=== PATIENT | female | born 1985 | race Caucasian/White ===

== ENCOUNTER 2020-04-19 10:17 | Inpatient (IN) | payer BC ==
[~2020-04-19] VITALS: Ht 160 cm; Wt 78.0 kg
--- NOTE | ~2020-04-19 | [place] ---
[address] [address] [place] DATE OF OPERATION: 04/21/2020 SURGEON: Christine Marino DO PREOPERATIVE DIAGNOSES: 1. Term . 2. Breech presentation. 3. Fibroid uterus. POSTOPERATIVE DIAGNOSES: 1. Term . 2. Breech presentation. 3. Fibroid uterus-pedunculated. PROCEDURES PERFORMED: 1. Low vertical delivery. 2. Myomectomy. BAG CUTTER: Yahaira Uriostegui DO. ANESTHESIA: Spinal with TAP block following the procedure. COMPLICATIONS: None. ESTIMATED BLOOD LOSS: 700 mL. DRAINS: Black catheter. SPECIMENS: None. FINDINGS: Delivery of viable male in the carrie breech presentation with no nuchal cord. Thick meconium noted. weighed 10 pounds 0 ounces with Apgars of 8 and 9. Normal bilateral tubes and ovaries. The uterus has a large, irregular, pedunculated PATIENT NAME: RAYNA HENAO OPERATIVE REPORT DATE OF : 83 REPORT #: [id number] PHYSICIAN: CHRISTINE MARINO DO PCP: DANIEL LINDQUIST REPORT IS CONFIDENTIAL AND NOT TO BE RELEASED WITHOUT AUTHORIZATION [address] [address] [place] fibroid on the anterior surface on the right near the fundus. INDICATIONS: Ms. Henao is a pleasant 35-year-old white female, who presented to Labor and Delivery for scheduled primary delivery. was complicated by IVF , fibroid uterus, and persistent breech presentation. External cephalic version was offered, but was declined due to multiple concerns, including fibroids, IVF, history of hysteroscopic resection of intrauterine synechiae, and placental lakes on ultrasound. Risks, benefits, and alternatives were discussed in detail with the patient, including possible conversion from low-transverse to low midline or classical depending on fibroid location. The patient understands and wishes to proceed with the procedure. TECHNIQUE: The patient was taken to the operating room, where a time-out was performed to confirm correct patient and correct procedure. Spinal anesthetic was adequately established and the patient was prepped and draped in the supine position with a bump under the right hip. Black catheter was inserted. The patient was typed and screened prior to the procedure, tranexamic acid 1 g IV was given preoperatively as well as Ancef 2 g. Heparin was not indicated based on her preemie score. After confirming the Pfannenstiel skin incision was adequate, a surgical scalpel was used to perform a Pfannenstiel skin incision approximately 3 cm above the pubic symphysis. Incision was carried down to the fascia, where the fascia was nicked in the midline. Fascial incision was extended bilaterally with curved Grace scissors. The fascia was grasped with Blaze's, elevated, and the underlying rectus muscles were dissected off bluntly and sharply. The rectus muscles were then divided midline and the peritoneum was grasped with hemostats, elevated and incised. The peritoneal incision was extended cephalad caudad using sharp and blunt dissection. The uterus was palpated. A large mass was palpated in the low midline concerning for fibroid, which had been previously noted on ultrasound. The abdominal cavity was also palpated and a pedunculated fibroid was noted in the right fundal anterior portion of the uterus with a filmy omental adhesion. The remainder of the uterus was clear. We reviewed preoperative planning and concern for lower segment fibroid and decision was made to proceed with low vertical incision to avoid disruption of the lower segment fibroid. Low vertical incision was made using a surgical scalpel after an Ming self retractor was placed. Hysterotomy was extended bilaterally using blunt dissection and amnion was ruptured for thick meconium. The ileum was grasped, elevated, and the buttocks delivered with the assistance of fundal pressure. The was delivered up to the anterior axilla and the arm swept medially and easily delivered. The was rotated to 180 degrees and now anterior arm was swept medially and easily delivered. The was then rotated to the occiput anterior position. The head was gently flexed and delivered with the assistance of fundal pressure. The was vigorous and cried. No nuchal was identified. Cord was doubly clamped and cut and the handed to the waiting pediatric team for further PATIENT NAME: RAYNA HENAO OPERATIVE REPORT DATE OF : 83 REPORT #: [id number] PHYSICIAN: CHRISTINE MARINO DO PCP: DANIEL LINDQUIST REPORT IS CONFIDENTIAL AND NOT TO BE RELEASED WITHOUT AUTHORIZATION [facility] [address] [place], [place] [address] Draft care. Cord blood was obtained for routine analysis. The placenta was then delivered with gentle expression. The posterior lower portion of the placenta did not immediately release easily and this was carefully examined for accreta spectrum. The placenta was gently teased from the posterior wall of the uterus without difficulty with no indication of abnormal placentation, heavy bleeding, or other concerns. The placenta was delivered complete with a centrally inserted three-vessel cord. The uterine cavity was cleared of any remaining products of conception or clot and monitored for additional bleeding, of which none was noted. Hysterotomy was then repaired using 0 Monocryl in 2 layers with the 1st locked running stitch and the 2nd an imbricating stitch in the horizontal manner with good imbrication and hemostasis. A small amount of oozing was noted in the midline at the distal portion of the hysterotomy and this was made hemostatic with a shitdf-lh-plesf of 0 Monocryl. Normal tubes and ovaries identified and a very small less than 1 cm subserosal fibroid was noted in the left adnexal. Our attention was then turned to the pedunculated fibroid. Large complex appearing fibroid was noted arising from a small stalk on the anterior surface of the uterus near the right cornu. Good hemostasis was appreciated at this point of the procedure and a conversation was held with the patient and her regarding management of this fibroid. Given small stalk and potential for future complications and likely additional procedures, we have reviewed risks and benefits of myomectomy at this point versus future laparoscopic procedure. I recommended myomectomy at this time and the patient and understood and agreed. Curved Zeppelin clamps were placed across the stalk and the fibroid excised using Grace scissors. The base of the stalk was made hemostatic with suture ligation of 0 Monocryl. The area was oversewn with multiple layers of 0 Monocryl in a running nonlocked manner and then a second imbricating stitch of 0 Monocryl was applied. Small amount of oozing was noted and this was made hemostatic with a kwsdsa-mr-vqwxc of 0 Monocryl. The pelvis was irrigated and again found to be hemostatic. Tisseel was applied to the low vertical incision as well as to the site of the myomectomy and excellent hemostasis was again noted. The Ming self retractor was removed and the uterus replaced. ACell sheet was applied to the hysterotomy site and the peritoneum was reapproximated using 2-0 Vicryl in a running nonlocked manner. Rectus was examined and made hemostatic with judicious use of Bovie electrocautery. The rectus was then reapproximated in three simple interrupted sutures of 0 Vicryl. ACell powder was applied to the rectus sheath. The fascia was then reapproximated using 0 Vicryl in a running nonlocked manner. Subcu was reapproximated using 3-0 Vicryl in a running nonlocked manner after ensuring excellent hemostasis of the subcuticular space. The skin was then reapproximated using 2-0 Quill suture and a running subcuticular stitch with excellent cosmesis and hemostasis. Steri-Strips were then applied and Cordran tape was applied. The uterus could aid for scant amount of blood and the patient was taken to the PACU in good and stable condition. Sponge, needle, and instrument count was correct x2 at the end of procedure. Dr. Uriostegui was present and participated in all portions of the procedure. Of note, a TAP PATIENT NAME: RAYNA HENAO OPERATIVE REPORT DATE OF : 83 REPORT #: [id number] PHYSICIAN: CHRISTINE MARINO DO PCP: DANIEL LINDQUIST REPORT IS CONFIDENTIAL AND NOT TO BE RELEASED WITHOUT AUTHORIZATION [address] [address] [place] block was then performed by Anesthesia following the completion of our case. Christine Marino DO JDW/MODL /[id number] Copies: ~ PATIENT NAME: RAYNA HENAO OPERATIVE REPORT DATE OF : 83 REPORT #: [id number] PHYSICIAN: CHRISTINE MARINO DO PCP: DANIEL LINDQUIST REPORT IS CONFIDENTIAL AND NOT TO BE RELEASED WITHOUT AUTHORIZATION
--- OUTSIDE RECORDS SUMMARY | ~2020-04-19 | XMS | Encounter Summary ---
Demographics + + + | Address | [address] | | | [place] [address] | + + + | Home Phone | | + + + | Preferred Language | Unknown | + + + | Marital Status | | + + + | Uatsdin Affiliation | CHR | + + + | Race | White | + + + | Ethnic Group | Not or | + + + Author + + + | Author | [facility] | + + + | Organization | [facility] | + + + | Address | Unknown | + + + | Phone | Unavailable | + + + Support + + +---------+ + | Name | Relationship | Address | Phone | + + +---------+ + | Nathaniel Henao | ECON | Unknown | | + + +---------+ + Care Team Providers + +------+ + | Care Director Home Name | Role | Phone | + +------+ + | Kennedi Selby | PCP | | + +------+ + Encounter Details +--------+ + + + + | Date | Type | Department | Care Team | Description | +--------+ + + + + | 06/28/ | Documentati | [place] | Yuli Murdock MD | | | 2019 | on | Fertility | [address] | | | | | Consultants at [facility] | [address] [place], | | | | | [address] | [place] [address] | | | | | [facility] | [phone] | | | | | and [address], | | | | | | | | | | | | [place], [place] | | | | | | [address] | | | | | | [phone] | | | +--------+ + + + + Social History + +-------+ +--------+------+ | Tobacco Use | Types | Packs/Day | Years | Date | | | | | Used | | + +-------+ +--------+------+ | Never Smoker | | | | | + +-------+ +--------+------+ + +---+---+---+ | Smokeless Tobacco: | | | | | Never Used | | | | + +---+---+---+ + + +---------+ + | Alcohol Use | Drinks/Week | oz/Week | Comments | + + +---------+ + | Yes | 1 Glasses of wine | 1.0 | | + + +---------+ + + + + | Sex Assigned at | Date Recorded | | | | + + + | Not on file | | + + + documented as of this encounter Miscellaneous Notes Telephone Encounter - Joaquín Randhawa - 06/30/2019 8:07 AM PSTInventory Update: Embryos #2 @ D5 Embryos #3, #4, #5, and #6 @ D6 From 10/2018 cycle All embryos are PGT, individually frozen and graded. GLOBAL DMSO VIT elephone Encounter - Sylvie Murdock MD - 06/28/2019 9:34 AM PSTFormatting of this note might be different from the gayle hess FINAL as of 07/30/19 Name: Pushpa Henao Patients Ph#: [phone] (home) Cycle Type: FET (thawed non-donor, transcervical) GC: No Protocol: <14d OCPs, proceed to estradiol patch protocol May need additional days of estradiol & reschedule FET given thinner endometrium last cycle & uterine scar IM prog in ethyl oleate Valium 10mg 1 hour before transfer Baby aspirin 81mg starting now Vit E 600mg daily, stop when starting IM prog Dexamethasone 0.5 mg once dailystarting after IM prog start until time of BETA#2 (decreas e risk of 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 No # of embryos to transfer: 1 # of days on progesterone prior to transfer: 6 Patient approval needed to additional thaw? Yes Patient comfortable with discarding embryos? No Assisted Hatching? No LMP: No LMP recorded. OCP Start:06/25/19 Last dose OCP:07/06/19 Lupron start:NA US & E2:NA Estrace/EV Start:07/09/19 Endometrial thickness:07/27/19, repeat on 07/30. Progesterone start:07/31/19 ET Date: Cryopreserved Embryo Report: (indicate number if embryos/vial) # as of #remaining after this ET Pronuclear Day 2 Day 3 Blastocyst Inventory Update: Embryos #2 @ D5 Embryos #3, #4, #5, and #6 @ D6 From 10/2018 cycle All embryos are PGT, individually frozen and graded. GLOBAL DMSO VIT Embryo transfer date: documented in this encou nter Plan of Treatment Not on filedocumented as of this encounter Visit Diagnoses Not on filedocumented in this encounter"
--- OUTSIDE RECORDS SUMMARY | ~2020-04-19 | XMS | Encounter Summary ---
Demographics + + + | Address | [address] | | | [place] [address] | + + + | Home Phone | | + + + | Preferred Language | Unknown | + + + | Marital Status | | + + + | Confucianism Affiliation | CHR | + + + | Race | White | + + + | Ethnic Group | Not or | + + + Author + + + | Author | [facility] | + + + | Organization | [facility] | + + + | Address | Unknown | + + + | Phone | Unavailable | + + + Support + + +---------+ + | Name | Relationship | Address | Phone | + + +---------+ + | Nathaniel Henao | ECON | Unknown | | + + +---------+ + Care Team Providers + +------+ + | Care Property Caretaker Name | Role | Phone | + +------+ + | Kennedi Selby | PCP | | + +------+ + Reason for Visit + + + | Reason | Comments | + + + | Egg Retrieval | | + + + Other (Routine) + +--------+ + + + + | Status | Reason | Specialty | Diagnoses / | Referred By | Referred To | | | | | Procedures | Contact | Contact | + +--------+ + + + + | Authorized | | Reproductive | | [facility] | | | | Endocrinology | | Epic Dept | [facility] | | | | /Infertility | | | [address] | | | | | | [address] | | | | | | | for Health | | | | | | | and Healing, | | | | | | | [address], | | | | | | | 10th Floor | | | | | | | [place], [place] | | | | | | | [address] | | | | | | | Phone: | | | | | | | [phone] | | | | | | | Fax: | | | | | | | [phone] | + +--------+ + + + + Encounter Details +--------+ + + + + | Date | Type | Department | Care Team | Description | +--------+ + + + + | 10/28/ | Procedure | [place] | Yuli Murdock MD | Egg Retrieval | | 2019 | | Fertility | [address] | | | | | Consultants at [facility] | [address] [place], | | | | | [address] | [place] [address] | | | | | [facility] | [phone] | | | | | and Healing, | | | | | | | Tamara Brown MD [address] | | | | | Floor [facility] [place] | [address] | | | | | [address] | [address] [place], [place] | | | | | [phone] | [address] | | | | | | [phone] | | | | | | | | +--------+ + + + + Social History + +-------+ +--------+------+ | Tobacco Use | Types | Packs/Day | Years | Date | | | | | Used | | + +-------+ +--------+------+ | Never Assessed | | | | | + +-------+ +--------+------+ + + + | Sex Assigned at | Date Recorded | | | | + + + | Not on file | | + + + documented as of this encounter Last Filed Vital Signs + + + + + | Vital Sign | Reading | Time Taken | Comments | + + + + + | Blood Pressure | 117/68 | 10/28/2018 11:23 AM | | | | | PDT | | + + + + + | Pulse | 55 | 10/28/2018 11:23 AM | | | | | PDT | | + + + + + | Temperature | 36.7 C (98.1 F) | 10/28/2018 11:23 AM | | | | | PDT | | + + + + + | Respiratory Rate | - | - | | + + + + + | Oxygen Saturation | 99% | 10/28/2018 11:23 AM | | | | | PDT | | + + + + + | Inhaled Oxygen | - | - | | | Concentration | | | | + + + + + | Weight | 63.4 kg (139 lb 12.8 | 10/28/2018 11:23 AM | | | | oz) | PDT | | + + + + + | Height | 160 cm (5' 3") | 10/28/2018 11:23 AM | | | | | PDT | | + + + + + | Body Mass Index | 24.76 | 10/28/2018 11:23 AM | | | | | PDT | | + + + + + documented in this encounter Progress Notes Yuli Murdock MD - 10/28/2018 11:30 AM PDTFormatting of this note might be different from th e original. Pre-Operative History and Physical Pre-sedation Evaluation History: Are you having breathing problems today? Are you having chest pain or discomfort today? Have you had a prior history of difficult intubation or ventilation? Do you have noisy breathing (stridor)? no Do you snore? no Do you have documented sleep apnea? no Previous sedation/anesthesia experience and NPO status documented on nursing note, which I have reviewed. No past medical history on file. No Known Allergies Current Medication List Name Sig ACETAMINOPHEN 300 MG-CODEINE 30 MG TABLET Take 1 tablet by mouth every six hours as needed. CHORIONIC GONADOTROPIN, HUMAN 10,000 UNIT INTRAMUSCULAR SOLUTION Mix powder (10,000 units) with 1 mL diluent for intramuscular injection at time directed. DESOGESTREL 0.15 MG-ETHINYL ESTRADIOL 0.03 MG TABLET Take 1 tablet by mouth once daily. Stephen l on menses day one. Take active only pills. DOXYCYCLINE HYCLATE 100 MG TABLET Take 1 tablet by mouth every twelve hours. (Pharmacist to substitute salt form as needed) FOLLITROPIN JOE 300 UNIT/0.5 ML SUBCUTANEOUS PEN INJECTOR Inject 150 Units under the skin (SUBC) once daily. In the evenings when instructed. FOLLITROPIN JOE 900 UNIT/1.5 ML SUBCUTANEOUS PEN INJECTOR Inject 150 units under the skin (SUBC) once daily in the evenings when instructed GANIRELIX 250 MCG/0.5 ML SUBCUTANEOUS SYRINGE Inject one syringe (0.5 mL) under the skin ( SUBC) once daily. Administer when instructed. MENOTROPINS 75 UNIT SUBCUTANEOUS SOLUTION Inject 2 vials under the skin (SUBC) once daily i n the morning as instructed by your protocol. NEEDLE (DISP) 25 GAUGE X 1 1/2" Use to inject Novarel/Pregnyl. NEEDLE (DISP) 27 GAUGE X 1/2" Use to inject Menopur. SHARPS CONTAINER 1 PINT Use as directed. SYRINGE (DISPOSABLE) 3 ML Use as directed with Menopur. SYRINGE WITH NEEDLE 3 ML 25 X 1 1/2" Use as directed with Pregnyl. Patient Active Problem List Diagnosis IVF Screening Checklist Physical Examination: Bilaterally enlarged ovarian consistent with ovarian stimulation Body mass index is 24.76 kg/m. Airway Examination normal airway Assessment: I have reviewed Ms. Henao's history and and conducted the physical examination as documente d above. This patient is appropriate for moderate sedation for egg retrieval. Ms. Henao has provided written consent for sedation with this procedure. ASA Status: 1. Plan: Proceed with moderate sedation Surgical Plan egg retrieval PARQ Reviewed, consent on chart. EGG RETRIEVAL Needle Used: Double Length of Procedure: 25 min Number of Oocytes: 13 Pain Experienced (1-10): 1 Antibiotics Given: Yes Approach: transvaginal ultrasound EBL: 1ml Complications: None Bilateral iliacs intact after procedure: Yes Free Fluid Amount: None Patient identity was confirmed. Risks of procedure were explained to patient. Consent forme d was signed. Patient was placed in the modified dorsal lithotomy position. A team pause benji casper performed. Using ultrasound guidance the ovary was visualized the needle was inserted into the ovary aspiration of fluid and eggs were completed. Instruments were then removed, and p atient remained resting on table for 30 minutes; No vaginal bleeding was noted. Patient tole rated procedure well, no complications. Routine post procedure instructions given. Pt identified with date of , full name and type of procedure. Team pause with physicia n, embryologist, anesthesiologist and C.M.A. Egg Retrieval was performed on patient without complications. Written Post-retrieval instructions were discussed and given to the patient. Escorted via wheelchair to car. Patient was discharged alert and ambulatory. [facility]. Patient was discharged at 12:34pm. documented in this encoun ter Plan of Treatment Not on filedocumented as of this encounter Procedures + +--------+ + + + | Procedure Name | Priori | Date/Time | Associated Diagnosis | Comments | | | ty | | | | + +--------+ + + + | MA FOLLICLE | Routin | 11/15/2018 | Encounter for | | | PUNC,RETRIEVAL OF | e | 2:10 PM | assisted | | | OOCYTE | | PDT | reproductive | | | | | | fertility procedure | | | | | | cycle | | + +--------+ + + + | UFC RETRIEVAL | Routin | 10/28/2018 | Encounter for | Results for this | | | e | 8:58 AM | assisted | procedure are in the | | | | PDT | reproductive | results section. | | | | | fertility procedure | | | | | | cycle | | + +--------+ + + + | ANESTHESIA/SEDATION | | 10/28/2018 | | Results for this | | | | 12:00 AM | | procedure are in the | | | | PDT | | results section. | + +--------+ + + + | ANESTHESIA/SEDATION | | 10/28/2018 | | Results for this | | | | 12:00 AM | | procedure are in the | | | | PDT | | results section. | + +--------+ + + + documented in this encounter Results UFC RETRIEVAL (10/28/2018 8:58 AM PDT) + + | Specimen | + + | | + + + + + | Narrative | Performed At | + + + | Refer to the encounter notes for imaging results. | [facility] | | | RADIOLOGY | + + + + +---------+ + + | Performing | Address | City/State/Zipcode | Phone Number | | Organization | | | | + +---------+ + + | [facility] | | | | + +---------+ + + ANESTHESIA/SEDATION (10/28/2018 12:00 AM PDT) + + + | Narrative | Performed At | + + + | | | + + + ANESTHESIA/SEDATION (10/28/2018 12:00 AM PDT) + + + | Narrative | Performed At | + + + | | | + + + documented in this encounter Visit Diagnoses + + | Diagnosis | + + | Encounter for assisted reproductive fertility procedure cycle - Primary | + + documented in this encounter
--- OUTSIDE RECORDS SUMMARY | ~2020-04-19 | XMS | Encounter Summary ---
Demographics + + + | Address | [address] | | | [place] [address] | + + + | Home Phone | | + + + | Preferred Language | Unknown | + + + | Marital Status | | + + + | Tenriism Affiliation | CHR | + + + | Race | White | + + + | Ethnic Group | Not or | + + + Author + + + | Author | [facility] | + + + | Organization | [facility] | + + + | Address | Unknown | + + + | Phone | Unavailable | + + + Support + + +---------+ + | Name | Relationship | Address | Phone | + + +---------+ + | Nathaniel Henao | ECON | Unknown | | + + +---------+ + Care Team Providers + +------+ + | Care Market Manager Name | Role | Phone | + +------+ + | Parth Selbya CHIO | PCP | | + +------+ + Reason for Visit + +--------+ + | Reason | Onset | Comments | | | Date | | + +--------+ + | Surgery Concerns | 11/24/ | | | | 2019 | | + +--------+ + Encounter Details +--------+ + + + + | Date | Type | Department | Care Team | Description | +--------+ + + + + | 11/24/ | Telephone | [place] | Yuli Murdock MD | Surgery Concerns | | 2019 | | Fertility | [address] | | | | | Consultants at [facility] | [address] [place], | | | | | [address] | [place] [address] | | | | | [facility] | [phone] | | | | | and Healing, | | | | | | Building | | | | | | Floor [place], [place] | | | | | | [address] | | | | | | [phone] | | | +--------+ + + + [...] this encounter Miscellaneous Notes Telephone Encounter - Seth Peck RN - 11/24/2018 5:02 PM PDTReviewed with , kristie brito received. Pt informed via mychart. elephone Encounter - Seth Peck RN - 11/24/2018 1:08 PM PDTHysteroscopy jason nned for this here at [facility]. Pt relayed symptoms starting yesterday, after intercour se with partner. Slight vaginal itchiness and irritation. No discharge noted. No new lubrica tion products used. Pt has not has this before and is wondering if she needs to do anything prior to the upcoming procedure. Reviewed with pt increasing probiotic intake for now. Route d to MD for further advisement. elephone Encounter - Nicole Olivas - 11/24/2018 12:28 PM PDT Pt has some concerns and isn't sure she should go through procedure w/ Dr. Murdock. Pt believes she may need to be seen by her PCP before her procedure. And isn't sure if the procedure sayra uld be performed by her PCP Pt available all day today Home Phone Work Phone documented in this enco unter Plan of Treatment Not on filedocumented as of this encounter Visit Diagnoses Not on filedocumented in this encounter"
--- OUTSIDE RECORDS SUMMARY | ~2020-04-19 | XMS | Encounter Summary ---
Demographics + + + | Address | [address] | | | [place] [address] | + + + | Home Phone | | + + + | Preferred Language | Unknown | + + + | Marital Status | | + + + | Jehovah'S Witness Affiliation | CHR | + + + | Race | White | + + + | Ethnic Group | Not or | + + + Author + + + | Author | [facility] | + + + | Organization | [facility] | + + + | Address | Unknown | + + + | Phone | Unavailable | + + + Support + + +---------+ + | Name | Relationship | Address | Phone | + + +---------+ + | Nathaniel Henao | ECON | Unknown | | + + +---------+ + Care Team Providers + +------+ + | Care Day Care Provider Name | Role | Phone | + +------+ + | Kennedi Selby | PCP | | + +------+ + Reason for Visit + + + | Reason | Comments | + + + | Ultrasound | | + + + Other (Routine) [...] | | | | | | | [facility] [place] | | | | | | | [address] | | | | | | | Phone: | | | | | | | [phone] | | | | | | | Fax: | | | | | | | [phone] | + +--------+ + + + + Encounter Details +--------+ + + + + | Date | Type | Department | Care Team | Description | +--------+ + + + + | 01/15/ | Procedure | [facility] | Maura Portillo MD | Ultrasound | | 2019 | | Fertility | [address] | | | | | Consultants at [facility] | [place], [place] | | | | | [address] | [address] | | | | | [facility] | [phone] | | | | | and Healing, | | | | | | [address], [address]th | | | | | | Floor [place], [place] | | | | | | [address] | | | | | | [phone] | | | +--------+ + + + [...] + + documented as of this encounter Progress Notes Dalia Newby MA - 01/15/2019 10:00 AM PDTFormatting of this note might be different f rom the original. ENDOCRINE MANAGEMENT PROGRESS NOTE 01/15/2019 Day of stimulation: ARC, ENDO check. US/P4. FET Estrace only. d5/6. snow[place]/dg Comments: Indication: endo check for future FET Approach: transvaginal Systems checklist: negative for uterine polyps, myomas, fluid in cavity, ovarian mass and f luid in cul-de-sac. Estradiol level: Lab Results Component Value Date ESTRADIOL 2,385 10/26/2018 Progesterone level: Lab Results Component Value Date PROG <1 01/15/2019 FOLLICLE EXAMINATION / ENDOMETRIAL THICKNESS Endometrial thickness: 7.5, 7.7, 7.4, 8.1 Grade: III LARGEST FOLLICLES (Measured in Millimeters) RIGHT OVARY VOLUME: LEFT OVARY VOLUME: 1 mean 1 mean 2 mean 2 mean 3 mean 3 mean 4 mean 4 mean 5 mean 5 mean 6 mean 6 mean 7 mean 7 mean 8 mean 8 mean 9 mean 9 mean 10 mean 10 mean Additional Follicles: Additional Follicles: Total Follicles: Total Follicles: Interpretation: Lining borderline thickness. Trilaminar pattern. Sl irreg s/p recent H/S. Ovaries supp bilat. Plan: probably add a few days of vag E 2mg once daily and push out FET a few days. Pt is w orking , Wed, Thurs of following week and is driving from [employer]. I personally performed all components of this scan, Maura Portillo MD. documented in this encou nter Plan of Treatment Not on filedocumented as of this encounter Procedures + +--------+ + + + | Procedure Name | Priori | Date/Time | Associated Diagnosis | Comments | | | ty | | | | + +--------+ + + + | [facility] PELVIS | Routin | 01/15/2019 | Encounter for | Results for this | | ULTRASOUND | e | 7:27 AM | assisted | procedure are in the | | | | PDT | reproductive | results section. | | | | | fertility procedure | | | | | | cycle | | + +--------+ + + + documented in this encounter Results [facility] PELVIS ULTRASOUND (01/15/2019 7:27 AM PDT) + + | Specimen | [...] | | | + +---------+ + + documented in this encounter Visit Diagnoses + + | Diagnosis | + + | Encounter for assisted reproductive fertility procedure cycle - Primary | + + | Female infertility Female infertility of unspecified origin | + + documented in this encounter"
--- OUTSIDE RECORDS SUMMARY | ~2020-04-19 | XMS | Encounter Summary ---
Demographics + + + | Address | [address] | | | [place] [address] | + + + | Home Phone | | + + + | Preferred Language | Unknown | + + + | Marital Status | | + + + | Baptism Affiliation | CHR | + + + | Race | White | + + + | Ethnic Group | Not or | + + + Author + + + | Author | [facility] | + + + | Organization | [facility] | + + + | Address | Unknown | + + + | Phone | Unavailable | + + + Support + + +---------+ + | Name | Relationship | Address | Phone | + + +---------+ + | Nathaniel Henao | ECON | Unknown | | + + +---------+ + Care Team Providers + +------+ + | Care Pouncing Lathe Operator Name | Role | Phone | + +------+ + | Kennedi Selby | PCP | | + +------+ + Reason for Visit Other (Routine) + +--------+ + + + + | Status | Reason | Specialty | Diagnoses / | Referred By | Referred To | | | | | Procedures | Contact | Contact | + +--------+ + + + + | Authorized | | Reproductive | | [facility] | [facility] | | | | Endocrinology | | Epic Dept | [facility] | | | | /Infertility | | | [address] | | | | | | | e [place] | | | | | | | for Health | | | | | | | and Healing, | | | | | | | [address], | | | | | | | 10th Floor | | | | | | | [place], [place] | | | | | | | [address] | | | | | | | Phone: | | | | | | | [phone] | | | | | | | Fax: | | | | | | | [phone] | + +--------+ + + + + Encounter Details +--------+ + + + + | Date | Type | Department | Care Team | Description | +--------+ + + + + | 03/02/ | Telephone-S | [place] | [facility] | | | 2019 | cheduled | Fertility | [address] | | | | | Consultants at [facility] | [place] [address] | | | | | [address] | | | | | | [facility] | | | | | | and Healing, | | | | | | Building | | | | | | [place], [place] | | | | | | [address] | | | | | | [phone] | | | +--------+ + + + [...] + + documented as of this encounter Plan of Treatment Not on filedocumented as of this encounter Procedures + +--------+ + + + | Procedure Name | Priori | Date/Time | Associated Diagnosis | Comments | | | ty | | | | + +--------+ + + + | OUTSIDE LAB - | | 03/02/2019 | | Results for this | | PATHOLOGY | | 12:00 AM | | procedure are in the | | | | PDT | | results section. | + +--------+ + + + documented in this encounter Results OUTSIDE LAB - PATHOLOGY (03/02/2019 12:00 AM PDT) + + + | Narrative | Performed At | + + + | | | + + + documented in this encounter Visit Diagnoses Not on filedocumented in this encounter"
--- OUTSIDE RECORDS SUMMARY | ~2020-04-19 | XMS | Encounter Summary ---
Demographics + + + | Address | [address] | | | [place] [address] | + + + | Home Phone | | + + + | Preferred Language | Unknown | + + + | Marital Status | | + + + | Yazidi Affiliation | CHR | + + + | Race | White | + + + | Ethnic Group | Not or | + + + Author + + + | Organization | Unknown | + + + | Address | Unknown | + + + | Phone | Unavailable | + + + Support + + +---------+ + | Name | Relationship | Address | Phone | + + +---------+ + | Nathaniel Henao | GE[place] | Unknown | | + + +---------+ + Care Team Providers + +------+ + | Care Curriculum Development Specialist Name | Role | Phone | + +------+ + | Kennedi Selby | PCP | | + +------+ + Encounter Details +--------+--------+ + + + | Date | Type | Department | Care Team | Description | +--------+--------+ + + + | 02/04/ | Travel | | | | | 2019 | | | | | +--------+--------+ + + + Social History + +-------+ [...]
--- OUTSIDE RECORDS SUMMARY | ~2020-04-19 | XMS | Encounter Summary ---
Demographics + + + | Address | [address] | | | [place] [address] | + + + | Home Phone | | + + + | Preferred Language | Unknown | + + + | Marital Status | | + + + | Catholic Affiliation | CHR | + + + | Race | White | + + + | Ethnic Group | Not or | + + + Author + + + | Author | [facility] | + + + | Organization | [facility] | + + + | Address | Unknown | + + + | Phone | Unavailable | + + + Support + + +---------+ + | Name | Relationship | Address | Phone | + + +---------+ + | Nathaniel Henao | ECON | Unknown | | + + +---------+ + Care Team Providers + +------+ + | Care Conveyor Attendant Name | Role | Phone | + +------+ + | Kennedi Selby | PCP | | + +------+ + Reason for Visit + +--------+ + | Reason | Onset | Comments | | | Date | | + +--------+ + | Lab findings, | 09/12/ | | | teaching, guidance, | 2018 | | | and counseling | | | + +--------+ + Encounter Details +--------+ + + + + | Date | Type | Department | Care Team | Description | +--------+ + + + + | 09/12/ | Telephone | [facility] | Yuli Murdock MD | Lab findings, | | 2019 | | Fertility | [id number] | teaching, guidance, | | | | [facility] | Barbara Mohr Emerado, | and counseling | | | | [address] | [place] [address] | | | | | [facility] | [phone] | | | | | and Healing, | | | | | | Building | | | | | | [place], [place] | | | | | | [address] | | | | | | [phone] | | | +--------+ + + + [...] this encounter Miscellaneous Notes Telephone Encounter - Anny Ying RN - 09/12/2018 10:24 AM PSTPt advised as below. Provid ed my chart activation as well. Will send information to her once activated. elephone Encounter - Yuli Murdock MD - 09/12/2018 8:39 AM PSTPlease call her w/ abn results - evidence of elevated thyroid antibod ies, indicating that she also will soon develop Hashimotos hypothyroidism like her sister an d father. Her TSH is still in the normal range right now, but will be vulnerable and less ab le to adequately support the energy and metabolic needs of her AND an embryo during pregnanc y so we recommend starting a low-dose thyroid supplement before an embryo transfer to help s upport the thyroid. Egg marker AMH level is showing a moderate decrease in egg quantity, it 's at the 38% ile compared to other age-related women. This is consistent with some shorter menstrual cycles she described, as well as being influenced negatively by an autoimmune diso rder (of the thyroid gland). Vit D is slightly lower, recommend Vit D3 4000 IU/day in additi on to PNV. Recommend the following list of additional supplements: For female partner: (in addition to a multivitamin for women with folic acid or prenatals ) DHEA 25mg twice a day CoQ10 200mg 3 times/day (Ubiquinol) - [employer] and [employer] may be more reli able brands Vit C 500mg daily [place]-3/Fish oil 500-1000mg daily - [employer] and [employer] Vit. E 200mg daily L-arginine 1-2 g daily For male partner: (in addition to a multivitamin for men) CoQ 10 200mg twice a day Vit C 500-1000mg daily [place] 3 (fish oil) 500-1000mg daily Folic acid 400 mcg and zinc 15-30 mg (both are often in multivitamins) Overall, we recommend a healthy diet with organic fruits (berries), less red meat and no tr ans fats (fried foods, doughnuts/pastries), more olive oil, avocado, fish, a handful of mixe d nuts each day, and avoiding foods cooked at very high heat with blackened/charred grill ma rks. The Environmental Working Group https://www.ewg.org/ A phenomenal resource for additional information on various toxic chemicals that may affect , male and female fertility, with important consumer information that can empower all of us to "live healthier lives in a healthier environment." A recently published study in [employer] [facility] (2018), a journal of the [place] [employer]i m[employer], found a signifcant association between consuming ngzd-lsgusgmul-gparjhq konrad ds and fertility problems among participants in the [facility] EARTH study. Women wh o reported eating >2 servings per day of produce with higher pesticide residues were 26% les s likely to have a successful than participants who ate fewer servings of these fo ods. Prior studies of male participants have also found similar concerns about the consumpti on of high pesticide-laden produce and adverse effects on male reproductive health. We recommend that you purchase ORGANIC produce for the items listed on the "Dirty Dozen Lis t:" Strawberries Spinach Nectarines Apples Peaches Pears Cherries Grapes Celery Tomatoes Sweet [place] Peppers Potatoes The "Clean 15 List" are produce that are LESS likely to be contaminated by pesticides, so o k to purchase non-organic if you wish: Avocado Sweet [place] Pineapples Cabbage Onions Frozen Sweet Peas Papayas Asparagus Mangos Eggplant Honeydew Kiwi Cantaloupe Cauliflower Broccoli Please also be informed about known endocrine disrupters (chemicals harmful to the reproduc tive system in both men and women) that may be in consumer products that we use on a daily b asis. https://www.ewg.org/research/wseib-fbysf-qahf-endocrine-disruptors#.Yv9zla-FcuV The following is a short list: - phthalates (cosmetics, lotions, soaps/shampoos) - parabens (cosmetics, lotions, soaps/shampoos) - Triphenyl phosphate (nail rwandan) - BPA (plastics, receipts, lining of canned goods) - Perfluorinated chemicals/PFOA (non-stick pots/pans, stain-resistant coatings on carpet & upholstery) documented in this encoun ter Plan of Treatment Not on filedocumented as of this encounter Visit Diagnoses Not on filedocumented in this encounter
--- OUTSIDE RECORDS SUMMARY | ~2020-04-19 | XMS | Encounter Summary ---
Demographics + + + | Address | [address] | | | [place] [address] | + + + | Home Phone | | + + + | Preferred Language | Unknown | + + + | Marital Status | | + + + | Church Affiliation | CH[employer] | + + + | Race | White | + + + | Ethnic Group | Not or | + + + Author + + + | Author | [facility] | + + + | Organization | [facility] | + + + | Address | Unknown | + + + | Phone | Unavailable | + + + Support + + +---------+ + | Name | Relationship | Address | Phone | + + +---------+ + | Nathaniel Henao | ECON | Unknown | | + + +---------+ + Care Team Providers + +------+ + | Care Toe Closing Machine Tender Name | Role | Phone | + +------+ + | Bal Kennedi CHIO | PCP | | + +------+ + Reason for Visit AUTH/CERT +--------+--------+ + + + + | Status | Reason | Specialty | Diagnoses / | Referred By | Referred To | | | | | Procedures | Contact | Contact | +--------+--------+ + + + + | | | | | | | +--------+--------+ + + + + Encounter Details +--------+ + + + + | Date | Type | Department | Care Team | Description | +--------+ + + + + | 11/27/ | Hospital | [facility] | Yuli Bettencourt MD | | | 2019 | Encounter | [address] | [address] | | | | | [address] Mailcode: [facility] | Barbara Mohr [place], | | | | | [facility] | [place] [address] | | | | | [facility], | [phone] | | | | | [place] [address] | | | | | | [place], [place] | | | | | | [address] | | | | | | [phone] | | | +--------+ + + + [...] + + + | Blood Pressure | 113/96 | 11/27/2018 11:30 AM | | | | | PDT | | + + + + + | Pulse | 52 | 11/27/2018 11:30 AM | | | | | PDT | | + + + + + | Temperature | 36.7 C (98.1 F) | 11/27/2018 10:27 AM | | | | | PDT | | + + + + + | Respiratory Rate | 16 | 11/27/2018 11:30 AM | | | | | PDT | | + + + + + | Oxygen Saturation | 100% | 11/27/2018 11:30 AM | | | | | PDT | | + + + + + | Inhaled Oxygen | - | - | | | Concentration | | | | + + + + + | Weight | 62.6 kg (138 lb) | 11/27/2018 7:05 AM | | | | | PDT | | + + + + + | Height | 160 cm (5' 3") | 11/27/2018 7:05 AM | | | | | PDT | | + + + + + | Body Mass Index | 24.45 | 11/27/2018 7:05 AM | | | | | PDT | | + + + + + documented in this encounter Discharge Instructions Discharge Instr - Day Procedure Instructions Kavitha Larose MD - 11/26/2018 11:19 PM PD TRecovering after Hysteroscopy Hysteroscopy is a procedure that is performed with a small camera that is inserted into the cervix from the vagina to look at the endometrium (the lining of the uterus). This is often done to remove endometrial polyps or fibroids to help decrease abnormal vaginal bleeding. We have provided you with this set of discharge instructions that addresses some of the mos t common concerns after your surgery. What to expect After the surgery, most women have some cramping, vaginal discharge, and nausea. You may maradiaga ve a pinkish vaginal discharge for two to three days afterward. It should not be heavy bleed ing (soaking a pad every hour for 2 hours) Pain Ibuprofen is often the only pain medication that one needs after this type of surgery. We r ecommend taking 600 mg of ibuprofen every 6 hours you are awake the first day of surgery and then every 6 hours as needed in the following days. When you can go back to work Most women can go back to work or school the following day. Activity You may not drive until you finish all narcotic medicine. No intercourse and nothing in the vagina for 2 weeks You may resume all other usual activities You may climb stairs and exercise as tolerated You may shower daily, avoid tub baths for the first 2 weeks. When to Call your doctor 1. Worsening pain or pain that is not relieved by medications. 2. Constipation that persists beyond 3 days after surgery 3. Any heavy bleeding (heavier than a period) 4. Temperature above 100.4 F 5. Any foul smelling discharge How to contact your provider If you have any concerns at home, we can be reached at during clinic hours. If you need immediate attention please tell the phone staff that the matter is urgent. The re is an communications operator staff member in the evenings and nights as well. Please reserve urgent mat ters only for evening and night calls. Please call the [facility] gasoline power shovel operator at [phone] nigh and weekends and ask for the Gynecology resident communications operator. Follow Up Dr. Bettencourt will call you with the pathology results from today's procedure. It normally takes 3 -5 business days to get the results. It is reasonable to expect a call the week following yo ur procedure. documented in this encounter Medications at Time of Discharge + + + +---------+ + + | Medication | Sig | Dispensed | Refills | Start | End Date | | | | | | Date | | + + + +---------+ + + | | Take 1 tablet by | 10 | 0 | 10/27/19 | | | acetaminophen-codein | mouth every six | tablet | | 19 | | | e 300-30 mg oral | hours as needed. | | | | | | tablet | | | | | | + + + +---------+ + + | ascorbic acid | Take 100 mg by mouth | | 0 | | | | (vitamin C) 100 mg | once daily. | | | | | | oral tablet | | | | | | + + + +---------+ + + | cholecalciferol | Vitamin D3 | | 0 | | | | (Vitamin D3) | | | | | | | (VITAMIN D3) 1,000 | | | | | | | unit oral capsule | | | | | | + + + +---------+ + + | omega | Take 1,000 mg by | | 0 | | | | 5-cxs-dmv-fish oil | mouth once daily. | | | | | | (FISH OIL) | | | | | | | 100-160-1,000 mg | | | | | | | oral capsule | | | | | | + + + +---------+ + + | | | | 0 | | | | 166-FZFQ-WZFQR | | | | | | | AC-DHA ORAL | | | | | | + + + +---------+ + + | rizatriptan 10 mg | Take 10 mg by mouth | | 0 | | | | oral tablet | as needed for | | | | | | | migraine. | | | | | + + + +---------+ + + documented as of this encounter H&P Notes Kavitha Larose MD - 11/27/2018 8:37 AM PDTI have examined the patient and reviewed the History and Physical and have confirmed that it is accurate and current. Kavitha Larose MD u, Yuli Elliott MD - 0 10/28/2018 11:30 AM PDT Pre-Operative History and Physical Pre-sedation Evaluation History: [...] modified dorsal lithotomy position. A team pause wa s performed. Using ultrasound guidance the ovary was [...] was discharged alert and ambulatory. Released to [facility] with no problems. Patient was discharged at 12:34pm. documented in this encoun ter Procedure Notes Yuli Bettencourt MD - 11/27/2018 8:40 AM PDTAssociated Order(s): ENDOMETRIAL BIOPSY; HYSTEROSC OPYProcedure(s): HYSTEROSCOPIC POLYPECTOMY OF UTERUSPre-Procedure Diagnose(s): Endometrial p olyp; Dysmenorrhea; Menorrhagia with regular cyclePost-Procedure Diagnose(s): Endometrial po lyp; Dysmenorrhea; Menorrhagia with regular cycleOPERATIVE REPORT- HYSTEROSCOPY Procedure Date: 11/27/18 Attending Physician: Yuli Bettencourt MD Assistants: Kavitha Larose MD, PGY 1 Prior to the beginning of the procedure the team paused to verify the patient's identity, a s well as the procedure to be performed and the correct side/site. All equipment required w as ready and available. Patient received pre-op antibiotics: 2g Ancef. SCDs were confirmed o n and functioning. Preoperative Diagnosis: endometrial polyps, dysmenorrhea Postoperative Diagnosis: endometrial polyps, dysmenorrhea Procedure Performed: 1. Hysteroscopy, endometrial polypectomy Findings: Exam Under Anesthesia: 6cm uterus, mobile, anteverted. Hysteroscopy Findings: 1. Uterine cavity with diffusely polypoid endometrium. 2. Bilateral ostia appeared normal. 4. Normal uterine cavity and endocervix at the end of the procedure. Anesthesia: MAC Estimated Blood Loss: minimal Urine Output: minimal Fluids: 500 ml NS Hysteroscopic fluid defecit: 305 ml LR Specimens: endometrial polyps Drains: Black in place during procedure, removed in OR Complications: None Disposition: Stable to PACU Indications: 33 y.o. G0 with menorrhagia and endometrial polyps noted on SIS presenting for hysteroscopy and polypectomy. Procedure: The patient was taken to the operating room where she was placed in dorsal supine position and MAC was induced without difficulty. She was then placed in dorsal lithotomy with Alfonzo s tirrups in a neurologically safe position. She was prepped and draped in the normal sterile fashion. A single sided speculum was placed in the vagina and a single toothed tenaculum was placed on the anterior lip of the cervix. 10 cc's of 0.25%Bupivacaine were injected for a para-cerv ical block. The cervix was dilated to 17 yemeni using Morgan dilators. A 6.25 mm 0 degree My osure hysteroscope was then placed inside the uterus under direct visualization. LR was used as the distending medium and the above findings were noted. The myosure Lite device was jason christian into the hysteroscope and the endometrial polyps were resected without difficulty. Sampl es of endometrium were taken from anterior and posterior uterine tao. The hysteroscope wa s removed from the uterus. Tissue was sent to pathology. The tenaculum was removed, and bilateral tenaculum sites were evaluated with good hemostasi s. The speculum was then removed. Anesthesia was reversed, and the patient was taken to the PACU in stable condition. Sponge, lap and needle counts were correct x 2. Yuli Bettencourt MD, primary surgeon, was scrubbed and present for the entire procedure. Kavitha Larose MD PGY-1 Obstetrics and Gynecology I was present for and operated as the primary surgeon throughout this procedure. I edited t he above operative note for clarity. I agree that the documentation above is accurate. ELICEO BETTENCOURT MD documented in this encoun ter Plan of Treatment + +---------+--------+ + + | Name | Type | Priori | Associated Diagnoses | Order Schedule | | | | ty | | | + +---------+--------+ + + | INTRAPROCEDURE | Imaging | Routin | | One Time for 1 | | IMAGING | | e | | Occurrences starting | | | | | | 11/27/2018 until | | | | | | 11/27/2018, 1 | | | | | | completed | + +---------+--------+ + + documented as of this encounter Procedures + +--------+ + + + | Procedure Name | Priori | Date/Time | Associated Diagnosis | Comments | | | ty | | | | + +--------+ + + + | SURGICAL PATHOLOGY | Routin | 11/27/2018 | | Results for this | | | e | 9:13 AM | | procedure are in the | | | | PDT | | results section. | + +--------+ + + + | HYSTEROSCOPY WITH | Electi | 11/27/2018 | N84.0 Polyp of | | | D&C WITH/WITHOUT | ve | 8:49 AM | corpus uteri and | | | POLYP REMOVAL | Surgic | PDT | N94.6 Dysmenorrhea, | | | | al | | unspecified | | + +--------+ + + + | ENDOMETRIAL BIOPSY | Routin | 11/27/2018 | | Results for this | | | e | 8:40 AM | | procedure are in the | | | | PDT | | results section. | + +--------+ + + + | HYSTEROSCOPY | Routin | 11/27/2018 | | Results for this | | | e | 8:40 AM | | procedure are in the | | | | PDT | | results section. | + +--------+ + + + | INTRAPROCEDURE | Routin | 11/27/2018 | | Results for this | | IMAGING | e | 7:10 AM | | procedure are in the | | | | PDT | | results section. | + +--------+ + + + | HCG URINE, POC | Routin | 11/27/2018 | | Results for this | | | e | 6:49 AM | | procedure are in the | | | | PDT | | results section. | + +--------+ + + + documented in this encounter Results SURGICAL PATHOLOGY (11/27/2018 9:13 AM PDT) + + + + + + | Component | Value | Ref Range | Performed | Pathologist | | | | | At | Signature | + + + + + + | Clinical | Polypoid endometrium, | | [facility] | | | History | please evaluate for | | DEPARTMENT | | | | plasma cells | | OF | | | | | | PATHOLOGY | | + + + + + + | Final | A. Endometrium, | | [facility] | Electronically | | Pathologic | polypectomy: Benign | | DEPARTMENT | signed by | | Diagnosis | endometrial polyp, see | | OF | Claire Bell, | | | comment Fragments of | | PATHOLOGY | on 12/02/2018 | | | benign smooth muscle | | | at 3:08 PM | | | Negative for | | | | | | hyperplasia, atypia, and | | | | | | malignancyComment: | | | | | | Immunohistochemistry | | | | | | performed on block A1 | | | | | | for CD138 highlights | | | | | | scattered plasma cells. | | | | | | Plasma cells may be | | | | | | seen in association with | | | | | | endometrial polyps. | | | | | | Clinical correlation is | | | | | | recommended.Case seen | | | | | | by:Satnam Mathews, Pathology | | | | | | Student Travis Mckinney | | | | | | MD Arabella - | | | | | | PathologistPathology, | | | | | | [facility] | | | | | | University electronic | | | | | | signature indicates that | | | | | | I have personally | | | | | | reviewed all diagnostic | | | | | | slides, the gross and/or | | | | | | microscopic portion of | | | | | | this report and | | | | | | formulated the final | | | | | | diagnosis. | | | | + + + + + + | Gross | Received is one specimen | | [facility] | | | Description | fresh in a container | | DEPARTMENT | | | | labeled with the | | OF | | | | patient's name (initials | | PATHOLOGY | | | | SMB) and medical record | | | | | | number [id number]. | | | | | | Uterus, polypoid | | | | | | endometrium, please | | | | | | evaluate for plasma | | | | | | cells : Received labeled | | | | | | " polypoid endometrium, | | | | | | please evaluate plasma | | | | | | cells-1" in a mesh bag | | | | | | are multiple bear-red | | | | | | fragments of soft tissue | | | | | | measuring 2.5 x 1.8 x | | | | | | 0.3 cm in aggregate. | | | | | | The specimen is filtered | | | | | | and entirely | | | | | | submitted.A1, | | | | | | filtered(AMJ) | | | | + + + + + + | Ancillary | Analyte specific | | [facility] | | | Information | reagents are used in | | DEPARTMENT | | | | many laboratory tests | | OF | | | | necessary for standard | | PATHOLOGY | | | | medical care. This test | | | | | | was developed and its | | | | | | performance | | | | | | characteristics | | | | | | determined by [facility] | | | | | | laboratories. It has | | | | | | not been cleared or | | | | | | approved by the US Food | | | | | | and Drug Administration | | | | | | (FDA). FDA does not | | | | | | require this test to go | | | | | | through premarket FDA | | | | | | review. This test is | | | | | | used for clinical | | | | | | purposes. It should not | | | | | | be regarded as | | | | | | investigational or for | | | | | | research. This | | | | | | laboratory is certified | | | | | | under the Clinical | | | | | | Laboratory Improvement | | | | | | Amendments (CLIA) as | | | | | | qualified to perform | | | | | | high complexity clinical | | | | | | laboratory testing. | | | | + + + + + + + + | Specimen | + + | Tissue - Uterine | | structure (body | | structure) | + + + + + + + | Performing | Address | City/State/Zipcode | Phone Number | | Organization | | | | + + + + + | [facility] | [address] | [place] [address] | | | PATHOLOGY | [address] | | | + + + + + HYSTEROSCOPY (11/27/2018 8:40 AM PDT) + + + | Narrative | Performed At | + + + | Yuli Bettencourt MD 12/10/2018 11:20 AM OPERATIVE REPORT- | | | HYSTEROSCOPY Procedure Date: 11/27/18 Attending Physician: | | | Yuli Bettencourt MD Assistants: Kavitha Larose MD, PGY 1 Prior to | | | the beginning of the procedure the team paused to verify the | | | patient's identity, as well as the procedure to be performed and the | | | correct side/site. All equipment required was ready and | | | available. Patient received pre-op antibiotics: 2g Ancef. SCDs were | | | confirmed on and functioning. Preoperative Diagnosis: endometrial | | | polyps, dysmenorrhea Postoperative Diagnosis: endometrial | | | polyps, dysmenorrhea Procedure Performed: 1. Hysteroscopy, | | | endometrial polypectomy Findings: Exam Under Anesthesia: 6cm | | | uterus, mobile, anteverted. Hysteroscopy Findings: 1. Uterine | | | cavity with diffusely polypoid endometrium. 2. Bilateral ostia | | | appeared normal. 4. Normal uterine cavity and endocervix at the | | | end of the procedure. Anesthesia: MAC Estimated Blood | | | Loss: minimal Urine Output: minimal Fluids: 500 ml NS Hysteroscopic | | | fluid defecit: 305 ml LR Specimens: endometrial polyps | | | Drains: Black in place during procedure, removed in OR | | | Complications: None Disposition: Stable to PACU Indications: 33 | | | y.o. G0 with menorrhagia and endometrial polyps noted on SIS | | | presenting for hysteroscopy and polypectomy. Procedure: The | | | patient was taken to the operating room where she was placed in | | | dorsal supine position and MAC was induced without difficulty. She | | | was then placed in dorsal lithotomy with Alfonzo stirrups in a | | | neurologically safe position. She was prepped and draped in the | | | normal sterile fashion. A single sided speculum was placed in the | | | vagina and a single toothed tenaculum was placed on the anterior | | | lip of the cervix. 10 cc's of 0.25%Bupivacaine were injected for a | | | para-cervical block. The cervix was dilated to 17 yemeni using Morgan | | | dilators. A 6.25 mm 0 degree Myosure hysteroscope was then placed | | | inside the uterus under direct visualization. LR was used as the | | | distending medium and the above findings were noted. The myosure | | | Lite device was placed into the hysteroscope and the endometrial | | | polyps were resected without difficulty. Samples of endometrium were | | | taken from anterior and posterior uterine tao. The hysteroscope | | | was removed from the uterus. Tissue was sent to pathology. | | | The tenaculum was removed, and bilateral tenaculum sites were | | | evaluated with good hemostasis. The speculum was then removed. | | | Anesthesia was reversed, and the patient was taken to the PACU in | | | stable condition. Sponge, lap and needle counts were correct x 2. | | | Yuli Bettencourt MD, primary surgeon, was scrubbed and present for the | | | entire procedure. Kavitha Larose MD PGY-1 Obstetrics and | | | Gynecology I was present for and operated as the primary surgeon | | | throughout this procedure. I edited the above operative note for | | | clarity. I agree that the documentation above is accurate. YULI | | | RUT CANTRELL | | + + + ENDOMETRIAL BIOPSY (11/27/2018 8:40 AM PDT) + + + | Narrative | Performed At | + + + | Yuli Bettencourt MD 12/10/2018 11:20 AM OPERATIVE REPORT- | | | HYSTEROSCOPY Procedure Date: 11/27/18 Attending Physician: | | | Yuli Bettencourt MD Assistants: Kavitha Larose MD, PGY 1 Prior to | | | the beginning of the procedure the team paused to verify the | | | patient's identity, as well as the procedure to be performed and the | | | correct side/site. All equipment required was ready and | | | available. Patient received pre-op antibiotics: 2g Ancef. SCDs were | | | confirmed on and functioning. Preoperative Diagnosis: endometrial | | | polyps, dysmenorrhea Postoperative Diagnosis: endometrial | | | polyps, dysmenorrhea Procedure Performed: 1. Hysteroscopy, | | | endometrial polypectomy Findings: Exam Under Anesthesia: 6cm | | | uterus, mobile, anteverted. Hysteroscopy Findings: 1. Uterine | | | cavity with diffusely polypoid endometrium. 2. Bilateral ostia | | | appeared normal. 4. Normal uterine cavity and endocervix at the | | | end of the procedure. Anesthesia: MAC Estimated Blood | | | Loss: minimal Urine Output: minimal Fluids: 500 ml NS Hysteroscopic | | | fluid defecit: 305 ml LR Specimens: endometrial polyps | | | Drains: Black in place during procedure, removed in OR | | | Complications: None Disposition: Stable to PACU Indications: 33 | | | y.o. G0 with menorrhagia and endometrial polyps noted on SIS | | | presenting for hysteroscopy and polypectomy. Procedure: The | | | patient was taken to the operating room where she was placed in | | | dorsal supine position and MAC was induced without difficulty. She | | | was then placed in dorsal lithotomy with Alfonzo stirrups in a | | | neurologically safe position. She was prepped and draped in the | | | normal sterile fashion. A single sided speculum was placed in the | | | vagina and a single toothed tenaculum was placed on the anterior | | | lip of the cervix. 10 cc's of 0.25%Bupivacaine were injected for a | | | para-cervical block. The cervix was dilated to 17 yemeni using Morgan | | | dilators. A 6.25 mm 0 degree Myosure hysteroscope was then placed | | | inside the uterus under direct visualization. LR was used as the | | | distending medium and the above findings were noted. The myosure | | | Lite device was placed into the hysteroscope and the endometrial | | | polyps were resected without difficulty. Samples of endometrium were | | | taken from anterior and posterior uterine tao. The hysteroscope | | | was removed from the uterus. Tissue was sent to pathology. | | | The tenaculum was removed, and bilateral tenaculum sites were | | | evaluated with good hemostasis. The speculum was then removed. | | | Anesthesia was reversed, and the patient was taken to the PACU in | | | stable condition. Sponge, lap and needle counts were correct x 2. | | | Yuli Bettencourt MD, primary surgeon, was scrubbed and present for the | | | entire procedure. Kavitha Larose MD PGY-1 Obstetrics and | | | Gynecology I was present for and operated as the primary surgeon | | | throughout this procedure. I edited the above operative note for | | | clarity. I agree that the documentation above is accurate. YULI | | | RUT CANTRELL | | + + + INTRAPROCEDURE IMAGING (11/27/2018 7:10 AM PDT) + + | Specimen | + + | | + + + + + | Narrative | Performed At | + + + | See admission or procedure notes for details of any intraprocedure | [facility] | | images obtained. | RADIOLOGY | + + + + +---------+ + + | Performing | Address | City/State/Zipcode | Phone Number | | Organization | | | | + +---------+ + + | [facility] | | | | + +---------+ + + HCG URINE, POC (11/27/2018 6:49 AM PDT) + + + + + + | Component | Value | Ref Range | Performed | Pathologist | | | | | At | Signature | + + + + + + | HCG URINE, | Negative | Negative | [facility], | | | POC | | | POINT OF | | | | | | CARE TESTS | | + + + + + + + + | Specimen | + + | Urine - Urine | | (substance) | + + + + + + + | Performing | Address | City/State/Zipcode | Phone Number | | Organization | | | | + + + + + | [facility] | [address] | [place] [address] | | | OF CARE TESTS | | | | + + + + + documented in this encounter Visit Diagnoses Not on filedocumented in this encounter Administered Medications + +--------+ + +------+------+ | Medication Order | MAR | Action | Dose | Rate | Site | | | Action | Date | | | | + +--------+ + +------+------+ | acetaminophen (TYLENOL) tablet | Given | 11/28/19 | 1,000 mg | | | | 1,000 mg 1,000 mg, oral, ONCE, 1 | | 19 7:45 | | | | | dose, Aline 11/27/18 at 0800 | | AM PDT | | | | + +--------+ + +------+------+ + +---+ | | | + +---+ | fentaNYL (SUBLIMAZE) injection | | | 25-50 mcg 25-50 mcg, | | | intravenous, POSTPROCEDURE PRN, 8 | | | doses, Starting Aline 11/27/18 at | | | 0904, Until Aline 11/27/18 at 1736, | | | severe pain while in Phase I | | | Recovery | | + +---+ | | | + +---+ + + + +---+---+---+ | lactated ringers IV 75 mL/hr, | given by | 11/28/19 | | | | | intravenous, CONTINUOUS, Starting | | 19 9:34 | | | | | Aline 11/27/18 at 0715, Until Aline | anesthes | AM PDT | | | | | 11/27/18 at 1736 | iology | | | | | + + + +---+---+---+ +---------+ +---+---+---+ | New Bag | 11/28/19 | | | | | | 19 8:46 | | | | | | AM PDT | | | | +---------+ +---+---+---+ + +---+ | | | + +---+ | lactated ringers IV 500 mL, | | | intravenous, POSTPROCEDURE PRN, 1 | | | dose, Starting Aline 11/27/18 at | | | 0904, Until Aline 11/27/18 at 1736, | | | nausea/vomiting due to | | | dehydration | | + +---+ | | | + +---+ | naloxone (NARCAN) injection | | | intravenous, POSTPROCEDURE PRN, | | | Starting Aline 11/27/18 at 0904, | | | Until Aline 11/27/18 at 1736, | | | hypopnea | | + +---+ | | | + +---+ | promethazine (PHENERGAN) | | | injection 6.25-12.5 mg 6.25-12.5 | | | mg, intravenous, POSTPROCEDURE | | | PRN, 1 dose, Starting Aline 11/27/18 | | | at 0904, Until Aline 11/27/18 at | | | 1736, nausea/vomiting, 1st line | | + +---+ | | | + +---+ + + + +---------+---+ + | scopolamine (TRANSDERM-SCOP) 1 | Applied | 11/28/19 | 1 patch | | Left | | mg over 3 days 1 patch 1 patch, | Patch | 19 7:45 | | | Post | | transdermal, ONCE, 1 dose, Aline | | AM PDT | | | Auricula | | 11/27/18 at 0800 | | | | | r | + + + +---------+---+ + +---+---+ | | | +---+---+ documented in this encounter
--- OUTSIDE RECORDS SUMMARY | ~2020-04-19 | XMS | Encounter Summary ---
Demographics + + + | Address | [address] | | | [place] [address] | + + + | Home Phone | | + + + | Preferred Language | Unknown | + + + | Marital Status | | + + + | Evangelical Affiliation | CHR | + + + | Race | White | + + + | Ethnic Group | Not or | + + + Author + + + | Author | [facility] | + + + | Organization | [facility] | + + + | Address | Unknown | + + + | Phone | Unavailable | + + + Support + + +---------+ + | Name | Relationship | Address | Phone | + + +---------+ + | Nathaniel Henao | ECON | Unknown | | + + +---------+ + Care Team Providers + +------+ + | Care Mica Miner Name | Role | Phone | + +------+ + | Kennedi Selby | PCP | | + +------+ + Encounter Details +--------+ + + + + | Date | Type | Department | Care Team | Description | +--------+ + + + + | 10/20/ | Pharmacy | [facility] | | | | 2019 | Visit | & [facility] | | | | | | [address] | | | | | | Mailcode: [place] | | | | | | [facility] and | | | | | | Healing, [address] | | | | | | [place], [place] | | | | | | [address] | | | | | | [phone] | | | +--------+ + + + [...]
--- OUTSIDE RECORDS SUMMARY | ~2020-04-19 | XMS | Encounter Summary ---
Demographics + + + | Address | [address] | | | [place] [address] | + + + | Home Phone | | + + + | Preferred Language | Unknown | + + + | Marital Status | | + + + | Caodaism Affiliation | CHR | + + + | Race | White | + + + | Ethnic Group | Not or | + + + Author + + + | Author | [facility] | + + + | Organization | [facility] | + + + | Address | Unknown | + + + | Phone | Unavailable | + + + Support + + +---------+ + | Name | Relationship | Address | Phone | + + +---------+ + | Nathaniel Henao | ECON | Unknown | | + + +---------+ + Care Team Providers + +------+ + | Care Driver/Merchandiser Name | Role | Phone | + +------+ + | Kennedi Selby | PCP | | + +------+ + Encounter Details +--------+ + + + + | Date | Type | Department | Care Team | Description | +--------+ + + + + | 10/13/ | Documentati | [place] | Yuli Murdock MD | | | 2019 | on | Fertility | [address] | | | | | Consultants at [facility] | Barbara Mohr [place], | | | | | [address] | [place] [address] | | | | | [facility] | [phone] | | | | | and [address], | | | | | | | | | | | | [place], [place] | | | | | | [address] | | | | | | [phone] | | | +--------+ + + + [...] this encounter Miscellaneous Notes Telephone Encounter - Huyen Mejía - 10/13/2018 1:25 PM PDTDocumentation encounter for sca nning IVF consent documented in this encounter Plan of Treatment Not on filedocumented as of this encounter Visit Diagnoses Not on filedocumented in this encounter"
--- OUTSIDE RECORDS SUMMARY | ~2020-04-19 | XMS | Encounter Summary ---
Demographics + + + | Address | [address] | | | [place] [address] | + + + | Home Phone | | + + + | Preferred Language | Unknown | + + + | Marital Status | | + + + | Spiritism Affiliation | CHR | + + + | Race | White | + + + | Ethnic Group | Not or | + + + Author + + + | Author | [facility] | + + + | Organization | [facility] | + + + | Address | Unknown | + + + | Phone | Unavailable | + + + Support + + +---------+ + | Name | Relationship | Address | Phone | + + +---------+ + | Nathaniel Henao | ECON | Unknown | | + + +---------+ + Care Team Providers + +------+ + | Care Chief Radiation Therapist Name | Role | Phone | + +------+ + | Kennedi Selby | PCP | | + +------+ + Encounter Details +--------+ + + + + | Date | Type | Department | Care Team | Description | +--------+ + + + + | 02/16/ | Telephone | [place] | Yuli Murdock MD | | | 2019 | | Fertility | [address] | | | | | Consultants at [facility] | Barbara Mohr [place], | | | | | [address] | [place] [address] | | | | | [facility] | [phone] | | | | | and [address], | | | | | | | | | | | | [place], [place] | | | | | | [address] | | | | | | [phone] | | | +--------+ + + + [...] Telephone Encounter - Seth Peck RN - 02/16/2019 2:39 PM PDTLab review with : GIANNI 3.21 Bhcg 2490 P4 55.5 Drawn on 02/14/19 Orders to repeat bhcg in 2 weeks. Called patient and reviewed. Lab ordered and faxed to [facility]. Mock apt made. Electronica llanny signed by Seth Peck RN at 02/16/2019 3:12 PM PDTdocumented in this encounter Plan of Treatment + +------+--------+ + + | Name | Type | Priori | Associated Diagnoses | Order Schedule | | | | ty | | | + +------+--------+ + + | HCG BETA QUANT, | Lab | Urgent | Missed | Ordered: 02/16/2019 | | PLASMA | | | | | + +------+--------+ + + documented as of this encounter Visit Diagnoses + + | Diagnosis | + + | Missed - Primary | + + documented in this encounter"
--- OUTSIDE RECORDS SUMMARY | ~2020-04-19 | XMS | Encounter Summary ---
Demographics + + + | Address | [address] | | | [place] [address] | + + + | Home Phone | | + + + | Preferred Language | Unknown | + + + | Marital Status | | + + + | Confucianist Affiliation | CHR | + + + | Race | White | + + + | Ethnic Group | Not or | + + + Author + + + | Author | [facility] | + + + | Organization | [facility] | + + + | Address | Unknown | + + + | Phone | Unavailable | + + + Support + + +---------+ + | Name | Relationship | Address | Phone | + + +---------+ + | Nathaniel Henao | ECON | Unknown | | + + +---------+ + Care Team Providers + +------+ + | Care Machine Stuffer Automatic Name | Role | Phone | + +------+ + | Kennedi Selby | PCP | | + +------+ + Encounter Details +--------+ + + + + | Date | Type | Department | Care Team | Description | +--------+ + + + + | 11/10/ | MyChart | Fertility at [facility] | Shira Drew, | RE:PGT-A (PGS) | | 2019 | Encounter | [address] | MS,CGC [address] | results | | | | [facility] | [facility] | | | | | and Healing, | [place], [place] | | | | | [facility] | [address] | | | | | [place], [place] | | | | | | [address] | | | | | | [phone] | | | +--------+ + + + [...]
--- OUTSIDE RECORDS SUMMARY | ~2020-04-19 | XMS | Encounter Summary ---
Demographics + + + | Address | [address] | | | [place] [address] | + + + | Home Phone | | + + + | Preferred Language | Unknown | + + + | Marital Status | | + + + | Anabaptist Affiliation | CHR | + + + | Race | White | + + + | Ethnic Group | Not or | + + + Author + + + | Author | [facility] | + + + | Organization | [facility] | + + + | Address | Unknown | + + + | Phone | Unavailable | + + + Support + + +---------+ + | Name | Relationship | Address | Phone | + + +---------+ + | Nathaniel Henao | ECON | Unknown | | + + +---------+ + Care Team Providers + +------+ + | Care Artist Agent Name | Role | Phone | + +------+ + | Parth Selbya CHIO | PCP | | + +------+ + Reason for Visit + +--------+ + | Reason | Onset | Comments | | | Date | | + +--------+ + | Financial Review | 09/29/ | | | | 2019 | | + +--------+ + Encounter Details +--------+ + + + + | Date | Type | Department | Care Team | Description | +--------+ + + + + | 09/29/ | Telephone | [place] | Yuli Murdock MD | Financial Review | | 2019 | | Fertility | [address] | | | | | Consultants at [facility] | [address] [place], | | | | | [address] | [place] [address] | | | | | [facility] | [phone] | | | | | and Healing, | | | | | | Building | | | | | | [place], [place] | | | | | | [address] | | | | | | [phone] | | | +--------+ + + + [...] this encounter Miscellaneous Notes Telephone Encounter - Reji Anne - 09/29/2018 4:42 PM PDT Today I met with pt and partner to discuss IVF/ICSI/+/- PGS x1- maybe 2 . I was able to pro vide them with cost estimates for Embryo Freeze All, Embryo thaw/. We discussed that medicat ion is not included in these cost estimations and typically ranges between $3,500-$6,000 per cycle and can go higher than that. I also reminded them effective November 22, 2016 [facility] will no longer be accepting ahn or check payments in clinic. Please come prepared to pay with c redit or debit card. If you are making a large payment, you may need to notify your bank of the large transaction. I was also able to provide them with information and cost estimates for ARC packages/financ ing. Let them know that these packages do not cover medication. I ve encouraged them to co ntact me if there are any additional questions later on. Embryo Freeze All Cycle Clinical fees Endocrine Management $950.00 Venipuncture - Blood Draw ($26 each x 6) $156.00 Follicular Scan ($325 each x 6) $1,950.00 Oocyte (Egg) Retrieval $700.00 Operative Medications $262.00 SART Recording Fee $50.00 Anesthesia $565.00 Clinical fees per IVF cycle Estimated Total $4,633.00 Andrology/Embryology Laboratory Fees per IVF cycle Embryo Culture Egg Recovery $850.00 Sperm Prep $180.00 Embryo Culture & Fertilization $1,100.00 Extended Culture $400.00 Embryo Cryopreservation $1500.00 Hormone Assays Estradiol ($80 each x 6) $480.00 Progesterone ($85 each x 2) ICSI $170.00 $1,600.00 Andrology/Embryology Laboratory Fees per IVF cycle Estimated Total $6,280.00 ESTIMATED TOTAL AMOUNT $10,913.00 Separate services and fees in addition to the standard cycle fees are the following: ? If donor sperm is used for the cycle, a consultation with a licensed Fertility [facility] Provider is required. ? If purchasing sperm from an outside facility, fees may vary ? Medication cost per cycle are estimated to be the following o between $3,500-$6,000 for the Directed Egg Donor o between $250-$450 for the Gestation Carrier. ? Any outside testing or procedures needed for patient and partner are separate and will be billed to the patient directly. ? Assisted hatching, if needed is $400. ? If more than 15 eggs are frozen, the cryopreservation fee is $1,500 DISCLOSURE: The actual fees and services outlined in the Financial Conditions are subject t o change at any time and are only an estimation of a standard cycle as each cycle is unique. If medically necessary procedures and/or complications develop as a result of the cycle, t he patient will be responsible for full customary hospital, pharmaceutical and physician fee s. FET (interview) Embryo Thaw and Transfer Estrace or Estrace/Lupron Endocrine Management $354.00 Follicular Scan ($325.00 x 2) $650.00 Venipuncture ($26.00 x 2) $52.00 Embryo Transfer $600.00 SART Recording Fee $50.00 Clinical fees per IVF cycle Estimated Total $1,706.00 Andrology/Embryology Laboratory Fees per IVF cycle Embryo Thaw $250.00 Embryo Transfer $400.00 Hormone Assay Estradiol $80.00 Progesterone $85.00 HCG $60.00 Andrology/Embryology Laboratory Fees per IVF cycle Estimated Total $875.00 ESTIMATED TOTAL AMOUNT $2,581.00 Separate services and fees in addition to the standard cycle fees are the following: ? If donor sperm is used for the cycle, a consultation with a licensed Fertility [facility] Provider is required. ? If purchasing sperm from an outside facility, fees may vary ? Medication cost per cycle are estimated to be the following o between $3,500-$6,000 for the Directed Egg Donor o between $250-$450 for the Gestation Carrier. ? Any outside testing or procedures needed for patient and partner are separate and will be billed to the patient directly. ? Assisted hatching, if needed is $400. DISCLOSURE: The actual fees and services outlined in the Financial Conditions are subject t o change at any time and are only an estimation of a standard cycle as each cycle is unique. If medically necessary procedures and/or complications develop as a result of the cycle, t he patient will be responsible for full customary hospital, pharmaceutical and physician fee s. documented in this encounte r Plan of Treatment Not on filedocumented as of this encounter Visit Diagnoses Not on filedocumented in this encounter"
--- OUTSIDE RECORDS SUMMARY | ~2020-04-19 | XMS | Encounter Summary ---
Demographics + + + | Address | [address] | | | [place] [address] | + + + | Home Phone | | + + + | Preferred Language | Unknown | + + + | Marital Status | | + + + | Lutheran Affiliation | CHR | + + + | Race | White | + + + | Ethnic Group | Not or | + + + Author + + + | Author | [facility] | + + + | Organization | [facility] | + + + | Address | Unknown | + + + | Phone | Unavailable | + + + Support + + +---------+ + | Name | Relationship | Address | Phone | + + +---------+ + | Nathaniel Henao | ECON | Unknown | | + + +---------+ + Care Team Providers + +------+ + | Care Welder First Class Name | Role | Phone | + [...] | | Reproductive | | Non-[facility] | [facility] | | | | Endocrinology | | Epic Dept | Faculty [facility] | | | | /Infertility | | | [address] | | | | | | | e [place] | | | | | | | for Health | | | | | | | and Healing, | | | | | | | [address], | | | | | | | 10th Floor | | | | | | | [place], [place] | | | | | | | [address] | | | | | | | Phone: | | | | | | | [phone] | | | | | | | Fax: | | | | | | | [phone] | + +--------+ + + + + Encounter Details +--------+ + + + + | Date | Type | Department | Care Team | Description | +--------+ + + + + | 11/02/ | Telephone-S | [place] | Benitez Barcenas MD | No Show | | 2019 | cheduled | Fertility | [address] | | | | | Consultants at [facility] | [facility] [place] | | | | | [address] | [address] | | | | | [facility] | [phone] | | | | | and Healing, | | | | | | | | | | | | [place], [place] | | | | | | [address] | | | | | | [phone] | | | +--------+ + + + [...] + | OUTSIDE LAB - | | 11/02/2018 | | | | GENETICS | | 12:00 AM | | | | | | PDT | | | + +--------+ + + + documented in this encounter Results OUTSIDE LAB - GENETICS (11/02/2018 12:00 AM PDT) + + + | Narrative | Performed At | + + + | | | + + + documented in this encounter Visit Diagnoses Not on filedocumented in this encounter"
--- OUTSIDE RECORDS SUMMARY | ~2020-04-19 | XMS | Encounter Summary ---
Demographics + + + | Address | [address] | | | [place] [address] | + + + | Home Phone | | + + + | Preferred Language | Unknown | + + + | Marital Status | | + + + | Jainism Affiliation | CHR | + + + | Race | White | + + + | Ethnic Group | Not or | + + + Author + + + | Author | [facility] | + + + | Organization | [facility] | + + + | Address | Unknown | + + + | Phone | Unavailable | + + + Support + + +---------+ + | Name | Relationship | Address | Phone | + + +---------+ + | Nathaniel Henao | ECON | Unknown | | + + +---------+ + Care Team Providers + +------+ + | Care Chemical Cell Changer Name | Role | Phone | + [...] | | Reproductive | | Non-[facility] | [facility] | | | | Endocrinology | | Epic Dept | Faculty [facility] | | | | /Infertility | | | [address] | | | | | | | e [place] | | | | | | | for Health | | | | | | | and Healing, | | | | | | | [address], | | | | | | | 10th Floor | | | | | | | [place], [place] | | | | | | | [address] | | | | | | | Phone: | | | | | | | [phone] | | | | | | | Fax: | | | | | | | [phone] | + +--------+ + + + + Encounter Details +--------+ + + + + | Date | Type | Department | Care Team | Description | +--------+ + + + + | 10/22/ | Procedure | [facility] | | | | 2019 | | Fertility | | | | | | Consultants at [facility] | | | | | | [address] | | | | | | [place] for [facility] | | | | | | and Healing, | | | | | | [facility] | | | | | | Floor [place], [place] | | | | | | [address] | | | | | | [phone] | | | +--------+ + + + [...] documented as of this encounter Progress Notes Caitlin [place], RDMS - 10/22/2018 10:00 AM PDTFormatting of this note might be different fr om the original. ENDOCRINE MANAGEMENT PROGRESS NOTE 10/22/2018 Day of stimulation: ARC,Cycle Day#6, US/E2 (cycle day #[address] Murdock). HMG2/LEQ504/ antag/Novarel/Freeze/TESE(with back up fresh TESE and Donor sperm). PGS? Mathieu/Prince. NOTE: Embryo logy, please discuss with Dr. Murdock and patient prior to proceeding with PGS, please see specif ic notes in updated protocol. Thank you. UPDATE DR. ALVAREZ as approp. Comments: CD 6 Indication: IVF Approach: transvaginal Systems checklist: negative for uterine polyps, myomas, fluid in cavity, ovarian mass and f luid in cul-de-sac. Estradiol level: Lab Results Component Value Date ESTRADIOL 657 10/22/2018 Progesterone level: No results found for: PROG FOLLICLE EXAMINATION / ENDOMETRIAL THICKNESS Endometrial thickness: 7.2mm pedunculated fibroid 38f10fl Grade: I LARGEST FOLLICLES (Measured in Millimeters) RIGHT OVARY VOLUME: 95n17rh LEFT OVARY VOLUME: 94m58no 1 11 mean 1 10 mean 2 10 mean 2 7 mean 3 9 mean 3 9 mean 4 8 mean 4 13.5 mean 5 8 mean 5 mean 6 9 mean 6 mean 7 7 mean 7 mean 8 10 mean 8 mean 9 mean 9 mean 10 mean 10 mean Additional Follicles: Additional Follicles: Total Follicles: Total Follicles: Interpretation: early in stim Plan: begin antag this am Otherwise cont same RT 2d I, Grady Antonio MD, performed all aspects of this ultrasound. documented in this encou nter Plan of Treatment Not on filedocumented as of this encounter Procedures + +--------+ + + + | Procedure Name | Priori | Date/Time | Associated Diagnosis | Comments | | | ty | | | | + +--------+ + + + | [facility] | Routin | 10/22/2018 | In vitro | Results for this | | ULTRASOUND | e | 7:44 AM | fertilization | procedure are in the | | | | PDT | | results section. | + +--------+ + + + documented in this encounter Results [facility] PELVIS ULTRASOUND (10/22/2018 7:44 AM PDT) + + | Specimen | + + | | + + + + + | Narrative | Performed At | + + + | Refer to the encounter notes for imaging results. | | + + + documented in this encounter Visit Diagnoses + + | Diagnosis | + + | In vitro fertilization - Primary Encounter for assisted reproductive fertility | | procedure cycle | + + | Encounter for assisted reproductive fertility procedure cycle | + + documented in this encounter"
--- OUTSIDE RECORDS SUMMARY | ~2020-04-19 | XMS | Encounter Summary ---
Demographics + + + | Address | [address] | | | [place] [address] | + + + | Home Phone | | + + + | Preferred Language | Unknown | + + + | Marital Status | | + + + | Orthodoxy Affiliation | CHR | + + + | Race | White | + + + | Ethnic Group | Not or | + + + Author + + + | Author | [facility] | + + + | Organization | [facility] | + + + | Address | Unknown | + + + | Phone | Unavailable | + + + Support + + +---------+ + | Name | Relationship | Address | Phone | + + +---------+ + | Nathaniel Henao | ECON | Unknown | | + + +---------+ + Care Team Providers + +------+ + | Care Clinical Informatics Specialist Name | Role | Phone | [...] | | Reproductive | | Non[facility] | [facility] | | | | Endocrinology | | Epic Dept | Faculty [facility] | | | | /Infertility | | | [address] | | | | | | | e [place] | | | | | | | for Health | | | | | | | and Healing, | | | | | | | [address], | | | | | | | 10th Floor | | | | | | | [place], [place] | | | | | | | [address] | | | | | | | Phone: | | | | | | | [phone] | | | | | | | Fax: | | | | | | | [phone] | + +--------+ + + + + Encounter Details +--------+ + + + + | Date | Type | Department | Care Team | Description | +--------+ + + + + | 03/16/ | Telephone-S | [place] | [facility] | | | 2019 | cheduled | Fertility | [address] | | | | | Consultants at [facility] | [place] [address] | | | | | [address] | | | | | | [facility] | | | | | | and Healing, | | | | | | Building | | | | | | [place], [place] | | | | | | [address] | | | | | | [phone] | | | +--------+ + + + [...] | + +--------+ + + + | LAB REPORTS | | 03/16/2019 | | Results for this | | | | 12:00 AM | | procedure are in the | | | | PDT | | results section. | + +--------+ + + + documented in this encounter Results LAB REPORTS (03/16/2019 12:00 AM PDT) + + + | Narrative | Performed At | + + + | | | + + + documented in this encounter Visit Diagnoses Not on filedocumented in this encounter"
--- OUTSIDE RECORDS SUMMARY | ~2020-04-19 | XMS | Encounter Summary ---
Demographics + + + | Address | [address] | | | [place] [address] | + + + | Home Phone | | + + + | Preferred Language | Unknown | + + + | Marital Status | | + + + | Mu-Ism Affiliation | CHR | + + + | Race | White | + + + | Ethnic Group | Not or | + + + Author + + + | Author | [facility] | + + + | Organization | [facility] | + + + | Address | Unknown | + + + | Phone | Unavailable | + + + Support + + +---------+ + | Name | Relationship | Address | Phone | + + +---------+ + | Nathaniel Henao | ECON | Unknown | | + + +---------+ + Care Team Providers + +------+ + | Care Sealer Dry Cell Name | Role | Phone | + +------+ + | Kennedi Selby | PCP | | + +------+ + Encounter Details +--------+ + + + + | Date | Type | Department | Care Team | Description | +--------+ + + + + | 10/19/ | Hospital | Diagnostic Imaging | Grady Antonio MD | | | 2019 | Encounter | Services [address] | | | | | [address] | [place], [place] | | | | | [place], [place] | [address] | | | | | [address] | [phone] | | | | | | | [...] + + documented as of this encounter Medications at Time of Discharge + + + +---------+ + + | Medication | Sig | Dispensed | Refills | Start | End Date | | | | | | Date | | + + + +---------+ + + | Alcohol Swabs | Use to cleanse skin | 100 | | 10/01/19 | | | topical pads, | and vials. | each | | 19 | 9 | | medicatedIndications | | | | | | | : Encounter for | | | | | | | assisted | | | | | | | reproductive | | | | | | | fertility procedure | | | | | | | cycle | | | | | | + [...] + | [facility] PELVIS | Routin | 10/19/2018 | Encounter for | Results for this | | ULTRASOUND | e | 6:21 AM | assisted | procedure are in the | | | | PDT | reproductive | results section. | | | | | fertility procedure | | | | | | cycle | | + +--------+ + + + documented in this encounter Results [facility] PELVIS ULTRASOUND (10/19/2018 6:21 AM PDT) + + | Specimen | + + | | + + + + + | Narrative | Performed At | + + + | Refer to the encounter notes for imaging results. | | + + + documented in this encounter Visit Diagnoses Not on filedocumented in this encounter"
--- OUTSIDE RECORDS SUMMARY | ~2020-04-19 | XMS | Encounter Summary ---
Demographics + + + | Address | [address] | | | [place] [address] | + + + | Home Phone | | + + + | Preferred Language | Unknown | + + + | Marital Status | | + + + | Restorationist Affiliation | CHR | + + + | Race | White | + + + | Ethnic Group | Not or | + + + Author + + + | Author | [facility] | + + + | Organization | [facility] | + + + | Address | Unknown | + + + | Phone | Unavailable | + + + Support + + +---------+ + | Name | Relationship | Address | Phone | + + +---------+ + | Nathaniel Henao | ECON | Unknown | | + + +---------+ + Care Team Providers + +------+ + | Care Manager Net Name | Role | Phone | + +------+ + | Kennedi Selby | PCP | | + +------+ + Encounter Details +--------+ + + + + | Date | Type | Department | Care Team | Description | +--------+ + + + + | 09/09/ | Telephone | [place] | Yuli Murdock MD | | | 2020 | | Fertility | [address] | | | | | Consultants at [facility] | [address] [place], | | | | | [address] | [place] [address] | | | | | [facility] | [phone] | | | | | and [address], | | | | | | | | | | | | Floor [place], [place] | | | | | | [address] | | | | | | [phone] | | | +--------+ + + + [...]
--- OUTSIDE RECORDS SUMMARY | ~2020-04-19 | XMS | Encounter Summary ---
Demographics + + + | Address | [address] | | | [place] [address] | + + + | Home Phone | | + + + | Preferred Language | Unknown | + + + | Marital Status | | + + + | Religion Affiliation | CHR | + + + | Race | White | + + + | Ethnic Group | Not or | + + + Author + + + | Author | [facility] | + + + | Organization | [facility] | + + + | Address | Unknown | + + + | Phone | Unavailable | + + + Support + + +---------+ + | Name | Relationship | Address | Phone | + + +---------+ + | Nathaniel Henao | ECON | Unknown | | + + +---------+ + Care Team Providers + +------+ + | Care Carpenter Helper Hardwood Flooring Name | Role | Phone | + +------+ + | Kennedi Selby | PCP | | + +------+ + Reason for Visit + + + | Reason | Comments | + + + | Obstetric US Scan | | + + + Other (Routine) [...] | | | | | | | [place], [place] | | | | | | | [address] | | | | | | | Phone: | | | | | | | [phone] | | | | | | | Fax: | | | | | | | [phone] | + +--------+ + + + + Encounter Details +--------+ + + + + | Date | Type | Department | Care Team | Description | +--------+ + + + + | 09/17/ | Procedure | University | Yuli Murdock MD | Obstetric US Scan | | 2019 | | Fertility | [address] | | | | | Consultants at [facility] | [address] [address] [place], | | | | | [address] | [place] [address] | | | | | [facility] | [phone] | | | | | and Healing, | | | | | | Building , | | | | | | Floor [place], [place] | | | | | | [address] | | | | | | [phone] | | | +--------+ + + + [...] on file | | + + + + + + + | COVID-19 Exposure | Response | Date Recorded | + + + + | In the last month, have you been in contact | No / Unsure | 09/18/2019 11:35 AM | | with someone who was confirmed or | | PDT | | suspected to have Coronavirus / COVID-19? | | | + + + + documented as of this encounter Progress Notes Yuli Murdock MD - 09/18/2019 12:00 PM PDTFormatting of this note might be different from vivi robert original. Obstetrical Ultrasound 09/18/2019 Indication: IVF ET date: 08/06/2019 LMP: No LMP recorded. Gestational Age: 8w5d EDC: 04/23/2020 VB has resolved after last week. +nausea, no emesis. 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 Will change to vaginal progesterone; continue estra ce until end of 12 weeks. Transition to OB Care. IYuli MD, personally performed all components of this procedure. documented in this encoun ter Plan of Treatment Not on filedocumented as of this encounter Procedures + +--------+ + + + | Procedure Name | Priori | Date/Time | Associated Diagnosis | Comments | | | ty | | | | + +--------+ + + + | [facility] OB ULTRASOUND | Routin | 09/18/2019 | | Results for this | | | e | 7:46 AM | examination or test, | procedure are in the | | | | PDT | | results section. | | | | | unconfirmed | | + +--------+ + + + documented in this encounter Results TSH (09/18/2019 1:32 PM PDT) + +-------+ + + + | Component | Value | Ref Range | Performed | Pathologist | | | | | At | Signature | + +-------+ + + + | TSH | 1.07 | 0.39 - 4.17 | [facility] | | | | | mIU/L | LABORATORY | | | | | | SERVICES, | | | | | | CORE | | + +-------+ + + + + + | Specimen | + + | Blood - Blood | | (substance) | + + + + + | Narrative | Performed At | + + + | TSH reference ranges are influenced by a variety of environmental | [facility] | | influences, age, gender and ethnicity. The supplied reference limits | LABORATORY | | are based on published values utilizing a similar TSH assay, and | SERVICES, CORE | | should be interpreted with caution. | | + + + + + + + + | Performing | Address | City/State/Zipcode | Phone Number | | Organization | | | | + + + + + | [facility] | [address] | [place] [address] | | | SERVICES, CORE | [address] | | | + + + + + [facility] OB ULTRASOUND (09/18/2019 7:46 AM PDT) + + | Specimen | + + | | + + + + + | Narrative | Performed At | + + + | Refer to the encounter notes for imaging results. | [facility] | | | RADIOLOGY | + + + + +---------+ + + | Performing | Address | City/State/Zipcode | Phone Number | | Organization | | | | + +---------+ + + | [facility] | | | | + +---------+ + + documented in this encounter Visit Diagnoses + + | Diagnosis | + + | resulting from assisted reproductive technology in first trimester - Primary | + + | examination or test, unconfirmed | + + | Hypothyroidism, unspecified type | + + | Threatened Threatened , unspecified as to episode of care | + + documented in this encounter"
--- OUTSIDE RECORDS SUMMARY | ~2020-04-19 | XMS | Encounter Summary ---
Demographics + + + | Address | [address] | | | [place] [address] | + + + | Home Phone | | + + + | Preferred Language | Unknown | + + + | Marital Status | | + + + | Zoroastrian Affiliation | CHR | + + + | Race | White | + + + | Ethnic Group | Not or | + + + Author + + + | Author | [facility] | + + + | Organization | [facility] | + + + | Address | Unknown | + + + | Phone | Unavailable | + + + Support + + +---------+ + | Name | Relationship | Address | Phone | + + +---------+ + | Nathaniel Henao | ECON | Unknown | | + + +---------+ + Care Team Providers + +------+ + | Care Digital Cartographer Name | Role | Phone | + [...] | | Reproductive | | [facility] | [facility] | | | | Endocrinology | | Epic Dept | Faculty [facility] | | | | /Infertility | | | [address] | | | | | | | e [place] | | | | | | | for Health | | | | | | | and Healing, | | | | | | | [address], | | | | | | | 10th Floor | | | | | | | [place], [place] | | | | | | | [address] | | | | | | | Phone: | | | | | | | [phone] | | | | | | | Fax: | | | | | | | [phone] | + +--------+ + + + + Encounter Details +--------+ + + + + | Date | Type | Department | Care Team | Description | +--------+ + + + + | 08/17/ | Telephone-S | [place] | [facility] | | | 2020 | cheduled | Fertility | [address] | | | | | Consultants at [facility] | [place] [address] | | | | | [address] | | | | | | [facility] | | | | | | and Healing, | | | | | | Building | | | | | | [place], [place] | | | | | | [address] | | | | | | [phone] | | | +--------+ + + + [...] + + | LAB REPORTS | | 08/17/2019 | | Results for this | | | | 12:00 AM | | procedure are in the | | | | PST | | results section. | + +--------+ + + + documented in this encounter Results LAB REPORTS (08/17/2019 12:00 AM PST) + + + | Narrative | Performed At | + + + | | | + + + documented in this encounter Visit Diagnoses Not on filedocumented in this encounter"
--- OUTSIDE RECORDS SUMMARY | ~2020-04-19 | XMS | Encounter Summary ---
Demographics + + + | Address | [address] | | | [place] [address] | + + + | Home Phone | | + + + | Preferred Language | Unknown | + + + | Marital Status | | + + + | Quaker Affiliation | CHR | + + + | Race | White | + + + | Ethnic Group | Not or | + + + Author + + + | Author | [facility] | + + + | Organization | [facility] | + + + | Address | Unknown | + + + | Phone | Unavailable | + + + Support + + +---------+ + | Name | Relationship | Address | Phone | + + +---------+ + | Nathaniel Henao | ECON | Unknown | | + + +---------+ + Care Team Providers + +------+ + | Care Director Of Diagnostic Imaging Name | Role | Phone | + +------+ + | Kennedi Selby | PCP | | + +------+ + Encounter Details +--------+ + + + + | Date | Type | Department | Care Team | Description | +--------+ + + + + | 09/17/ | Hospital | Diagnostic Imaging | Yuli Murdock MD | | | 2020 | Encounter | [address] | [address] | | | | | [address] | [address] [place], | | | | | [place], [place] | [place] [address] | | | | | [address] | [phone] | | | | | | | [...] | | Take 1 tablet by | 1 | 1 | 06/16/20 | | | desogestrel-ethinyl | mouth once daily. | Package | | 19 | | | estradiol 0.15-0.03 | Call on day | | | | | | mg oral tablet | one. Take active | | | | | | | only pills. | | | | | + + + +---------+ + + | dexAMETHasone 0.5 | Take 1 tablet by | 30 | 0 | 08/25/19 | | | mg oral | mouth once daily. | tablet | | 20 | | | tabletIndications: | Start just after | | | | | | Encounter for | Progesterone start, | | | | | | assisted | discontinue at time | | | | | | reproductive | of second [facility] | | | | | | fertility procedure | level, according to | | | | | | cycle | protocol | | | | | | | instructions. | | | | | + + + +---------+ + + | doxycycline | Take 1 tablet by | 14 | 0 | 12/04/19 | | | hyclate 100 mg oral | mouth every twelve | tablet | | 19 | | | tabletIndications: | hours. (Pharmacist | | | | | | Encounter for | to substitute salt | | | | | | assisted | form as needed). | | | | | | reproductive | Start when directed. | | | | | | fertility procedure | Take for 7 days | | | | | | cycle | with probiotic. | | | | | + + + +---------+ + + | empty container | Use as directed. | 1 each | | 12/04/19 | | | (SHARPS CONTAINER) | | | | 19 | | | miscIndications: | | | | | | | Encounter for | | | | | | | assisted | | | | | | | reproductive | | | | | | | fertility procedure | | | | | | | cycle | | | | | | + + + +---------+ + + | estradiol | Apply 1-4 patches to | 40 | | 06/29/ | | | (VIVELLE-DOT) 0.1 | skin every other | patch | | 19 | | | mg/24 hr transdermal | day. This is a | | | | | | patch | fertility patient on | | | | | | semiweeklyIndication | special dosing. | | | | | | s: Encounter for | | | | | | | assisted | | | | | | | reproductive | | | | | | | fertility procedure | | | | | | | cycle | | | | | | + + + +---------+ + + | estradioL 2 mg | Take 3 times daily | 90 | 10 | 09/04/19 | | | oral tablet | by mouth. | tablet | | 20 | | + + + +---------+ + + | estradioL 2 mg | Take 1 tablet by | 90 | 10 | 09/04/19 | | | oral tablet | mouth three times | tablet | | 20 | | | | daily. | | | | | + + + +---------+ + + | levothyroxine 25 | Take 2 tablets by | 60 | 5 | 08/19/19 | | | mcg oral tablet | mouth before | tablet | | 20 | | | | breakfast. Take away | | | | | | | from other food and | | | | | | | medications. | | | | | + + + +---------+ + + | levothyroxine 25 | Take 1 tablet by | 30 | 5 | 07/22/19 | | | mcg oral tablet | mouth before | tablet | | 20 | | | | breakfast. Start | | | | | | | with treatment cycle | | | | | | | start, (day one of | | | | | | | Estrace). | | | | | + + + +---------+ + + | Needle (Disp) 22 G | Use to inject | 30 each | | 06/29/20 | | | 22 gauge x 1 1/2" | progesterone in oil. | | | 19 | | | miscellaneous (misc) | | | | | | | needleIndications: | | | | | | | Encounter for | | | | | | | assisted | | | | | | | reproductive | | | | | | | fertility procedure | | | | | | | cycle | | | | | | + + + +---------+ + + | Needle (Disp) 22 G | Use to inject | 30 each | | 12/04/19 | | | 22 gauge x 1 1/2" | progesterone in oil. | | | 19 | | | needleIndications: | | | | | | | Encounter for | | | | | | | assisted | | | | | | | reproductive | | | | | | | fertility procedure | | | | | | | cycle | | | | | | + + + +---------+ + + | | Take 1 tablet by | 1 | 2 | 03/16/20 | | | norethindrone-ethiny | mouth once daily. | Package | | 19 | | | l estradiol 1.5-30 | Take active pills | | | | | | mg-mcg oral tablet | only, ongoing. | | | | | + + + +---------+ + + | omega | Take 1,000 mg by | | 0 | | | | 8-jry-kdc-fish oil | mouth once daily. | | | | | | (FISH OIL) | | | | | | | 100-160-1,000 mg | | | | | | | oral capsule | | | | | | + + + +---------+ + + | | | | 0 | | | | [id number] | | | | | | | AC-DHA ORAL | | | | | | + + + +---------+ + + | progesterone 50 | Inject 2 mL into the | 40 mL | | 12/04/19 | | | mg/mL intramuscular | muscle (IM) once | | | 19 | | | oilIndications: | daily. Administer in | | | | | | Encounter for | the evenings as | | | | | | assisted | instructed by your | | | | | | reproductive | written MD protocol. | | | | | | fertility procedure | | | | | | | cycle | | | | | | + + + +---------+ + + | progesterone in | Inject 2 mL into the | 40 mL | 3 | 06/29/20 | | | ethyl oleate 50 | muscle (IM) once | | | 19 | | | mg/mL intramuscular | daily. Administer in | | | | | | oilIndications: | the evening as | | | | | | Encounter for | directed by your MD | | | | | | assisted | protocol. | | | | | | reproductive | | | | | | | fertility procedure | | | | | | | cycle | | | | | | + + + +---------+ + + | progesterone | Place 1 suppository | 90 each | 3 | 09/07/19 | | | micronized 100 mg | into the vagina | | | 20 | | | vaginal insert | three times daily. | | | | | + + + +---------+ + + | Progesterone | Place 1.125 g into | 60 | 3 | 09/07/19 | | | Micronized 8 % | the vagina two times | applicato | | 20 | | | vaginal gel | daily. Use in the | r | | | | | | morning and evening | | | | | | | when directed by | | | | | | | your MD protocol. | | | | | + + + +---------+ + + | rizatriptan 10 mg | Take 10 mg by mouth | | 0 | | | | oral tablet | as needed for | | | | | | | migraine. | | | | | + + + +---------+ + + | Syringe with | Use to draw up | 30 | | 06/29/ | | | Needle (Disp) 3 mL | progesterone in oil. | Syringe | | 19 | | | 18 x 1 1/2" | | | | | | | miscellaneous (misc) | | | | | | | syringeIndications: | | | | | | | Encounter for | | | | | | | assisted | | | | | | | reproductive | | | | | | | fertility procedure | | | | | | | cycle | | | | | | + + + +---------+ + + | Syringe with | Use to draw up | 30 | | 12/04/19 | | | Needle (Disp) 3 mL | progesterone in oil. | Syringe | | 19 | | | 18 x 1 /2" | | | | | | | syringeIndications: | | | | | | | Encounter for | | | | | [...] + + documented in this encounter Results [facility] OB ULTRASOUND (09/18/2019 7:46 AM PDT) + [...] | | + +---------+ + + | [facility] | | | | + +---------+ + + documented in this encounter Visit Diagnoses Not on filedocumented in this encounter
--- OUTSIDE RECORDS SUMMARY | ~2020-04-19 | XMS | Encounter Summary ---
Demographics + + + | Address | [address] | | | [place] [address] | + + + | Home Phone | | + + + | Preferred Language | Unknown | + + + | Marital Status | | + + + | Latter Day Affiliation | CHR | + + + | Race | White | + + + | Ethnic Group | Not or | + + + Author + + + | Author | [facility] | + + + | Organization | [facility] | + + + | Address | Unknown | + + + | Phone | Unavailable | + + + Support + + +---------+ + | Name | Relationship | Address | Phone | + + +---------+ + | Nathaniel Henao | ECON | Unknown | | + + +---------+ + Care Team Providers + +------+ + | Care Service Support Representative Name | Role | Phone | + +------+ + | Parth Selbya CHIO | PCP | | + +------+ + Encounter Details +--------+ + + + + | Date | Type | Department | Care Team | Description | +--------+ + + + + | 11/08/ | Outside | UNKNOWN DEPARTMENT | Other, Faculty | | | 2017 | Records | [address] | [phone] | | | | | [address] | | | | | | [place], [place] | | | | | | [address] | | | +--------+ + + + [...] + | OUTSIDE LAB - | | 11/08/2016 | | Results for this | | PATHOLOGY | | 12:00 AM | | procedure are in the | | | | PDT | | results section. | + +--------+ + + + documented in this encounter Results OUTSIDE LAB - PATHOLOGY (11/08/2016 12:00 AM PDT) + + + | Narrative | Performed At | + + + | | | + + + documented in this encounter Visit Diagnoses Not on filedocumented in this encounter"
--- OUTSIDE RECORDS SUMMARY | ~2020-04-19 | XMS | Encounter Summary ---
Demographics + + + | Address | [address] | | | [place] [address] | + + + | Home Phone | | + + + | Preferred Language | Unknown | + + + | Marital Status | | + + + | Voodoo Affiliation | CHR | + + + | Race | White | + + + | Ethnic Group | Not or | + + + Author + + + | Author | [facility] | + + + | Organization | [facility] | + + + | Address | Unknown | + + + | Phone | Unavailable | + + + Support + + +---------+ + | Name | Relationship | Address | Phone | + + +---------+ + | Nathaniel Henao | ECON | Unknown | | + + +---------+ + Care Team Providers + +------+ + | Care Office Systems Technology Instructor Name | Role | Phone | + +------+ + | Kennedi Selby | PCP | | + +------+ + Encounter Details +--------+ + + + + | Date | Type | Department | Care Team | Description | +--------+ + + + + | 08/06/ | Hospital | Diagnostic Imaging | Yuli Murdock MD | | | 2020 | Encounter | Services [address] | [address] | | | | | [address] | [address] [place], | | | | | [place], [place] | [place] [address] | | | | | [address] | [phone] | | | | | | | [...] | | 0 | | | | 9-wfl-ksw-fish oil | mouth once daily. | | | | | | (FISH OIL) | | | | | | | 100-160-1,000 mg | | | | | | | oral capsule | | | | | | + + + +---------+ + + | | | | 0 | | | | [id number] | | | | | | | [...] to draw up | 30 | | 06/29/20 | | | Needle (Disp) 3 mL [...] + +--------+ + + + | [facility] EM[facility] TRANSFER | Routin | 08/06/2019 | Encounter for | Results for this | | | e | 7:25 AM | assisted | procedure are in the | | | | PST | reproductive | results section. | | | | | fertility procedure | | | | | | cycle | | + +--------+ + + + documented in this encounter Results [facility] EMBRYO TRANSFER (08/06/2019 7:25 AM PST) + + | Specimen | + + [...]
--- OUTSIDE RECORDS SUMMARY | ~2020-04-19 | XMS | Encounter Summary ---
Demographics + + + | Address | [address] | | | [place] [address] | + + + | Home Phone | | + + + | Preferred Language | Unknown | + + + | Marital Status | | + + + | Adventist Affiliation | CHR | + + + [...] Team Providers + +------+ + | Care Farm Instructor Name | Role | Phone | + +------+ + | Kennedi Selby | PCP | | + +------+ + Encounter Details +--------+ + + + + | Date | Type | Department | Care Team | Description | +--------+ + + + + | 09/29/ | Documentati | [place] | Yuli Bettencourt MD | | | 2019 | on | Fertility | [address] | | | | | Consultants at [facility] | [address] [place], | | | | | [address] | [place] [address] | | | | | [facility] | [phone] | | | | | and [address], | | | | | | | | | | | | [place], [place] | | | | | | [address] | | | | | | [phone] | | | +--------+ + + + [...] this encounter Miscellaneous Notes Telephone Encounter - Yuli Bettencourt MD - 09/29/2018 2:45 AM PDTFormatting of this note migh t be different from the original. IVF PHYSICIAN CHECKLIST Patient Name: Pushpa Henao Date of : 1985 Cycle Type: IVF (fresh non-donor, transcervical) Reason for ART: Male infertility: Abnormal sperm parameters: Azoospermia, non-obstructive and Freeze-all (for fertility preservation or not) Third Democrat: No Sperm Source: Partner TESE; donor sperm b/u ICSI Yes TESE THAW ALL MICRO-TESE 24 hours before; PLAN FRESH TESE; DONOR SPERM BACK UP Assisted Hatching D5 AH for PGT-A on donor-sperm inseminated embryos PGS: No PGD: No Transfer/Freeze: Freeze all (polyp) without PGT-A for sperm inseminated embryos if any; PGT-A & freeze all of the donor-sperm inseminated embryos INDUCTION PROTOCOL: PRESUPPRESSION GANIRELIX DAYS Luteal estrace priming No Mild stim No LUPRON No MD LUPRON No GANIRELIX Yes GROWTH HORMONE No HCG trigger Novarel/Pregnyl 10,000 IU Progesterone no RECIPIENT PROTOCOL (if applicable): GC: No AM DOSE PM DOSE FSH IU FSH IU 150 HMG 2 HMG Previous IVF: Outcomes/Notes for future IVF: Comments: AMH 1.3 BAF IVF COORDINATOR CHECKLIST Satellite: Suppression: 10/13/18 Cycle: Managing physician: YULI BETTENCOURT MD /Partner's Name & MRN: Tom Henao [id number] Date: TESE, see protocol instructions SPA Date: Count: Score: Motility: SCSA Date: Morphol: %DFI %HDS Sperm Collection: Donor Sperm: STD Labs Female:WNL STD Labs Male:WNL Other Test: Acupuncture: : G0 BAF Score: Right ovary: , BAF count: 11 Left ovary: , BAF count: 9 Rh Status: A pos/neg Lab Results Component Value Date FSH 7 09/05/2018 Lab Results Component Value Date ESTRADIOL 57 09/05/2018 Lab Results Component Value Date AMH 1.32 09/05/2018 Last Ht/Wt: Ht Readings from Last 1 Encounters: 09/05/18 1.6 m (5' 3") Wt Readings from Last 1 Encounters: 09/05/18 64.9 kg (143 lb) Last 1 Encounter BMI Readings: Date BMI 09/05/2018 25.33 kg/m2 Team Reviewed: 09/29/18 No changes to protocol. Present were Dr. Barcenas and Lizette with embryo logy. documented in this encoun ter Plan of Treatment Not on filedocumented as of this encounter Visit Diagnoses + + | Diagnosis | + + | IVF Screening Checklist Encounter for assisted reproductive fertility procedure cycle | + + documented in this encounter
--- OUTSIDE RECORDS SUMMARY | ~2020-04-19 | XMS | Encounter Summary ---
Demographics + + + | Address | [address] | | | [place] [address] | + + + | Home Phone | | + + + | Preferred Language | Unknown | + + + | Marital Status | | + + + | Mu-Ism Affiliation | CHR | + + + | Race | White | + + + | Ethnic Group | Not or | + + + Author + + + | Author | [facility] | + + + | Organization | [facility] | + + + | Address | Unknown | + + + | Phone | Unavailable | + + + Support + + +---------+ + | Name | Relationship | Address | Phone | + + +---------+ + | Nathaniel Henao | ECON | Unknown | | + + +---------+ + Care Team Providers + +------+ + | Care Senior Government Program Analyst Name | Role | Phone | + +------+ + | Kennedi Selby | PCP | | + +------+ + Encounter Details +--------+------+ + + + | Date | Type | Department | Care Team | Description | +--------+------+ + + + | 02/14/ | Lab | Laboratory at [facility] | | Supervision of | | 2019 | | [address] | | with | | | | [facility] | | history of | | | | and Healing, | | infertility; | | | | [address] | | Miscarriage | | | | [place], [place] | | | | | | [address] | | | | | | [phone] | | | +--------+------+ + + + Social History + +-------+ [...] | + +--------+ + + + | PROGESTERONE, SERUM | Urgent | 02/14/2019 | Supervision of | Results for this | | | | 10:04 AM | with | procedure are in the | | | | PDT | history of | results section. | | | | | infertility | | + +--------+ + + + | TSH | Routin | 02/14/2019 | Miscarriage | Results for this | | | e | 10:04 AM | | procedure are in the | | | | PDT | | results section. | + +--------+ + + + | HCG BETA QUANT, | Urgent | 02/14/2019 | Supervision of | Results for this | | PLASMA | | 10:04 AM | with | procedure are in the | | | | PDT | history of | results section. | | | | | infertility | | + +--------+ + + + documented in this encounter Results TSH (02/14/2019 10:04 AM PDT) + +-------+ + + + | Component | Value | Ref Range | Performed | Pathologist | | | | | At | Signature | + +-------+ + + + | TSH | 3.21 | 0.39 - 4.17 | [facility] | [...] Performed At | + + + | Please run quantitative BHCG STAT, okay to run on serum. Fax urgent | [facility] | | results back to us at [phone]. ATTN: [facility] Nurses. Thank you. | LABORATORY | | TSH reference ranges are influenced by a variety of environmental | SERVICES, CORE | | influences, age, gender and ethnicity. The supplied reference limits | | | are based on published values utilizing a similar TSH assay, and | | | should be interpreted with caution. | | + + + + + + + + | Performing | Address | City/State/Zipcode | Phone Number | | Organization | | | | + + + + + | [facility] | [address] | [place] [address] | | | SERVICES, CORE | [address] | | | + + + + + PROGESTERONE, SERUM (02/14/2019 10:04 AM PDT) + + + + + + | Component | Value | Ref Range | Performed | Pathologist | | | | | At | Signature | + + + + + + | PROGESTERON | 55.5Comment: | ng/mL | [facility] | | | E (LAB) | PROGESTERONE FEMALE | | [facility] | | | | REFERENCE RANGES | | [place] | | | | Follicular: Less than | | | | | | 1.6 ng/mL Luteal: 5.2 - | | | | | | 18.6 ng/mL 1st | | | | | | Trimester: 4.7 - 50.7 | | | | | | ng/mL 2nd Trimester: | | | | | | 19.4 - 45.3 ng/mL | | | | | | Post-Menopausal: Less | | | | | | than 1.0 ng/mL | | | | + + + + + + + + | Specimen | + + | Blood - Blood | | (substance) | + + + + + | Narrative | Performed At | + + + | High doses of biotin (>5 mg/day) can interfere with this | [facility] | | laboratory test. Falsely elevated or decreased lab values may be seen. | [facility] | | Patients should abstain from high dose biotin for 48 hours before | [place] | | having lab tests drawn. | | + + + + + + + + | Performing | Address | City/State/Zipcode | Phone Number | | Organization | | | | + + + + + | [facility] | [address] | [place] [address] | | | [place] | | | | + + + + + HCG BETA QUANT, PLASMA (02/14/2019 10:04 AM PDT) + + + + + + | Component | Value | Ref Range | Performed | Pathologist | | | | | At | Signature | + + + + + + | HCG BETA, | 2,490 (H) | No reference | [facility] | | | PLASMA | | ranges have | LABORATORY | | | | | been | SERVICES, | | | | | established | CORE | | | | | mIU/mL | | | + + + + + + + + | Specimen | + + | Blood - Blood | | (substance) | + + + + + | Narrative | Performed At | + + + | HCG Reference ranges Males: <2 | [facility] | | mIU/mL Non- Females: <3 mIU/mL | LABORATORY | | Females: >5 mIU/mL HCG Ranges During Normal : | SERVICES, CORE | | Weeks Post Last Menstrual Period: Approximate hCG Range, mIU/mL | | | 3-4 weeks 9 - 130 | | | 4-5 weeks 75 - | | | 2600 5-6 weeks | | | 850 - 16005 6-7 weeks | | | 4000 - 063731 7-12 weeks | | | 00052 - 850169 12-16 weeks | | | 04103 - 472192 16-29 weeks | | | 1400 - 32855 29-41 weeks | | | 940 - 02311 Please run quantitative | | | [facility] STAT, okay to run on serum. Fax urgent results back to us at | | | [phone]. ATTN: [facility] Nurses. Thank you. This test has not been | | | approved for use as a tumor marker in males or females. | | + + + + + + + + | Performing | Address | City/State/[facility] | Phone Number | | Organization | | | | + + + + + | [facility] | [address] | [place] [address] | | | SERVICES, CORE | [address] | | | + + + + + documented in this encounter Visit Diagnoses + + | Diagnosis | + + | Supervision of with history of infertility with history of | | infertility | + + | Miscarriage Unspecified spontaneous without mention of complication | + + documented in this encounter"
--- OUTSIDE RECORDS SUMMARY | ~2020-04-19 | XMS | Encounter Summary ---
Demographics + + + | Address | [address] | | | [place] [address] | + + + | Home Phone | | + + + | Preferred Language | Unknown | + + + | Marital Status | | + + + | Sikhism Affiliation | CHR | + + + | Race | White | + + + | Ethnic Group | Not or | + + + Author + + + | Author | [facility] | + + + | Organization | [facility] | + + + | Address | Unknown | + + + | Phone | Unavailable | + + + Support + + +---------+ + | Name | Relationship | Address | Phone | + + +---------+ + | Nathaniel Henao | ECON | Unknown | | + + +---------+ + Care Team Providers + +------+ + | Care Barrel Ribs Solderer Name | Role | Phone | + [...] | | Reproductive | | Non-[facility] | [facility] | | | | Endocrinology | | Epic Dept | Faculty [facility] | | | | /Infertility | | | [address] | | | | | | | e [place] | | | | | | | for Health | | | | | | | and Healing, | | | | | | | [address], | | | | | | | 10th Floor | | | | | | | [place], [place] | | | | | | | [address] | | | | | | | Phone: | | | | | | | [phone] | | | | | | | Fax: | | | | | | | [phone] | + +--------+ + + + + Encounter Details +--------+ + + + + | Date | Type | Department | Care Team | Description | +--------+ + + + + | 11/17/ | Telephone-S | [place] | Yuli Murdock MD | | | 2019 | connie | Fertility | [address] | | | | | Consultants at [facility] | [facility]r [place], | | | | | [address] | [place] [address] | | | | | [facility] | [phone] | | | | | and Healing, | | | | | | [facility] | | | | | | [place], [place] | | | | | | [address] | | | | | | [phone] | | | +--------+ + + + [...] encounter Progress Notes Yuli Murdock MD - 12/07/2018 8:41 AM PDTCalled to f/u after IVF cycle + PGT-A. Unable to f ind viable sperm from both frozen TESE & fresh TESE samples from and used donor sper m for insemination of all eggs. Couple is happy w/ 12/11 euploid blastocysts available for tra nsfer. Will proceed w/ hysteroscopy polypectomy first, then FET of single euploid blastocyst . No preference for sex of embryo. 8: 43 AM PDTdocumented in this encounter Plan of Treatment Not on filedocumented as of this encounter Visit Diagnoses Not on filedocumented in this encounter"
--- OUTSIDE RECORDS SUMMARY | ~2020-04-19 | XMS | Encounter Summary ---
Demographics + + + | Address | [address] | | | [place] [address] | + + + | Home Phone | | + + + | Preferred Language | Unknown | + + + | Marital Status | | + + + | Hoahaoism Affiliation | CHR | + + + [...] Team Providers + +------+ + | Care E Merchant Name | Role | Phone | + +------+ + | Kennedi Selby | PCP | | + +------+ + Encounter Details +--------+ + + + + | Date | Type | Department | Care Team | Description | +--------+ + + + + | 10/10/ | Pharmacy | [facility] | | | | 2019 | Visit | [facility] | | | | | | [address] | | | | | | Mailcode: [place] | | | | | | [facility] and | | | | | | Healing, [address] | | | | | | [place], [place] | | | | | | [address] | | | | | | [phone] | | | +--------+ + + + [...]
--- OUTSIDE RECORDS SUMMARY | ~2020-04-19 | XMS | Encounter Summary ---
Demographics + + + | Address | [address] | | | [place] [address] | + + + | Home Phone | | + + + | Preferred Language | Unknown | + + + | Marital Status | | + + + | Zoroastrian Affiliation | CHR | + + + | Race | White | + + + | Ethnic Group | Not or | + + + Author + + + | Author | [facility] | + + + | Organization | [facility] | + + + | Address | Unknown | + + + | Phone | Unavailable | + + + Support + + +---------+ + | Name | Relationship | Address | Phone | + + +---------+ + | Nathaniel Henao | ECON | Unknown | | + + +---------+ + Care Team Providers + +------+ + | Care Telecommunications Analyst Name | Role | Phone | + +------+ + | Parth Selbya CHIO | PCP | | + +------+ + Reason for Visit + +--------+ + | Reason | Onset | Comments | | | Date | | + +--------+ + | Follow-up Plan | 12/03/ | | | | 2019 | | + +--------+ + Encounter Details +--------+ + + + + | Date | Type | Department | Care Team | Description | +--------+ + + + + | 12/03/ | Telephone | [place] | Yuli Murdock MD | Follow-up Plan | | 2019 | | Fertility | [address] | | | | | Consultants at [facility] | [address] [facility] [place], | | | | | [address] | [place] [address] | | | | | [facility] | [phone] | | | | | and Healing, | | | | | | [address], | | | | | | Floor [place], [place] | | | | | | [address] | | | | | | [phone] | | | +--------+ + + + [...] encounter Miscellaneous Notes Telephone Encounter - Yuli Murdock MD - 12/03/2018 10:21 AM PDTCall patient to review benig n endometrial polyps on surgical pathology. Evidence of plasma cells, likely related to the polypoid endometrium. Given the extensive nature of the polyps, and resection over every q uadrant of the uterus, we discussed delaying the embryo transfer until January. I do have a eaton spicion that Pushpa may have some mild endometriosis, given dysmenorrhea, menorrhagia, diff use polypoid endometrium. Pros and cons of long Lupron FET versus Estrace only FET reviewed . Given multiple euploid embryos available, will proceed with just OCP/Estrace protocol. W e will continue active OCPs for suppression for now, then transition to Estrace, aim for FET the week of January 19. Thaw and transfer best euploid embryo. documented in this encounter Plan of Treatment Not on filedocumented as of this encounter Visit Diagnoses Not on filedocumented in this encounter"
--- OUTSIDE RECORDS SUMMARY | ~2020-04-19 | XMS | Encounter Summary ---
Demographics + + + | Address | [address] | | | [place] [address] | + + + | Home Phone | | + + + | Preferred Language | Unknown | + + + | Marital Status | | + + + | Taoist Affiliation | CHR | + + + | Race | White | + + + | Ethnic Group | Not or | + + + Author + + + | Author | [facility] | + + + | Organization | [facility] | + + + | Address | Unknown | + + + | Phone | Unavailable | + + + Support + + +---------+ + | Name | Relationship | Address | Phone | + + +---------+ + | Nathaniel Henao | ECON | Unknown | | + + +---------+ + Care Team Providers + +------+ + | Care Roofing Plant Supervisor Name | Role | Phone | + [...] | +--------+ + + + + | 05/27/ | Anesthesia | [facility] | Shakir Tan MD | | | 2019 | Event | [facility] | [address] | | | | | and Healing Surgery | [address] [place], | | | | | [place] [facility] | [place] [address] | | | | | Desk Located on the | [phone] | | | | | 4th floor [address] | | | | | | [address] [place], | Yamilka Cruz | | | | | [place] [address] | M, POWER TRANSFORMER REPAIR SUPERVISOR [address] | | | | | | [address] | | | | | | [place], [place] | | | | | | [address] | | | | | | [phone] | | | | | | | | +--------+ + + + + Anesthesia Record + + + + + | Procedure Name | Responsible | Anesthesia Start | Anesthesia Stop Time | | | Anesthesiologist | Time | | + + + + + | HYSTEROSCOPY WITH | Shakir MD Britney | 05/27/19 1248 | 05/27/19 1340 | | ENDOMETRIAL BIOPSY | | | | | (N/A ) | | | | + + + + + +----+---+ + + | Da | T | Event | Comment | | te | i | | | | | m | | | | | e | | | +----+---+ + + | 11 | 1 | | | | /2 | 2 | | | | 0/ | 3 | | | | 20 | 2 | | | | 19 | | | | +----+---+ + + | | 1 | Pt. Check | Prior to anesthesia start, pt. Identified, examined, chart | | | 2 | | reviewed, PARQ held, anesthetic plan made or approved by | | | 3 | | attending anesthesiologist. NPO status confirmed as appropriate | | | 2 | | for procedure Preoperative evaluation: unchanged | +----+---+ + + | | 1 | Eq Check | Anesthesia machine checked Equipment verified | | | 2 | | | | | 4 | | | | | 8 | | | +----+---+ + + | | 1 | An Start | | | | 2 | | | | | 4 | | | | | 8 | | | +----+---+ + + | | 1 | An Start | | | | 2 | Data | | | | 4 | | | | | 8 | | | +----+---+ + + | | 1 | Vitals | Monitors applied Vital signs checked Patient ready for anesthesia | | | 2 | Checked | | | | 5 | | | | | 2 | | | +----+---+ + + | | 1 | O2 by FM | | | | 2 | | | | | 5 | | | | | 2 | | | +----+---+ + + | | 1 | Ready | | | | 2 | | | | | 5 | | | | | 3 | | | +----+---+ + + | | 1 | Abx | | | | 2 | Administere | | | | 5 | d | | | | 8 | | | +----+---+ + + | | 1 | Incision | | | | 3 | | | | | 0 | | | | | 5 | | | +----+---+ + + | | 1 | Quick Note | Rash noted prior to toradol. | | | 3 | | | | | 2 | | | | | 5 | | | +----+---+ + + | | 1 | Surgery end | | | | 3 | | | | | 2 | | | | | 9 | | | +----+---+ + + | | 1 | an stop | | | | 3 | data | | | | 2 | | | | | 9 | | | +----+---+ + + | | 1 | PACU Rpt | | | | 3 | Given | | | | 4 | | | | | 0 | | | +----+---+ + + | | 1 | Anesthesia | | | | 3 | End | | | | 4 | | | | | 0 | | | +----+---+ + + +------+ | Meds | +------+ + + + | Name | Total | + + + | midazolam | 2 mg | + + + | lidocaine 2% | 40 mg | + + + | propofol (DIPRIVAN) 200 mg | 60 mg | + + + | propofol INF | 438,150 mcg | + + + | dexamethasone | 4 mg | + + + | ondansetron | 4 mg | + + + | ceFAZolin (ANCEF) injection 2 g | 2 g | + + + | ketorolac | 30 mg | + + + | lactated ringers IV | 700 mL | + + + + + | Name | + + | Insp Sevo | + + | Et Sevo | + + | O2 Flow Rate (Total Liters) | + + + + | No blood administrations on file. | + + +--------+ + + + | Type | Details | Placement | Removal | +--------+ + + + | Urethr | 05/27/19; (not urethral, | 05/27/19 0000 by | | | al | catheter in vagina); Sofia; 8 Fr. | Verona Claudio RN | | | Carmella | | | | | er | | | | +--------+ + + + | Periph | 05/27/19; 1216; SinN; | 05/27/19 1216 by | 05/27/19 1521 by | | shail | Right; Hand; 22 g; None; | Neha Melo, | Elvi Oliveira RN | | IV | Positive; 05/27/19; 1521 | RN | | +--------+ + + + documented in this encounter Social History + +-------+ +--------+------+ | Tobacco [...] + + documented as of this encounter [place] Notes Anesthesia Postprocedure Evaluation - Yamilka Cruz CRNA - 05/27/2019 1:42 PM PSTF ormatting of this note might be different from the original. Pushpa Bibianajakob Henao [id number] Vitals Value Taken Time BP 121/56 05/27/2019 1:40 PM Temp 36.6 C (97.9 F) 05/27/2019 1:40 PM Pulse 59 05/27/2019 1:40 PM Resp 14 05/27/2019 1:40 PM SpO2 98 % 05/27/2019 1:40 PM EVALUATION VS (BP, HR, RR, SpO2, and Temp) and hydration status are stable ROS including Cards, Resp, Neuro, and GI without evidence of adverse effects No PONV Pain controlled No altered mental status COMPLICATIONS No adverse events nesthesia Pre procedure Evaluation - Yamilka Cruz CRNA - 05/27/2019 11:56 AM PSTFormatting of thi s note might be different from the original. Pushpa Henao [id number] No Known Allergies NPO: 05/26/191999 Last Vitals Temp: 36.8 C (98.2 F) Heart Rate: 64 Resp: 16 BP: 108/63 SpO2: 100 % O2 Delivery Device: None (room air) Preg Status/LMP Patient Active Problem List Diagnosis IVF Screening Checklist Blood type A+ Past Surgical History Procedure Laterality Date Lipoma excision 2010 on back. Keloid formation [place] teeth extraction Colonoscopy Current Medication List Name Sig Last Dose ACETAMINOPHEN 300 MG-CODEINE 30 MG TABLET Take 1 tablet by mouth every six hours as needed. Not Taking ASCORBIC ACID (VITAMIN C) 100 MG TABLET Take 100 mg by mouth once daily. Not Taking CHOLECALCIFEROL (VITAMIN D3) 1,000 UNIT CAPSULE Vitamin D3 05/26/2019 DESOGESTREL 0.15 MG-ETHINYL ESTRADIOL 0.03 MG TABLET Take 1 tablet by mouth once daily. Stephen l on menses day one. Take active only pills. Not Taking DOXYCYCLINE HYCLATE 100 MG TABLET Take 1 tablet by mouth every twelve hours. (Pharmacist to substitute salt form as needed) Start two days prior to procedure. Take for a total of 5 da ys. Not Taking DOXYCYCLINE HYCLATE 100 MG TABLET Take 1 tablet by mouth every twelve hours. (Pharmacist to substitute salt form as needed). Start when directed. Take for 7 days with probiotic. Not T aking EMPTY CONTAINER Use as directed. Not Taking ESTRADIOL 2 MG TABLET Take 1-3 tablets daily as instructed by your written MD protocol. Not Taking LEVOTHYROXINE 25 MCG TABLET Take 1 tablet by mouth before breakfast. Start with treatment c ycle start, (day one of Estrace). 05/26/2019 NEEDLE (DISP) 22 G 22 GAUGE X 1 1/2" Use to inject progesterone in oil. Not Taking NORETHINDRONE ACETATE-ETHINYL ESTRADIOL 1.5 MG-30 MCG TABLET Take 1 tablet by mouth once da lauren. Take active pills only, ongoing. 05/26/2019 OMEGA 4-NUW-HGL-FISH OIL 100 MG-160 MG-1,000 MG CAPSULE Take 1,000 mg by mouth once daily. Not Taking 478-HPSY-[id number] AC-DHA ORAL 05/26/2019 PROGESTERONE 50 MG/ML INTRAMUSCULAR OIL Inject 2 mL into the muscle (IM) once daily. Admini ster in the evenings as instructed by your written MD protocol. Not Taking RIZATRIPTAN 10 MG TABLET Take 10 mg by mouth as needed for migraine. Within last 30 days SYRINGE WITH NEEDLE 3 ML 18 X 1 1/2" Use to draw up progesterone in oil. Not Taking No results found for: RATE, ATRIALRATE, OR, QRS, QT, QTC, PAXIS, RAXIS, TAXIS, EKGDX ANESTHESIA PLAN ASA 1 NPO Status: NPO by protocol ANESTHETIC TECHNIQUE Technique Used: Monitored Anesthesia Care MONITORS/LINES TO BE USED Standard POSTOP PAIN IV analgesics BLOOD PRODUCTS None INFORMED CONSENT PARQ and risks/benefits of anesthetic plan discussed with Patient Additional Consent Issues: Procedures, Alternatives, Risks, and Questions discussed Dental Risk discussed with patient PATIENT'S CODE STATUS IN OR FULL - full code COMMENTS PARQ MAC possible GA. Risks discussed N/V, oversedation, drug reaction, cardiorespiratory, . Questions elicited and answered. documented in this encou nter Miscellaneous Notes PMC/ANE PreOp Note - Yamilka Cruz CRNA - 05/27/2019 11:55 AM PSTROS: HPI: Prior Anesthetic Problems: No Pulmonary: Within Defined Limits except as noted below no cough no wheezing no rhinorrhea no Rece nt Respiratory Infection Pt. 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: Within Defined Limits except as noted below no Urologic Conditions CONTENT EDITOR conditions: inferti lity, fibroids and Other: endometrial polyp Endo: Within Defined Limits except as noted below no Diabetes: Endocrine Other (elevated thyroid antibodies with family hx of Hashimotos) no Hx Corticosteroid Use Neuro/Psych: Within Defined limits except as noted below Head Conditions: other headaches/migraines No Neurologic Development conditions No Spine Conditions No Neuromuscular Conditions no Psych Disorder no pain Current pain score: 0 Musculoskeletal: Within Defined Limits except as noted below no arthritis No Muscular Disorders Heme/Onc: Within Defined Limits except as noted below Pt. has: no active bleeding no bleeding disord er Infectious Disease: Within Defined Limits except as noted below no MRSA no VRE Skin: Integumentary system within defined limits no open wounds No active skin infections Physical Exam General: Appearance: Healthy, Age appropriate and No distress Arousability: Arouses to verbal stimuli HEENT: Normocephalic/Atraumatic Airway: Dentition: dentition is normal Date of last Dental Exam: 07/2018 Mallampati: 1 Mouth Opening : > 3 cm TM Distance:> 6 cm Existing Airway: tracheostomy Arriaga: No C-Spine ROM: Normal Neck Anatomy: Normal Jaw Protrusion: Normal (lower incisors go above upper incisors) Pulmonary: Respiratory: pulmonary exam normal Breath Sounds: breath sounds normal Cardiovascular: Rhythm: Regular Rate: Normal Abdomen: General: Normal Body Habitus: normal Musculoskeletal: Range of Motion: Normal range of motion Neuro/Psych: Affect: Normal Strength: Normal Skin: Color: skin color normal Other Implanted Devices: Implanted devices: None documented in this encounter Plan of Treatment Not on filedocumented as of this encounter Visit Diagnoses Not on filedocumented in this encounter Administered Medications + +--------+ +------+------+------+ | Medication Order | MAR | Action | Dose | Rate | Site | | | Action | Date | | | | + +--------+ +------+------+------+ | ceFAZolin (ANCEF) injection 2 g | Given | 05/27/20 | 2 g | | | | 2 g, intravenous, PREPROCEDURE | | 19 12:58 | | | | | ONCE, 1 dose, Starting Wed | | PM PST | | | | | 05/27/19 at 1133, Until Wed | | | | | | | 05/27/19 at 1258 | | | | | | + +--------+ +------+------+------+ +---+---+ | | | +---+---+ + +-------+ +------+---+---+ | dexamethasone (DECADRON) | Given | 05/27/20 | 4 mg | | | | injection INTRAPROCEDURE PRN, | | 19 12:53 | | | | | Starting 05/27/19 at 1253, | | PM PST | | | | | Until Sat05/27/19 at 1329 | | | | | | + +-------+ +------+---+---+ +---+---+ | | | +---+---+ + +-------+ +-------+---+---+ | ketorolac (TORADOL) injection | Given | 05/27/20 | 30 mg | | | | INTRAPROCEDURE PRN, Starting Wed | | 19 1:24 | | | | | 05/27/19 at 1324, Until Wed | | PM PST | | | | | 05/27/19 at 1329 | | | | | | + +-------+ +-------+---+---+ +---+---+ | | | +---+---+ + + + +---+---+---+ | lactated ringers IV 10 mL/hr, | given by | 05/27/20 | | | | | intravenous, PROCEDURE | | 19 1:37 | | | | | CONTINUOUS, Starting 05/27/19 | anesthes | PM PST | | | | | at 1145, Until Sat05/27/19 at | iology | | | | | | 2138 | | | | | | + + + +---+---+---+ +---------+ +---+---+---+ | New Bag | 05/27/20 | | | | | | 19 12:48 | | | | | | PM PST | | | | +---------+ +---+---+---+ +---+---+ | | | +---+---+ + +-------+ +-------+---+---+ | lidocaine PF (XYLOCAINE MPF) 20 | Given | 05/27/20 | 40 mg | | | | mg/mL (2 %) injection | | 19 12:53 | | | | | INTRAPROCEDURE PRN, Starting Wed | | PM PST | | | | | 05/27/19 at 1253, Until Wed | | | | | | | 05/27/19 at 1329 | | | | | | + +-------+ +-------+---+---+ +---+---+ | | | +---+---+ + +-------+ +------+---+---+ | midazolam (PF) (VERSED) | Given | 05/27/20 | 2 mg | | | | injection INTRAPROCEDURE PRN, | | 19 12:51 | | | | | Starting 05/27/19 at 1251, | | PM PST | | | | | Until 05/27/19 at 1329 | | | | | | + +-------+ +------+---+---+ +---+---+ | | | +---+---+ + +-------+ +------+---+---+ | ondansetron (ZOFRAN) injection | Given | 05/27/20 | 4 mg | | | | INTRAPROCEDURE PRN, Starting Wed | | 19 12:53 | | | | | 05/27/19 at 1253, Until Wed | | PM PST | | | | | 05/27/19 at 1329 | | | | | | + +-------+ +------+---+---+ +---+---+ | | | +---+---+ + +---------+ +-------+---+---+ | propofol (DIPRIVAN) 200 mg | New Bag | 05/27/20 | 60 mg | | | | INTRAPROCEDURE CONTINUOUS PRN, | | 19 12:53 | | | | | Starting 05/27/19 at 1253, | | PM PST | | | | | Until 05/27/19 at 1329 | | | | | | + +---------+ +-------+---+---+ +---+---+ | | | +---+---+ + + + + +-------+---+ | propofol (DIPRIVAN) injection | Rate/Dos | 05/27/20 | 200 | 76.2 | | | INTRAPROCEDURE CONTINUOUS PRN, | e Change | 19 12:59 | mcg/kg/m | mL/hr | | | Starting Sat05/27/19 at 1253, | | PM PST | in | | | | Until Sat05/27/19 at 1329 | | | | | | + + + + +-------+---+ +---------+ + +--------+---+ | New Bag | 05/27/20 | 150 | 57.15 | | | | 19 12:53 | mcg/kg/m | mL/hr | | | | PM PST | in | | | +---------+ + +--------+---+ +---+---+ | | | +---+---+ documented in this encounter
--- OUTSIDE RECORDS SUMMARY | ~2020-04-19 | XMS | Encounter Summary ---
Demographics + + + | Address | [address] | | | [place] [address] | + + + | Home Phone | | + + + | Preferred Language | Unknown | + + + | Marital Status | | + + + | Jew Affiliation | CHR | + + + [...] Team Providers + +------+ + | Care Blending Machine Operator Name | Role | Phone | + +------+ + | Kennedi Selby | PCP | | + +------+ + Encounter Details +--------+--------+ + + + | Date | Type | Department | Care Team | Description | +--------+--------+ + + + | 06/12/ | Travel | | | | | [...]
--- OUTSIDE RECORDS SUMMARY | ~2020-04-19 | XMS | Encounter Summary ---
Demographics + + + | Address | [address] | | | [place] [address] | + + + | Home Phone | | + + + | Preferred Language | Unknown | + + + | Marital Status | | + + + | Shinto Affiliation | CHR | + + + | Race | White | + + + | Ethnic Group | Not or | + + + Author + + + | Author | [facility] | + + + | Organization | [facility] | + + + | Address | Unknown | + + + | Phone | Unavailable | + + + Support + + +---------+ + | Name | Relationship | Address | Phone | + + +---------+ + | Nathaniel Henao | ECON | Unknown | | + + +---------+ + Care Team Providers + +------+ + | Care Wallcovering Texturer Name | Role | Phone | + +------+ + | Parth Selbya CHIO | PCP | | + +------+ + Reason for Visit + +--------+ + | Reason | Onset | Comments | | | Date | | + +--------+ + | Financial Review | 09/16/ | | | | 2020 | | + +--------+ + Encounter Details +--------+ + + + + | Date | Type | Department | Care Team | Description | +--------+ + + + + | 09/16/ | [facility] [place] | Yuli Murdock MD | Financial Review | | 2020 | Encounter | Fertility | [address] | | | | | Consultants at [facility] | [address] [place], | | | | | [address] | [place] [address] | | | | | [facility] | [phone] | | | | | and Healing, | | | | | | Building | | | | | | Floor [place], [place] | | | | | | [address] | | | | | | [phone] | | | +--------+ + + + [...]
--- OUTSIDE RECORDS SUMMARY | ~2020-04-19 | XMS | Encounter Summary ---
Demographics + + + | Address | [address] | | | [place] [address] | + + + | Home Phone | | + + + | Preferred Language | Unknown | + + + | Marital Status | | + + + | Baptist Affiliation | CHR | + + + | Race | White | + + + | Ethnic Group | Not or | + + + Author + + + | Author | [facility] | + + + | Organization | [facility] | + + + | Address | Unknown | + + + | Phone | Unavailable | + + + Support + + +---------+ + | Name | Relationship | Address | Phone | + + +---------+ + | Nathaniel Henao | ECON | Unknown | | + + +---------+ + Care Team Providers + +------+ + | Care Service Crew Leader Name | Role | Phone | + +------+ + | Kennedi Selby | PCP | | + +------+ + Encounter Details +--------+ + + + + | Date | Type | Department | Care Team | Description | +--------+ + + + + | 06/26/ | Hospital | Diagnostic Imaging | Yuli Murdock MD | | | 2019 | Encounter | [address] | [address] | | | | | [address] | [address] [place], | | | | | [place], [place] | [place] [address] | | | | | [address] | [phone] | | | | | | | [...] | | 0 | | | | 2-nxv-eev-fish oil | mouth once daily. | | | | | | (FISH OIL) | | | | | | | 100-160-1,000 mg | | | | | | | oral capsule | | | | | | + + + +---------+ + + | | | | 0 | | | | [id number] | | | | | | | [...] + +--------+ + + + | [facility] SALINE INFUSION | Routin | 06/26/2019 | Anju's | Results for this | | SONOGRAM | e | 7:15 AM | syndrome | procedure are in the | | | | PST | | results section. | + +--------+ + + + documented in this encounter Results [facility] SALINE INFUSION SONOGRAM (06/26/2019 7:15 AM PST) + + | Specimen | [...]
--- OUTSIDE RECORDS SUMMARY | ~2020-04-19 | XMS | Encounter Summary ---
Demographics + + + | Address | [address] | | | [place] [address] | + + + | Home Phone | | + + + | Preferred Language | Unknown | + + + | Marital Status | | + + + | Gnosticism Affiliation | CHR | + + + | Race | White | + + + | Ethnic Group | Not or | + + + Author + + + | Author | [facility] | + + + | Organization | [facility] | + + + | Address | Unknown | + + + | Phone | Unavailable | + + + Support + + +---------+ + | Name | Relationship | Address | Phone | + + +---------+ + | Nathaniel Henao | ECON | Unknown | | + + +---------+ + Care Team Providers + +------+ + | Care Public Address Announcer Name | Role | Phone | + +------+ + | Kennedi Selby | PCP | | + +------+ + Encounter Details +--------+ + + + + | Date | Type | Department | Care Team | Description | +--------+ + + + + | 10/13/ | Hospital | Diagnostic Imaging | Yuli Murdock MD | | | 2019 | Encounter | [address] | [address] | | | | | [address] | [address], | | | | | [place], [place] | [place] [address] | | | | | [address] | [phone] | | | | | | | [...] + | [facility]ELVIS | Routin | 10/13/2018 | In vitro | Results for this | | ULTRASOUND | e | 8:17 AM | fertilization | procedure are in the | | | | PDT | | results section. | + +--------+ + + + documented in this encounter Results [facility] PELVIS ULTRASOUND (10/13/2018 8:17 AM PDT) + + | Specimen | + + | | + + + + + | Narrative | Performed At | + + + | Refer to the encounter notes for imaging results. | | + + + documented in this encounter Visit Diagnoses Not on filedocumented in this encounter"
--- OUTSIDE RECORDS SUMMARY | ~2020-04-19 | XMS | Encounter Summary ---
Demographics + + + | Address | [address] | | | [place] [address] | + + + | Home Phone [...] | Author | [facility] | + + + | Organization | [facility] | + + + | Address | Unknown | + + + | Phone | Unavailable | + + + Support + + +---------+ + | Name | Relationship | Address | Phone | + + +---------+ + | Nathaniel Henao | ECON | Unknown | | + + +---------+ + Care Team Providers + +------+ + | Care Parts Department Supervisor Name | Role | Phone | [...] | Reproductive | | Non[facility] | [facility] | | | | Endocrinology | | Epic Dept | [facility] | | | | /Infertility | | | [address] | | | | | | | e [place] | | | | | | | for Health | | | | | | | and Healing, | | | | | | | [address], | | | | | | | 10th Floor | | | | | | | [place], [place] | | | | | | | [address] | | | | | | | Phone: | | | | | | | [phone] | | | | | | | Fax: | | | | | | | [phone] | + +--------+ + + + + Encounter Details +--------+ + + + + | Date | Type | Department | Care Team | Description | +--------+ + + + + | 02/16/ | Telephone-S | [place] [facility] | | | 2019 | cheduled | Fertility | [address] | | | | | Consultants at [facility] | [place] [address] | | | | | [address] | | | | | | [facility] | | | | | | and Healing, | | | | | | Building | | | | | | [place], [place] | | | | | | [address] | | | | | | [phone] | | | +--------+ + + + [...] + documented as of this encounter Progress Elliott Jeter - 02/16/2019 3:00 PM PDTEncounter closed at the request of Doreen Chavez.E lectronically signed by Elliott Treadwell at 12/03/2019 12:05 PM PDTdocumented in this encounter Plan of Treatment Not on filedocumented as of this encounter Visit Diagnoses Not on filedocumented in this encounter"
--- OUTSIDE RECORDS SUMMARY | ~2020-04-19 | XMS | Encounter Summary ---
Demographics + + + | Address | [address] | | | [place] [address] | + + + | Home Phone | | + + + | Preferred Language | Unknown | + + + | Marital Status | | + + + | Oriental Orthodox Affiliation | CHR | + + + | Race | White | + + + | Ethnic Group | Not or | + + + Author + + + | Author | [facility] | + + + | Organization | [facility] | + + + | Address | Unknown | + + + | Phone | Unavailable | + + + Support + + +---------+ + | Name | Relationship | Address | Phone | + + +---------+ + | Nathaniel Henao | ECON | Unknown | | + + +---------+ + Care Team Providers + +------+ + | Care Warehouse Hand Name | Role | Phone | + [...] | | Reproductive | | [facility] | | | Endocrinology | | Epic Dept | [facility] | | | | /Infertility | | | [address] | | | | | | | e [place] | | | | | | | [facility] | | | | | | | and Healing, | | | | | | | [address], | | | | | | | [address] Floor | | | | | | | [place], [place] | | | | | | | [address] | | | | | | | Phone: | | | | | | | [phone] | | | | | | | Fax: | | | | | | | [phone] | + +--------+ + + + + Encounter Details +--------+ + + + + | Date | Type | Department | Care Team | Description | +--------+ + + + + | 10/13/ | Procedure | University | | | | 2019 | | Fertility | | | | | | [facility] | | | | | | [address] | | | | | | [place] for [facility] | | | | | | and Healing, | | | | | | [facility] | | | | | | Floor [place], [place] | | | | | | [address] | | | | | | [phone] | | | +--------+ + + + [...] + + + | Blood Pressure | 106/62 | 10/13/2018 11:26 AM | | | | | PDT | | + + + + + | Pulse | 73 | 10/13/2018 11:26 AM | | | | | PDT | | + + + + + | Temperature | 36.8 C (98.2 F) | 10/13/2018 11:26 AM | | | | | PDT | | + + + + + | Respiratory Rate | - | - | | + + + + + | Oxygen Saturation | - | - | | + + + + + | Inhaled Oxygen | - | - | | | Concentration | | | | + + + + + | Weight | 63.9 kg (140 lb 14.4 | 10/13/2018 11:26 AM | | | | oz) | PDT | | + + + + + | Height | 160 cm (5' 3") | 10/13/2018 11:26 AM | | | | | PDT | | + + + + + | Body Mass Index | 24.96 | 10/13/2018 11:26 AM | | | | | PDT | | + + + + + documented in this encounter Progress Notes Caitlin Cleveland RDMS - 10/13/2018 9:40 AM PDTFormatting of this note might be different fr om the original. ENDOCRINE MANAGEMENT PROGRESS NOTE 10/13/2018 Day of stimulation: ARC, Suppression check, US/E2 NOTE: Last OCP is today. Stim start is no w 10/[address] BETTENCOURT. HMG2/OCO386/antag/Novarel/Freeze/TESE(with back up fresh TESE and Donor s perm). Consent signing after. Mathieu/Prince Comments: Suppression check Indication: IVF Approach: transvaginal Systems checklist: negative for uterine polyps, myomas, fluid in cavity, ovarian mass and f luid in cul-de-sac. Estradiol level: Lab Results Component Value Date ESTRADIOL 25.2 10/13/2018 Progesterone level: No results found for: PROG FOLLICLE EXAMINATION / ENDOMETRIAL THICKNESS Endometrial thickness: 3.6mm pedunculated fibroid Grade: I LARGEST FOLLICLES (Measured in Millimeters) RIGHT OVARY VOLUME: [id number] LEFT OVARY VOLUME: 81p45or 1 6 mean 1 mean 2 mean 2 mean 3 mean 3 mean 4 mean 4 mean 5 mean 5 mean 6 mean 6 mean 7 mean 7 mean 8 mean 8 mean 9 mean 9 mean 10 mean 10 mean Additional Follicles: Additional Follicles: Total Follicles: 10 Total Follicles: 8 Interpretation: suppressed by US Plan: proceed as planned I, Grady Antonio, personally reviewed all images and plan. [facility] Not on filedocumented as [...] + documented in this encounter Results [facility] [place]EL[place]TRASOUND (10/13/2018 8:17 AM PDT) + [...]
--- OUTSIDE RECORDS SUMMARY | ~2020-04-19 | XMS | Encounter Summary ---
Demographics + + + | Address | [address] | | | [place] [address] | + + + | Home Phone | | + + + | Preferred Language | Unknown | + + + | Marital Status | | + + + | Congregation Affiliation | CHR | + + + | Race | White | + + + | Ethnic Group | Not or | + + + Author + + + | Author | [facility] | + + + | Organization | [facility] | + + + | Address | Unknown | + + + | Phone | Unavailable | + + + Support + + +---------+ + | Name | Relationship | Address | Phone | + + +---------+ + | Nathaniel Henao | ECON | Unknown | | + + +---------+ + Care Team Providers + +------+ + | Care Car Stower Name | Role | Phone | + [...] + + + + | 05/27/ | Hospital | [facility] | Yuli Bettencourt MD | | | 2019 | Encounter | [address] | [address] | | | | | Ave Mailcode: [facility] | Doni Mohr [place], | | | | | [facility] | [place] [address] | | | | | [facility], | [phone] | | | | | [facility] [address] | | | | | | [place], [place] | | | | | | [address] | | | | | | [phone] | | | +--------+ + + + [...] + + + | Blood Pressure | 121/68 | 05/27/2019 2:10 PM | | | | | PST | | + + + + + | Pulse | 56 | 05/27/2019 2:10 PM | | | | | PST | | + + + + + | Temperature | 37.1 C (98.8 F) | 05/27/2019 3:02 PM | | | | | PST | | + + + + + | Respiratory Rate | 15 | 05/27/2019 3:02 PM | | | | | PST | | + + + + + | Oxygen Saturation | 98% | 05/27/2019 2:10 PM | | | | | PST | | + + + + + | Inhaled Oxygen | - | - | | | Concentration | | | | + + + + + | Weight | 63.5 kg (140 lb) | 05/27/2019 11:37 AM | | | | | PST | | + + + + + | Height | 160 cm (5' 3") | 05/27/2019 11:37 AM | | | | | PST | | + + + + + | Body Mass Index | 24.8 | 05/27/2019 11:37 AM | | | | | PST | | + + + + + documented in this encounter Discharge Instructions Discharge Instr - Day Procedure Instructions Elliott Shi MD - 05/27/2019 7:57 AM PSTPAT IENT INFORMATION Hysteroscopy Hysteroscopy is a procedure that is [...] common concerns after your surgery. What to expect: After the surgery, most women have some cramping, vaginal discharge, and nausea. You may maradiaga ve a pinkish vaginal discharge for two to three days afterward. It should not be heavy bleed ing (soaking a pad every hour for 2 hours) Pain You may take ibuprofen and/or acetaminophen. These medications are often the only pain medi cations that one needs after surgery, but if you have significant pain that is not relieved by ibuprofen or acetaminophen please contact the office at . During nights or weekends, please call [phone] and ask to page the industrial relations officer fertility doctor. When you can go back to work: Most women can go back to work or school the following day. Activity: No intercourse and nothing in the vagina for 2 weeks. You may resume all other usual activities You may climb stairs and exercise as tolerated You may shower daily, avoid tub baths for the first 2 weeks. When to Call your doctor: 1. Worsening pain or pain that is not relieved by medications. 2. Constipation that persists beyond 3 days after surgery 3. Any heavy bleeding (heavier than a period) 4. Temperature above 100.4 F 5. Any foul smelling discharge How to contact your provider: If you have any concerns at home, we can be reached at during clinic hours. If you need immediate attention please tell the phone staff that the matter is urgent. The re is an industrial relations officer staff member in the evenings and nights as well. Please reserve urgent mat ters only for evening and night calls. Follow Up We will plan to see you in the clinic within 2-3 weeks of your surgery to discuss the patho logy results from your surgery. If you do not have an appointment set up at the time of discharge from the hospital- please call the clinic at when you get home. Additional Instructions Jess Moser RN - 05/27/2019PATIENT INFORMATION Hysteroscopy Hysteroscopy is a procedure that is [...] mos t common concerns after your surgery. POSTOP INSTRUCTIONS: -You have a uterine stent/balloon in place. This should be removed on 06/02/19. It may fall out on its own before this date, and you do not need to worry if this happens. -The end of the balloon catheter is tucked into the vagina. If this part comes out you may gently place it back in the vagina (sometimes if the end of the catheter is out of the vagin a it may cause discomfort or rub on something and cause the whole balloon to fall out). -To remove the balloon, simply cut across the catheter above the knot. This should cause th e balloon inside to deflate, and you may notice some water come out. After this, you can gen tly tug on the catheter until it is out. -While the balloon is in place, please take the doxycycline antibiotic twice daily. -You will also need to take estrogen tablets twice daily for 3 weeks. At the end of the thr ee weeks, you will start taking provera once daily for 1 week. What to expect: After the surgery, most women have some cramping, vaginal discharge, and nausea. You may maradiaga ve a pinkish vaginal discharge for two to three days afterward. It should not be heavy bleed ing (soaking a pad every hour for 2 hours) Pain You may take ibuprofen and/or acetaminophen. These medications are often the only pain medi cations that one needs after surgery, but if you have significant pain that is not relieved by ibuprofen or acetaminophen please contact the office at . During nights or weekends, please call [phone] and ask to page the industrial relations officer fertility doctor. When you can go back to work: Most women can go back to work or school the following day. Activity: No intercourse and nothing in the vagina for 2 weeks. You may resume all other usual activities You may climb stairs and exercise as tolerated You may shower daily, avoid tub baths for the first 2 weeks. When to Call your doctor: 1. Worsening pain or pain that is not relieved by medications. 2. Constipation that persists beyond 3 days after surgery 3. Any heavy bleeding (heavier than a period) 4. Temperature above 100.4 F 5. Any foul smelling discharge How to contact your provider: If you have any concerns at home, we can be reached at during clinic hours. If you need immediate attention please tell the phone staff that the matter is urgent. The re is an industrial relations officer staff member in the evenings and nights as well. Please reserve urgent mat ters only for evening and night calls. Follow Up Dr. Bettencourt will plan to call you with a follow up telephone visit to discuss pathology results. General Discharge Instructions for Same-Day Procedure Patients: ? Remember that you are under the influence of medications. Do not stay alone. A responsible person should be with you. Do not drive, drink alcohol or make important personal or business decisions for 24 hour s. ? Resume normal activity and return to work when advised by your Doctor. Pain Management: Your last oral pain medication was given at: __toradol(which is an NSAID) at 1:24 pm----yo u may have another ibuprofen or other NSAID in 6 hours ? Please follow your Doctor s instructions on the medication bottle. ? Do not take pain medication on an empty stomach, as this may cause nausea and vomiting. ? Do not drive or drink alcohol while on narcotic pain medication. ? If pain is not relieved or increases despite following these instructions, please call yo ur Doctor. Diet and Medications You may return to your normal diet and take your normal medications unless otherwise instru cted by your physician. ? If you do not experience nausea or vomiting resume your regular diet. Eat lightly and av oid large, high fat or highly spiced meals for 24-48 hours. ? Constipation can be a side effect of narcotic pain medication. Take stool softeners, inc rease dietary fiber and drink plenty of water to prevent this. IV Site Care Instructions: ? Monitor IV site for pain, redness, swelling and/or drainage. If present, call your Docto r immediately. ? Minor redness and/or tenderness may be treated with warm, moist compresses for 24-48 hour s. If the area is still red and/or tender after this, notify your Doctor. Call your Doctor if you experience: ? Persistent nausea or vomiting. ? Fever ?101F or chills. ? Increased or uncontrolled pain despite taking pain medications. Call 911 if you experience difficulty breathing, unusual shortness of breath or chest pain. How to Reach Your Doctor After hours, weekends and holidays, call the Hospital Primary Grade Teacher at [phone] and asked to have the doctor who is oncall for your doctor to be paged to your phone number. [facility] for SCOPOLAMINE PATCH Follow the guidelines below. Call your doctor if you notice any unusual symptoms. Remembe r: You are under the influence of medications. Do not drive, drink alcoholic beverages, si gn legal documents or make major decisions during the next 24 hours. The scopolamine patch is used to prevent nausea and vomiting caused by motion sickness or f rom anesthesia. The patch can be worn for 24-72 hours after surgery, depending on how you feel. After cierra ving the patch, fold it closed with the sticky side in and throw it away in a place where pe ts and children cannot reach it. Always wash your hands with soap and water after handling the patch and do not touch your e yes. Less serious side effects may include: ? Drowsiness ? Dizziness ? Dry mouth ? Dry eyes ? Feeling restless ? Memory problems IF YOU SEE ANY OF THE SERIOUS SIDE EFFECTS LISTED BELOW, CALL YOU DOCTOR AND REMOVE THE PATCH: ? Eye pain ? Seeing halos around lights ? Blurred vision ? Confusion ? Agitation ? Hallucinations ? Unusual thoughts or behaviors ? Urination less than usual or not at all documented in this encounter Medications at Time [...] | | 0 | | | | 3-myc-fzm-fish oil | mouth once daily. | | | | | | (FISH OIL) | | | | | | | 100-160-1,000 mg | | | | | | | oral capsule | | | | | | + + + +---------+ + + | | | | 0 | | | | [id number]-[id number] | | | | | | | [...] 19 | | | 18 x 1 /" | | | | | | | [...] tablet by | 14 | 0 | 05/27/20 | | | hyclate 100 mg oral | mouth every twelve | tablet | | 19 | 9 | | tablet | hours for 7 days. | | | | | | | Take twice daily | | | | | | | while uterine | | | | | | | balloon is in place. | | | | | + + + +---------+ + + | estradiol | Take 1 tablet by | 42 | 0 | 05/27/20 | | | (ESTRACE) 2 mg oral | mouth two times | tablet | | 19 | 9 | | tablet | daily for 21 days. | | | | | + + + +---------+ + + | | Take 1 tablet by | 7 | 0 | 05/27/20 | | | medroxyPROGESTERone | mouth once daily for | tablet | | 19 | 9 | | 10 mg oral tablet | 7 days. Take daily | | | | | | | for 7 days after | | | | | | | completing 3 weeks | | | | | | | of estrogen. | | | | | + + + +---------+ + + documented as of this encounter H&P Notes Brit Epperson MD - 05/27/2019 7:34 AM PST History and Physical HPI: Pushpa Henao is a 34 y.o. G0 with uterine polyps on recent SIS. Complaints toda y: none. 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 Patient takes Ibuprofen, an d uses heat pads for dysmenorrhea. Past Medical History: Menstrual Migraines -notes migraines have become less common in the last few years IBS- avoids dairy Past Surgical History: Past Surgical History Procedure Laterality Date Lipoma excision 2010 on back. Keloid formation [place] teeth extraction Colonoscopy Home Medications: I have obtained and documented the prior to admission medication list and it is accurate. Current Facility-Administered Medications: ceFAZolin (ANCEF) injection 2 g, 2 g, intravenou s, PREPROCEDURE ONCE, Brit Epperson MD lactated ringers IV, 10 mL/hr, intravenous, PROCEDURE CONTINUOUS, Brit Epperson MD lidocaine (XYLOCAINE) 10 mg/mL (1 %) injection, , subcutaneous, PREPROCEDURE PRN, Brit strickland MD Allergies I have reviewed and updated the allergy list. Allergies No Known Allergies Social History I have updated the Social Hx as appropriate. Social History Tobacco Use Smoking status: Never Smoker Smokeless tobacco: Never Used Substance Use Topics Alcohol use: Yes Alcohol/week: 1.0 standard drinks Types: 1 Glasses of wine per week Social History Patient does not qualify to have social determinant information on file (likely too young ). Social History Narrative Not on file PSHx: 1990 tooth removal 2004 Cyst removed on chest 2007 [place] teeth extraction 2010 Lypoma removal Fam/SocHx: Thyroid Disorder - yes - Father with hypothyroidism and Sister with Hashimotos Blood clotting - no Anemia - no HTN: - yes- Mother Diabetes - no Congenital defects - no Mental retardation - no Early onset menopause - no Irregular menses - no Hormone Related Cancers Breast - yes - Great Aunt Uterine - no Cervical - no Ovarian - no Other Cancer - yes - Paternal grandfather with lung cancer Review of Systems: Review of Systems Constitutional: Negative for chills and fever. HENT: Negative. Respiratory: Negative for cough, shortness of breath and wheezing. Cardiovascular: Negative for chest pain and palpitations. Gastrointestinal: Negative for abdominal pain, diarrhea, heartburn, nausea and vomiting. Genitourinary: Negative for dysuria, frequency and urgency. Musculoskeletal: Negative. Skin: Negative. Neurological: Negative. Psychiatric/Behavioral: Negative. Exam Physical Exam: BP 108/63 (BP Location: Right upper arm, Patient Position: Lying on back) | Pulse 64 | Te mp 36.8 C (98.2 F) (Oral) | Resp 16 | Ht 1.6 m (5' 3") | Wt 63.5 kg (140 lb) | SpO2 100% | BMI 24.80 kg/m | BSA 1.68 m Physical Exam Constitutional: Appearance: She is well-developed. HENT: Head: Normocephalic and atraumatic. Eyes: Conjunctiva/sclera: Conjunctivae normal. Pupils: Pupils are equal, round, and reactive to light. Neck: Musculoskeletal: Normal range of motion. Cardiovascular: Rate and Rhythm: Normal rate. Pulmonary: Effort: Pulmonary effort is normal. Musculoskeletal: Normal range of motion. Skin: General: Skin is warm and dry. Neurological: Mental Status: She is alert and oriented to person, place, and time. Psychiatric: Behavior: Behavior normal. Assessment and Plan: Full PARQ held. NPO since midnight. Consents signed/reviewed. Plan to proceed to OR for planned hysteroscopic polypectomy. All questions answered. D/w Dr. Mathieu Epperson MD,MPH PGY5 Fellow, Reproductive Endocrinology and Infertility Dept QA TEST ANALYST Pager [phone] documented in this enc ounter Miscellaneous Notes Op Note - Yuli Bettencourt MD - 05/27/2019 3:38 PM PSTFormatting of this note might be differe nt from the original. Patient: Pushpa Henao : 1985 Date of procedure: 05/27/2019 Times Event Time In Procedure Start SatMay 27, 2019 1309 Procedure Stop SatMay 27, 2019 1337 Location: [facility] SURGERY Surgeon(s) and Role: * Yuli Bettencourt MD - Primary Staff: Analytics Lead: Verona Claudio RN Scrub: ; [facility] Analytics Lead Relief: Katherine Paniagua RN Pre Op Dx N84.0 Polyp of corpus uteri, ICD-10-CM N94.6 Dysmenorrhea, unspecified, ICD-10-CM N80.9 End ometriosis, unspecified and miscarriage Patient: Pushpa Henao : 1985 Date of procedure: 05/27/2019 Location: [facility] SUR[facility]ERY Surgeon(s) and Role: * Yuli Bettencourt MD - Primary Staff: Analytics Lead: Verona Claudio RN Scrub: ; [facility] Analytics Lead Relief: Katherine Paniagua RN Pre Op Dx N84.0 Polyp of corpus uteri, ICD-10-CM N94.6 Dysmenorrhea, unspecified, ICD-10-CM N80.9 End ometriosis, unspecified and miscarriage Post Op Dx: Asherman syndrome, intrauterine synechiae Endometrial polyps Procedure: Hysteroscopy resection of intrauterine synechiae, hysteroscopic polypectomy, placement of a n intrauterine oleary catheter Anesthesia: MAC Complications: None Findings: 1. Single, prominent band of intrauterine synechiae adhesing the anterior and posterior [place] rine tao in the mid- to lower uterine cavity, approximately 5-7mm in thickness, wider at t he base anteriorly. This was entirely lysed at the base anterior using hysteroscopic cold sc issors and the fibrous tissue resected & smoothed with the Mysosure REACH device. 2. Small endometrial polyps over anterior uterine wall near fundus and 1-2 small sessile po lyps over left lateral wall. These were resected. 3. Normal tubal ostia bilaterally. Normal appearing uterine cavity at the end of the case. Estimated Blood Loss: < 30ml Drains: Oleary catheter in bladder, removed at the end of the case. Another oleary catheter w as placed in the uterine cavity, used as a uterine stent to prevent recurrence of synechiae Specimens ID Type Source Tests Collected by Time Destination 1 : endometrial sampling; history of miscarriage and intrauterine synechiae, evaluate for p lasma cells with CD138 stain Tissue Uterus SURGICAL PATHOLOGY Yuli Bettencourt MD 05/27/2019 133 1 Implants/Grafts None Procedure Description: Drains: Oleary in place during procedure, removed in OR Disposition:Stable to PACU Indications:33 yo with oligo-amenorrhea from PCOS, with evidence of thickened endometrium and suspected endometrial polyps after a provera-induced withdraw bleed, presents for surgi molly management, particularly to rule out endometrial hyperplasia given multiple risk factors . Prior to the beginning of the procedure the team paused to verify the patient's identity, a s well as the procedure to be performed and the correct side/site. All equipment required was ready and available. Patient received pre-op antibiotics: 2g Ancef. SCDs were confirmed on and functioning. Procedure: The patient was taken to the operating room where she was placed in dorsal supine position and MAC was induced without difficulty. She was then placed in dorsal lithotomy with Alfonzo s tirrups in a neurologically safe position. She was prepped and draped in the normal sterile fashion. A oleary was placed to drain the bladder.A single sided speculum was placed and a single t oothed tenaculum was placed on the anterior lip of the cervix. A total of 10 mL of 0.25% Bup ivicaine was injected into the cervico-vaginal junction at 4 and 8 o'clock. The cervix was s equentially dilated using Morgan dilators to 17F, and the Myosure Omni hysteroscope was then advanced into the uterine cavity under direct visualization. LR was used as the distending m edium and the above findings were noted.The CANNON hysteroscopic cold scissors were initiall y advanced into the uterine cavity to cut the band of adhesion at its base anteriorly. The s trip of adhesion tissue that is still attached to the posterior wall is then resected to its posterior base using the myosureREACH device. Additionally, the small polyps and some simone ypoid endometrium were also resected withoutdifficulty. Samples of endometrium were sent t o pathology. The hysteroscope was removed from the uterus. Because the band of synechiae w as located in the mid- to lower uterine cavity, and not near the fundus, and because the cer vix was only dilated to 17F, a decision was made to use a oleary balloon to stent the uterine cavity rather than the Cook Uterine Stent, which would have required further dilation to 23 F. The Oleary was first tested and the tip trimmed, then passed into the uterine cavity and d istended with saline to 3ml. The catheter was in place securely, and the end was then tied, cut, and tucked into the vagina. The tenaculum was removed, and bilateral tenaculum sites were evaluated with good hemostasi s. The speculum was then removed. Anesthesia was reversed, and the patient was taken to the PACU in stable condition. Sponge, lap and needle counts were correct x 2. The patient was advised to remove the Oleary in 5-6 days. She will also take 3 weeks of estr adiol to help proliferate endometrium over the cut surfaces of the adhesion band, followed b y provera to induce withdraw bleed. We will also help her schedule a follow up uterine cavit y assessment with saline infusion sonogram after the withdraw bleed to recheck for repeat ad hesion formation. Patient did report that she tends to form keloids with any incisions or c uts. YULI BETTENCOURT MD p Note - Brit Epperson MD - 05/27/2019 1:50 PM PST Patient: Pushpa Henao : 1985 Date of procedure: 05/27/2019 Times Event Time In Procedure Start SatMay 27, 2019 1309 Procedure Stop SatMay 27, 2019 1337 Location: [facility] SUR[facility]ERY Surgeon(s) and Role: * Yuli Bettencourt MD - Primary Staff: Analytics Lead: Verona Claudio RN Scrub: [facility]; [facility] Analytics Lead Relief: Katherine Paniagua RN Pre Op Dx N84.0 Polyp of corpus uteri, ICD-10-CM N94.6 Dysmenorrhea, unspecified, ICD-10-CM N80.9 End ometriosis, unspecified and miscarriage Post Op Dx: Uterine adhesions/asherman syndrome Uterine polyps Procedure: HYSTEROSCOPY, ENDOMETRIAL BIOPSY/POLYPECTOMY, RESECTION ASHERMAN'S Findings: Hysteroscopy Findings: 1. Uterine cavity with small appearing polypoid tissue throughout as well as a longitudinal band of adhesion formation from the anterior to posterior wall of fundus centrally. 2. Bilateral ostia visualized 3. Normal uterine cavity and endocervix at the end of the procedure. Anesthesia: MAC Urine Output: 50 mL, clear yellow Fluids: 700 mL crystalloid Hysteroscopic fluid defecit: 355 mL LR Complications: None Estimated Blood Loss: < 30ml Specimens ID Type Source Tests Collected by Time Destination 1 : endometrial sampling; history of miscarriage and intrauterine synechiae, evaluate for p lasma cells with CD138 stain Tissue Uterus SURGICAL PATHOLOGY Yuli Bettencourt MD 05/27/2019 133 1 Drains: Oleary in place during procedure, removed in OR Implants/Grafts None Disposition: Stable to PACU Indications: Pushpa Henao is a 34 y.o. y.o. who presents with concern for en dometrial polyps on SIS. Prior to the beginning of the procedure the team paused to verify the patient's identity, a s well as the procedure to be performed and the correct side/site. All equipment required w as ready and available. Patient received pre-op antibiotics: 2g Ancef. SCDs were confirmed o n and functioning. Procedure: The patient was taken to the operating room where she was placed in dorsal supine position and MAC was induced without difficulty. She was then placed in dorsal lithotomy with Alfonzo s tirrups in a neurologically safe position. She was prepped and draped in the normal sterile fashion. A oleary was placed to drain the bladder. A single sided speculum was placed in the vagina a nd a single toothed tenaculum was placed on the anterior lip of the cervix. A total of 10 mL of 0.25% Bupivicaine was injected into the cervico-vaginal junction at 4 and 8 o'clock. The cervix was then dilated to 19 vietnamese using Morgan dilators. A 5.5 mm 0 degree Omni hysteros cope was then placed inside the uterus under direct visualization. LR was used as the disten ding medium and the above findings were noted. We were able to discuss the intraoperative fi ndings with Pushpa's via telephone at this point in order to obtain his consent to resect the scar tissue and place a uterine stent/balloon. The Cannon hysteroscopic scissors we re placed into the Omni scope and were used to resect the band of adhesive scar tissue seen. Following this, the myosure REACH device was placed into the hysteroscope and the remaining scar tissue along with polypoid tissue were resected without difficulty. Samples of endomet rium were taken from uterine tao. The hysteroscope was removed from the uterus. Tissue was sent to pathology. An 8 vietnamese oleary catheter was placed into the uterus and inflated with 3 mL of saline. The tenaculum was removed, and bilateral tenaculum sites were evaluated with good hemostasis. T he speculum was then removed. The tail of the catheter was tucked into the vagina. Anesthesia was reversed, and the patient was taken to the PACU in stable condition. Sponge, lap and needle counts were correct x 2. Yuli Bettencourt MD, primary surgeon, was scrubbed and present for the entire procedure. Brit Epperson MD PGY5 Fellow, [facility] Dept QA TEST ANALYST Pager [phone] signed by Brit Epperson MD at 05/27/2019 1:56 PM PSTdocumented in this encounter Plan of Treatment + +---------+--------+ + + | Name | Type | Priori | Associated Diagnoses | Order Schedule | | | | ty | | | + +---------+--------+ + + | INTRAPROCEDURE | Imaging | Routin | | One Time for 1 | | IMAGING | | e | | Occurrences starting | | | | | | 05/27/2019 until | | | | | | 05/27/2019, 1 | | | | | | completed | + +---------+--------+ + + documented as of this encounter Procedures + +--------+ + + + | Procedure Name | Priori | Date/Time | Associated Diagnosis | Comments | | | ty | | | | + +--------+ + + + | SURGICAL PATHOLOGY | Routin | 05/27/2019 | | Results for this | | | e | 1:31 PM | | procedure are in the | | | | PST | | results section. | + +--------+ + + + | HYSTEROSCOPY WITH | Electi | 05/27/2019 | N84.0 Polyp of | | | D&C WITH/WITHOUT | ve | 12:48 PM | corpus uteri, | | | POLYP REMOVAL | Surgic | PST | ICD-10-CM N94.6 | | | | al | | Dysmenorrhea, | | | | | | unspecified, | | | | | | ICD-10-CM N80.9 | | | | | | Endometriosis, | | | | | | unspecified and | | | | | | miscarriage | | + +--------+ + + + | HCG URINE, POC | Routin | 05/27/2019 | Uterine polyp | Results for this | | | e | 11:50 AM | | procedure are in the | | | | PST | | results section. | + +--------+ + + + | INTRAPROCEDURE | Routin | 05/27/2019 | | Results for this | | IMAGING | e | 11:33 AM | | procedure are in the | | | | PST | | results section. 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 Endometrium, biopsy: | | [facility] | Electronically | | Pathologic | Fragments of benign | | DEPARTMENT | signed by | | Diagnosis | endometrial polyp(s), | | OF | Claire Bell, | | | see comment Background | | PATHOLOGY | MD on | | | inactive endometrium | | | 05/30/2019 at | | | with pseudo-decidualized | | | 4:15 PM | | | stroma consistent with | | | | | | progestin effect | | | | | | Negative for | | | | | | hyperplasia, atypia, and | | | | | | malignancyComment: | | | | | | Immunohistochemistry for | | | | | | CD138 performed on | | | | | | block A1 shows scattered | | | | | | plasma cells. Plasma | | | | | | cells may be seen in | | | | | | association with | | | | | | endometrial polyps. | | | | | | Clinical correlation is | | | | | | recommended.Case seen | | | | | | by:Yaharia Murrell, DO | | | | | | | | | | | | Pathology | | | | | | Joselin Bell, | | | | | | MD - | | | | | | PathologistPathology, | | | | | | [facility] | | | | | | University [...] | [facility] | | | Description | in a fresh container | | LABORATORY | | | | labeled with the | | SERVICES, | | | | patient's name (initials | | [facility] | | | | B) and medical record | | HEALTH + | | | | number [id number]. | | HEALING | | | | Uterus, endometrial | | | | | | sampling; history of | | | | | | miscarriage and | | | | | | intrauterine synechiae, | | | | | | evaluate for plasma | | | | | | cells with CD138 stain : | | | | | | Received labeled | | | | | | "uterus endometrial | | | | | | samplings: History of | | | | | | mis and intrauterine | | | | | | synechiae, e*-1" is a | | | | | | cloth bag containing | | | | | | multiple pink-bear, | | | | | | regular soft tissue | | | | | | fragments that aggregate | | | | | | to 1.8 x 1.0 x 0.2 cm. | | | | | | Specimen is entirely | | | | | | submitted to a biopsy | | | | | | bag in cassette A1.(MED) | | | | | | [facility] | | | | + + + + + + | Ancillary | Analyte specific | | [facility] | | | Information | reagents are used in | | LABORATORY | | | | many laboratory tests | | SERVICES, | | | | necessary for standard | | [facility] | | | | medical care. This test | | HEALTH + | | | | was developed and its | | HEALING | | | | performance | | | | | | characteristics | | | | | | determined by [facility] | | | | | | laboratories. It has not | | | | | | been cleared or | | | | [...] | | | | | laboratory testing. If | | | | | | immunohistochemical | | | | | | analysis (IHC) was | | | | | | performed concurrently | | | | | | with flow cytometry, the | | | | | | IHC was done to allow | | | | | | assessment of | | | | | | immunoarchitecture, | | | | | | which is not supplied by | | | | | | flow cytometry. Flow | | | | | | cytometry enables better | | | | | | assessment of clonality | | | | | | and antigen aberrancy | | | | | | than IHC. Appropriate | | | | | | positive controls and/or | | | | | | negative controls were | | | | | | used for all stains, | | | | | | including | | | | | | immunohistochemical | | | | | | stains, special stains, | | | | | | and in situ | | | | | | hybridization, and these | | | | | | reacted appropriately. | | | | + + + + + + + + | Specimen | + + | Tissue - Uterine | | structure (body | | structure) | + + + + + + + | Performing | Address | City/State/Zipcode | Phone Number | | Organization | | | | + + + + + | [facility] | [address] | [place] [address] | | | PATHOLOGY | [address] | | | + + + + + | [facility] | [address] | [place] [address] | | | [facility] | | | | | HEALTH + HEALING | | | | + + + + + HCG URINE, POC (05/27/2019 11:50 AM PST) + + + + + + | [...] | Specimen | + + | Urine | + + + + + + + | Performing | Address | City/State/Zipcode | Phone Number | | Organization | | | | + + + + + | [facility] | [address] | [place] [address] | | | OF CARE TESTS | | | | + + + + + INTRAPROCEDURE IMAGING (05/27/2019 11:33 AM PST) + + | Specimen | [...] + | Diagnosis | + + | Uterine polyp - Primary Polyp of corpus uteri | + + documented in this encounter Administered Medications + +--------+---------+------+------+------+ | Medication Order | MAR | Action | Dose | Rate | Site | | | Action | Date | | | | + +--------+---------+------+------+------+ + +---+ | acetaminophen (TYLENOL) tablet | | | 650 mg 650 mg, oral, | | | POSTPROCEDURE PRN, 1 dose, | | | Starting Sat05/27/19 at 1330, | | | Until Sat05/27/19 at 2138, mild | | | or greater pain while in Phase 1 | | + +---+ | | | + +---+ | fentaNYL (SUBLIMAZE) injection | | | 25-50 mcg 25-50 mcg, | | | intravenous, POSTPROCEDURE PRN, 8 | | | doses, Starting Sat05/27/19 at | | | 1330, Until Sat05/27/19 at 2137, | | | severe pain while in Phase I | | | Recovery | | + +---+ | | | + +---+ | labetalol (TRANDATE) IV | | | injection 5 mg 5 mg, | | | intravenous, POSTPROCEDURE PRN, 5 | | | doses, Starting Sat05/27/19 at | | | 1330, Until Sat05/27/19 at 2137, | | | hypertension | | + +---+ | | | + +---+ + + + +---+---+---+ | lactated ringers IV 10 mL/hr, | given by | 05/27/20 | | | | | intravenous, PROCEDURE | | 19 1:37 | | | | | CONTINUOUS, Starting Sat05/27/19 | anesthes | PM PST | | | | | at 1145, Until Sat05/27/19 at | iology | | | | | | 8 | | | | | | + + + +---+---+---+ +---------+ +---+---+---+ | New Bag | 05/27/20 | | | | | | 19 12:48 | | | | | | PM PST | | | | +---------+ +---+---+---+ + +---+ | | | + +---+ | lactated ringers IV 500 mL, | | | intravenous, POSTPROCEDURE PRN, 1 | | | dose, Starting 05/27/19 at | | | 1330, Until Sat05/27/19 at 2138, | | | nausea/vomiting due to | | | dehydration | | + +---+ | | | + +---+ | lactated ringers IV 500 mL, | | | intravenous, POSTPROCEDURE PRN, 1 | | | dose, Starting 05/27/19 at | | | 1330, Until Sat05/27/19 at 2138, | | | systolic blood pressure less | | | than 90 mmHg. 1st line | | + +---+ | | | + +---+ | lidocaine (XYLOCAINE) 10 mg/mL | | | (1 %) injection subcutaneous, | | | PREPROCEDURE PRN, Starting Wed | | | 05/27/19 at 1133, Until Wed | | | 05/27/19 at 2138, IV start | | + +---+ | | | + +---+ + +-------+ +-------+---+---+ | lidocaine PF (XYLOCAINE MPF) 10 | Given | 05/27/20 | 20 mg | | | | mg/mL (1 %) injection 1 dose, | | 19 11:55 | | | | | Starting 05/27/19 at 1145, | | AM PST | | | | | Until 05/27/19 at 1155 | | | | | | + +-------+ +-------+---+---+ + +---+ | | | + +---+ | meperidine (DEMEROL) injection | | | 12.5 mg 12.5 mg, intravenous, | | | POSTPROCEDURE PRN, 2 doses, | | | Starting 11/20/19 at 1330, | | | Until Sat05/27/19 at 2138, | | | shivering | | + +---+ | | | + +---+ | naloxone (NARCAN) injection | | | intravenous, POSTPROCEDURE PRN, | | | Starting Sat05/27/19 at 1330, | | | Until Sat05/27/19 at 2138, | | | hypopnea | | + +---+ | | | + +---+ + +-------+ +------+---+---+ | ondansetron (ZOFRAN) injection | Given | 05/27/20 | 4 mg | | | | 4 mg 4 mg, intravenous, | | 19 1:49 | | | | | POSTPROCEDURE PRN, 1 dose, | | PM PST | | | | | Starting Sat05/27/19 at 1330, | | | | | | | Until Sat05/27/19 at 1349, | | | | | | | nausea/vomiting (greater than 6 | | | | | | | hours post-operatively) | | | | | | + +-------+ +------+---+---+ + +---+ | | | + +---+ | ondansetron (ZOFRAN) injection | | | 4 mg 4 mg, intravenous, EVERY 12 | | | HOURS NEEDED, 2 doses, | | | Starting Sat05/27/19 at 1345, | | | Until Sat05/27/19 at 2138, | | | nausea/vomiting, first line | | + +---+ | | | + +---+ | oxyCODONE (immediate release) | | | (ROXICODONE) tablet 5-10 mg 5-10 | | | mg, oral, POSTPROCEDURE PRN, 1 | | | dose, Starting 05/27/19 at | | | 1330, Until Sat05/27/19 at 2138, | | | moderate pain while in Phase 1 | | | recovery | | + +---+ | | | + +---+ | promethazine (PHENERGAN) | | | injection 6.25-12.5 mg 6.25-12.5 | | | mg, intravenous, POSTPROCEDURE | | | PRN, 1 dose, Starting Wed | | | 05/27/19 at 1330, Until Wed | | | 05/27/19 at 2138, | | | nausea/vomiting, 1st line | | + +---+ | | | + +---+ + + + +---------+---+ + | scopolamine (TRANSDERM-SCOP) 1 | Applied | 05/27/20 | 1 patch | | Left | | mg over 3 days 1 patch 1 patch, | Patch | 19 2:16 | | | Post | | transdermal, ONCE, 1 dose, Wed | | PM PST | | | Auricula | | 05/27/19 at 1445 | | | | | r | + + + +---------+---+ + +---+---+ | | | +---+---+ documented in this encounter
--- OUTSIDE RECORDS SUMMARY | ~2020-04-19 | XMS | Encounter Summary ---
Demographics + + + | Address | [address] | | | [place] [address] | + + + | Home Phone | | + + + | Preferred Language | Unknown | + + + | Marital Status | | + + + | Druze Affiliation | CHR | + + + [...] Team Providers + +------+ + | Care Gun Sealing Machine Operator Name | Role | Phone | + +------+ + | Kennedi Selby | PCP | | + +------+ + Encounter Details +--------+ + + + + | Date | Type | Department | Care Team | Description | +--------+ + + + + | 11/04/ | [facility]Chart [facility] | [facility] Information | | [facility] | Encounter | [facility] | | | | | | [place] [address] | | | | | | [address] | | | | | | [place], [address] [place] [address] | | | | | | [place], [place] | | | | | | [address] | | | | | | [phone] | | | +--------+ + + + [...]
--- OUTSIDE RECORDS SUMMARY | ~2020-04-19 | XMS | Encounter Summary ---
Demographics + + + | Address | [address] | | | [place] [address] | + + + | Home Phone | | + + + | Preferred Language | Unknown | + + + | Marital Status | | + + + | Worship Affiliation | CHR | + + + | Race | White | + + + | Ethnic Group | Not or | + + + Author + + + | Author | [facility] | + + + | Organization | [facility] | + + + | Address | Unknown | + + + | Phone | Unavailable | + + + Support + + +---------+ + | Name | Relationship | Address | Phone | + + +---------+ + | Nathaniel Henao | ECON | Unknown | | + + +---------+ + Care Team Providers + +------+ + | Care Postal Support Employee Name | Role | Phone | + +------+ + | Kennedi Selby | PCP | | + +------+ + Reason for Referral Consult to [place] (Urgent) +--------+--------+ + + + + | Status | Reason | Specialty | Diagnoses / | Referred By | Referred To | | | | | Procedures | Contact | Contact | +--------+--------+ + + + + | Closed | | Reproductive | Diagnoses | Yuli Murdock | [facility] | | | | Endocrinology | Endometrial | [address] | [address] | | | | /Infertility | polyp | [address] | [address] | | | | | Dysmenorrhea | [facility] | [facility] | | | | | | Rd | for Health | | | | | Endometriosi | [place], [place] | and Healing, | | | | | s | [address] | [address], | | | | | Miscarriage | Phone: | 10th Floor | | | | | Procedures | [phone] | [place], [place] | | | | | REQUEST TO | Fax: | [address] | | | | | SURGERY | [phone] | Phone: | | | | | STUDIO COUCH FRAME BUILDER | | [phone] | | | | | [place] | | Fax: | | | | | HYSTEROSCOPY | | [phone] | | | | | ,W/ENDO BX | | | +--------+--------+ + + + + Encounter Details +--------+ + + + + | Date | Type | Department | Care Team | Description | +--------+ + + + + | 05/12/ | Typesetter Perforator Operator | [place] | Yuli Murdock MD | Endometrial polyp | | 2019 | | Fertility | [address] | (Primary Dx); | | | | [facility]ants at [facility] | [address] [place], | Dysmenorrhea; | | | | [address] | [place] [address] | Endometriosis; | | | | [place] [facility] | [phone] | Miscarriage | | | | and Healing, | | | | | | | | | | | | Floor [place], [place] | | | | | | [address] | | | | | | [phone] | | | +--------+ + + + [...] + | Diagnosis | + + | Endometrial polyp - Primary Polyp of corpus uteri | + + | Dysmenorrhea | + + | Endometriosis Endometriosis, site unspecified | + + | Miscarriage Unspecified spontaneous without mention of complication | + + documented in this encounter"
--- OUTSIDE RECORDS SUMMARY | ~2020-04-19 | XMS | Encounter Summary ---
Demographics + + + | Address | [address] | | | [place] [address] | + + + | Home Phone [...] Team Providers + +------+ + | Care Thermospray Operator Name | Role | Phone | + +------+ + | Kennedi Selby | PCP | | + +------+ + Encounter Details +--------+ + + + + | Date | Type | Department | Care Team | Description | +--------+ + + + + | 10/26/ | [facility] | [place] | Maura Portillo MD | Egg Retreival | | 2019 | Encounter | Fertility | [address] | Instruction! | | | | [facility]ants at [facility] | [place], [place] | | | | | [address] | [address] | | | | | [facility] | [phone] | | | | | and Healing, | | | | | | | | | | | | Floor [place], [place] | | | | | | [address] | | | | | | [phone] | | | +--------+ + + + [...]
--- OUTSIDE RECORDS SUMMARY | ~2020-04-19 | XMS | Encounter Summary ---
Demographics + + + | Address | [address] | | | [place] [address] | + + + | Home Phone | | + + + | Preferred Language | Unknown | + + + | Marital Status | | + + + | Mormon Affiliation | CHR | + + + | Race | White | + + + | Ethnic Group | Not or | + + + Author + + + | Author | [facility] | + + + | Organization | [facility] | + + + | Address | Unknown | + + + | Phone | Unavailable | + + + Support + + +---------+ + | Name | Relationship | Address | Phone | + + +---------+ + | Nathaniel Henao | ECON | Unknown | | + + +---------+ + Care Team Providers + +------+ + | Care Inpatient Coder Name | Role | Phone | + +------+ + | Kennedi Selby | PCP | | + +------+ + Encounter Details +--------+ + + + + | Date | Type | Department | Care Team | Description | +--------+ + + + + | 10/02/ | Telephone | [place] | Yuli Murdock MD | | | 2019 | | Fertility | [address] | | | | | Consultants at [facility] | [address] [place], | | | | | [address] | [place] [address] | | | | | [facility] | [phone] | | | | | and [address], | | | | | | | | | | | | [place], [place] | | | | | | [address] | | | | | | [phone] | | | +--------+ + + + [...] this encounter Miscellaneous Notes Telephone Encounter - Hali Grace RN - 10/03/2018 10:57 AM PDT Aj Bush MD,PhD Yuli Murdock MD; Shira Drew MS,[facility]; P [facility] Murdock Pool Cc: P [facility] Embryology Pool That week is fine- I leave town November 06 elephone Encounter - Anny Ying RN - 10/02/2018 11:40 AM PDTFormatting of this note might be different from t he original. MD Shira Monet, ,[facility]; P [facility] Cc: Aj Bush MD,PhD; [facility] Since the fresh TESE is definitely recommended by embryology, please confirm that starting stim 10/16 with retrieval week around 10/27-10/[address] Bush. If not, edilson l need to adjust starting stim date. I think pushing the stim date back by one day to starti ng 10/17 is advisable if they are doing PGT. I agree w/ doing PGT on the donor sperm cohort of embryos. Previous Messages Shira Drew MS,[facility] Yuli Murdock MD; P [facility] Couple met with Kay on Saturday (I was out sick)- They are reportedly interested in PGT-A if they have enough donor embryos; however are likely not interested in pursuing PGT-A on an y embryos created using Nathaniel's sperm (if any). Please tentatively add to PGS calendar: Justa Henao reports a LMP of 09/28/18 with cycles q 25-26 days. I plan to follow-up with the couple next week to finalize the plan. Yuli, do you have any thoughts and/or recommendations for this couple? Thanks! Shira Routed message high priority to Dr. Bush, awaiting response. documented in this encounter Plan of Treatment Not on filedocumented as of this encounter Visit Diagnoses Not on filedocumented in this encounter"
--- OUTSIDE RECORDS SUMMARY | ~2020-04-19 | XMS | Encounter Summary ---
Demographics + + + | Address | [address] | | | [place] [address] | + + + | Home Phone | | + + + | Preferred Language | Unknown | + + + | Marital Status | | + + + | Hinduism Affiliation | CHR | + + + | Race | White | + + + | Ethnic Group | Not or | + + + Author + + + | Author | [facility] | + + + | Organization | [facility] | + + + | Address | Unknown | + + + | Phone | Unavailable | + + + Support + + +---------+ + | Name | Relationship | Address | Phone | + + +---------+ + | Nathaniel Henao | ECON | Unknown | | + + +---------+ + Care Team Providers + +------+ + | Care Digital Director Name | Role | Phone | + +------+ + | Kennedi Selby | PCP | | + +------+ + Encounter Details +--------+ + + + + | Date | Type | Department | Care Team | Description | +--------+ + + + + | 10/24/ | Hospital | Diagnostic Imaging | Maura Portillo MD | | | 2019 | Encounter | Services [address] | [address] | | | | | [address] | [place], [place] | | | | | [place], [place] | [address] | | | | | [address] | [phone] | | | | | | | [...] + | [facility] | Routin | 10/24/2018 | Female infertility | Results for this | | ULTRASOUND | e | 7:26 AM | | procedure are in the | | | | PDT | | results section. | + +--------+ + + + documented in this encounter Results [facility] ULTRASOUND (10/24/2018 7:26 AM PDT) + + | Specimen | [...]
--- OUTSIDE RECORDS SUMMARY | ~2020-04-19 | XMS | Encounter Summary ---
Demographics + + + | Address | [address] | | | [place] [address] | + + + | Home Phone [...] Team Providers + +------+ + | Care Dehydrogenation Operator Name | Role | Phone | [...] +--------+--------+ + + + + Encounter Details +--------+---------+ + + + | Date | Type | Department | Care Team | Description | +--------+---------+ + + + | 05/27/ | Surgery | [facility] | Yuli Bettencourt MD | HYSTEROSCOPY WITH | | 2018 | | [facility] | [address] | ENDOMETRIAL BIOPSY | | | | and Healing Surgery | [address] [place], | | | | | Center Admitting | [place] [address] | | | | | Desk Located on the | [phone] | | | | | 4th floor [address] | | | | | | [address] [place], | | | | | | [place] [address] | | | +--------+---------+ + + + Social History + +-------+ [...] + + + | Blood Pressure | 108/63 | 05/27/2019 11:37 AM | | | | | PST | | + + + + + | Pulse | 64 | 05/27/2019 11:37 AM | | | | | PST | | + + + + + | Temperature | 36.8 C (98.2 F) | 05/27/2019 11:37 AM | | | | | PST | | + + + + + | Respiratory Rate | 16 | 05/27/2019 11:37 AM | | | | | PST | | + + + + + | Oxygen Saturation | 100% | 05/27/2019 11:37 AM | | | [...] documented in this encounter Discharge Instructions Discharge - Day Procedure Instructions Elliott Shi MD [...] . During nights or weekends, please call [phone] and ask to page the employee relations director fertility doctor. When you can go back [...] matter is urgent. The re is an employee relations director staff member in the evenings and nights [...] . During nights or weekends, please call [phone] and ask to page the employee relations director fertility doctor. When you can go back [...] matter is urgent. The re is an employee relations director staff member in the evenings and nights [...] hours, weekends and holidays, call the Hospital Toll Operator at [phone] and asked to have the doctor who is oncall for your doctor to be paged to your phone number. [facility] for SCOPOLAMINE PATCH Follow the [...] | | 0 | | | | 3-xgl-txr-fish oil | mouth once daily. 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 Keloid formation Weinert teeth extraction Colonoscopy Home Medications: I have obtained and documented the prior to admission medication list and it is accurate. Current Facility-Administered Medications: ceFAZolin (ANCEF) injection 2 g, 2 g, intravenou s, PREPROCEDURE ONCE, Brit Epeprson MD lactated ringers IV, 10 mL/hr, intravenous, [...] removal 2004 Cyst removed on chest 2007 Weinert teeth extraction 2010 Lypoma removal Fam/SocHx: Thyroid [...] PGY5 Fellow, Reproductive Endocrinology and Infertility Dept PARADI OPERATOR Pager [phone] documented in this enc ounter Miscellaneous Notes Op Note - Yuli Bettencourt MD - 05/27/2019 3:38 PM PSTFormatting of this note might be differe nt from the original. 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, unspecified and miscarriage Patient: Pushpa Henao : 1985 Date of procedure: 05/27/2019 Location: [facility] Surgeon(s) and Role: * Yuli Bettencourt MD - Primary Staff: Ug Designer: Verona Claudio RN Scrub: Taylor Sims ; Huyen Maher Ug Designer Relief: Katherine Paniagua RN Pre Op Dx [...] 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 A 5.5 mm 0 [...] Tissue was sent to pathology. An 8 occitan oleary catheter was placed into the uterus [...] Brit Epperson MD PGY5 Fellow, [facility] Dept PARADI OPERATOR Pager [phone] signed by Brit Epperson MD at 05/27/2019 [...] seen | | | | | | by:Yahaira Murrell, DO | | | | | | | | | | | | Pathology | | | | | | Joselin Bell, | | | | | | MD - | | | | | | PathologistPathology, | | | | | | [facility] | | | | | | University [...] HEALTH + | | | | number [id number]. | | HEALING | | | | [...] | + + + + + | [facility] DEPART[facility] OF | [address] | [place] [address] | | | PATHOLOGY | [address] | | | + + + + + | [facility] | [address] | [place] [address] | | | [facility] | | | | | HEALTH + [...] + + | [facility] | [address] | [place] [address] | | | OF CARE TESTS | [...] filedocumented in this encounter Administered Medications + +--------+---------+------+------+------+ | Medication Order | MAR | Action | Dose | Rate | Site | | | Action | Date | | | | + +--------+---------+------+------+------+ + +---+ | acetaminophen (TYLENOL) tablet | | | 650 mg 650 mg, oral, | | | POSTPROCEDURE PRN, 1 dose, | | | Starting 05/27/19 at 1330, | | | Until Sat05/27/19 at 2138, mild | | | or greater pain while in Phase 1 | | + +---+ | | | + +---+ + +-------+ +-------+---+---+ | bupivacaine | Given | 05/27/20 | 10 mL | | | | (MARCAINE,SENSORCAINE) 0.25 % | | 19 1:27 | | | | | (2.5 mg/mL) injection | | PM PST | | | | | INTRAPROCEDURE PRN, Starting Wed | | | | | | | 05/27/19 at 1327, Until Wed | | | | | | | 05/27/19 at 1346 | | | | | | + [...] | | | 1330, Until Sat05/27/19 at 8, | | | hypertension | | + [...] PRN, 1 | | | dose, Starting Sat05/27/19 at | | | 1330, Until Sat05/27/19 at 2138, | | | nausea/vomiting due to | | | dehydration | | + +---+ | | | + +---+ | lactated ringers IV 500 mL, | | | intravenous, POSTPROCEDURE PRN, 1 | | | dose, Starting Sat05/27/19 at | | | 1330, [...] 11:55 | | | | | Starting Sat05/27/19 at 1145, | | AM PST | | | | | Until Sat05/27/19 at 1155 | | | | | | + +-------+ +-------+---+---+ + +---+ | | | + +---+ | meperidine (DEMEROL) injection | | | 12.5 mg 12.5 mg, intravenous, | | | POSTPROCEDURE PRN, 2 doses, | | | Starting Sat05/27/19 at 1330, [...] PRN, 1 | | | dose, Starting Sat05/27/19 at | | | 1330, Until 05/27/19 at 2138, | | | moderate pain [...]
--- OUTSIDE RECORDS SUMMARY | ~2020-04-19 | XMS | Encounter Summary ---
Demographics + + + | Address | [address] | | | [place] [address] | + + + | Home Phone | | + + + | Preferred Language | Unknown | + + + | Marital Status | | + + + | Moravian Affiliation | CHR | + + + | Race | White | + + + | Ethnic Group | Not or | + + + Author + + + | Author | [facility] | + + + | Organization | [facility] | + + + | Address | Unknown | + + + | Phone | Unavailable | + + + Support + + +---------+ + | Name | Relationship | Address | Phone | + + +---------+ + | Nathaniel Henao | ECON | Unknown | | + + +---------+ + Care Team Providers + +------+ + | Care Scrap Yard Worker Name | Role | Phone | + +------+ + | Kennedi Selby | PCP | | + +------+ + Encounter Details +--------+ + + + + | Date | Type | Department | Care Team | Description | +--------+ + + + + | 02/04/ | Telephone | [place] | Yuli Murdock MD | | | 2019 | | Fertility | [address] | | | | | Consultants at [facility] | [address] [place], | | | | | [address] | [place] [address] | | | | | [facility] | [phone] | | | | | and [address], | | | | | | | | | | | | [place], [place] | | | | | | [address] | | | | | | [phone] | | | +--------+ + + + [...] encounter Miscellaneous Notes Telephone Encounter - Seth Pekc RN - 02/04/2019 4:20 PM PDTPhone call to patient re: alisha brito's results. Bhcg#1 on 02/02/19 was 199.7 Bhcg#2 on 02/04/19 was 622.1 TSH was 1.89 P4 not resulted. Lab contacted and processing now. Today pt is 4w3d. Per team review, bhcg levels with appropriate rise. She is to repeat the bhcg and a p4 on . Questions answered. Mock Appt scheduled. Will follow up at that time. documented in this encounter Plan of Treatment Not on filedocumented as of this encounter Visit Diagnoses Not on filedocumented in this encounter"
--- OUTSIDE RECORDS SUMMARY | ~2020-04-19 | XMS | Encounter Summary ---
Demographics + + + | Address | [address] | | | [place] [address] | + + + | Home Phone | | + + + | Preferred Language | Unknown | + + + | Marital Status | | + + + | Advent Affiliation | CHR | + + + [...] Providers + +------+ + | Care Chief Of Pediatric Urology Name | Role | Phone | + +------+ + | Kennedi Selby | PCP | | + +------+ + Reason for Visit +--------+--------+ + | Reason | Onset | Comments | | | Date | | +--------+--------+ + | Other | 12/03/ | | | | 2019 | | +--------+--------+ + Encounter Details +--------+ + + + + | Date | Type | Department | Care Team | Description | +--------+ + + + + | 12/03/ | Telephone | [place] | Yuli Murdock MD | Other | | 2019 | | Fertility | [address] | | | | | Consultants at [facility] | [address] [place], | | | | | [address] | [place] [address] | | | | | [facility] | [phone] | | | | | and Healing, | | | | | | Building | | | | | | [place], [place] | | | | | | [address] | | | | | | [phone] | | | +--------+ + + + [...] documented as of this encounter Miscellaneous Notes Addendum Note - Seth Rocha RN - 12/08/2018 12:32 PM PDT Addended by: SETH ROCHA RN on: 12/08/2018 12:32 PM Modules accepted: Orders ddendum Note - Seth Rocha RN - 12/03/2018 4:38 PM PDT Addended by: SETH ROCHA RN on: 12/03/2018 04:38 PM Modules accepted: Orders, SmartSet elephone Encounter - Seth Rocha RN - 12/03/2018 4:10 PM PDTPt returned call and mapout completed. Instruction s reviewed in detail. Apts made, lab ordered, and medications ordered. Mychart letter sent t o patient and consent was mailed to patients home in resource packet per pt request. Electro nically signed by Seth Rocha RN at 12/03/2018 4:11 PM PDTTelephone Encounter - Jovanny Rocha RN - 12/03/2018 1:31 PM PDTCall to patient to review mapout instructions. No answer. Judie yañez with request for return call. documented in this encounter Plan of Treatment Not on filedocumented as of this encounter Procedures + +--------+ + + + | Procedure Name | Priori | Date/Time | Associated Diagnosis | Comments | | | ty | | | | + +--------+ + + + | PROGESTERONE, SERUM | Routin | 01/15/2019 | Encounter for | Results for this | | - ANDROLOGY LAB | e | | assisted | procedure are in the | | | | | reproductive | results section. | | | | | fertility procedure | | | | | | cycle | | + +--------+ + + + documented in this encounter Results PROGESTERONE, SERUM - ANDROLOGY LAB (01/15/2019) + +-------+ + + + | Component | Value | Ref Range | Performed | Pathologist | | | | | At | Signature | + +-------+ + + + | PROGESTERON | <1 | ng/ml | [facility] | | | E, SERUM | | | OGY LAB | | | (UFC) | | | | | + +-------+ + + + + + | Specimen | + + | Blood | + + + + + | Narrative | Performed At | + + + | Progesterone (ng/ml) Ovulatory Cycles Follicular Phase: | | | ND-1.13 Midfollicular Phase: ND-0.98 Midcycle: 0.48-1.72 Luteal | [facility] | | Phase: 0.95-21 | LAB | + + + + + + + + | Performing | Address | City/State/Zipcode | Phone Number | | Organization | | | | + + + + + | [facility] | [address], | [place] [address] | | | | Tenth Floor | | | + + + + + documented in this encounter Visit Diagnoses + + | Diagnosis | + + | Encounter for assisted reproductive fertility procedure cycle - Primary | + + documented in this encounter"
--- OUTSIDE RECORDS SUMMARY | ~2020-04-19 | XMS | Encounter Summary ---
Demographics + + + | Address | [address] | | | [place] [address] | + + + | Home Phone | | + + + | Preferred Language | Unknown | + + + | Marital Status | | + + + | Rastafarian Affiliation | CHR | + + + | Race | White | + + + | Ethnic Group | Not or | + + + Author + + + | Author | [facility] | + + + | Organization | [facility] | + + + | Address | Unknown | + + + | Phone | Unavailable | + + + Support + + +---------+ + | Name | Relationship | Address | Phone | + + +---------+ + | Nathaniel Henao | ECON | Unknown | | + + +---------+ + Care Team Providers + +------+ + | Care Labourers Name | Role | Phone | + +------+ + | Kennedi Selby | PCP | | + +------+ + Reason for Visit +--------+--------+ + | Reason | Onset | Comments | | | Date | | +--------+--------+ + | Menses | 11/10/ | | | | 2019 | | +--------+--------+ + Encounter Details +--------+ + + + + | Date | Type | Department | Care Team | Description | +--------+ + + + + | 11/10/ | Telephone | [place] | Yuli Murdock MD | Menses | | 2018 | | Fertility | [address] | | | | | Consultants at [facility] | [address] [place], | | | | | [address] | [place] [address] | | | | | [facility] | [phone] | | | | | and [address], | | | | | | Building | | | | | | Floor [place], [place] | | | | | | [address] | | | | | | [phone] | | | +--------+ + + + [...] Telephone Encounter - Seth Peck RN - 11/10/2018 9:42 AM PDTCall to patient. Reviewed t o continue OCP's for upcoming polypectomy. Updated apt notes for MD. elephone Encounter - Nicole Colon - 2018 9:25 AM PDT Pt calling to report onset of menses Saturday, . Pt started BC that same day Please call to discuss next steps. Pt available all day. Home Phone Work Phone Caller states it is OK to leave confidential messages on voice messaging system. Current Pharmacy: [id number] - [place], [place] - [address] [phone] [place] [address] [facility] Pharmacy at [facility] Building [address] [place] [address] Alternate Pharmacy Verified: No documented in this enco unter Plan of Treatment Not on filedocumented as of this encounter Procedures + +--------+ + + + | Procedure Name | Priori | Date/Time | Associated Diagnosis | Comments | | | ty | | | | + +--------+ + + + | ORDERS OTHER | | 11/10/2018 | | Results for this | | | | 1:44 PM | | procedure are in the | | | | PDT | | results section. | + +--------+ + + + documented in this encounter Results ORDERS OTHER (11/10/2018 1:44 PM PDT) + + + | Narrative | Performed At | + + + | | | + + + documented in this encounter Visit Diagnoses Not on filedocumented in this encounter"
--- OUTSIDE RECORDS SUMMARY | ~2020-04-19 | XMS | Encounter Summary ---
Demographics + + + | Address | [address] | | | [place] [address] | + + + | Home Phone | | + + + | Preferred Language | Unknown | + + + | Marital Status | | + + + | Moravian Affiliation | CHR | + + + | Race | White | + + + | Ethnic Group | Not or | + + + Author + + + | Author | [facility] | + + + | Organization | [facility] | + + + | Address | Unknown | + + + | Phone | Unavailable | + + + Support + + +---------+ + | Name | Relationship | Address | Phone | + + +---------+ + | Nathaniel Henao | ECON | Unknown | | + + +---------+ + Care Team Providers + +------+ + | Care Emergency Room Physician Assistant Name | Role | Phone | + +------+ + | Kennedi Selby | PCP | | + +------+ + Encounter Details +--------+ + + + + | Date | Type | Department | Care Team | Description | +--------+ + + + + | 09/06/ | Telephone | [place] | Yuli Murdock MD | | | 2020 | | Fertility | [address] | | | | | Consultants at [facility] | [address] [place], | | | | | [address] | [place] [address] | | | | | [facility] | [phone] | | | | | and [address], | | | | | | | | | | | | Floor [place], [place] | | | | | | [address] | | | | | | [phone] | | | +--------+ + + + [...] encounter Miscellaneous Notes Telephone Encounter - Seth Rocha RN - 09/07/2019 1:05 PM PSTCall to patient. Reviewed w [facility] patient plan to move transition to suppositories out one day due to pharmacy needing to replete supply. elephone Encounter - Reji Carvalho - 09/07/2019 12:06 PM PSTFormatting of this note might be differe nt from the original. Pt returning call to Seth RN, pt says she spoke to her pharmacy and she will not be able to get medications by tomorrow. Please call pt back to advise. Home Phone Work Phone ddendum Note - Gordon Rocha i, RN - 09/07/2019 11:30 AM PST Addended by: SETH ROCHA RN on: 09/07/2019 11:30 AM Modules accepted: Orders, SmartSet elephone Encounter - Seth Rocha RN - 09/07/2019 10:59 AM PSTFormatting of this note might be different from th e original. MD Seth Monet RN Caller: Unspecified (Today, 9:52 AM) Let's change to vaginal progesterone - BID Crinone or TID endometrin, still do q3 day IM pr og for 1 week (2 doses) for a bridge given the vaginal bleeding, and then can stop IM. Call to patient and review in detail her next steps. Per MD, pt will take IM tonight and to garcia night and on the then dc. Pt burroughs tart the supp tomorrow am. Ordered to [facility]. ele phone Encounter - Seth Rocha RN - 09/07/2019 9:52 AM PSTPt called in to report update in symptoms. Pt states 48 hours after stopping the DEXA she has developed welts on her hips from the eth yl oleate injections. She continues to use the hydrocortisone cream and is cleansing her ski n as instructed. She has also noted an increase in spotting that is now red rather than brown. She notes it each time she urinates and during the BM she had earlier she noted some drops in the toilet. It does not appear to be saturating a liner inbetween bathroom trips, but patient will call if this occurs. She denies cramping. She relays the other change that was made recently was patch estrogen to oral. She has not missed a dose. Routed high priority to MD for advisement. Electronically signed by Seth Rocha RN at 08/2019 10:08 AM PSTdocumented in this encounter Plan of Treatment Not on filedocumented as of this encounter Visit Diagnoses Not on filedocumented in this encounter"
--- OUTSIDE RECORDS SUMMARY | ~2020-04-19 | XMS | Encounter Summary ---
Demographics + + + | Address | [address] | | | [place] [address] | + + + | Home Phone | | + + + | Preferred Language | Unknown | + + + | Marital Status | | + + + | Congregational Affiliation | CHR | + + + [...] Team Providers + +------+ + | Care Forepart Laster Name | Role | Phone | + +------+ + | Parth Selbya CHIO | PCP | | + +------+ + Encounter Details +--------+ + + + + | Date | Type | Department | Care Team | Description | +--------+ + + + + | 09/12/ | Outside | UNKNOWN DEPARTMENT | Other, Faculty | | | 2009 | Records | [address] | [phone] | | | | | [address] | | | | | | [place], [place] | | | | | | [address] | | | +--------+ + + + [...] + +--------+ + + + | OUTSIDE RADIOLOGY - | | 09/12/2009 | | Results for this | | ULTRASOUND | | 12:00 AM | | procedure are in the | | | | PST | | results section. | + +--------+ + + + documented in this encounter Results OUTSIDE RADIOLOGY - ULTRASOUND (09/12/2009 12:00 AM PST) + + + | Narrative | Performed At | + + + | | | + + + documented in this encounter Visit Diagnoses Not on filedocumented in this encounter"
--- OUTSIDE RECORDS SUMMARY | ~2020-04-19 | XMS | Clinical Summary ---
Demographics + + + | Address | [address] | | | [place] [address] | + + + | Home Phone | | + + + | Preferred Language | Unknown | + + + | Marital Status | | + + + | Samaritan Affiliation | CHR | + + + | Race | White | + + + | Ethnic Group | Not or | + + + Author + + + | Author | NON REVENUE LOCATIONS | + + + | Organization | NON REVENUE LOCATIONS | + + + | Address | Unknown | + + + | Phone | Unavailable | + + + Support + + +---------+ + | Name | Relationship | Address | Phone | + + +---------+ + | Nathaniel Henao | ECON | Unknown | | + + +---------+ + Care Team Providers + +------+ + | Care Strike Plate Attacher Name | Role | Phone | + +------+ + | Kennedi Selby | PCP | | + +------+ + Source Comments XIN is fully live on both [facility] Ambulatory and [facility] InPatient.[facility] Allergies No Known Allergies Medications + + + +---------+------+------+-------+ | Medication | Sig | Dispensed | Refills | Star | End | Statu | | | | | | t | Date | s | | | | | | Date | | | + + + +---------+------+------+-------+ | | Take 1 tablet by | 10 | 0 | 04/2 | | Activ | | acetaminophen-codein | mouth every six | tablet | | 1/20 | | e | | e 300-30 mg oral | hours as needed. | | | 19 | | | | tablet | | | | | | | + + + +---------+------+------+-------+ | omega | Take 1,000 mg by | | 0 | | | Activ | | 4-wkd-ovn-fish oil | mouth once daily. | | | | | e | | (FISH OIL) | | | | | | | | 100-160-1,000 mg | | | | | | | | oral capsule | | | | | | | + + + +---------+------+------+-------+ | rizatriptan 10 mg | Take 10 mg by mouth | | 0 | | | Activ | | oral tablet | as needed for | | | | | e | | | migraine. | | | | | | + + + +---------+------+------+-------+ | | | | 0 | | | Activ | | [id number] | | | | | | e | | AC-DHA ORAL | | | | | | | + + + +---------+------+------+-------+ | cholecalciferol | Vitamin D3 | | 0 | | | Activ | | (Vitamin D3) | | | | | | e | | (VITAMIN D3) 1,000 | | | | | | | | unit oral capsule | | | | | | | + + + +---------+------+------+-------+ | ascorbic acid | Take 100 mg by mouth | | 0 | | | Activ | | (vitamin C) 100 mg | once daily. | | | | | e | | oral tablet | | | | | | | + + + +---------+------+------+-------+ | doxycycline | Take 1 tablet by | 14 | 0 | 05/2 | | Activ | | hyclate 100 mg oral | mouth every twelve | tablet | | /20 | | e | | tabletIndications: | hours. (Pharmacist | | | 19 | | | | Encounter for | to substitute salt | | | | | | | assisted | form as needed). | | | | | | | reproductive | Start when directed. | | | | | | | fertility procedure | Take for 7 days | | | | | | | cycle | with probiotic. | | | | | | + + + +---------+------+------+-------+ | empty container | Use as directed. | 1 each | | 05/2 | | Activ | | (SHARPS CONTAINER) | | | | 9/20 | | e | | miscIndications: | | | | 19 | | | | Encounter for | | | | | | | | assisted | | | | | | | | reproductive | | | | | | | | fertility procedure | | | | | | | | cycle | | | | | | | + + + +---------+------+------+-------+ | Needle (Disp) 22 G | Use to inject | 30 each | | 05/2 | | Activ | | 22 gauge x 1 1/2" | progesterone in oil. | | | 03/27 | | e | | needleIndications: | | | | 19 | | | | Encounter for | | | | | | | | assisted | | | | | | | | reproductive | | | | | | | | fertility procedure | | | | | | | | cycle | | | | | | | + + + +---------+------+------+-------+ | progesterone 50 | Inject 2 mL into the | 40 mL | | 05/2 | | Activ | | mg/mL intramuscular | muscle (IM) once | | | 20 | | e | | oilIndications: | daily. Administer in | | | 19 | | | | Encounter for | the evenings as | | | | | | | assisted | instructed by your | | | | | | | reproductive | written MD protocol. | | | | | | | fertility procedure | | | | | | | | cycle | | | | | | | + + + +---------+------+------+-------+ | Syringe with | Use to draw up | 30 | | 05/2 | | Activ | | Needle (Disp) 3 mL | progesterone in oil. | Syringe | | 03/27 | | e | | 18 x 1 2" | | | | 19 | | | | syringeIndications: | | | | | | | | Encounter for | | | | | | | | assisted | | | | | | | | reproductive | | | | | | | | fertility procedure | | | | | | | | cycle | | | | | | | + + + +---------+------+------+-------+ | | Take 1 tablet by | 1 | 2 | | | Activ | | norethindrone-ethiny | mouth once daily. | Package | | 03/27 | | e | | l estradiol 1.5-30 | Take active pills | | | 19 | | | | mg-mcg oral tablet | only, ongoing. | | | | | | + + + +---------+------+------+-------+ | | Take 1 tablet by | 1 | 1 | / | | Activ | | desogestrel-ethinyl | mouth once daily. | Package | | 0 | | e | | estradiol 0.15-0.03 | Call on menses day | | | 19 | | | | mg oral tablet | one. Take active | | | | | | | | only pills. | | | | | | + + + +---------+------+------+-------+ | progesterone in | Inject 2 mL into the | 40 mL | 3 | 12/2 | | Activ | | ethyl oleate 50 | muscle (IM) once | | | 3/20 | | e | | mg/mL intramuscular | daily. Administer in | | | 19 | | | | oilIndications: | the evening as | | | | | | | Encounter for | directed by your MD | | | | | | | assisted | protocol. | | | | | | | reproductive | | | | | | | | fertility procedure | | | | | | | | cycle | | | | | | | + + + +---------+------+------+-------+ | Syringe with | Use to draw up | 30 | | 12/2 | | Activ | | Needle (Disp) 3 mL | progesterone in oil. | Syringe | | 3/20 | | e | | 18 x 1 1/2" | | | | 19 | | | | miscellaneous (misc) | [...] | | | | | | | + + + +---------+------+------+-------+ | Needle (Disp) 22 G | Use to inject | 30 each | | 12/2 | | Activ | | 22 gauge x 1 1/2" | progesterone in oil. | | | 3/20 | | e | | miscellaneous (misc) | | | | 19 | | | | needleIndications: | | | | | | | | Encounter for | | | | | | | | assisted | | | | | | | | reproductive | | | | | | | | fertility procedure | | | | | | | | cycle | | | | | | | + + + +---------+------+------+-------+ | estradiol | Apply 1-4 patches to | 40 | | 12/2 | | Activ | | (VIVELLE-DOT) 0.1 | skin every other | patch | | 3/20 | | e | | mg/24 hr transdermal | day. This is a | | | 19 | | | | patch | fertility patient on | | | | | | | semiweeklyIndication | special dosing. | | | | | | | s: Encounter for | | | | | | | | assisted | | | | | | | | reproductive | | | | | | | | fertility procedure | | | | | | | | cycle | | | | | | | + + + +---------+------+------+-------+ | levothyroxine 25 | Take 1 tablet by | 30 | 5 | 07/08 | | Activ | | mcg oral tablet | mouth before | tablet | | 11/24 | | e | | | breakfast. Start | | | 20 | | | | | with treatment cycle | | | | | | | | start, (day one of | | | | | | | | Estrace). | | | | | | + + + +---------+------+------+-------+ | levothyroxine 25 | Take 2 tablets by | 60 | 5 | 08/08 | | Activ | | mcg oral tablet | mouth before | tablet | | 08/27 | | e | | | breakfast. Take away | | | 20 | | | | | from other food and | | | | | | | | medications. | | | | | | + + + +---------+------+------+-------+ | dexAMETHasone 0.5 | Take 1 tablet by | 30 | 0 | 08/08 | | Activ | | mg oral | mouth once daily. | tablet | | 02/24 | | e | | tabletIndications: | Start just after | | | 20 | | | | Encounter for | Progesterone start, | | | | | | | assisted | discontinue at time | | | | | | | reproductive | of second [facility] | | | | | | | fertility procedure | level, according to | | | | | | | cycle | protocol | | | | | | | | instructions. | | | | | | + + + +---------+------+------+-------+ | estradioL 2 mg | Take 3 times daily | 90 | 10 | 02/2 | | Activ | | oral tablet | by mouth. | tablet | | 8/20 | | e | | | | | | 20 | | | + + + +---------+------+------+-------+ | estradioL 2 mg | Take 1 tablet by | 90 | 10 | 02/2 | | Activ | | oral tablet | mouth three times | tablet | | 8/20 | | e | | | daily. | | | 20 | | | + + + +---------+------+------+-------+ | Progesterone | Place 1.125 g into | 60 | 3 | 03/0 | | Activ | | Micronized 8 % | the vagina two times | applicato | | 2/20 | | e | | vaginal gel | daily. Use in the | r | | 20 | | | | | morning and evening | | | | | | | | when directed by | | | | | | | | your MD protocol. | | | | | | + + + +---------+------+------+-------+ | progesterone | Place 1 suppository | 90 each | 3 | 03/0 | | Activ | | micronized 100 mg | into the vagina | | | 08/27 | | e | | vaginal insert | three times daily. | | | 20 | | | + + + +---------+------+------+-------+ Active Problems + + + | Problem | Noted Date | + + + | Blood type A+ | 02/02/2019 | + + + | IVF Screening Checklist | 09/24/2018 | + + + + + | Overview: Formatting of this note might be different from the | | original.Pre - IVF Screening ChecklistName: Pushpa Henao | | [facility] INITIAL CONSULT DATE COMMENT/RESULT IVF | | Consult 09/05/18 Completed Financial Counselor Completed FEMALE: | | DATE COMMENTS/RESULT Day 3 FSH 09/05/2018 7 E2 09/05/2018 57 AMH | | 09/05/2018 1.32 ABO/Rh Antibody Screen 09/05/2018 A positive/ | | negative HIV Ab Screen 09/05/2018 negative Hep B Surface Antigen | | 09/05/2018 negative Hep C Surface Antibody 09/05/2018 negative RPR | | 09/05/18 non reactive Rubella IgG (or date immunized) 09/05/2018 | | immune Varicella 09/05/2018 positive Vitamin D 09/05/2018 20.5 TSH | | 09/05/2018 2.0 Pap smear 11/08/2016 NIL/negative SIS/TT/BAF 09/15/2018 | | Interpretation: Small endometrial polyp Good AFC 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 Fresh and frozen inadequate for ICSI. Other | | Andrology:Back-up FreezeTESE GENETICS: DATE COMMENTS/RESULT | | Consult Rescheduled with Kay Grace [facility] Genetics Counsyl | | Screen Chromosome testing ADDITIONAL SCREENING: DATE | | COMMENTS/RESULT Clearance Letter from Specialist 09/29/18 | | Completed Medical Release for Infectious Disease Other Misc | | Notes: -PMC consult needed if BMI >35, and this consult needs to | | be within 30 days of procedure.-MFM consult needed if patient | | needs medical clearance for , anticipating high-risk | | .-Mental Health consult needed if donor sperm/ 3rd | | democrat, | | | | Reproductive Psychologist | | visit.-Mammogram for advance maternal age > 50 (controversial, | | offer between ages 40-50, [id number]). | |Hep B Surface Antigen 09/05/2018 Not detectd | |Hep C Surface Antibody 09/05/2018 Not detected | |RPR 09/05/2018 Not detected | |Semen Analysis 09/23/2018 Note | | | |09/23/18 TESE test thaw results: | | | |0 hrs: 7/100 sperm observed, 0 motility. | |24 hrs: 0 sperm observed | |48 hrs: 1 sperm (pinhead) observed, 0 motility. | | | |Fresh and frozen inadequate for ICSI. | | | | | | | |Other Andrology: | |Back-up Freeze | |TESE | |GENETICS: DATE COMMENTS/RESULT | |Consult Rescheduled with Kay Grace | |PGS Genetics | |Counsyl Screen | |Chromosome testing | |ADDITIONAL SCREENING: DATE COMMENTS/RESULT | |Clearance Letter from Specialist 09/29/18 Completed | |Medical Release for Infectious Disease | |Other | |Misc Notes: | |-PMC consult needed if BMI >35, and this consult needs to be within 30 days of procedure. | |-MFM consult needed if patient needs medical clearance for , anticipating high-ris k . | |-Mental Health consult needed if donor sperm/ 3rd democrat, Reproductive Psychologist vi sit. | |-Mammogram for advance maternal age > 50 (controversial, offer between ages 40-50, case-by- case). | + + Social History + +-------+ +--------+------+ [...] on file | | + + + Last Filed Vital Signs + + + + + | Vital Sign | Reading | Time Taken | Comments | + + + + + | Blood Pressure | 113/42 | 08/06/2019 11:30 AM | | | | | PST | | + + + + + | Pulse | 73 | 08/06/2019 11:30 AM | | | | | PST | | + + + + + | Temperature | 36.8 C (98.2 F) | 06/26/2019 2:11 PM | | | | | PST | | + + + + + | Respiratory Rate | 15 | 05/27/2019 3:02 PM | | | | | PST | | + + + + + | Oxygen Saturation | 100% | 06/26/2019 2:11 PM | | | | | PST | | + + + + + | Inhaled Oxygen | - | - | | | Concentration | | | | + + + + + | Weight | 66 kg (145 lb 9.6 | 08/06/2019 11:30 AM | | | | oz) | PST | | + + + + + | Height | 160 cm (5' 3") | 08/06/2019 11:30 AM | | | | | PST | | + + + + + | Body Mass Index | 25.79 | 08/06/2019 11:30 AM | | | | | PST | | + + + + + Plan of Treatment + + +-------+ + | Health Maintenance | Due Date | Last | Comments | | | | Done | | + + +-------+ + | Influenza (Flu) | | | | | vaccination (#1) | 0 | | | + + +-------+ + | Pneumococcal | Aged Out | | No longer eligible based on patient's age | | vaccination | | | to complete this topic | + + +-------+ + Results Not on filefrom Last 3 Months Insurance + +--------+ +--------+ + +--------+ | Payer | Benefi | Subscriber | Effect | Phone | Address | Type | | | t Plan | ID | alma | | | | | | / | | Dates | | | | | | Group | | | | | | + +--------+ +--------+ + +--------+ | ARC | ARC | [id number] | 10/07/19 | | C/O | Indemn | | | | | 19-Pre | | Jess | ity | | | | | sent | | [place], | | | | | | | | [place] [address] | | + +--------+ +--------+ + +--------+ | [place] | BCBS | [id number] | Effect | [phone] | [address] | PPO | | | [place] | 8 | alma | [address] | [address] | | | | IS | | for | | [place], [place] | | | | | | all | | [address] | | | | | | dates | | | | + +--------+ +--------+ + +--------+ + +--------+ +--------+ + + | Guarantor Name | Accoun | Relation to | Date | Phone | Billing Address | | | t Type | Patient | of | | | | | | | | | | + +--------+ +--------+ + + | Pushpa Henao | Person | Self [birth year] | [address] | | | al/Fam | | 1985 | [phone] | [place] [address] | | | lauren | | | 2 (Home) | | + +--------+ +--------+ + + | Pushpa Henao | UFC | Self | [birth year] | [address] | | | Billin | | 1985 | [phone] | [place] [address] | | | g Use | | | 2 (Home) | | | | Only | | | | | + +--------+ +--------+ + + Advance Directives + + + + + | Code Status | Date | Date | Comments | | | Activated | Inactivated | | + + + + + | Full Code | 05/27/2019 | 05/27/2019 | | | | 11:33 AM | 9:43 PM | | + + + + + + + + +---+ | | | | | + + + +---+ | Full Code | 11/27/2018 | 11/27/2018 | | | | 7:10 AM | 5:41 PM | | + + + +---+
--- OUTSIDE RECORDS SUMMARY | ~2020-04-19 | XMS | Encounter Summary ---
Demographics + + + | Address | [address] | | | [place] [address] | + + + | Home Phone | | + + + | Preferred Language | Unknown | + + + | Marital Status | | + + + | Pentecostal Affiliation | CHR | + + + | Race | White | + + + | Ethnic Group | Not or | + + + Author + + + | Author | [facility] | + + + | Organization | [facility] | + + + | Address | Unknown | + + + | Phone | Unavailable | + + + Support + + +---------+ + | Name | Relationship | Address | Phone | + + +---------+ + | Nathaniel Henao | ECON | Unknown | | + + +---------+ + Care Team Providers + +------+ + | Care Spacecraft Systems Engineer Name | Role | Phone | + +------+ + | Kennedi Selby | PCP | | + +------+ + Encounter Details +--------+ + + + + | Date | Type | Department | Care Team | Description | +--------+ + + + + | 07/28/ | Telephone | [place] | Yuli Murdock MD | | | 2019 | | Fertility | [address] | | | | | Consultants at [facility] | [address] [place], | | | | | [address] | [place] [address] | | | | | [facility] | [phone] | | | | | and [address], | | | | | | | | | | | | [place], [place] | | | | | | [address] | | | | | | [phone] | | | +--------+ + + + [...] Telephone Encounter - Seth Peck RN - 07/28/2019 8:14 AM PSTFormatting of this note demarcus ht be different from the original. MD Berta Monet [facility] Mathieu Urban Agree with adding vaginal estrace. Repeat USN on or Saturday, reschedule FET for t h or . Called patient and reviewed the above. Scheduled pt for USN on 07/30 with transfer scheduled for 08/06. Checklist updated. Pt advised if lining adequate will start POI on 07/31. documented in this encou nter Plan of Treatment Not on filedocumented as of this encounter Visit Diagnoses Not on filedocumented in this encounter"
--- OUTSIDE RECORDS SUMMARY | ~2020-04-19 | XMS | Encounter Summary ---
Demographics + + + | Address | [address] | | | [place] [address] | + + + | Home Phone | | + + + | Preferred Language | Unknown | + + + | Marital Status | | + + + | Judaism Affiliation | CHR | + + + | Race | White | + + + | Ethnic Group | Not or | + + + Author + + + | Author | [facility] | + + + | Organization | [facility] | + + + | Address | Unknown | + + + | Phone | Unavailable | + + + Support + + +---------+ + | Name | Relationship | Address | Phone | + + +---------+ + | Nathaniel Henao | ECON | Unknown | | + + +---------+ + Care Team Providers + +------+ + | Care Cloth Measurer Name | Role | Phone | + +------+ + | Kennedi Selby | PCP | | + +------+ + Reason for Visit +--------+ + | Reason | Comments | +--------+ + | FMLA | | +--------+ + Encounter Details +--------+ + + + + | Date | Type | Department | Care Team | Description | +--------+ + + + + | 09/24/ | Documentati | [place] | Yuli Murdock MD | FMLA | | 2019 | on | Fertility | [address] | | | | | Consultants at [facility] | [address] [place], | | | | | [address] | [place] [address] | | | | | [place] [facility] | [phone] | | | | | and Healing, | | | | | | [facility] | | | | | | Floor [place], [place] | | | | | | [address] | | | | | | [phone] | | | +--------+ + + + [...] this encounter Miscellaneous Notes Telephone Encounter - Alfonzo Huyen - 09/24/2018 2:34 PM PDTCompleted and Faxed FMLA to [employer]. FREDDIE on file. docu mented in this encounter Plan of Treatment Not on filedocumented as of this encounter Visit Diagnoses Not on filedocumented in this encounter"
--- OUTSIDE RECORDS SUMMARY | ~2020-04-19 | XMS | Encounter Summary ---
Demographics + + + | Address | [address] | | | [place] [address] | + + + | Home Phone | | + + + | Preferred Language | Unknown | + + + | Marital Status | | + + + | Taoism Affiliation | CHR | + + + [...] Team Providers + +------+ + | Care Garnett Room Worker Name | Role | Phone | + +------+ + | Kennedi Selby | PCP | | + +------+ + Encounter Details +--------+ + + + + | Date | Type | Department | Care Team | Description | +--------+ + + + + | 05/12/ | Telephone | [place] | Yuli Murdock MD | | | 2019 | | Fertility | [address] | | | | | Consultants at [facility] | [address] [place], | | | | | [address] | [place] [address] | | | | | [facility] | [phone] | | | | | and [address], | | | | | | | | | | | | [place], [place] | | | | | | [address] | | | | | | [phone] | | | +--------+ + + + [...]
--- OUTSIDE RECORDS SUMMARY | ~2020-04-19 | XMS | Encounter Summary ---
Demographics + + + | Address | [address] | | | [place] [address] | + + + | Home Phone [...] + + + | Author | [facility] | + + + | Organization | [facility] | + + + | Address | Unknown | + + + | Phone | Unavailable | + + + Support + + +---------+ + | Name | Relationship | Address | Phone | + + +---------+ + | Nathaniel Henao | ECON | Unknown | | + + +---------+ + Care Team Providers + +------+ + | Care Hotel Concierge Name | Role | Phone | + [...] | | Reproductive | | Non-[facility] | [facility] | | | | Endocrinology | | Epic Dept | Faculty [facility] | | | | /Infertility | | | [address] | | | | | | | [facility] | | | | | | | for [facility] | | | | | | | and Healing, | | | | | | | [address], | | | | | | | 10th Floor | | | | | | | [place], [place] | | | | | | | [address] | | | | | | | Phone: | | | | | | | [phone] | | | | | | | Fax: | | | | | | | [phone] | + +--------+ + + + + Encounter Details +--------+ + + + + | Date | Type | Department | Care Team | Description | +--------+ + + + + | 09/09/ | Telephone-S | [place] | [facility] | | | 2020 | cheduled | Fertility | [address] | | | | | Consultants at [facility] | [place] [address] | | | | | [address] | | | | | | [facility] | | | | | | and Healing, | | | | | | Building | | | | | | [place], [place] | | | | | | [address] | | | | | | [phone] | | | +--------+ + + + [...] + | OUTSIDE RADIOLOGY - | | 09/10/2019 | | Results for this | | ULTRASOUND | | 12:00 AM | | procedure are in the | | | | PST | | results section. | + +--------+ + + + documented in this encounter Results OUTSIDE RADIOLOGY - ULTRASOUND (09/10/2019 12:00 AM PST) + + + | Narrative | Performed At | + + + | | | + + + documented in this encounter Visit Diagnoses Not on filedocumented in this encounter"
--- OUTSIDE RECORDS SUMMARY | ~2020-04-19 | XMS | Encounter Summary ---
Demographics + + + | Address | [address] | | | [place] [address] | + + + | Home Phone | | + + + | Preferred Language | Unknown | + + + | Marital Status | | + + + | Episcopal Affiliation | CHR | + + + [...] Providers + +------+ + | Care Senior Process Control Tech Name | Role | Phone | + +------+ + | Kennedi Selby | PCP | | + +------+ + Encounter Details +--------+ + + + + | Date | Type | Department | Care Team | Description | +--------+ + + + + | 01/15/ | Pharmacy | [facility] | | | | 2019 | Visit | [facility] | | | | | | [address] | | | | | | Mailcode: [place] | | | | | | [facility] and | | | | | | Healing, [address] | | | | | | [place], [place] | | | | | | [address] | | | | | | [phone] | | | +--------+ + + + [...]
--- OUTSIDE RECORDS SUMMARY | ~2020-04-19 | XMS | Encounter Summary ---
Demographics + + + | Address | [address] | | | [place] [address] | + + + | Home Phone | | + + + | Preferred Language | Unknown | + + + | Marital Status | | + + + | Muslim Affiliation | CHR | + + + [...] Team Providers + +------+ + | Care Supervisor Dry Cleaning Name | Role | Phone | + +------+ + | Kennedi Selby | PCP | | + +------+ + Encounter Details +--------+--------+ + + + | Date | Type | Department | Care Team | Description | +--------+--------+ + + + | 02/16/ | Travel | | | | | [...]
--- OUTSIDE RECORDS SUMMARY | ~2020-04-19 | XMS | Encounter Summary ---
Demographics + + + | Address | [address] | | | [place] [address] | + + + | Home Phone | | + + + | Preferred Language | Unknown | + + + | Marital Status | | + + + | Sabianist Affiliation | CHR | + + + [...] Team Providers + +------+ + | Care Equipment Records Supervisor Name | Role | Phone | + +------+ + | Parth Selbya CHIO | PCP | | + +------+ + Reason for Visit + +--------+ + | Reason | Onset | Comments | | | Date | | + +--------+ + | Treatment Planning | 01/16/ | | | | 2019 | | + +--------+ + Encounter Details +--------+ + + + + | Date | Type | Department | Care Team | Description | +--------+ + + + + | 01/16/ | Telephone | [facility] | Yuli Murdock MD | Treatment Planning | | 2019 | | Fertility | [address] | | | | | Consultants at [facility] | [address] [place], | | | | | [address] | [place] [address] | | | | | [facility] | [phone] | | | | | and Healing, | | | | | | Building | | | | | | Floor [place], [place] | | | | | | [address] | | | | | | [phone] | | | +--------+ + + + [...] this encounter Miscellaneous Notes Telephone Encounter - Simin Beauchamp RN - 01/16/2019 7:50 AM PDT----- Message from Yuli Murdock MD sent at 01/16/2019 7:35 AM PDT ----- Add one vaginal estrace to the TID estrace Saturday, Saturday, and then still start IM KAYCEE on Saturday as scheduled for FET on 01/23, reduce to TID estrace as maintenance. ----- Message ----- From: Seth Peck RN Sent: 01/15/2019 10:15 AM To: Yuli Murdock MD Can you review ENDO check USN and advise per Dr. Portillo's request? Thank you! Remember I am out on fridays, can you respond to RUT jordan instead of me directly? Thank you! documented in this encou nter Plan of Treatment Not on filedocumented as of this encounter Visit Diagnoses Not on filedocumented in this encounter"
--- OUTSIDE RECORDS SUMMARY | ~2020-04-19 | XMS | Encounter Summary ---
Demographics + + + | Address | [address] | | | [place] [address] | + + + | Home Phone [...] Team Providers + +------+ + | Care Truck Driver Flatbed Name | Role | Phone | + +------+ + | Kennedi Selby | PCP | | + +------+ + Encounter Details +--------+--------+ + + + | Date | Type | Department | Care Team | Description | +--------+--------+ + + + | 06/26/ | Travel | | | | | [...]
--- OUTSIDE RECORDS SUMMARY | ~2020-04-19 | XMS | Encounter Summary ---
Demographics + + + | Address | [address] | | | [place] [address] | + + + | Home Phone | | + + + | Preferred Language | Unknown | + + + | Marital Status | | + + + | Faith Affiliation | CHR | + + + [...] Team Providers + +------+ + | Care Residential Carpenter Name | Role | Phone | + +------+ + | Kennedi Selby | PCP | | + +------+ + Encounter Details +--------+ + + + + | Date | Type | Department | Care Team | Description | +--------+ + + + + | 05/27/ | Procedure | [facility] | | | | 2019 | Pass | [place] [facility] | | | | | | and Healing Surgery | | | | | | Center Admitting | | | | | | Desk Located on the | | | | | | 4th floor [address] | | | | | | [address] [place], | | | | | | [place] [address] | | | +--------+ + + + [...]
--- OUTSIDE RECORDS SUMMARY | ~2020-04-19 | XMS | Encounter Summary ---
Demographics + + + | Address | [address] | | | [place] [address] | + + + | Home Phone | | + + + | Preferred Language | Unknown | + + + | Marital Status | | + + + | Catholic Affiliation | CHR | + + + | Race | White | + + + | Ethnic Group | Not or | + + + Author + + + | Author | [facility] | + + + | Organization | [facility] | + + + | Address | Unknown | + + + | Phone | Unavailable | + + + Support + + +---------+ + | Name | Relationship | Address | Phone | + + +---------+ + | Nathaniel Henao | ECON | Unknown | | + + +---------+ + Care Team Providers + +------+ + | Care Estate Planning Paralegal Name | Role | Phone | + +------+ + | Kennedi Selby | PCP | | + +------+ + Encounter Details +--------+ + + + + | Date | Type | Department | Care Team | Description | +--------+ + + + + | 10/03/ | Pharmacy | [facility] | | | | 2019 | Visit | & Healing Pharmacy | | | | | | [address] | | | | | | Mailcode: [place] | | | | | | [facility] and | | | | | | Healing, [address] | | | | | | [place], [place] | | | | | | [address] | | | | | | [phone] | | | +--------+ + + + [...]
--- OUTSIDE RECORDS SUMMARY | ~2020-04-19 | XMS | Encounter Summary ---
Demographics + + + | Address | [address] | | | [place] [address] | + + + | Home Phone [...] Team Providers + +------+ + | Care Loss Prevention Lead Name | Role | Phone | + +------+ + | Kennedi Selby | PCP | | + +------+ + Reason for Visit + +--------+ + | Reason | Onset | Comments | | | Date | | + +--------+ + | Bleeding | 02/12/ | | | | 2019 | | + +--------+ + Encounter Details +--------+ + + + + | Date | Type | Department | Care Team | Description | +--------+ + + + + | 02/12/ | Telephone | [place] | Yuli Murdock MD | Bleeding | | 2019 | | Fertility | [address] | | | | | Consultants at [facility] | [address] [place], | | | | | [address] | [place] [address] | | | | | [facility] | [phone] | | | | | and [address], | | | | | | Building | | | | | | Floor [place], [place] | | | | | | [address] | | | | | | [phone] | | | +--------+ + + + [...] Telephone Encounter - Seth Peck RN - 02/12/2019 5:02 PM PDTPt called back reporting th at she is having more bleeding and increased cramping and passing clots. [facility] resulted and reviewed with MD, level is 9920. MD would like pt to have OB scan tomorrow. Pt advised. Pt is attempting to get it scheduled locally. Pt was unable to get scheduled locally and per MD was scheduled for Saturday at [address] Murdock. Pt is agreeable to plan. Reviewed with pt what to do should she experience e xcessive bleeding, kyleigh CANTRELL number provided as well. elephone Encounter - Seth Peck RN - 02/12/2019 2:19 PM PD TCall to patient, reviewed symptoms. Pt reports some mild uterine cramping with "period bloo d" that saturated the white cotton lining of her underwear. She reports no other symptoms. S he is at work currently, unable to go home but is able to rest. Pt encouraged to rest, hydra te, and nothing in the vagina. Order received for [facility], faxed to [facility]. Pt getting drawn now and hoping for it to be resulted today. Mock apt made for tomorrow in case results are not available today. did not want to change scan schedule at this point, currently scheduled for 02/19. Pt is 5w4d today. eleph one Encounter - Reji Carvalho - 02/12/2019 12:06 PM PDTFormatting of this note might be diff erent from the original. Pt calling stating she is at work right now, pt says she felt a gush of blood come out, pt says when she wiped she saw 1 clot on the tissue. Pt is wearing a pad now. Please call pt back. Home Phone Work Phone documented in this encounte r Plan of Treatment + +------+--------+ + + | Name | Type | Priori | Associated Diagnoses | Order Schedule | | | | ty | | | + +------+--------+ + + | HCG BETA QUANT, | Lab | Urgent | High-risk | Ordered: 02/12/2019 | | PLASMA | | | in first | | | | | | trimester | | + +------+--------+ + + documented as of this encounter Procedures + +--------+ + + + | Procedure Name | Priori | Date/Time | Associated Diagnosis | Comments | | | ty | | | | + +--------+ + + + | LAB REPORTS | | 02/12/2019 | | Results for this | | | | 12:00 AM | | procedure are in the | | | | PDT | | results section. | + +--------+ + + + documented in this encounter Results LAB REPORTS (02/12/2019 12:00 AM PDT) + + + | Narrative | Performed At | + + + | | | + + + documented in this encounter Visit Diagnoses + + | Diagnosis | + + | High-risk in first trimester - Primary | + + documented in this encounter
--- OUTSIDE RECORDS SUMMARY | ~2020-04-19 | XMS | Encounter Summary ---
Demographics + + + | Address | [address] | | | [place] [address] | + + + | Home Phone | | + + + | Preferred Language | Unknown | + + + | Marital Status | | + + + | Nondenominational Affiliation | CHR | + + + [...] Team Providers + +------+ + | Care Volunteer Services Assistant Name | Role | Phone | + +------+ + | Kennedi Selby | PCP | | + +------+ + Reason for Visit +--------+--------+ + | Reason | Onset | Comments | | | Date | | +--------+--------+ + | Other | 02/09/ | | | | 2019 | | +--------+--------+ + Encounter Details +--------+ + + + + | Date | Type | Department | Care Team | Description | +--------+ + + + + | 02/09/ | Telephone | [place] | Yuli Murdock MD | Other | | 2019 | | Fertility | [address] | | | | | Consultants at [facility] | [address] [place], | | | | | [address] | [place] [address] | | | | | [facility] | [phone] | | | | | and Healing, | | | | | | Building | | | | | | [place], [place] | | | | | | [address] | | | | | | [phone] | | | +--------+ + + + [...] Telephone Encounter - Seth Peck RN - 02/09/2019 10:43 AM PDTCall to patient. Reviewed s potting. Pt reports small amount brown spotting only. No other symptoms. Only change in acti vity was that patient "power walked" one mile yesterday. Advised pt to do the following: Lig hter activity, increased rest, increased hydration, pelvic rest, and call with any change in symptoms. Pt agreeable to plan. Pt states she had one day of irration from the POI, but it has improved. Pt reminded to papi anse skin thoroughly after shot to make sure no POI is sitting on skin causing the irritatio n. Pt instructed she could apply topical benadryl or topical Hydrocortisone to affected area . Asked pt to keep us updated on any changes. Electronically signed by Seth Peck RN at 10:50 AM PDTTelephone Encounter - Reji Carvalho - 02/09/2019 8:49 AM PDT Pt calling complaining of red spots and swelling at injection site that started on Saturday . Pt also complains of brown discharge as well that started on Saturday. Please call pt back to advise. Home Phone Work Phone documented in this encounte r Plan of Treatment Not on filedocumented as of this encounter Visit Diagnoses Not on filedocumented in this encounter
--- OUTSIDE RECORDS SUMMARY | ~2020-04-19 | XMS | Encounter Summary ---
Demographics + + + | Address | [address] | | | [place] [address] | + + + | Home Phone | | + + + | Preferred Language | Unknown | + + + | Marital Status | | + + + | Alevism Affiliation | CHR | + + + [...] Team Providers + +------+ + | Care Columnist Name | Role | Phone | + +------+ + | Kennedi Selby | PCP | | + +------+ + Encounter Details +--------+ + + + + | Date | Type | Department | Care Team | Description | +--------+ + + + + | 12/03/ | Pharmacy | [facility] | | | | 2019 | Visit | & Healing Pharmacy | | | | | | [address] | | | | | | Mailcode: [place] | | | | | | [facility] and | | | | | | Healing, [address] | | | | | | [place], [place] | | | | | | [address] | | | | | | [phone] | | | +--------+ + + + [...]
--- OUTSIDE RECORDS SUMMARY | ~2020-04-19 | XMS | Encounter Summary ---
Demographics + + + | Address | [address] | | | [place] [address] | + + + | Home Phone [...] Team Providers + +------+ + | Care Energy Sales Broker Name | Role | Phone | + +------+ + | Kennedi Selby | PCP | | + +------+ + Encounter Details +--------+ + + + + | Date | Type | Department | Care Team | Description | +--------+ + + + + | 05/01/ | MyCtarit | [place] | Yuli Murdock MD | RE:Update | | 2019 | Encounter | Fertility | [address] | | | | | Consultants at [facility] | [address] [place], | | | | | [address] | [place] [address] | | | | | [facility] | [phone] | | | | | and [address], | | | | | | | | | | | | [place], [place] | | | | | | [address] | | | | | | [phone] | | | +--------+ + + + [...] Addendum Note - Seth Rocha RN - 05/04/2019 10:28 AM PDT Addended by: SETH ROCHA RN on: 05/04/2019 10:28 AM Modules accepted: Orders elephone Encounter - Seth Rocha RN - 05/04/2019 10:24 AM PDTSIS scheduled per MD order. TSH and vit D ordered to [facility] for upcoming FET cycle. documented in this encounter Plan of Treatment Not on filedocumented as of this encounter Results VITAMIN D, 25-HYDROXY, SERUM (05/08/2019 4:42 PM PDT) + +-------+ + + + | Component | Value | Ref Range | Performed | Pathologist | | | | | At | Signature | + +-------+ + + + | VITAMIN D | 31.1 | 30 - 80 ng/mL | [facility] | | | 25 HYDROXY | | | LABORATORY | | | | | | SERVICES, | | | | | | CORE | | + +-------+ + + + + + | Specimen | + + | Blood - Blood | | (substance) | + + + + + | Narrative | Performed At | + + + | Reference Interval: 0-18years: Deficiency: <20 ng/mL | [facility] | | Optimum level: >or=20 ng/mL | LABORATORY | | >18years: Deficiency: <20 | SERVICES, CORE | | ng/mL Insufficiency: 20-29 ng/mL | | | Optimum Level: 30-80 ng/mL High: | | | 81-150 ng/ml Toxic: >150 ng/mL | | + + + + + + + + | Performing | Address | City/State/Zipcode | Phone Number | | Organization | | | | + + + + + | [facility] | [address] | [place] [address] | | | SERVICES, CORE | [address] | | | + + + + + TSH (05/08/2019 4:42 PM PDT) + +-------+ + + + | Component | Value | Ref Range | Performed | Pathologist | | | | | At | Signature | + +-------+ + + + | TSH | 2.15 | 0.39 - 4.17 | [facility] | [...] | + + + + + | [facility] | [address] | [place] [address] | | | SERVICES, CORE | [address] | | | + + + + + documented in this encounter Visit Diagnoses + + | Diagnosis | + + | Screening for thyroid disorder - Primary | + + | Encounter for vitamin deficiency screening Screening for other and unspecified | | endocrine, nutritional, metabolic, and immunity disorders | + + documented in this encounter"
--- OUTSIDE RECORDS SUMMARY | ~2020-04-19 | XMS | Encounter Summary ---
Demographics + + + | Address | [address] | | | [place] [address] | + + + | Home Phone | | + + + | Preferred Language | Unknown | + + + | Marital Status | | + + + | Pentecostalism Affiliation | CHR | + + + [...] Team Providers + +------+ + | Care Sugar Drier Name | Role | Phone | + +------+ + | Kennedi Selby | PCP | | + +------+ + Encounter Details +--------+ + + + + | Date | Type | Department | Care Team | Description | +--------+ + + + + | 07/30/ | Telephone | [place] | Yuli Murdock MD | | | 2019 | | Fertility | [address] | | | | | Consultants at [facility] | [address] [place], | | | | | [address] | [place] [address] | | | | | [facility] | [phone] | | | | | and [address], | | | | | | | | | | | | Floor [place], [place] | | | | | | [address] | | | | | | [phone] | | | +--------+ + + + [...] Telephone Encounter - Seth Peck RN - 07/30/2019 3:17 PM PSTPt returned call. Reviewed next steps for transfer in detail. Questions answered. documented in this encounter Plan of Treatment Not on filedocumented as of this encounter Visit Diagnoses Not on filedocumented in this encounter"
--- OUTSIDE RECORDS SUMMARY | ~2020-04-19 | XMS | Encounter Summary ---
Demographics + + + | Address | [address] | | | [place] [address] | + + + | Home Phone [...] + + + | Author | [facility] | + + + | Organization | [facility] | + + + | Address | Unknown | + + + | Phone | Unavailable | + + + Support + + +---------+ + | Name | Relationship | Address | Phone | + + +---------+ + | Nathaniel Henao | ECON | Unknown | | + + +---------+ + Care Team Providers + +------+ + | Care Irrigation District Manager Name | Role | Phone | + +------+ + | Bal Kennedi CHIO | PCP | | + +------+ + Reason for Visit + +--------+ + | Reason | Onset | Comments | | | Date | | + +--------+ + | Refill Encounters | 06/25/ | | | | 2019 | | + +--------+ + Encounter Details +--------+--------+ + + + | Date | Type | Department | Care Team | Description | +--------+--------+ + + + | 06/25/ | Refill | [place] | Yuli Murdock MD | Refill Encounters | | 2019 | | Fertility | [address] | | | | | Consultants at [facility] | [address] [place], | | | | | [address] | [place] [address] | | | | | [facility] | [phone] | | | | | and Healing, | | | | | | Building | | | | | | [place], [place] | | | | | | [address] | | | | | | [phone] | | | +--------+--------+ + + + [...] this encounter Miscellaneous Notes Telephone Encounter - Radha Marquis MA - 06/26/2019 2:48 PM PSTFormatting of this note mi ght be different from the original. Requested Prescriptions Pending Prescriptions Disp Refills levothyroxine 25 mcg oral tablet 30 tablet 5 Sig: Take 1 tablet by mouth before breakfast. Start with treatment cycle start, (day one of Estrace). elephone Encounter - Reji Mai - 06/25/2019 2:51 PM PSTSara from [facility] calling requesting refil l for levothyroxine for pt. Pharmacy # [phone] signed by Reji Carvalho at 06/25/2019 2:53 PM PSTdocu mented in this encounter Plan of Treatment Not on filedocumented as of this encounter Visit Diagnoses Not on filedocumented in this encounter"
--- OUTSIDE RECORDS SUMMARY | ~2020-04-19 | XMS | Encounter Summary ---
Demographics + + + | Address | [address] | | | [place] [address] | + + + | Home Phone | | + + + | Preferred Language | Unknown | + + + | Marital Status | | + + + | Presybeterian Affiliation | CHR | + + + [...] Team Providers + +------+ + | Care Component Engineer Name | Role | Phone | + +------+ + | Kennedi Selby | PCP | | + +------+ + Encounter Details +--------+--------+ + + + | Date | Type | Department | Care Team | Description | +--------+--------+ + + + | 05/27/ | Travel | | | | | [...]
--- OUTSIDE RECORDS SUMMARY | ~2020-04-19 | XMS | Encounter Summary ---
Demographics + + + | Address | [address] | | | [place] [address] | + + + | Home Phone [...] Team Providers + +------+ + | Care Valve Liner Rubber Name | Role | Phone | + [...] | | Reproductive | | Non-[facility] | [facility] | | | | Endocrinology | | Epic Dept | Faculty [facility] | | | | /Infertility | | | [address] | | | | | | | e [place] | | | | | | | for Health | | | | | | | and Healing, | | | | | | | [address], | | | | | | | 10th Floor | | | | | | | [place], [place] | | | | | | | [address] | | | | | | | Phone: | | | | | | | [phone] | | | | | | | Fax: | | | | | | | [phone] | + +--------+ + + + + Encounter Details +--------+ + + + + | Date | Type | Department | Care Team | Description | +--------+ + + + + | 06/12/ | Telephone-S | [place] | Yuli Murdock MD | | | 2019 | connie | Fertility | [address] | | | | | Consultants at [facility] | [address] [place], | | | | | [address] | [place] [address] | | | | | [facility] | [phone] | | | | | and Healing, | | | | | | [facility] | | | | | | [place], [place] | | | | | | [address] | | | | | | [phone] | | | +--------+ + + + [...] documented as of this encounter Progress Notes Leonila Buchanan - 06/12/2019 7:39 AM PSTTelephone Call 06/12/2019 Subjective: Pushpa is a 34 year old G 0 woman called for a follow-up to discuss her recent hysteroscopy and next steps. The hysteroscopy showed one thick band of in trauterine adhesion which was resected along with an endometrial biopsy. A intrauterine fole y catheter was placed after surgery to stent uterine cavity. Pushpa was given a 2 week cour se of estrace followed by 1 week of progesterone to induce menses. She removed the oleary 1 w stillaguamish after surgery without complications. Pushpa notes all her past surgical incisions have keloids, so she was not surprised there was scar tissue seen during hysteroscopy after her S AB. 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 Primary infertility x 2+ years 2. 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 Strong family history of Jennifer's 4. Menorrhagia and Dysmenorrhea 5. Asherman's syndrome s/p HSC resection PLAN: 1. Discussed the recent hysteroscopy with endometrial biopsy. Pt to start 1 week of Provera to induce menses after finishing 2 weeks of estrace pills. 2. Repeat SIS on 06/29 to evaluate uterine cavity post hysteroscopy. 3. Discussed medicated vs natural cycle. 4. Discussed risks associated with transferring 2 vs 1 embryo(s). Will decide on number to transfer depending on quality of embryos. 5. Plan to move forward with a transfer depending on SIS results. I am Leonila Buchanan functioning as a scribe for Yuli Murdock MD at 8:17 AM on 06/12/2019 I have reviewed and verified the above scribed note of this patient's visit and made edits as appropriate. YULI MURDOCK MD documented in this encoun ter Plan of Treatment Not on filedocumented as of this encounter Visit Diagnoses Not on filedocumented in this encounter"
--- OUTSIDE RECORDS SUMMARY | ~2020-04-19 | XMS | Encounter Summary ---
Demographics + + + | Address | [address] | | | [place] [address] | + + + | Home Phone [...] Team Providers + +------+ + | Care Chef Under Name | Role | Phone | + +------+ + | Parth Selbya CHIO | PCP | | + +------+ + Reason for Visit + + + | Reason | Comments | + + + | Prior Authorization | Menopur & Ganirelix | | Request - Medication | | + + + Encounter Details +--------+ + + + + | Date | Type | Department | Care Team | Description | +--------+ + + + + | 10/01/ | Documentati | [facility] | Huyen Acuna | Prior Authorization | | 2019 | on | [address] | [address] | Request - Medication | | | | Place [address] | [place] [facility], | (Menopur & | | | | [place] [address] | [place] [address] | Ganirelix) | | | | [phone] | | | +--------+ + + + [...] this encounter Miscellaneous Notes Telephone Encounter - Leonila Michelle CPhT - 10/23/2018 7:45 AM PDTReceived PA appro noe for Ganirelix from [facility] via fax Approval dates: to 10/23/19 Notified [facility] retail pharmacy Scanned approval into BOX elephone Enco Sangeeta Lilly CPhT - 10/22/2018 8:08 AM PDTGanirelix Update Received an additional questionnaire from [facility]. Completed and faxed back. Will follow up with insurance in 5 business days if they have not contacted us with a deter mination by then. elephone Encounter - Wil Abreu - 10/10/2018 2:09 PM PDTGanirelix update Call [facility] at [phone], per Rep there are additional information require to com plete the PA. Completed the required information and faxed to . Will follow up with insurance in 5 business days if they have not contacted us with a deter mination by then. elephone Enco Leonila Jenkins CPhT - 10/03/2018 12:58 PM PDTReceived PA approval for Menopur from [facility] via fax Approval dates: 10/03/18 to 10/04/19 Scanned approval into BOX Ganirelix update Received notification that extra documentation was not received in time. Called [facility] kei to question their timeline, documentation was fax the same day they requested the informat ion. Could not get solar manufacturer's representative to accept information by the phone and had to re-submit PA New [place]: [id number] Will follow up with insurance in 5 business days if they have not contacted us with a deter mination by then. elephone Reinaldo castillo - Wil Abreu - 10/02/2018 9:35 AM PDTPA submitted to [facility] for Ganirelix via [facility] [place]: [id number] Will follow up with insurance in 5 business days if they have not contacted us with a deter mination by then. Also received additional information request for Menopur and answered the questionnaire for Ganirelix as well, since its a universal Infertility form elephone Ale - Huyen Acuna - 10/01/2018 4:03 PM PDTPA submitted to [facility] for Menopur via [facility] [place]: [id number] Will follow up with insurance in 5 business days if they have not contacted us with a deter mination by then. documente d in this encounter Plan of Treatment Not on filedocumented as of this encounter Visit Diagnoses Not on filedocumented in this encounter"
--- OUTSIDE RECORDS SUMMARY | ~2020-04-19 | XMS | Encounter Summary ---
Demographics + + + | Address | [address] | | | [place] [address] | + + + | Home Phone [...] Team Providers + +------+ + | Care Mangle Roller Name | Role | Phone | + +------+ + | Kennedi Selby | PCP | | + +------+ + Encounter Details +--------+ + + + + | Date | Type | Department | Care Team | Description | +--------+ + + + + | 04/22/ | Telephone | [place] | Yuli Bettencourt MD | | | 2019 | | Fertility | [address] | | | | | Consultants at [facility] | [address] [place], | | | | | [address] | [place] [address] | | | | | [facility] | [phone] | | | | | and [address], | | | | | | | | | | | | [place], [place] | | | | | | [address] | | | | | | [phone] | | | +--------+ + + + [...] Addendum Note - Seth Rocha RN - 04/23/2019 8:19 AM PDT Addended by: SETH ROCHA RN on: 04/23/2019 08:19 AM Modules accepted: Orders elephone Encounter - Seth Rocha RN - 04/23/2019 8:17 AM PDTPer , shannon for patient to switch back to the desog estrel from the norethindrone. Desogen reordered. Pt informed via 800APP. Electronically si gned by Seth Rocha RN at 04/23/2019 8:17 AM PDTTelephone Encounter - Seth Rocha RN - 1 1:44 PM PDTUSN reviewed my MD. Per Dr. BETTENCOURT, no retrained POC's. Call to patient and reviewed the above. Pt to keep us posted on the spotting. documented in this encou nter Plan of Treatment Not on filedocumented as of this encounter Visit Diagnoses Not on filedocumented in this encounter"
--- OUTSIDE RECORDS SUMMARY | ~2020-04-19 | XMS | Encounter Summary ---
Demographics + + + | Address | [address] | | | [place] [address] | + + + | Home Phone | | + + + | Preferred Language | Unknown | + + + | Marital Status | | + + + | Buddhist Affiliation | CHR | + + + [...] Team Providers + +------+ + | Care Qa Developer Name | Role | Phone | + +------+ + | Kennedi Selby | PCP | | + +------+ + Encounter Details +--------+--------+ + + + | Date | Type | Department | Care Team | Description | +--------+--------+ + + + | 08/10/ | Travel | | | | | [...]
--- OUTSIDE RECORDS SUMMARY | ~2020-04-19 | XMS | Encounter Summary ---
Demographics + + + | Address | [address] | | | [place] [address] | + + + | Home Phone [...] Author + + + | Author | [facility] | + + + | Organization | [facility] | + + + | Address | Unknown | + + + | Phone | Unavailable | + + + Support + + +---------+ + | Name | Relationship | Address | Phone | + + +---------+ + | Nathaniel Henao | ECON | Unknown | | + + +---------+ + Care Team Providers + +------+ + | Care Electromechanical Assembly Technician Name | Role | Phone | + [...] | | Reproductive | | Non-[facility] | [facility] | | | | Endocrinology | | Epic Dept | Faculty [facility] | | | | /Infertility | | | [address] | | | | | | | [address] [place] | | | | | | | for Health | | | | | | | and Healing, | | | | | | | [address], | | | | | | | 10th Floor | | | | | | | [place], [place] | | | | | | | [address] | | | | | | | Phone: | | | | | | | [phone] | | | | | | | Fax: | | | | | | | [phone] | + +--------+ + + + + Encounter Details +--------+ + + + + | Date | Type | Department | Care Team | Description | +--------+ + + + + | 10/29/ | Telephone-S | [place] | [facility] | | | 2019 | cheduled | Fertility | [address] | | | | | Consultants at [facility] | [place] [address] | | | | | [address] | | | | | | [facility] | | | | | | and Healing, | | | | | | Building | | | | | | [place], [place] | | | | | | [address] | | | | | | [phone] | | | +--------+ + + + [...]
--- OUTSIDE RECORDS SUMMARY | ~2020-04-19 | XMS | Encounter Summary ---
Demographics + + + | Address | [address] | | | [place] [address] | + + + | Home Phone | | + + + | Preferred Language | Unknown | + + + | Marital Status | | + + + | Jainism Affiliation | CHR | + + + | Race | White | + + + | Ethnic Group | Not or | + + + Author + + + | Author | [facility] | + + + | Organization | [facility] | + + + | Address | Unknown | + + + | Phone | Unavailable | + + + Support + + +---------+ + | Name | Relationship | Address | Phone | + + +---------+ + | Nathaniel Henao | ECON | Unknown | | + + +---------+ + Care Team Providers + +------+ + | Care Laborer Chemical Processing Name | Role | Phone | + +------+ + | Kennedi Selby | PCP | | + +------+ + Encounter Details +--------+ + + + + | Date | Type | Department | Care Team | Description | +--------+ + + + + | 10/28/ | Hospital | Diagnostic Imaging | Yuli Murdock MD | | | 2019 | Encounter | [address] | [address] | | | | | [address] | [address] [place], | | | | | [place], [place] | [place] [address] | | | | | [address] | [phone] | | | | | | | [...]
--- OUTSIDE RECORDS SUMMARY | ~2020-04-19 | XMS | Encounter Summary ---
Demographics + + + | Address | [address] | | | [place] [address] | + + + | Home Phone [...] Team Providers + +------+ + | Care Child Support Specialist Name | Role | Phone | + +------+ + | Kennedi Selby | PCP | | + +------+ + Reason for Visit + + + | Reason | Comments | + + + | Prior Authorization | Progesterone | | Request - Medication | | + + + Encounter Details +--------+ + + + + | Date | Type | Department | Care Team | Description | +--------+ + + + + | 12/04/ | Documentati | [facility] | Earnestine Samaniego | Prior Authorization | | 2019 | on | [address] | [address] | Request - Medication | | | | Place [address] | [place] [facility], | [facility]) | | | | [place] [address] | [place] [address] | | | | | [phone] | | | +--------+ + + + [...] this encounter Miscellaneous Notes Telephone Encounter - Earnestine Samaniego - 12/04/2018 2:20 PM PDTPA submitted to [employer] f or Progesterone via [facility] [place]: [id number] Received PA denial letter shortly after via fax. Scanned denial to Box.Electronically viet d by Earnestine Samaniego at 12/04/2018 2:24 PM PDTdocumented in this encounter Plan of Treatment Not on filedocumented as of this encounter Visit Diagnoses Not on filedocumented in this encounter"
--- OUTSIDE RECORDS SUMMARY | ~2020-04-19 | XMS | Encounter Summary ---
Demographics + + + | Address | [address] | | | [place] [address] | + + + | Home Phone | | + + + | Preferred Language | Unknown | + + + | Marital Status | | + + + | Restorationism Affiliation | CHR | + + + | Race | White | + + + | Ethnic Group | Not or | + + + Author + + + | Author | [facility] | + + + | Organization | [facility] | + + + | Address | Unknown | + + + | Phone | Unavailable | + + + Support + + +---------+ + | Name | Relationship | Address | Phone | + + +---------+ + | Nathaniel Henao | ECON | Unknown | | + + +---------+ + Care Team Providers + +------+ + | Care Fact Checker Name | Role | Phone | + +------+ + | Kennedi Selby | PCP | | + +------+ + Reason for Visit +--------+--------+ + | Reason | Onset | Comments | | | Date | | +--------+--------+ + | Other | 09/22/ | | | | 2019 | | +--------+--------+ + Encounter Details +--------+ + + + + | Date | Type | Department | Care Team | Description | +--------+ + + + + | 09/22/ | Telephone | [place] | Yuli Murdock MD | Other | | 2019 | | Fertility | [address] | | | | | Consultants at [facility] | [address] [place], | | | | | [address] | [place] [address] | | | | | [facility] | [phone] | | | | | and [address], | | | | | | Building | | | | | | [place], [place] | | | | | | [address] | | | | | | [phone] | | | +--------+ + + + [...] Telephone Encounter - Seth Rocha RN - 09/24/2018 5:14 PM PDTCall to patient to discuss plan and next steps. Reviewed all remaining screening tasks. Pt advised that the thawed vial of TESE sperm is not adequate for ICSI, per Dr. Rodney. We reviewed the timeline and plan f or thawing the remaining vials the day prior to retrieval and to plan for fresh TESE on retr ieval day. Donor sperm will be in place as a back up plan. -Vit D level was 20.5, pt is taking, as instructed, vitamins and VIt D 4000 daily. -Pt will be here Saturday for a genetics consult and apt with Teni. -Pt instructed to plan on starting active only OCP's with menses day one and to call on men ses day one. Pt understands that she will need to have financial and donor sperm in place by suppression check apt, approx two weeks after menses start. OCP's ordered to preferred phar krystal. -All questions answered. -Routed msg to Dr. Bush to review availability for probable fresh TESE. Wr for response. -Routed Hasmukh in andrology to follow up with pt regarding assisting pt with the donor sperm process which is needed as back up. -Routed to Dr. Murdock, pt's request for advisement on how many cycles she most likely will need and also if some outside monitoring is possible. ddendum Note - Seth Rocha RN - 09/24/2018 4:53 PM PDT Addended by: SETH ROCHA RN on: 09/24/2018 04:53 PM Modules accepted: Orders documented in this enc ounter Plan of Treatment Not on filedocumented as of this encounter Visit Diagnoses Not on filedocumented in this encounter"
--- OUTSIDE RECORDS SUMMARY | ~2020-04-19 | XMS | Encounter Summary ---
Demographics + + + | Address | [address] | | | [place] [address] | + + + | Home Phone | | + + + | Preferred Language | Unknown | + + + | Marital Status | | + + + | Jewish Affiliation | CHR | + + + [...] Providers + +------+ + | Care Supervisor Felling Bucking Name | Role | Phone | + +------+ + | Kennedi Selby | PCP | | + +------+ + Encounter Details +--------+ + + + + | Date | Type | Department | Care Team | Description | +--------+ + + + + | 01/09/ | Pharmacy | [facility] | | | | 2019 | Visit | [facility] | | | | | | [address] | | | | | | Mailcode: [place] | | | | | | [facility] and | | | | | | Healing, [address] | | | | | | [place], [place] | | | | | | [address] | | | | | | [phone] | | | +--------+ + + + [...]
--- OUTSIDE RECORDS SUMMARY | ~2020-04-19 | XMS | Encounter Summary ---
Demographics + + + | Address | [address] | | | [place] [address] | + + + | Home Phone [...] Team Providers + +------+ + | Care Piling Cutter Name | Role | Phone | + +------+ + | Kennedi Selby | PCP | | + +------+ + Encounter Details +--------+ + + + + | Date | Type | Department | Care Team | Description | +--------+ + + + + | 07/13/ | Document-Sc | UNKNOWN DEPARTMENT | Other, Faculty | | | 2020 | anned | [address] | [phone] | | | | | [address] | | | | | | [place], [place] | | | | | | [address] | | | +--------+ + + + [...]
--- OUTSIDE RECORDS SUMMARY | ~2020-04-19 | XMS | Encounter Summary ---
Demographics + + + | Address | [address] | | | [place] [address] | + + + | Home Phone | | + + + | Preferred Language | Unknown | + + + | Marital Status | | + + + | Christianity Affiliation | CHR | + + + [...] Team Providers + +------+ + | Care Die Try Out Worker Name | Role | Phone | + +------+ + | Kennedi Selby | PCP | | + +------+ + Reason for Visit + + + | Reason | Comments | + + + | FET (Frozen embryo | | | transfer) | | + + + Other (Routine) [...] | | | | | | [place], [place] | | | | | | | [address] | | | | | | | Phone: | | | | | | | [phone] | | | | | | | Fax: | | | | | | | [phone] | + +--------+ + + + + Encounter Details +--------+ + + + + | Date | Type | Department | Care Team | Description | +--------+ + + + + | 01/23/ | Procedure | [facility] | Yuli Murdock MD | FET (Frozen embryo | | 2019 | | Fertility | [address] | transfer) | | | | Consultants at [facility] | Barbara Taylor, | | | | | [address] | [place] [address] | | | | | [place] [facility] | [phone] | | | | | and Healing, | | | | | | [facility] | | | | | | Floor [place], [place] | | | | | | [address] | | | | | | [phone] | | | +--------+ + + + [...] + + + | Blood Pressure | 113/75 | 01/23/2019 10:42 AM | | | | | PDT | | + + + + + | Pulse | 88 | 01/23/2019 10:42 AM | | | | | PDT | | + + + + + | Temperature | - | - | | + [...] | 63.9 kg (140 lb 14.4 | 01/23/2019 10:42 AM | | | | oz) | PDT | | + + + + + | Height | 160 cm (5' 3") | 01/23/2019 10:42 AM | | | | | PDT | | + + + + + | Body Mass Index | 24.96 | 01/23/2019 10:42 AM | | | | | PDT | | + + + + + documented in this encounter Progress Notes Yuli Murdock MD - 01/23/2019 11:00 AM PDTEMBRYO TRANSFER TRANSFER #: 1 Type: Frozen Catheter: SoftPass Echo Depth: 6 Patient and embryos identified by clinic and lab staff. No additional risk Mock embryo transfer done. In easily. Comment: Catheter: afterloaded Clear view by ultrasound. Flash seen: yes Catheter checked by embryologist; retained embryo: no. Cigarette Book Maker: GOMEZ Patient identity was confirmed. Pushpa Henao agrees to transfer 1 day 5 embryo(s) fo r fertility treatment. Pushpa understands that there is a risk of multiple after any embryo transfer. In addition, she acknowledges that this risk increases with an increas ing number of embryos that are transferred. Risks and complications associated with multiple were discussed with Pushpa, including twins, triplets or greater. Risk of multip le gestation discussed including labor, delivery of compromised infants, nee d for bed rest, increased risk for diabetes, hypertension, bleeding, c section, a nd gravid hysterectomy, etc. She understands and accepts these risk for this embryo transfer . Patient was placed in the modified dorsal lithotomy position. Cervix was visualized, a Soft Pass Echo catheter was passed through the cervical os and into the uterus. Using ultrasound guidance the transfer of 1 embryos were placed into the uterus. Catheter was then removed. Patient remained resting on table for 20 minutes. Patient tolerated procedure well, no compl ications. Patient was educated to keep taking PNV, avoid NSAIDs in next 2 weeks, and refrain from drinking alcohol and smoking. Patient was instructed to do test in 14 days i f no period and call back. Rubina James MA - 0 01/23/2019 11:00 AM PDTPatient would like to have BHCG and P4 blood draw on 02/02/19 at [facility] in [place]. This has been scheduled, with the lab name placed in the notes section, along with the damon sfer date and lab contact info. Patient is okay with detailed voicemail and placed in notes. Blood draw order was faxed to their preferred lab at and the original given to patient to jorge goodwin with them to the lab, with physician signature stamp. documented in this encounter Plan of Treatment + +------+--------+ + + | Name | Type | Priori | Associated Diagnoses | Order Schedule | | | | ty | | | + +------+--------+ + + | HCG BETA QUANT, | Lab | Urgent | | Ordered: 01/23/2019 | | PLASMA | | | examination or test, | | | | | | | | | | | | unconfirmed | | + +------+--------+ + + | PROGESTERONE, SERUM | Lab | Urgent | | Ordered: 01/23/2019 | | | | | examination or test, | | | | | | | | | | | | unconfirmed | | + +------+--------+ + + documented as of this encounter Procedures + +--------+ + + + | Procedure Name | Priori | Date/Time | Associated Diagnosis | Comments | | | ty | | | | + +--------+ + + + | [place] TRANSFER OF | Routin | 02/08/2019 | Encounter for | | | EMBRYO,INTRAUTERINE | e | 11:25 AM | assisted | | | | | PDT | reproductive | | | | | | fertility procedure | | | | | | cycle | | + +--------+ + + + | [facility] EMBRYO TRANSFER | Routin | 01/23/2019 | Encounter for | Results for this | | | e | 7:43 AM | assisted | procedure are in the | | | | PDT | reproductive | results section. | | | | | fertility procedure | | | | | | cycle | | + +--------+ + + + documented in this encounter Results [facility] EMBRYO TRANSFER (01/23/2019 7:43 AM PDT) + + | Specimen | [...] cycle - Primary | + + | examination or test, unconfirmed | + + documented in this encounter
--- OUTSIDE RECORDS SUMMARY | ~2020-04-19 | XMS | Encounter Summary ---
Demographics + + + | Address | [address] | | | [place] [address] | + + + | Home Phone [...] + + + | Author | [facility] | + + + | Organization | [facility] | + + + | Address | Unknown | + + + | Phone | Unavailable | + + + Support + + +---------+ + | Name | Relationship | Address | Phone | + + +---------+ + | Nathaniel Henao | ECON | Unknown | | + + +---------+ + Care Team Providers + +------+ + | Care Associate Professor Physician Name | Role | Phone | + +------+ + | Kennedi Selby | PCP | | + +------+ + Encounter Details +--------+ + + + + | Date | Type | Department | Care Team | Description | +--------+ + + + + | 10/30/ | Documentati | [place] | Yuli Murdock MD | | | 2019 | on | Fertility | [address] | | | | | Consultants at [facility] | Barbara Mohr [place], | | | | | [address] | [place] [address] | | | | | [facility] | [phone] | | | | | and [address], | | | | | | | | | | | | [place], [place] | | | | | | [address] | | | | | | [phone] | | | +--------+ + + + [...]
--- OUTSIDE RECORDS SUMMARY | ~2020-04-19 | XMS | Encounter Summary ---
Demographics + + + | Address | [address] | | | [place] [address] | + + + | Home Phone | | + + + | Preferred Language | Unknown | + + + | Marital Status | | + + + | Druze Affiliation | CHR | + + + | Race | White | + + + | Ethnic Group | Not or | + + + Author + + + | Author | [facility] | + + + | Organization | [facility] | + + + | Address | Unknown | + + + | Phone | Unavailable | + + + Support + + +---------+ + | Name | Relationship | Address | Phone | + + +---------+ + | Nathaniel Henao | ECON | Unknown | | + + +---------+ + Care Team Providers + +------+ + | Care Track Liner Operator Name | Role | Phone | + +------+ + | Kennedi Selby | PCP | | + +------+ + Encounter Details +--------+ + + + + | Date | Type | Department | Care Team | Description | +--------+ + + + + | 10/06/ | Pharmacy | [facility] | | | | 2019 | Visit | [facility] | | | | | | [address] | | | | | | Mailcode: [place] | | | | | | [facility] and | | | | | | Healing, [address] | | | | | | [place], [place] | | | | | | [address] | | | | | | [phone] | | | +--------+ + + + [...]
--- OUTSIDE RECORDS SUMMARY | ~2020-04-19 | XMS | Encounter Summary ---
Demographics + + + | Address | [address] | | | [place] [address] | + + + | Home Phone [...] + + + | Author | [facility] | + + + | Organization | [facility] | + + + | Address | Unknown | + + + | Phone | Unavailable | + + + Support + + +---------+ + | Name | Relationship | Address | Phone | + + +---------+ + | Nathaniel Henao | ECON | Unknown | | + + +---------+ + Care Team Providers + +------+ + | Care Operations Welder Name | Role | Phone | + +------+ + | Kennedi Selby | PCP | | + +------+ + Reason for Visit + +--------+ + | Reason | Onset | Comments | | | Date | | + +--------+ + | Prior Authorization | 10/01/ | [facility]LL[facility]ROPIN [facility] | | Request - Medication | 2019 | | + +--------+ + Encounter Details +--------+ + + + + | Date | Type | Department | Care Team | Description | +--------+ + + + + | 10/01/ | Documentati | [facility] | Raffy Negron, | Prior Authorization | | 2019 | on | & [facility]aling Pharmacy | 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 MD Anny Monet RN Caller: Unspecified (Yesterday, 3:14 PM) Yes Confirmed with Dr. Murdock, ok to substitute Gonal-f Orders replaced. Pharmacy updated. Electron ically signed by Anny Ying RN at 10/02/2018 11:38 AM PDTTelephone Encounter - Shyann Ying i, RN - 10/01/2018 3:43 PM PDTPer pharmacy below, pt can get coverage for Gonal-f with PA, Follistim is not covered. Routing to provider to confirm. elephone Encounter - Raffy Negron - 10/01/2018 3:15 PM PDT Original prescribed FOLLITROPIN products were written for FOLLISTIM AQ cart. Patient insura nce excludes FOLLISTIM - They appear to prefer GONAL - We would like to request new orders s o we may have PAs processed for this. Patient wanted me to go over cost, availability and sp ecific pharmacy requirements per insurer, however I am advising her I need more clarificatio n before I am able to provide her with specific information regarding her STIM meds. Prior authorization is required for GONAL-F pen-injector. ACTION REQUIRED Clinical Staff FYI & F/U Radial Saw Operator Follow-up on status if no response from plan in 72 hours documented in this encount er Plan of Treatment Not on filedocumented as of this encounter Visit Diagnoses Not on filedocumented in this encounter"
--- OUTSIDE RECORDS SUMMARY | ~2020-04-19 | XMS | Encounter Summary ---
Demographics + + + | Address | [address] | | | [place] [address] | + + + | Home Phone [...] Team Providers + +------+ + | Care Rn Ostomy Name | Role | Phone | + +------+ + | Kennedi Selby | PCP | | + +------+ + Encounter Details +--------+ + + + + | Date | Type | Department | Care Team | Description | +--------+ + + + + | 10/28/ | Anesthesia | [place] | Adela Argueta CRNA | | | 2019 | Event | Fertility | [address] | | | | | Consultants at [facility] | Barbara Mohr [place], | | | | | [address] | [place] [address] | | | | | [facility] | [phone] | | | | | and [address], | | | | | | | | | | | | Floor [place], [place] | | | | | | [address] | | | | | | [phone] | | | +--------+ + + + + Anesthesia Record + + + + + | Procedure Name | Responsible | Anesthesia Start | Anesthesia Stop Time | | | Anesthesiologist | Time | | + + + + + | [facility] EGG RETRIEVAL | | | | + + + + + + + | No events on file. | + + +------+ | Meds | +------+ + + + No medications | on file. | + + + + + | No agents on file. | + + + + | No blood administrations on file. | + + + + | No LDAs on file. | + + documented in this encounter Social [...]
--- OUTSIDE RECORDS SUMMARY | ~2020-04-19 | XMS | Encounter Summary ---
Demographics + + + | Address | [address] | | | [place] [address] | + + + | Home Phone [...] Team Providers + +------+ + | Care Biblical Studies Professor Name | Role | Phone | + +------+ + | Kennedi Selby | PCP | | + +------+ + Encounter Details +--------+ + + + + | Date | Type | Department | Care Team | Description | +--------+ + + + + | 08/19/ | Telephone | [place] | Yuli Murdock MD | | | 2020 | | Fertility | [address] | | | | | Consultants at [facility] | Barbara Mohr [place], | | | | | [address] | [place] [address] | | | | | [facility] | [phone] | | | | | and [address], | | | | | | | | | | | | [place], [place] | | | | | | [address] | | | | | | [phone] | | | +--------+ + + + [...] Addendum Note - Seth Rocha RN - 08/25/2019 7:18 AM PST Addended by: SETH ROCHA RN on: 08/25/2019 07:18 AM Modules accepted: Orders ddendum Note - Seth Rocha RN - 08/19/2019 4:58 PM PST Addended by: SETH ROCHA RN on: 08/19/2019 04:58 PM Modules accepted: Orders elephone Encounter - Seth Rocha RN - 08/19/2019 4:57 PM PSTPt called. Reviewed instructions in detail. Schedu led OB scan and Levo ordered. Questions answered. Electronically signed by Seth Rocha RN a t 08/19/2019 4:58 PM PSTTelephone Encounter - Seth Rocha RN - 08/19/2019 4:11 PM PSTFor matting of this note might be different from the original. Phone call to patient re: today's results. No answer. Left detailed VM and sent detailed my chart msg. HCG BETA, PLASMA (mIU/mL) Date Value 08/19/2019 1,315 Per team review, bhcg levels with appropriate rise. She is to follow up for OB scan around 6 1/2 weeks. MD recommends 09/04 for OB scan. Wtg on patients response. Pt given supp stop da te and EDC. Pt advised to continue Dexa medication until OB scan per Dr. Murdock. Pt informed that her TSH was 4.8. She will need to increase her Levothyroxine to 50mcg kelly y and have a repeat in about one month. Electronically signed by Seth Rocha RN at 020 4:28 PM PSTdocumented in this encounter Plan of Treatment Not on filedocumented as of this encounter Procedures + +--------+ + + + | Procedure Name | Priori | Date/Time | Associated Diagnosis | Comments | | | ty | | | | + +--------+ + + + | HCG BETA QUANT, | Routin | 08/19/2019 | | Results for this | | PLASMA | e | | | procedure are in the | | | | | | results section. | + +--------+ + + + documented in this encounter Results HCG BETA QUANT, PLASMA (08/19/2019) + +-------+ + + + | Component | Value | Ref Range | Performed | Pathologist | | | | | At | Signature | + +-------+ + + + | HCG BETA, | 1,315 | mIU/mL | NON [facility] | | | PLASMA | | | LAB | | + +-------+ + + + + + | Specimen | + + | Blood - Blood | | (substance) | + + + +---------+ + + | Performing | Address | City/State/Zipcode | Phone Number | | Organization | | | | + +---------+ + + | NON [facility] | | | | + +---------+ + + documented in this encounter Visit Diagnoses + + | Diagnosis | + + | Encounter for assisted reproductive fertility procedure cycle | + + documented in this encounter"
--- OUTSIDE RECORDS SUMMARY | ~2020-04-19 | XMS | Encounter Summary ---
Demographics + + + | Address | [address] | | | [place] [address] | + + + | Home Phone [...] Team Providers + +------+ + | Care Sports Psychologist Name | Role | Phone | + [...] | Reproductive | | Non-[facility] | [facility] | | | | Endocrinology | | Epic Dept | Faculty [facility] | | | | /Infertility | | | [address] | | | | | | | e [place] | | | | | | | for Health | | | | | | | and Healing, | | | | | | | [address], | | | | | | | 10th Floor | | | | | | | [place], [place] | | | | | | | [address] | | | | | | | Phone: | | | | | | | [phone] | | | | | | | Fax: | | | | | | | [phone] | + +--------+ + + + + Encounter Details +--------+ + + + + | Date | Type | Department | Care Team | Description | +--------+ + + + + | 02/04/ | Telephone-S | [place] [facility] | | | 2019 | cheduled | Fertility | [address] | | | | | Consultants at [facility] | [place] [address] | | | | | [address] | | | | | | [facility] | | | | | | and Healing, | | | | | | Building | | | | | | [place], [place] | | | | | | [address] | | | | | | [phone] | | | +--------+ + + + [...] documented as of this encounter Progress Notes Seth Peck RN - 02/04/2019 4:39 PM PDTMD approved order to be placed for the OB scan ex ternally with pt's preferred provider locally to be done on 02/19/19 or thereafter. Pt to let us know what date it has been scheduled for and we can make a mock apt. Electronically sign ed by Seth Peck RN at 02/04/2019 4:54 PM PDTdocumented in this encounter Plan of Treatment + +------+--------+ + + | Name | Type | Priori | Associated Diagnoses | Order Schedule | | | | ty | | | + +------+--------+ + + | HCG BETA QUANT, | Lab | Urgent | | Ordered: 02/04/2019 | | PLASMA | | | examination or test, | | | | | | | | | | | | unconfirmed | | + +------+--------+ + + | PROGESTERONE, SERUM | Lab | Routin | | Ordered: 02/04/2019 | | | | e | examination or test, | | | [...] + + | LAB REPORTS | | 02/04/2019 | | Results for this | | | | 12:00 AM | | procedure are in the | | | | PDT | | results section. | + +--------+ + + + documented in this encounter Results LAB REPORTS (02/04/2019 12:00 AM PDT) + + + | Narrative | Performed At | + + + | | | + + + documented in this encounter Visit Diagnoses + + | Diagnosis | + + | examination or test, unconfirmed - Primary | + + documented in this encounter"
--- OUTSIDE RECORDS SUMMARY | ~2020-04-19 | XMS | Encounter Summary ---
Demographics + + + | Address | [address] | | | [place] [address] | + + + | Home Phone | | + + + | Preferred Language | Unknown | + + + | Marital Status | | + + + | Mormonism Affiliation | CHR | + + + | Race | White | + + + | Ethnic Group | Not or | + + + Author + + + | Author | [facility] | + + + | Organization | [facility] | + + + | Address | Unknown | + + + | Phone | Unavailable | + + + Support + + +---------+ + | Name | Relationship | Address | Phone | + + +---------+ + | Nathaniel Henao | ECON | Unknown | | + + +---------+ + Care Team Providers + +------+ + | Care Manufacturing Lab Technician Name | Role | Phone | + +------+ + | Kennedi Selby | PCP | | + +------+ + Encounter Details +--------+ + + + + | Date | Type | Department | Care Team | Description | +--------+ + + + + | 10/03/ | [place] | [place] | Yuli Murdock MD | RE: Question | | 2019 | Encounter | Fertility | [address] | regarding donor | | | | Consultants at [facility] | Barbara Mohr [place], | | | | | [address] | [place] [address] | | | | | [place] [facility] | [phone] | | | | | and Healing, | | | | | | | | | | | | Floor [place], [place] | | | | | | [address] | | | | | | [phone] | | | +--------+ + + + [...] Telephone Encounter - Seth Peck RN - 10/06/2018 12:[address] Mrudock: Start stim one day back, on 10/17, can still have the same supp check and cd3 instead but last OCP's will be on 10/13. Pt called and informed that order received from MD that stim start is to be 10/17 rather addie n 10/16. Mapout was already sent to patient. Asked pt to update letter/calendar as needed. Pt informed that all apts can remain the same but that the OCP stop date and the stim start da te are adjusted as per above. Pt agreed to plan. Routed further questions regarding PGS to MD. Electronically signed by Seth Peck RN at 0 10/06/2018 12:39 PM PDTTelephone Encounter - Isaiah Nicole - 10/06/2018 11:12 AM PDTForma tting of this note might be different from the original. Pt calling to speak with Seth FONTANA to discuss treatment plan. Pt available anytime today for call back. Home Phone Work Phone documented in this enco unter Plan of Treatment Not on filedocumented as of this encounter Visit Diagnoses Not on filedocumented in this encounter"
--- OUTSIDE RECORDS SUMMARY | ~2020-04-19 | XMS | Encounter Summary ---
Demographics + + + | Address | [address] | | | [place] [address] | + + + | Home Phone [...] Team Providers + +------+ + | Care Frog Shaker Name | Role | Phone | + +------+ + | Kennedi Selby | PCP | | + +------+ + Reason for Visit + +--------+ + | Reason | Onset | Comments | | | Date | | + +--------+ + | Needs To Reschedule | 06/15/ | | | Apppointment | 2019 | | + +--------+ + Encounter Details +--------+ + + + + | Date | Type | Department | Care Team | Description | +--------+ + + + + | 06/15/ | Telephone | [place] | Yuli Murdock MD | Needs To Reschedule | | 2019 | | Fertility | [address] | Apppointment | | | | Consultants at [facility] | Barbara Mohr [place], | | | | | [address] | [place] [address] | | | | | [facility] | [phone] | | | | | and [facility], | | | | | | Building | | | | | | Floor [place], [place] | | | | | | [address] | | | | | | [phone] | | | +--------+ + + + [...] this encounter Miscellaneous Notes Telephone Encounter - Miles Sanders - 06/15/2019 8:54 AM PSTPt calling to reschedule her S IS from 06/29 to 06/26. Please advise for scheduling.Electronically signed by Miles brito 06/15/2019 8:56 AM PSTdocumented in this encounter Plan of Treatment Not on filedocumented as of this encounter Visit Diagnoses Not on filedocumented in this encounter"
--- OUTSIDE RECORDS SUMMARY | ~2020-04-19 | XMS | Encounter Summary ---
Demographics + + + | Address | [address] | | | [place] [address] | + + + | Home Phone [...] + + + | Author | [facility] | + + + | Organization | [facility] | + + + | Address | Unknown | + + + | Phone | Unavailable | + + + Support + + +---------+ + | Name | Relationship | Address | Phone | + + +---------+ + | Nathaniel Henao | ECON | Unknown | | + + +---------+ + Care Team Providers + +------+ + | Care Curb Machine Operator Name | Role | Phone [...] | | Reproductive | | Non[facility] | [facility] | | | | Endocrinology | | Epic Dept | Faculty [facility] | | | | /Infertility | | | [address] | | | | | | | e [place] | | | | | | | for Health | | | | | | | and Healing, | | | | | | | [address], | | | | | | | 10th Floor | | | | | | | [place], [place] | | | | | | | [address] | | | | | | | Phone: | | | | | | | [phone] | | | | | | | Fax: | | | | | | | [phone] | + +--------+ + + + + Encounter Details +--------+ + + + + | Date | Type | Department | Care Team | Description | +--------+ + + + + | 02/02/ | Telephone-S | [place] | [facility] | | [facility] | cheduled | Fertility | [address] | | | | | Consultants at [facility] | [place] [address] | | | | | [address] | | | | | | [facility] | | | | | | and Healing, | | | | | | Building | | | | | | [place], [place] | | | | | | [address] | | | | | | [phone] | | | +--------+ + + + [...] + + | LAB REPORTS | | 02/02/2019 | | Results for this | | | | 12:00 AM | | procedure are in the | | | | PDT | | results section. | + +--------+ + + + documented in this encounter Results LAB REPORTS (02/02/2019 12:00 AM PDT) + + + | Narrative | Performed At | + + + | | | + + + documented in this encounter Visit Diagnoses Not on filedocumented in this encounter"
--- OUTSIDE RECORDS SUMMARY | ~2020-04-19 | XMS | Encounter Summary ---
Demographics + + + | Address | [address] | | | [place] [address] | + + + | Home Phone [...] + +------+ + | Care Director Of Retail Merchandising Name | Role | Phone | + +------+ + | Kennedi Selby | PCP | | + +------+ + Encounter Details +--------+ + + + + | Date | Type | Department | Care Team | Description | +--------+ + + + + | 08/27/ | Telephone | [place] | Yuli Murdock MD | | | 2019 | | Fertility | [address] | | | | | Consultants at [facility] | [address]r [place], | | | | | [address] | [place] [address] | | | | | [facility] | [phone] | | | | | and [address], | | | | | | | | | | | | [place], [place] | | | | | | [address] | | | | | | [phone] | | | +--------+ + + + [...] Addendum Note - Seth Rocha RN - 08/27/2019 2:30 PM PST Addended by: SETH ROCHA RN on: 08/27/2019 02:30 PM Modules accepted: Orders elephone Encounter - Seth Rocha RN - 08/27/2019 2:29 PM PSTPer , pt to stop baby ASA, continue dexa. No brigido nge to estradiol patches. Pt to get reassurance bhcg drawn today. Mock apt made for tomorrow . elephone Encounter - Seth Mason RN - 08/27/2019 11:34 AM PSTPt called today and reported that she has had some red spotting on her underwear and some blood on the toilet paper after wiping x 2 today. Pt is not having any cramping. She reports light activity only, pelvic rest, and good hydration . She is wondering if a bhcg is indicated. Routed high priority to MD to review. Pt also reports some skin irritation developing from the estrogen patches. Advised topical benadryl or hydrocortisone. Pt is still taking the baby ASA and dexa at this point. documented in this encounter Plan of Treatment + +------+--------+ + + | Name | Type | Priori | Associated Diagnoses | Order Schedule | | | | ty | | | + +------+--------+ + + | HCG BETA QUANT, | Lab | Urgent | | Ordered: 08/27/2019 | | PLASMA | | | examination [...] + + | LAB REPORTS | | 08/27/2019 | | Results for this | | | | 12:00 AM | | procedure are in the | | | | PST | | results section. | + +--------+ + + + documented in this encounter Results LAB REPORTS (08/27/2019 12:00 AM PST) + + + | Narrative | Performed At | + + + | | | + + + documented in this encounter Visit Diagnoses + + | Diagnosis | + + | examination or test, unconfirmed - Primary | + + documented in this encounter"
--- OUTSIDE RECORDS SUMMARY | ~2020-04-19 | XMS | Encounter Summary ---
Demographics + + + | Address | [address] | | | [place] [address] | + + + | Home Phone [...] Team Providers + +------+ + | Care Meter/Relay Craftsman Name | Role | Phone | + +------+ + | Parth Selbya CHIO | PCP | | + +------+ + Reason for Visit + +--------+ + | Reason | Onset | Comments | | | Date | | + +--------+ + | Telephone follow-up | 01/15/ | | | | 2019 | | + +--------+ + Encounter Details +--------+ + + + + | Date | Type | Department | Care Team | Description | +--------+ + + + + | 01/15/ | Telephone | [place] | Yuli Murdock MD | Telephone follow-up | | 2019 | | Fertility | [address] | | | | | Consultants at [facility] | [address] [place], | | | | | [address] | [place] [address] | | | | | [facility] | [phone] | | | | | and Healing, | | | | | | Building | | | | | | [place], [place] | | | | | | [address] | | | | | | [phone] | | | +--------+ + + + [...] Telephone Encounter - Seth Peck RN - 01/15/2019 1:48 PM PDTPer Team review, Plan per MD procedure note: probably add a few days of vag E 2mg once daily and push out FE T a few days. 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 Routed to primary MD for review. Called to patient to discuss. Pt advised to continue TID oral estrace and to add one vagina l daily starting today. Pt advised we will call her tomorrow with next steps after primary M D review of scan. Pt will be instructed as to when FET will occur and when to start POI at t hat time. Mock apt made and report given to alternate RN. Pt agreeable with plan. Electronic ally signed by Seth Peck RN at 01/15/2019 3:08 PM PDTdocumented in this encounter Plan of Treatment Not on filedocumented as of this encounter Visit Diagnoses Not on filedocumented in this encounter"
--- OUTSIDE RECORDS SUMMARY | ~2020-04-19 | XMS | Encounter Summary ---
Demographics + + + | Address | [address] | | | [place] [address] | + + + | Home Phone | | + + + | Preferred Language | Unknown | + + + | Marital Status | | + + + | Yazidism Affiliation | CHR | + + + | Race | White | + + + | Ethnic Group | Not or | + + + Author + + + | Author | [facility] | + + + | Organization | [facility] | + + + | Address | Unknown | + + + | Phone | Unavailable | + + + Support + + +---------+ + | Name | Relationship | Address | Phone | + + +---------+ + | Nathaniel Henao | ECON | Unknown | | + + +---------+ + Care Team Providers + +------+ + | Care Controlled Area Checker Name | Role | Phone | + +------+ + | Kennedi Selby | PCP | | + +------+ + Reason for Visit + + + | Reason | Comments | + + + | Ultrasound Follicle | | | Exam | | + + + Other (Routine) [...] | | | | | | | [place], [place] | | | | | | | [address] | | | | | | | Phone: | | | | | | | [phone] | | | | | | | Fax: | | | | | | | [phone] | + +--------+ + + + + Encounter Details +--------+ + + + + | Date | Type | Department | Care Team | Description | +--------+ + + + + | 10/19/ | Procedure | [facility] | Grady Antonio MD | Ultrasound Follicle | | 2019 | | Fertility | [address] | Exam | | | | Consultants at [facility] | [place], [place] | | | | | [address] | [address] | | | | | [place] [facility] | [phone] | | | | | and Healing, | | | | | | [facility] | | | | | | Floor [place], [place] | | | | | | [address] | | | | | | [phone] | | | +--------+ + + + [...] documented as of this encounter Progress Notes Jb Wilson MA - 10/19/2018 7:45 AM PDTFormatting of this note might be different fro m the original. ENDOCRINE MANAGEMENT PROGRESS NOTE 10/19/2018 Day of stimulation: ARC,Cycle Day#3, US/E2 (cycle day #[address] Murdock). HMG2/NVV848/ antag/Novarel/Freeze/TESE(with back up fresh TESE and Donor sperm). PGS? Mathieu/Prince. NOTE: Embryo logy, please discuss with Dr. Murdock and patient prior to proceeding with PGS, please see specif ic notes in updated protocol. Thank you. UPDATE DR. ALVAREZ as approp. Comments:pedunculated anterior fibroid 40x34 Indication: IVF Approach: transvaginal Systems checklist: negative for uterine polyps, myomas, fluid in cavity, ovarian mass and f luid in cul-de-sac. Estradiol level: Lab Results Component Value Date ESTRADIOL 191 10/19/2018 Progesterone level: No results found for: PROG FOLLICLE EXAMINATION / ENDOMETRIAL THICKNESS Endometrial thickness: 5 Grade: LARGEST FOLLICLES (Measured in Millimeters) RIGHT OVARY VOLUME: LEFT OVARY VOLUME: 1 8 mean 1 7.5 mean 2 7.5 mean 2 8.5 mean 3 6.5 mean 3 mean 4 mean 4 mean 5 mean 5 mean 6 mean 6 mean 7 mean 7 mean 8 mean 8 mean 9 mean 9 mean 10 mean 10 mean Additional Follicles: Additional Follicles: Total Follicles: 9 Total Follicles: 6 Interpretation: early in stim Plan: cont same rTC 3d Bring antag to next appt I, Grady Antonio MD, performed all aspects of this ultrasound. Patient is here today for a blood draw for Estradiol. Blood draw done per clinic physician's order. Venipuncture performed without difficulty. Site: Right antecubital. Patient tolerated proc edure well. documented in this encou nter Plan of [...] + +--------+ + + + | [employer] COLLECTION | Routin | 10/19/2018 | Encounter for | | | VENOUS | e | 6:21 AM | assisted | | | BLOOD,VENIPUNCTURE | | PDT | reproductive | | | | | | fertility procedure | | | | | | cycle | | + +--------+ + + + | ESTRADIOL, SERUM - | Routin | 10/19/2018 | Encounter for | Results for this | | ANDROLOGY LAB | e | | assisted [...] imaging results. | | + + + ESTRADIOL, SERUM - ANDROLOGY LAB (10/19/2018) + +-------+ + + + | Component | Value | Ref Range | Performed | Pathologist | | | | | At | Signature | + +-------+ + + + | ESTRADIOL, | 191 | pg/ml | [facility] | | | SERUM ([facility]) | | | OGY LAB | | + +-------+ + + + + + | Specimen | + + | Blood | + + + + + | Narrative | Performed At | + + + | Estradiol (pg/ml) Ovulatory Cycles Follicular Phase: ND-160 | | | Follicular Phase, Day 2-3: Periovulatory: 34-400 Luteal | [facility] | | Phase: 27-245 | LAB | + + + + + + + + | Performing | Address | City/State/Zipcode | Phone Number | | Organization | | | | + + + + + | [facility] | [address] | [place] [address] | | | | Tenth Floor | | | + + + + + documented in this encounter Visit Diagnoses + + | Diagnosis | + + | Encounter for assisted reproductive fertility procedure cycle - Primary | + + documented in this encounter"
--- OUTSIDE RECORDS SUMMARY | ~2020-04-19 | XMS | Encounter Summary ---
Demographics + + + | Address | [address] | | | [place] [address] | + + + | Home Phone [...] Team Providers + +------+ + | Care Direct Support Worker Name | Role | Phone | + +------+ + | Kennedi Selby | PCP | | + +------+ + Encounter Details +--------+ + + + + | Date | Type | Department | Care Team | Description | +--------+ + + + + | 09/30/ | Pharmacy | [facility] | | | | 2019 | Visit | & [facility] Pharmacy | | | | | | [address] | | | | | | Mailcode: [place] | | | | | | [facility] and | | | | | | Healing, [address] | | | | | | [place], [place] | | | | | | [address] | | | | | | [phone] | | | +--------+ + + + [...]
--- OUTSIDE RECORDS SUMMARY | ~2020-04-19 | XMS | Encounter Summary ---
Demographics + + + | Address | [address] | | | [place] [address] | + + + | Home Phone [...] Team Providers + +------+ + | Care Retail Event Assistant Name | Role | Phone | + +------+ + | Kennedi Selby | PCP | | + +------+ + Encounter Details +--------+ + + + + | Date | Type | Department | Care Team | Description | +--------+ + + + + | 02/03/ | Pharmacy | [facility] | | | | 2019 | Visit | & [facility]acy | | | | | | [address] | | | | | | Mailcode: [place] | | | | | | [facility] and | | | | | | Healing, [address] | | | | | | [place], [place] | | | | | | [address] | | | | | | [phone] | | | +--------+ + + + [...]
--- OUTSIDE RECORDS SUMMARY | ~2020-04-19 | XMS | Encounter Summary ---
Demographics + + + | Address | [address] | | | [place] [address] | + + + | Home Phone [...] + + + | Author | [facility] | + + + | Organization | [facility] | + + + | Address | Unknown | + + + | Phone | Unavailable | + + + Support + + +---------+ + | Name | Relationship | Address | Phone | + + +---------+ + | Nathaniel Henao | ECON | Unknown | | + + +---------+ + Care Team Providers + +------+ + | Care Cmm Inspector Name | Role | Phone | + +------+ + | Kennedi Selby | PCP | | + +------+ + Encounter Details +--------+ + + + + | Date | Type | Department | Care Team | Description | +--------+ + + + + | 02/02/ | Pharmacy | [facility] | | | | 2019 | Visit | & [facility]aling Pharmacy | | | | | | [address] | | | | | | Mailcode: [place] | | | | | | [facility] and | | | | | | Healing, [address] | | | | | | [place], [place] | | | | | | [address] | | | | | | [phone] | | | +--------+ + + + [...]
--- OUTSIDE RECORDS SUMMARY | ~2020-04-19 | XMS | Encounter Summary ---
Demographics + + + | Address | [address] | | | [place] [address] | + + + | Home Phone [...] Team Providers + +------+ + | Care Hand Dry Cleaner Name | Role | Phone | + [...] | | Reproductive | | Non-[facility] | [facility] | | | | Endocrinology | | Epic Dept | Faculty [facility] | | | | /Infertility | | | [address] | | | | | | | e [place] | | | | | | | for Health | | | | | | | and Healing, | | | | | | | [address], | | | | | | | 10th Floor | | | | | | | [place], [place] | | | | | | | [address] | | | | | | | Phone: | | | | | | | [phone] | | | | | | | Fax: | | | | | | | [phone] | + +--------+ + + + + Encounter Details +--------+ + + + + | Date | Type | Department | Care Team | Description | +--------+ + + + + | 08/19/ | Telephone-S | [place] | [facility] | | | 2020 | cheduled | Fertility | [address] | | | | | Consultants at [facility] | [place] [address] | | | | | [address] | | | | | | [facility] | | | | | | and Healing, | | | | | | Building | | | | | | [place], [place] | | | | | | [address] | | | | | | [phone] | | | +--------+ + + + [...]
--- OUTSIDE RECORDS SUMMARY | ~2020-04-19 | XMS | Encounter Summary ---
Demographics + + + | Address | [address] | | | [place] [address] | + + + | Home Phone [...] + + + | Author | [facility] | + + + | Organization | [facility] | + + + | Address | Unknown | + + + | Phone | Unavailable | + + + Support + + +---------+ + | Name | Relationship | Address | Phone | + + +---------+ + | Nathaniel Henao | ECON | Unknown | | + + +---------+ + Care Team Providers + +------+ + | Care Quality Tech Name | Role | Phone | + +------+ + | Kennedi Selby | PCP | | + +------+ + Reason for Visit + +--------+ + | Reason | Onset | Comments | | | Date | | + +--------+ + | Lab findings, | 10/24/ | | | teaching, guidance, | 2018 | | | and counseling | | | + +--------+ + Encounter Details +--------+ + + + + | Date | Type | Department | Care Team | Description | +--------+ + + + + | 10/24/ | Telephone | [place] | Yuli Murdock MD | Lab findings, | | 2019 | | Fertility | [address] | teaching, guidance, | | | | Consultants at [facility] | [address] [place], | and counseling | | | | [address] | [place] [address] | | | | | [facility] | [phone] | | | | | and Healing, | | | | | | Building | | | | | | [place], [place] | | | | | | [address] | | | | | | [phone] | | | +--------+ + + + [...] Telephone Encounter - Simin Beauchamp RN - 10/24/2018 1:58 PM PDTFormatting of this note demarcus ht be different from the original. Phone call to patient re: today's results. Available. Patient verbalized understanding of a ll next steps. Messaged routed to: Dr. Bush with probable trigger on Saturday for Saturday egg retrieval. Would prefer first th ing in the AM fresh TESE Saturday if possible, if not late afternoon TESE Saturday. Seth FONTANA for continuity of care. Embryology, Dr. Portillo and Dr. Murdock- Joon DC. Patient to [facility] permission for use of frozen TESE and frozen donor sperm. Lab Results Component Value Date ESTRADIOL 948 10/24/2018 Procedure Note on 10/24/18: Interpretation: Moderate response. Sl discordance. Plan: Same dose x 2d. Cont antag. Pt lives 4 hrs away. I personally performed all components of this scan, Maura Portillo MD. Per team review, pt is to continue Menopur 2 vials each morning and 150 international units GONAL F each evening. She is to return to clinic in 2 days on 10/26/18 at 9:[address] Constance rose for ultrasound and lab draw. Consents are received. Appt scheduled. Question answered. Estradiol and Progesterone ordered per physician order. Orders Placed This Encounter ESTRADIOL, SERUM - ANDROLOGY LAB Progesterone, Serum - Andrology Lab documented in this encou nter Plan of Treatment Not on filedocumented as of this encounter Procedures + +--------+ + + + | Procedure Name | Priori | Date/Time | Associated Diagnosis | Comments | | | ty | | | | + +--------+ + + + | PROGESTERONE, SERUM | Routin | 10/26/2018 | Encounter for | Results for this | | - ANDROLOGY LAB | e | | assisted | procedure are in the | | | | | reproductive | results section. | | | | | fertility procedure | | | | | | cycle | | + +--------+ + + + | ESTRADIOL, SERUM - | Routin | 10/26/2018 | Encounter for | Results for this | | ANDROLOGY LAB | e | | assisted | procedure are in the | | | | | reproductive | results section. | | | | | fertility procedure | | | | | | cycle | | + +--------+ + + + documented in this encounter Results PROGESTERONE, SERUM - ANDROLOGY LAB (10/26/2018) + +-------+ + + + | Component | Value | Ref Range | Performed | Pathologist | | | | | At | Signature | + +-------+ + + + | PROGESTERON | 1.15 | ng/ml | [facility] | | | [...] | + + + + + | [facility] | [address], | [place] [address] | | | | Tenth Floor | | | + + + + + ESTRADIOL, SERUM - ANDROLOGY LAB (10/26/2018) + +-------+ + + + | Component | Value | Ref Range | Performed | Pathologist | | | | | At | Signature | + +-------+ + + + | ESTRADIOL, | 2,385 | pg/ml | [facility] | | | SERUM ([facility]) | | | OGY LAB | | + +-------+ + + + + + | Specimen | + + | Blood | + + + + + | Narrative | Performed At | + + + | Estradiol (pg/ml) Ovulatory Cycles Follicular Phase: ND-160 | | | Follicular Phase, Day 2-3: 84 Periovulatory: 34-400 Luteal | [facility] | | Phase: 27-245 | LAB | + + + + + + + + | Performing | Address | City/State/Zipcode | Phone Number | | Organization | | | | + + + + + | [facility] | [address] | [place] [address] | | | | Tenth Floor | | | + + + + + documented in this encounter Visit Diagnoses + + | Diagnosis | + + | Encounter for assisted reproductive fertility procedure cycle - Primary | + + documented in this encounter"
--- OUTSIDE RECORDS SUMMARY | ~2020-04-19 | XMS | Encounter Summary ---
Demographics + + + | Address | [address] | | | [place] [address] | + + + | Home Phone [...] Team Providers + +------+ + | Care Crisis Specialist Name | Role | Phone | + +------+ + | Kennedi Selby | PCP | | + +------+ + Encounter Details +--------+ + + + + | Date | Type | Department | Care Team | Description | +--------+ + + + + | 10/24/ | Pharmacy | [facility] | | | | 2019 | Visit | & Healing Pharmacy | | | | | | [address] | | | | | | Mailcode: [place] | | | | | | [facility] and | | | | | | Healing, [address] | | | | | | [place], [place] | | | | | | [address] | | | | | | [phone] | | | +--------+ + + + [...]
--- OUTSIDE RECORDS SUMMARY | ~2020-04-19 | XMS | Encounter Summary ---
Demographics + + + | Address | [address] | | | [place] [address] | + + + | Home Phone [...] Team Providers + +------+ + | Care Documentation Nurse Name | Role | Phone | + +------+ + | Parth Selbya CHIO | PCP | | + +------+ + Encounter Details +--------+ + + + + | Date | Type | Department | Care Team | Description | +--------+ + + + + | 08/28/ | Outside | UNKNOWN DEPARTMENT | Other, Faculty | | | 2019 | Records | [address] | [phone] | | | | | [address] | | | | | | [place], [place] | | | | | | [address] | | | +--------+ + + + [...] + | OUTSIDE RADIOLOGY - | | 08/28/2018 | | Results for this | | ULTRASOUND | | 12:00 AM | | procedure are in the | | | | PST | | results section. | + +--------+ + + + documented in this encounter Results OUTSIDE RADIOLOGY - ULTRASOUND (08/28/2018 12:00 AM PST) + + + | Narrative | Performed At | + + + | | | + + + documented in this encounter Visit Diagnoses Not on filedocumented in this encounter"
--- OUTSIDE RECORDS SUMMARY | ~2020-04-19 | XMS | Encounter Summary ---
Demographics + + + | Address | [address] | | | [place] [address] | + + + | Home Phone [...] Providers + +------+ + | Care Manager Mining Name | Role | Phone | + +------+ + | Kennedi Selby | PCP | | + +------+ + Encounter Details +--------+ + + + + | Date | Type | Department | Care Team | Description | +--------+ + + + + | 06/03/ | Telephone | [place] | Yuli Bettencourt MD | | | 2019 | | Fertility | [address] | | | | | Consultants at [facility] | [address] [place], | | | | | [address] | [place] [address] | | | | | [facility] | [phone] | | | | | and [address], | | | | | | | | | | | | [place], [place] | | | | | | [address] | | | | | | [phone] | | | +--------+ + + + [...] Addendum Note - Seth Rocha RN - 06/16/2019 9:02 AM PST Addended by: STEH ROCHA RN on: 06/16/2019 09:02 AM Modules accepted: Orders elephone Encounter - Seth Rocha RN - 06/03/2019 2:06 PM PSTPt returned call. Reviewed in detail. Pt reports t hat she did not have an issue with the oleary, it is out and all is fine. She verbalized unde rstanding of all directions. She reports that she is available for a call with MD on Saturday. Pt requesting to discuss possible transfer of 2 and poss option mod jose carlos cycle if able. Rout ed to MD. elephone Encou nter - Seth Rocha RN - 06/03/2019 12:[address] BETTENCOURT: Please call - benign endometrial po lyps, scattered plasma cells (inflammatory cells). Was she able to cut and remove the oleary? (In uterus). Complete her Doxy course (7d total). Continue BID estrace for 2 weeks, then Pr overa 10mg for 7 days for withdraw. She has all these Rx after the surgery. We Gave her a 3- wk course of estrace so she will have some extra. Call with menses. Pls tell her I m OOT b ut will plan to call next week, maybe on Saturday if she s available? Attempted to call. No answer and mailbox full. Sent patient a mychart msg. Electronically s igned by Seth Rocha RN at 06/03/2019 1:21 PM PSTdocumented in this encounter Plan of Treatment Not on filedocumented as of this encounter Visit Diagnoses Not on filedocumented in this encounter"
--- OUTSIDE RECORDS SUMMARY | ~2020-04-19 | XMS | Encounter Summary ---
Demographics + + + | Address | [address] | | | [place] [address] | + + + | Home Phone | | + + + | Preferred Language | Unknown | + + + | Marital Status | | + + + | Yazdanism Affiliation | CHR | + + + | Race | White | + + + | Ethnic Group | Not or | + + + Author + + + | Author | [facility] | + + + | Organization | [facility] | + + + | Address | Unknown | + + + | Phone | Unavailable | + + + Support + + +---------+ + | Name | Relationship | Address | Phone | + + +---------+ + | Nathaniel Henao | ECON | Unknown | | + + +---------+ + Care Team Providers + +------+ + | Care Fish Inspector Name | Role | Phone | + +------+ + | Kennedi Selby | PCP | | + +------+ + Encounter Details +--------+ + + + + | Date | Type | Department | Care Team | Description | +--------+ + + + + | 07/30/ | Telephone | [place] | Yuli Murdock MD | | | 2019 | | Fertility | [address] | | | | | Consultants at [facility] | [address] [place], | | | | | [address] | [place] [address] | | | | | [facility] | [phone] | | | | | and [address], | | | | | | | | | | | | Floor [place], [place] | | | | | | [address] | | | | | | [phone] | | | +--------+ + + + [...] Encounter - Seth Peck RN - 07/30/2019 2:36 PM PSTPhone call to patient re: alisha brito's results.Per team review, pt is ready to move forward with protocol. No answer. Left d etailed VM and sent msg with new orders as follows: 1. Continue Vaginal estrace through 07/31. This is a change from what we talked about before . Your last vaginal estrace will be the night of 07/31. 2. Start the progesterone in oil injections on 07/31, in the evening. 3. Decrease patches starting with your next dose to 3 every other day (this will be your ma intenance dose for the patches on). 4. You are scheduled for your transfer on 08/06 at 11:30am with Dr. Murdock. Please arrive at 11a m. documented in this encou nter Plan of Treatment Not on filedocumented as of this encounter Visit Diagnoses Not on filedocumented in this encounter"
--- OUTSIDE RECORDS SUMMARY | ~2020-04-19 | XMS | Encounter Summary ---
Demographics + + + | Address | [address] | | | [place] [address] | + + + | Home Phone [...] + + + | Author | [facility] | + + + | Organization | [facility] | + + + | Address | Unknown | + + + | Phone | Unavailable | + + + Support + + +---------+ + | Name | Relationship | Address | Phone | + + +---------+ + | Nathaniel Henao | ECON | Unknown | | + + +---------+ + Care Team Providers + +------+ + | Care Entry Clerk Name | Role | Phone | + +------+ + | Kennedi Selby | PCP | | + +------+ + Encounter Details +--------+ + + + + | Date | Type | Department | Care Team | Description | +--------+ + + + + | 05/14/ | MyChart | [facility] | [facility] Information | | 2019 | Encounter | [facility] | | | | | | [place] [address] | | | | | | [address] | | | | | | [place], [address] [place] [address] | | | | | | [place], [place] | | | | | | [address] | | | | | | [phone] | | | +--------+ + + + [...]
--- OUTSIDE RECORDS SUMMARY | ~2020-04-19 | XMS | Encounter Summary ---
Demographics + + + | Address | [address] | | | [place] [address] | + + + | Home Phone | | + + + | Preferred Language | Unknown | + + + | Marital Status | | + + + | Jain Affiliation | CHR | + + + [...] Providers + +------+ + | Care Welder Production Line Gas Name | Role | Phone | + [...] | | Reproductive | | Non-[facility] | [facility] | | | | Endocrinology | | Epic Dept | Faculty [facility] | | | | /Infertility | | | [address] | | | | | | | e [place] | | | | | | | for Health | | | | | | | and Healing, | | | | | | | Building [address], | | | | | | | 10th Floor | | | | | | | [place], [place] | | | | | | | [address] | | | | | | | Phone: | | | | | | | [phone] | | | | | | | Fax: | | | | | | | [phone] | + +--------+ + + + + Encounter Details +--------+ + + + + | Date | Type | Department | Care Team | Description | +--------+ + + + + | 02/06/ | Telephone-S | [place] | [facility] | | | 2019 | cheduled | Fertility | [address] | | | | | Consultants at [facility] | [place] [address] | | | | | [address] | | | | | | [facility] | | | | | | and Healing, | | | | | | Building | | | | | | [place], [place] | | | | | | [address] | | | | | | [phone] | | | +--------+ + + + [...] + + | LAB REPORTS | | 02/06/2019 | | Results for this | | | | 12:00 AM | | procedure are in the | | | | PDT | | results section. | + +--------+ + + + documented in this encounter Results LAB REPORTS (02/06/2019 12:00 AM PDT) + + + | Narrative | Performed At | + + + | | | + + + documented in this encounter Visit Diagnoses Not on filedocumented in this encounter"
--- OUTSIDE RECORDS SUMMARY | ~2020-04-19 | XMS | Encounter Summary ---
Demographics + + + | Address | [address] | | | [place] [address] | + + + | Home Phone [...] + + + | Author | [facility] | + + + | Organization | [facility] | + + + | Address | Unknown | + + + | Phone | Unavailable | + + + Support + + +---------+ + | Name | Relationship | Address | Phone | + + +---------+ + | Nathaniel Henao | ECON | Unknown | | + + +---------+ + Care Team Providers + +------+ + | Care Marketing Manager Health Communications Name | Role | Phone | + +------+ + | Kennedi Selby | PCP | | + +------+ + Encounter Details +--------+ + + + + | Date | Type | Department | Care Team | Description | +--------+ + + + + | 10/01/ | Pharmacy | [facility] | | | | 2019 | Visit | & [facility] | | | | | | [address] | | | | | | Mailcode: Spring | | | | | | [facility] and | | | | | | Healing, [address] | | | | | | [place], [place] | | | | | | [address] | | | | | | [phone] | | | +--------+ + + + [...]
--- OUTSIDE RECORDS SUMMARY | ~2020-04-19 | XMS | Encounter Summary ---
Demographics + + + | Address | [address] | | | [place] [address] | + + + | Home Phone [...] Team Providers + +------+ + | Care Certified Tumor Registrar Name | Role | Phone | + +------+ + | Kennedi Selby | PCP | | + +------+ + Encounter Details +--------+ + + + + | Date | Type | Department | Care Team | Description | +--------+ + + + + | 12/03/ | Documentati | [place] | Yuli Murdock MD | | | 2019 | on | Fertility | [address] | | | | | Consultants at [facility] | [address] [place], | | | | | [address] | [place] [address] | | | | | [facility] | [phone] | | | | | and [address], | | | | | | | | | | | | [place], [place] | | | | | | [address] | | | | | | [phone] | | | +--------+ + + + [...] Notes Telephone Encounter - Joaquín Randhawa - 12/04/2018 2:02 PM PDTInventory Update: Embryos #1 and #2 @ D5 Embryos #3, #4, #5, and #6 @ D6 From 10/2018 cycle All embryos are PGT-A, individually frozen and graded. GLOBAL DMSO elephone Encounter - Yuli Murdock MD - 12/03/2018 10:24 AM PDT FINAL as of 01/16/19 Name: Pushpa Henao Patients Ph#: [phone] (bolivar) Cycle Type: FET (thawed non-donor, transcervical) GC: No Protocol: Estrace Only Doxy 100mg BID x7d with probiotic ~1 week before starting estrace Start IM KAYCEE 2nd day after endo check Valium 10mg 1hr before transfer FET 01/22 or 01/23 at 11:30 w/ RUT Screening to be completed prior to FET: none Thaw and Transfer Plan: # of embryos to thaw: 1 - #1 # of embryos to transfer: 1 # of days on progesterone prior to transfer: 6 Patient approval needed to additional thaw? Yes Patient comfortable with discarding embryos? No Selective Reduction? No Assisted Hatching? No LMP: No LMP recorded. OCP Start: Last dose OCP:12/30/18 Lupron start: US & E2: Estrace/EV Start:01/02/19 Endometrial thickness: 01/15/19 Progesterone start:01/17/19 ET Date:01/23/19 Cryopreserved Embryo Report: (indicate number if embryos/vial) # as of #remaining after this ET Pronuclear Day 2 Day 3 Blastocyst Embryos #1 and #2 @ D5 Embryos #3, #4, #5, and #6 @ D6 From 10/2018 cycle All embryos are PGT-A, individually frozen and graded. Embryo transfer date: See No components found for: DUANE, 3 documented in this encou nter Plan of Treatment Not on filedocumented as of this encounter Visit Diagnoses Not on filedocumented in this encounter"
--- OUTSIDE RECORDS SUMMARY | ~2020-04-19 | XMS | Encounter Summary ---
Demographics + + + | Address | [address] | | | [place] [address] | + + + | Home Phone [...] Providers + +------+ + | Care Entry Level Software Engineer Name | Role | Phone | + +------+ + | Kennedi Selby | PCP | | + +------+ + Encounter Details +--------+------+ + + + | Date | Type | Department | Care Team | Description | +--------+------+ + + + | 09/05/ | Lab | Laboratory at [facility] | | Fertility testing; | | 2019 | | [address] | | Encounter for | | | | [facility] | | vitamin deficiency | | | | and Healing, | | screening; Encounter | | | | [address] | | for blood typing; | | | | [place], [place] | | Screening for viral | | | | [address] | | disease; Screening | | | | [phone] | | for thyroid | | | | | | disorder; Family | | | | | | history of thyroid | | | | | | disease in father; | | | | | | Screening | | | | | | examination for | | | | | | rubella; Screening | | | | | | examination for STD | | | | | | (sexually | | | | | | transmitted | | | | | | disease); Irregular | | | | | | menstrual cycle | +--------+------+ + + + Social History [...] + +--------+ + + + | TSH W/REFLEX TO FREE | Routin | 09/05/2018 | Screening for | Results for this | | T4(IF ABNORMAL) | e | 3:54 PM | thyroid disorder | procedure are in the | | | | PST | Family history of | results section. | | | | | thyroid disease in | | | | | | father | | + +--------+ + + + | ANTI-MULLERIAN | Routin | 09/05/2018 | Fertility testing | Results for this | | HORMONE | e | 3:54 PM | | procedure are in the | | | | PST | | results section. | + +--------+ + + + | THYROGLOBULIN AB, | Routin | 09/05/2018 | Family history of | Results for this | | SERUM | e | 3:54 PM | thyroid disease in | procedure are in the | | | | PST | father | results section. | + +--------+ + + + | THYROID PEROXIDASE | Routin | 09/05/2018 | Family history of | Results for this | | AB, SERUM | e | 3:54 PM | thyroid disease in | procedure are in the | | | | PST | father | results section. | + +--------+ + + + | VARICELLA ZOSTER | Routin | 09/05/2018 | Screening for | Results for this | | IGG, SERUM | e | 3:54 PM | viral disease | procedure are in the | | | | PST | | results section. | + +--------+ + + + | VITAMIN D, | Routin | 09/05/2018 | Encounter for | Results for this | | 25-HYDROXY, SERUM | e | 3:54 PM | vitamin deficiency | procedure are in the | | | | PST | screening | results section. | + +--------+ + + + | RPR SERUM | Routin | 09/05/2018 | Screening | Results for this | | | e | 3:54 PM | examination for STD | procedure are in the | | | | PST | (sexually | results section. | | | | | transmitted disease) | | + +--------+ + + + | RUBELLA IGG AB, | Routin | 09/05/2018 | Screening | Results for this | | SERUM | e | 3:54 PM | examination for | procedure are in the | | | | PST | rubella | results section. | + +--------+ + + + | ANTIBODY SCREEN | Routin | 09/05/2018 | Encounter for | Results for this | | | e | 3:54 PM | blood typing | procedure are in the | | | | PST | | results section. | + +--------+ + + + | TYPE AND SCREEN | Routin | 09/05/2018 | Encounter for | Results for this | | | e | 3:54 PM | blood typing | procedure are in the | | | | PST | | results section. | + +--------+ + + + | ABO & RH TYPE | Routin | 09/05/2018 | Encounter for | Results for this | | | e | 3:54 PM | blood typing | procedure are in the | | | | PST | | results section. | + +--------+ + + + | HIV AB/AG SCREENING | Routin | 09/05/2018 | Screening | Results for this | | W/REFLEX TO CONFIRM | e | 3:38 PM | examination for STD | procedure are in the | | | | PST | (sexually | results section. | | | | | transmitted disease) | | + +--------+ + + + | PROLACTIN | Routin | 09/05/2018 | Irregular | Results for this | | | e | 3:38 PM | menstrual cycle | procedure are in the | | | | PST | | results section. | + +--------+ + + + | ESTRADIOL, SERUM | Routin | 09/05/2018 | Fertility testing | Results for this | | | e | 3:38 PM | | procedure are in the | | | | PST | | results section. | + +--------+ + + + | FSH, SERUM | Routin | 09/05/2018 | Fertility testing | Results for this | | | e | 3:38 PM | | procedure are in the | | | | PST | | results section. | + +--------+ + + + | HEPATITIS B SURFACE | Routin | 09/05/2018 | Screening | Results for this | | AG, SERUM | e | 3:38 PM | examination for STD | procedure are in the | | | | PST | (sexually | results section. | | | | | transmitted disease) | | + +--------+ + + + | HEPATITIS C VIRUS | Routin | 09/05/2018 | Screening | Results for this | | W/CONFIRMATION | e | 3:38 PM | examination for STD | procedure are in the | | | | PST | (sexually | results section. | | | | | transmitted disease) | | + +--------+ + + + documented in this encounter Results ANTIBODY SCREEN (09/05/2018 3:54 PM PST) + + + + + + | Component | Value | Ref Range | Performed | Pathologist | | | | | At | Signature | + + + + + + | Antibody | Negative | | [facility] | | | Screen | | | LABORATORY | | | | | | SERVICES, | | | | | | TRANSFUSION | | | | | | MEDICINE | | + + + + + + + + | Specimen | + + | Blood - Blood | | (substance) | + + + + + + + | Performing | Address | City/State/Zipcode | Phone Number | | Organization | | | | + + + + + | [facility] | [address] | [place] [address] | | | SERVICES, | [address] | | | | TRANSFUSION MEDICINE | | | | + + + + + ABO & RH TYPE (09/05/2018 3:54 PM PST) + + + + + + | Component | Value | Ref Range | Performed | Pathologist | | | | | At | Signature | + + + + + + | ABO Group | A | | [facility] | | | | | | LABORATORY | | | | | | SERVICES, | | | | | | TRANSFUSION | | | | | | MEDICINE | | + + + + + + | Rh Type | Positive | | [facility] | | | | | | LABORATORY | | | | | | SERVICES, | | | | | | TRANSFUSION | | | | | | MEDICINE | | + + + + + + + + | Specimen | + + | Blood - Blood | | (substance) | + + + + + + + | Performing | Address | City/State/Zipcode | Phone Number | | Organization | | | | + + + + + | [facility] | [address] | [place] [address] | | | SERVICES, | [address] | | | | TRANSFUSION MEDICINE | | | | + + + + + RPR SERUM (09/05/2018 3:54 PM PST) + + + + + + | Component | Value | Ref Range | Performed | Pathologist | | | | | At | Signature | + + + + + + | RPR SRM | Non ReactiveComment: | Non Reactive | [facility] | | | QUAL | Rapid Plasma Reagin | | REG UNIV | | | | screening test is | | PTH - INTFC | | | | Non-Reactive. No further | | | | | | reflex testing is | | | | | | required.Performed by | | | | | | [facility],[address] | | | | | | [address], [facility] [place] | | | | | | [address] | | | | | | [phone].[email or web address]. | | | | | | Mal acevedo MD, | | | | | | Lab. Director | | | | + + + + + + + + | Specimen | + + | Blood - Blood | | (substance) | + + + + + + + | Performing | Address | City/State/Zipcode | Phone Number | | Organization | | | | + + + + + | [facility] | [address] | [place], [place] | | | UNIV PTH - INTFC | | [address] | | + + + + + RUBELLA IGG AB, SERUM (09/05/2018 3:54 PM PST) + +--------+ + + + | Component | Value | Ref Range | Performed | Pathologist | | | | | At | Signature | + +--------+ + + + | RUBELLA IGG | Immune | Immune | [facility] - | | | | | | AIRPORT - | | | INTERPRETAT | | | [place] | | | ION | | | | | + +--------+ + + + + + | Specimen | + + | Blood - Blood | | (substance) | + + + + + + + | Performing | Address | City/State/Zipcode | Phone Number | | Organization | | | | + + + + + | [facility] | [address] | [place] [address] | | | [place] | | | | + + + + + THYROID PEROXIDASE AB, SERUM (09/05/2018 3:54 PM PST) + + + + + + | Component | Value | Ref Range | Performed | Pathologist | | | | | At | Signature | + + + + + + | THYROID | 194.8 (H)Comment: | 0.0 - 9.0 IU/mL | [facility] | | | PEROXIDASE | Performed by [facility] | | REG UNIV | | | AB | Laboratories,[address] | | PTH - INTFC | | | | [place], [place] [address] | | | | | | [phone]. | | | | | | Mal acevedo MD, | | | | | | Lab. Director | | | | + + + + + + + + | Specimen | + + | Blood - Blood | | (substance) | + + + + + + + | Performing | Address | City/State/Zipcode | Phone Number | | Organization | | | | + + + + + | [facility] | [address] | [place], [place] | | | UNIV PTH - INTFC | | [address] | | + + + + + THYROGLOBULIN AB, SERUM (09/05/2018 3:54 PM PST) + + + + + + | Component | Value | Ref Range | Performed | Pathologist | | | | | At | Signature | + + + + + + | THYROGLOBUL | 142.2 (H)Comment: | 0.0 - 4.0 IU/mL | [facility] | | | IN ANTIBODY | INTERPRETIVE | | REG UNIV | | | | INFORMATION: | | PTH - INTFC | | | | Thyroglobulin Antibody | | | | | | | | | | | | A | | | | | | value of 4.0 IU/mL or | | | | | | less indicates a | | | | | | negative result for | | | | | | thyroglobulin | | | | | | antibodies. The | | | | | | Thyroglobulin Antibody | | | | | | assay is being performed | | | | | | using the Chloe | | | | | | [place] Access DxI | | | | | | method.Performed by [facility] | | | | | | [facility],[address] | | | | | | [address], [facility] [place] | | | | | | [address] | | | | | | [phone]. | | | | | | Mal acevedo MD, | | | | | | Lab. Director | | | | + + + + + + + + | Specimen | + + | Blood - Blood | | (substance) | + + + + + + + | Performing | Address | City/State/Zipcode | Phone Number | | Organization | | | | + + + + + | [facility] | [address] | [place], [place] | | | UNIV PTH - INTFC | | [address] | | + + + + + TSH W/REFLEX TO FREE T4(IF ABNORMAL) (09/05/2018 3:54 PM PST) + +-------+ + + + | Component | Value | Ref Range | Performed | Pathologist | | | | | At | Signature | + +-------+ + + + | TSH | 2.00 | 0.39 - 4.17 | [facility] | [...] | + + + + + | [facility] | [address] | [place] [address] | | | SERVICES, CORE | [address] | | | + + + + + VARICELLA ZOSTER IGG, SERUM (09/05/2018 3:54 PM PST) + + + + + + | Component | Value | Ref Range | Performed | Pathologist | | | | | At | Signature | + + + + + + | VARICELLA | PositiveComment: | | [facility] | | | ZOSTER IGG | VARICELLA ANTIBODY | | AIRPORT - | | | | TESTING IS NOT INDICATED | | [place] | | | | OR USEFUL TO DOCUMENT | | | | | | IMMUNITY IN RECIPIENTS | | | | | | OF VARICELLA VACCINE. | | | | + + + + + + + + | Specimen | + + | Blood - Blood | | (substance) | + + + + + + + | Performing | Address | City/State/Zipcode | Phone Number | | Organization | | | | + + + + + | [facility] | [address] | [place] [address] | | | [facility] | | | | + + + + + VITAMIN D, 25-HYDROXY, SERUM (09/05/2018 3:54 PM PST) + + + + + + | Component | Value | Ref Range | Performed | Pathologist | | | | | At | Signature | + + + + + + | VITAMIN D | 20.5 (L) | 30 - 80 ng/mL | [facility] | | | 25 HYDROXY | | | LABORATORY | | | | | | SERVICES, | | | | | | CORE | | + + + + + [...] | + + + + + | [facility] | [address] | [place] [address] | | | SERVICES, CORE | [address] | | | + + + + + ANTI-MULLERIAN HORMONE (09/05/2018 3:54 PM PST) + +-------+ + + + | Component | Value | Ref Range | Performed | Pathologist | | | | | At | Signature | + +-------+ + + + | ANTI-JOHNSON | 1.32 | 0.70 - 3.50 | [facility] | | | ADOLFO HORMONE | | ng/mL | REFERENCE | | | | | | LAB | | + +-------+ + + + + + | Specimen | + + | Blood - Blood | | (substance) | + + + + + | Narrative | Performed At | + + + | | [facility] | | Test performed by: | REFERENCE LAB | | [facility] | | | [address] [facility] [address] | | | [place] [address] | | + + + + + + + + | Performing | Address | City/State/Zipcode | Phone Number | | Organization | | | | + + + + + | [facility] | | | | + + + + + | [facility] | see below | | | + + + + + FSH, SERUM (09/05/2018 3:38 PM PST) + + + + + + | Component | Value | Ref Range | Performed | Pathologist | | | | | At | Signature | + + + + + + | FSH,SERUM | 7Comment: FSH FEMALE | mIU/mL | [facility] - | | | | REFERENCE RANGES | | AIRPORT - | | | | Follicular: 4-9 mIU/mL | | [place] | | | | Midcycle: 5-23 mIU/mL | | | | | | Luteal: 2-5 mIU/mL | | | | | | Post Menopausal: | | | | | | 17-114 mIU/mL | | | | | | Post Menopausal: 17-114 mIU/mL | | | | + + + [...] + | [facility] - | [address] | [place] [address] | | | [place] | | | | + + + + + ESTRADIOL, SERUM (09/05/2018 3:38 PM PST) + + + + + + | Component | Value | Ref Range | Performed | Pathologist | | | | | At | Signature | + + + + + + | ESTRADIOL, | 57Comment: Estradiol | pg/mL | [facility] - | | | SERUM | Reference Range: | | [facility] - | | | | Adult Females: | | [place] | | | | | | | | | | Folicular: | | | | | | 27-122 pg/mL | | | | | | Midcycle: | | | | | | 95-433 pg/mL | | | | | | Luteal: | | | | | | 49-291 pg/mL | | | | | | Postmenopausal: | | | | | | <41 pg/mL | | | | | | | | | | | | Males: <48 pg/mL | | | | + + + [...] + | [facility] | [address] | [place] [address] | | | [place] | | | | + + + + + PROLACTIN (09/05/2018 3:38 PM PST) + +-------+ + + + | Component | Value | Ref Range | Performed | Pathologist | | | | | At | Signature | + +-------+ + + + | PROLACTIN | 10.4 | 2.8 - 26.0 | [facility] | | | | | ng/ml | LABORATORY | | | | | | SERVICES, | | | | | | CORE | | + +-------+ + + + + + | Specimen | + + | Blood - Blood | | (substance) | + + + + + | Narrative | Performed At | + + + | Test performed in [facility] lab. New reference range in effect | [facility] | | 2-6-18. | LABORATORY | | | SERVICES, CORE | + + + + + + + + | Performing | Address | City/State/Zipcode | Phone Number | | Organization | | | | + + + + + | [facility] | [address] | [place] [address] | | | SERVICES, CORE | [address] | | | + + + + + HIV-1,2 AB/HIV-1 P24 AG SCRN (09/05/2018 3:38 PM PST) + + + + + + | Component | Value | Ref Range | Performed | Pathologist | | | | | At | Signature | + + + + + + | HIV-1,2 | Negative | Negative | [facility] | | | AB/HIV-1 | | | LABORATORY | | | P24 AG | | | SERVICES, | | | SCREEN | | | SPECIAL IMM | | | | | | + [place] | | + + + + + + + + | Specimen | + + | Blood - Blood | | (substance) | + + + + + | Narrative | Performed At | + + + | HIV-1 p24 Ag and HIV-1,2 Ab not detected. Test modified from | [facility] | | original middle school football coach's approved specifications. The performance | LABORATORY | | of the BEHAVIORAL SERVICES TECH HIV Combo test, with or without confirmation, was not | SERVICES, | | tested in pediatric patients less than 2 years of age. NIH | SPECIAL IMM + | | guidelines recommend virologic assays (i.e. HIV 1 VIRAL LOAD) that | [facility] | | directly detect HIV for diagnosis of HIV infection in infants younger | | | than 2 years. | | + + + + + + + + | Performing | Address | City/State/Zipcode | Phone Number | | Organization | | | | + + + + + | [facility] | [address] | [place] [address] | | | SERVICES, SPECIAL | [address] | | | | IMM + [place] | | | | + + + + + HEPATITIS C VIRUS W/CONFIRMATION (09/05/2018 3:38 PM PST) + + + + + + | Component | Value | Ref Range | Performed | Pathologist | | | | | At | Signature | + + + + + + | HEP C AB | Not Detected | Not Detected | [facility] | | | | | | LABORATORY | | | | | | SERVICES, | | | | | | CORE | | + + + + + + + + | Specimen | + + | Blood - Blood | | (substance) | + + + + + + + | Performing | Address | City/State/Zipcode | Phone Number | | Organization | | | | + + + + + | [facility] | [address] | [place] [address] | | | SERVICES, CORE | [address] | | | + + + + + HEPATITIS B SURFACE AG, SERUM (09/05/2018 3:38 PM PST) + + + + + + | Component | Value | Ref Range | Performed | Pathologist | | | | | At | Signature | + + + + + + | HEPATITIS B | | | [facility] | | | SURFACE | | | LABORATORY | | | AG, SERUM | | | SERVICES, | | | | | | CORE | | + + + + + + | HEP B | Not Detected | Not Detected | [facility] | | | SURFACE AG | | | LABORATORY | | | | | | SERVICES, | | | | | | CORE | | + + + + + + + + | Specimen | + + | Blood - Blood | | (substance) | + + + + + + + | Performing | Address | City/State/Zipcode | Phone Number | | Organization | | | | + + + + + | [facility] | [address] | [place] [address] | | | SERVICES, CORE | [address] | | | + + + + + documented in this encounter Visit Diagnoses + + | Diagnosis | + + | Fertility testing | + + | Encounter for vitamin deficiency screening Screening for other and unspecified | | endocrine, nutritional, metabolic, and immunity disorders | + + | Encounter for blood typing | + + | Screening for viral disease Special screening examination for unspecified viral | | disease | + + | Screening for thyroid disorder | + + | Family history of thyroid disease in father | + + | Screening examination for rubella | + + | Screening examination for STD (sexually transmitted disease) Screening examination | | for venereal disease | + + | Irregular menstrual cycle | + + documented in this encounter"
--- OUTSIDE RECORDS SUMMARY | ~2020-04-19 | XMS | Encounter Summary ---
Demographics + + + | Address | [address] | | | [place] [address] | + + + | Home Phone [...] Team Providers + +------+ + | Care V Belt Coverer Name | Role | Phone | + +------+ + | Kennedi Selby | PCP | | + +------+ + Encounter Details +--------+ + + + + | Date | Type | Department | Care Team | Description | +--------+ + + + + | 09/01/ | [place] | [place] | Yuli Murdock MD | Financial | | 2019 | Encounter | Fertility | [address] | information for your | | | | Consultants at [facility] | Barbara [address]r [place], | September 04 | | | | [address] | [place] [address] | appointment | | | | [facility] | [phone] | | | | | and Healing, | | | | | | Building | | | | | | Floor [place], [place] | | | | | | [address] | | | | | | [phone] | | | +--------+ + + + [...]
--- OUTSIDE RECORDS SUMMARY | ~2020-04-19 | XMS | Encounter Summary ---
Demographics + + + | Address | [address] | | | [place] [address] | + + + | Home Phone | | + + + | Preferred Language | Unknown | + + + | Marital Status | | + + + | Adventism Affiliation | CHR | + + + [...] Team Providers + +------+ + | Care Oracle Data Warehouse Developer Name | Role | Phone | + +------+ + | Kennedi Selby | PCP | | + +------+ + Encounter Details +--------+ + + + + | Date | Type | Department | Care Team | Description | +--------+ + + + + | 10/17/ | Pharmacy | [facility] | | | | 2019 | Visit | & [facility] | | | | | | [address] | | | | | | Mailcode: [place] | | | | | | [facility] and | | | | | | Healing, [address] | | | | | | [place], [place] | | | | | | [address] | | | | | | [phone] | | | +--------+ + + + [...]
--- OUTSIDE RECORDS SUMMARY | ~2020-04-19 | XMS | Encounter Summary ---
Demographics + + + | Address | [address] | | | [place] [address] | + + + | Home Phone [...] Team Providers + +------+ + | Care Multiskill Operator Name | Role | Phone | + +------+ + | Kennedi Selby | PCP | | + +------+ + Encounter Details +--------+ + + + + | Date | Type | Department | Care Team | Description | +--------+ + + + + | 01/13/ | Pharmacy | [facility] | | | | 2019 | Visit | & [facility]acy | | | | | | [address] | | | | | | Mailcode: [place] | | | | | | [facility] and | | | | | | Healing, [address] | | | | | | [place], [place] | | | | | | [address] | | | | | | [phone] | | | +--------+ + + + [...]
--- OUTSIDE RECORDS SUMMARY | ~2020-04-19 | XMS | Encounter Summary ---
Demographics + + + | Address | [address] | | | [place] [address] | + + + | Home Phone | | + + + | Preferred Language | Unknown | + + + | Marital Status | | + + + | Yarsani Affiliation | CHR | + + + [...] Team Providers + +------+ + | Care Tongue Lining Stitcher Name | Role | Phone | + +------+ + | Kennedi Selby | PCP | | + +------+ + Encounter Details +--------+--------+ + + + | Date | Type | Department | Care Team | Description | +--------+--------+ + + + | 11/27/ | Travel | | | | | [...]
--- OUTSIDE RECORDS SUMMARY | ~2020-04-19 | XMS | Encounter Summary ---
Demographics + + + | Address | [address] | | | [place] [address] | + + + | Home Phone | | + + + | Preferred Language | Unknown | + + + | Marital Status | | + + + | Protestant Affiliation | CHR | + + + [...] Team Providers + +------+ + | Care Signwriter Name | Role | Phone | + [...] | | | | | | | [facility] [place] | | | | | | | [address] | | | | | | | Phone: | | | | | | | [phone] | | | | | | | Fax: | | | | | | | [phone] | + +--------+ + + + + Encounter Details +--------+ + + + + | Date | Type | Department | Care Team | Description | +--------+ + + + + | 10/24/ | Procedure | [facility] | Maura Portillo MD | Ultrasound | | 2019 | | Fertility | [address] | | | | | Consultants at [facility] | [place], [place] | | | | | [address] | [address] | | | | | [facility] | [phone] | | | | | and Healing, | | | | | | Building [address], [address]th | | | | | | Floor [place], [place] | | | | | | [address] | | | | | | [phone] | | | +--------+ + + + [...] documented as of this encounter Progress Notes Alberta Tesfaye MA - 10/24/2018 10:00 AM PDTFormatting of this note might be different fr om the original. ENDOCRINE MANAGEMENT PROGRESS NOTE 10/24/2018 Day of stimulation: ARC,Cycle Day#8, US/E2/P4 Antag started 10/22. HMG2/[id number]/antag/Novarel /Freeze/TESE(with back up fresh TESE and Donor sperm). PGS? Murdock/Prince. NOTE: Embryology, please discuss with Dr. Murodck and patient prior to proceeding with PGS, please see specific notes in u pdated protocol. Thank you. UPDATE DR. ALVAREZ as approp. Comments: Indication: inf Approach: transvaginal Systems checklist: negative for uterine polyps, myomas, fluid in cavity, ovarian mass and f luid in cul-de-sac. Estradiol level: Lab Results Component Value Date ESTRADIOL 948 10/24/2018 Progesterone level: Lab Results Component Value Date PROG <1.0 10/24/2018 FOLLICLE EXAMINATION / ENDOMETRIAL THICKNESS Endometrial thickness: 10.7mm Grade: 3 LARGEST FOLLICLES (Measured in Millimeters) RIGHT OVARY VOLUME: LEFT OVARY VOLUME: 1 15.5 mean 1 16 mean 2 12 mean 2 13 mean 3 11.5 mean 3 10 mean 4 13 mean 4 12 mean 5 13 mean 5 mean 6 16 mean 6 mean 7 11 mean 7 mean 8 15 mean 8 mean 9 mean 9 mean 10 mean 10 mean Additional Follicles: Additional Follicles: Total Follicles: Total Follicles: Interpretation: Moderate response. Sl discordance. Plan: Same [...] + + documented in this encounter Results [facility] PELVIS ULTRASOUND (10/24/2018 7:26 AM PDT) + [...] + | Diagnosis | + + | Female infertility - Primary Female infertility of unspecified origin | + + documented in this encounter"
--- OUTSIDE RECORDS SUMMARY | ~2020-04-19 | XMS | Encounter Summary ---
Demographics + + + | Address | [address] | | | [place] [address] | + + + | Home Phone [...] Team Providers + +------+ + | Care Balance Weigher Name | Role | Phone | + +------+ + | Kennedi Selby | PCP | | + +------+ + Encounter Details +--------+--------+ + + + | Date | Type | Department | Care Team | Description | +--------+--------+ + + + | 05/08/ | Travel | | | | | [...]
--- OUTSIDE RECORDS SUMMARY | ~2020-04-19 | XMS | Encounter Summary ---
Demographics + + + | Address | [address] | | | [place] [address] | + + + | Home Phone | | + + + | Preferred Language | Unknown | + + + | Marital Status | | + + + | Roman Catholic Affiliation | CHR | + + [...] Team Providers + +------+ + | Care Division Sergeant Name | Role | Phone | + +------+ + | Kennedi Selby | PCP | | + +------+ + Encounter Details +--------+ + + + + | Date | Type | Department | Care Team | Description | +--------+ + + + + | 09/20/ | Telephone | [place] | Yuli Murdock MD | | | 2019 | | Fertility | [address] | | | | | Consultants at [facility] | [address] [place], | | | | | [address] | [place] [address] | | | | | [facility] | [phone] | | | | | and [address], | | | | | | | | | | | | [place], [place] | | | | | | [address] | | | | | | [phone] | | | +--------+ + + + [...]
--- OUTSIDE RECORDS SUMMARY | ~2020-04-19 | XMS | Encounter Summary ---
Demographics + + + | Address | [address] | | | [place] [address] | + + + | Home Phone [...] Team Providers + +------+ + | Care Document Control Assistant Name | Role | Phone | + +------+ + | Parth Selbya CHIO | PCP | | + +------+ + Reason for Visit + +--------+ + | Reason | Onset | Comments | | | Date | | + +--------+ + | Scheduling | 06/12/ | | | | 2019 | | + +--------+ + Encounter Details +--------+ + + + + | Date | Type | Department | Care Team | Description | +--------+ + + + + | 06/12/ | Telephone | [place] | Yuli Murdock MD | Scheduling | | 2019 | | Fertility | [address] | | | | | Consultants at [facility] | Barbara Taylor, | | | | | [address] | [place] [address] | | | | | [facility] | [phone] | | | | | and [address], | | | | | | Building | | | | | | Floor [place], [place] | | | | | | [address] | | | | | | [phone] | | | +--------+ + + + [...] Telephone Encounter - Seth Peck RN - 06/25/2019 11:36 AM Marshall CANTRELL, Ok to start active pills today with light menses only. Post provera, no full flow per pt report. Pt notified vi a mychart of need to reschedule SIS 06/26 if more bleeding than spotting currently. Electron ically signed by Seth Peck RN at 06/25/2019 11:37 AM PSTTelephone Encounter - Adeline Roblero MA - 06/12/2019 8:39 AM PSTCalled patient, scheduled her for SIS only per Dr. Murdock's req nay, Tierney ordered. docu mented in this encounter Plan of Treatment Not on filedocumented as of this encounter Visit Diagnoses Not on filedocumented in this encounter"
--- OUTSIDE RECORDS SUMMARY | ~2020-04-19 | XMS | Encounter Summary ---
Demographics + + + | Address | [address] | | | [place] [address] | + + + | Home Phone [...] Team Providers + +------+ + | Care Laser Specialist Name | Role | Phone | + +------+ + | Kennedi Selby | PCP | | + +------+ + Reason for Visit + +--------+ + | Reason | Onset | Comments | | | Date | | + +--------+ + | Lab findings, | 08/28/ | | | teaching, guidance, | 2020 | | | and counseling | | | + +--------+ + Encounter Details +--------+ + + + + | Date | Type | Department | Care Team | Description | +--------+ + + + + | 08/28/ | Telephone | [place] | Yuli Murdock MD | Lab findings, | | 2019 | | Fertility | [address] | teaching, guidance, | | | | Consultants at [facility] | [facility], | and counseling | | | | [address] | [place] [address] | | | | | [facility] | [phone] | | | | | and Healing, | | | | | | Building | | | | | | [place], [place] | | | | | | [address] | | | | | | [phone] | | | +--------+ + + + [...] this encounter Miscellaneous Notes Telephone Encounter - Yarelis Gutierres RN - 08/28/2019 3:37 PM PST Phone call to patient re: today's results. HCG BETA, PLASMA (mIU/mL) Date Value 08/27/2019 23,017 Per team review, bhcg level is reassuring. Reviewed per Dr. Murdock to followup as planned and O B scan and continue pelvic rest. Advised to call with any questions or concerns. Pt voiced u nderstanding and denies questions. documented in this e ncounter Plan of Treatment Not on filedocumented as of this encounter Procedures + +--------+ + + + | Procedure Name | Priori | Date/Time | Associated Diagnosis | Comments | | | ty | | | | + +--------+ + + + | HCG BETA QUANT, | Routin | 08/27/2019 | | Results for this | | PLASMA | e | | | procedure are in the | | | | | | results section. | + +--------+ + + + documented in this encounter Results HCG BETA QUANT, PLASMA (08/27/2019) + +--------+ + + + | Component | Value | Ref Range | Performed | Pathologist | | | | | At | Signature | + +--------+ + + + | HCG BETA, | 23,017 | mIU/mL | NON [facility] | | | PLASMA | | | LAB | | + +--------+ + + + [...]
--- OUTSIDE RECORDS SUMMARY | ~2020-04-19 | XMS | Encounter Summary ---
Demographics + + + | Address | [address] | | | [place] [address] | + + + | Home Phone [...] Team Providers + +------+ + | Care Safety Deposit Clerk Name | Role | Phone | + +------+ + | Kennedi Selby | PCP | | + +------+ + Encounter Details +--------+ + + + + | Date | Type | Department | Care Team | Description | +--------+ + + + + | 01/23/ | Hospital | Diagnostic Imaging | Yuli Murdock MD | | | 2019 | Encounter | [address] | | | | | [address] | Barbara [address] [place], | | | | | [place], [place] | [place] [address] | | | | | [address] | [phone] | | | | | | | [...] | | | 22 gauge x 1 07/09" | progesterone in oil. | | | [...] | | 0 | | | | 4-zfn-umn-fish oil | mouth once daily. | | | | | | (FISH OIL) | | | | | | | 100-160-1,000 mg | | | | | | | oral capsule | | | | | | + + + +---------+ + + | | | | 0 | | | | [id number] | | | | | | | [...] to cleanse skin | 100 | | 12/04/19 | | | topical pads, | and [...] | + +--------+ + + + | [facility]BRYO TRANSFER | Routin | 01/23/2019 | Encounter for | Results for this | | | e | 7:43 AM | assisted | procedure are in the | | | | PDT | reproductive | results section. | | | | | fertility procedure | | | | | | cycle | | + +--------+ + + + documented in this encounter Results [facility] EMBRYO TRANSFER (01/23/2019 7:43 AM PDT) + [...]
--- OUTSIDE RECORDS SUMMARY | ~2020-04-19 | XMS | Encounter Summary ---
Demographics + + + | Address | [address] | | | [place] [address] | + + + | Home Phone [...] Team Providers + +------+ + | Care Highway Research Engineer Name | Role | Phone | + +------+ + | Kennedi Selby | PCP | | + +------+ + Encounter Details +--------+ + + + + | Date | Type | Department | Care Team | Description | +--------+ + + + + | 10/26/ | Hospital | Diagnostic Imaging | Maura Portillo MD | | | 2019 | Encounter | [address] | | | | | [address] | [place], [place] | | | | | [place], [place] | [address] | | | | | [address] | [phone] | | | | | | | [...] + | [facility] PELVIS | Routin | 10/26/2018 | Female infertility | Results for this | | ULTRASOUND | e | 6:48 AM | | procedure are in the | | | | PDT | | results section. | + +--------+ + + + documented in this encounter Results [facility] PELVIS ULTRASOUND (10/26/2018 6:48 AM PDT) + + | Specimen | [...]
--- OUTSIDE RECORDS SUMMARY | ~2020-04-19 | XMS | Encounter Summary ---
Demographics + + + | Address | [address] | | | [place] [address] | + + + | Home Phone [...] + + + | Author | [facility] | + + + | Organization | [facility] | + + + | Address | Unknown | + + + | Phone | Unavailable | + + + Support + + +---------+ + | Name | Relationship | Address | Phone | + + +---------+ + | Nathaniel Henao | ECON | Unknown | | + + +---------+ + Care Team Providers + +------+ + | Care Fishery Division Chief Name | Role | Phone | + +------+ + | Parth Selbya CHIO | PCP | | + +------+ + Reason for Visit + +--------+ + | Reason | Onset | Comments | | | Date | | + +--------+ + | Telephone follow-up | 03/16/ | | | | 2019 | | + +--------+ + Encounter Details +--------+ + + + + | Date | Type | Department | Care Team | Description | +--------+ + + + + | 03/16/ | Telephone | [place] | Yuli Murdock MD | Telephone follow-up | | 2019 | | Fertility | [address] | | | | | Consultants at [facility] | Barbara Mohr [place], | | | | | [address] | [place] [address] | | | | | [facility] | [phone] | | | | | and Healing, | | | | | | Building | | | | | | [place], [place] | | | | | | [address] | | | | | | [phone] | | | +--------+ + + + [...] Telephone Encounter - Seth Peck RN - 03/16/2019 2:00 PM PDTPer verbal order from Dr. Monica baltazar pt to be on active only pills, Loestrin until ready for next embryo transfer cycle. Pt to call later April for early May SIS. Patient would like FET sometime in June. [facility]. documented in this encounter Plan of Treatment Not on filedocumented as of this encounter Visit Diagnoses Not on filedocumented in this encounter"
--- OUTSIDE RECORDS SUMMARY | ~2020-04-19 | XMS | Encounter Summary ---
Demographics + + + | Address | [address] | | | [place] [address] | + + + | Home Phone [...] Team Providers + +------+ + | Care Electric Distribution Checker Name | Role | Phone | + +------+ + | Kennedi Selby | PCP | | + +------+ + Reason for Referral Consultation (Routine) + +--------+ + + + + | Status | Reason | Specialty | Diagnoses / | Referred By | Referred To | | | | | Procedures | Contact | Contact | + +--------+ + + + + | Pending | | Obstetrics & | Diagnoses | Yuli Murdock | Ju, | | Review | | Gynecology | Irregular | MD [address] | Sara, PhD | | | | | menstrual | [address] | [address] | | | | | cycle | [facility] | [facility] | | | | | Procedures | Rd | Rd [place], | | | | | CONSULT TO | [place], [place] | [place] | | | | | [facility] | [address] | [address] | | | | | FOR WOMEN'S | Phone: | Phone: | | | | | HEALTH | [phone] | [phone] | | | | | | Fax: | Fax: | | | | | | [phone] | [phone] | + +--------+ + + + + Consultation (Routine) + +--------+ + + + + | Status | Reason | Specialty | Diagnoses / | Referred By | Referred To | | | | | Procedures | Contact | Contact | + +--------+ + + + + | Pending | | | Diagnoses | Yuli Murdock | Pnc | | Review | | | Fertility | MD [address] | | | | | | testing | [facility] | [address] | | | | | Procedures | Zeeshan Jimenez | [address] | | | | | CONSULT TO | Rd | [facility] | | | | | [facility] | [place], [place] | for Health | | | | | GENETIC | [address] | and Healing, | | | | | COUNSELING | Phone: | Building [address] | | | | | | [phone] | [place], [place] | | | | | | Fax: | [address] | | | | | | [phone] | Phone: | | | | | | | [phone] | | | | | | | Fax: | | | | | | | [phone] | + +--------+ + + + + Reason for Visit Other (Routine) + [...] | | | | | | e Center | | | | | | | for Health | | | | | | | and Healing, | | | | | | | Building 1, | | | | | | | 10th Floor | | | | | | | [place], [place] | | | | | | | [address] | | | | | | | Phone: | | | | | | | [phone] | | | | | | | Fax: | | | | | | | [phone] | + +--------+ + + + + Encounter Details +--------+---------+ + + + | Date | Type | Department | Care Team | Description | +--------+---------+ + + + | 09/05/ | Office | University | Yuli Murdock MD | Female infertility | | 2019 | Visit | Fertility | [address] | associated with male | | | | Consultants at [facility] | [address] [place], | factors (Primary | | | | [address] | [place] [address] | Dx); Screening | | | | [facility] | [phone] | examination for STD | | | | and Healing, | | (sexually | | | | Building | | transmitted | | | | Floor [place], [place] | | disease); Fertility | | | | [address] | | testing; Encounter | | | | [phone] | | for vitamin | | | | | | deficiency | | | | | | screening; Screening | | | | | | for thyroid | | | | | | disorder; Family | | | | | | history of thyroid | | | | | | disease in father; | | | | | | Irregular menstrual | | | | | | cycle; Screening | | | | | | examination for | | | | | | rubella; Screening | | | | | | for viral disease; | | | | | | Encounter for blood | | | | | | typing | +--------+---------+ + + + Social History [...] + + + | Blood Pressure | 119/83 | 09/05/2018 1:40 PM | | | | | PST | | + + + + + | Pulse | 56 | 09/05/2018 1:40 PM | | | | | PST [...] + + + + | Weight | 64.9 kg (143 lb) | 09/05/2018 1:40 PM | | | | | PST | | + + + + + | Height | 160 cm (5' 3") | 09/05/2018 1:40 PM | | | | | PST | | + + + + + | Body Mass Index | 25.33 | 09/05/2018 1:40 PM | | | | | PST | | + + + + + documented in this encounter Progress Notes Yuli Murdock MD - 09/05/2018 1:40 PM PSTInitial Visit: 09/05/2018 PCP: CHIO Florian Subjective: Pushpa is a 33 year old G 0 Caucasion woman who is accompanied by her to discuss fertility concerns. The couple has been together for 3.5 years and attemp ting conception for 1.5 years. After 10 months of trying the couple saw a physician in [facility] to start fertility evaluations. Nathaniel completed a semen analysis, which showed azoosperm ia and was referred to Dr. Bush for consultation. A Micro-TESE was done, with little to no sperm visualized. A sample was frozen. Dr. Bush' plan is a possible fresh TESE on day of retrieval and donor sperm back up is highly recommended. Patient used OCPs in her early 20's . LMP: 09/03/2018 Prior fertility evaluations include: 08/2018 Micro- TESE POBHx: none PGynHx: Menarche at age 11 Cycles q 24-26, 6 days of flow, notes menorrhagia and dysmenorrhea the first three days of menses, changing tampons every 3.5 hours, she also wears liners. Patient takes Ibuprofen, an d uses heat pads for dysmenorrhea. PMHx: Menstrual Migraines -notes migraines have become less common in the last few years IBS- avoids dairy PSHx: 1990 tooth removal 2004 Cyst removed on chest 2007 [place] teeth extraction 2010 Lypoma removal Fam/SocHx: Thyroid [...] yes - Paternal grandfather with lung cancer ROS: Weight stable, even temperature. Denies hair thinning, hirsutism, galactorrhea, vasomotor s x. Notes feeling more tired, and some constipation. Current Medications: PNV Probiotic Rizatriptan 10 mg Allergies: NKDA MALE FACTOR Age: 32 Paternity - no Surgery - no Trauma - no Medications: Vitamin D, Probiotic, Citalopram 20 mg Tobacco: Exposures: ED: History of hemachromatosis, denies family history of fertility issues. Has a brother who is 30 and is not rrying to have kids. IVF Consultation Date: 09/05/2018 I met today with Pushpa Henao, and her for IVF Consultation. Pushpa is an 2 4 year old woman who presents with Male infertility I did discuss in detail the following process for Invitro Fetilization with both of them in cluding but not limited to: Ovulation Induction: The medications used and risks in ovulation inductions. Monitoring of the cycle, pelvic ultrasounds and blood testing. The minimum response to egg retrieval. Egg Retrieval: The timing for egg retrieval Anesthesia. Recovery information. Risk of bleeding, infection and injury to organs were reviewed at the time of the consult. Fertilization: Fertilization considerations were reviewed. Options include: insemination, or donor sperm. Sample collection/sample freezing . Fertilization rate:ISCI % discussed Genetic risks, chromosomal, gene, imprinting errors were reviewed. We discussed the availability of genetic counseling. A review of defect risk was discussed. Embryo Transfer: The following has been discussed: Embryo number: Discussed Selective Reduction discussed: yes. Timing and Technique: Rate/Transfer: %, PGD: yes Live Rate/Transfer: Disucssed, AH: yes Cryopreservation: yes During the consult the following risks were discussed: Canceled cycle, failed fertilization, ectopic , ovarian hyperstimulation, clot, st roke, , monozygotic twinning, medications, ovarian cancer, multiple , obstetri c and risks. A cost sheet was given and reviewed. Physician rotation was reviewed. Screening tests were discussed. ASSESSMENT: 1. Primary infertility x 1.5 years 2. 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 Strong family history of Jennifer's 4. Menorrhagia and Dysmenorrhea PLAN: 1. We reviewed the patient's medical history. 2. IVF consultation completed. 3. Reviewed need for a fresh TESE; strongly encouraged the couple to consider donor sperm b ack up for egg retrieval. Given Nathaniel has a brother @ age 30, they may consider using him as a directed sperm donor, vs. Use of anonymous donor sperm. 4. Labs: AMH, Vitamin D, TSH, TPO AB, Thyroglobulin AB, E2, FSH, Rubella, Varicella, Prolac tin. 5. Male partner labs to be completed. 6. Plan for BAF this coming Friday 09/08. 7. Couple to meet with genetic counselor on 09/08. 8. Plan to follow up on 09/15 to discuss the ultrasound, lab results and treatment plan. ISarah, am functioning as a scribe for Dr. Yuli Murdock MD. 09/05/2018 1:53 PM Display Progress Note in Aehr Test Systemshart: No I have reviewed and verified the above scribed note of this patient's visit and made edits as appropriate. YULI MURDOCK MD I spent 52 minutes with the patient, over half of which was spent in counseling the patient regarding infertility documented in this encoun ter Plan of Treatment Not on filedocumented as of this encounter Results RPR SERUM (09/05/2018 3:54 PM PST) + [...] by | | | | | | [address] | | | | | | [place], [facility] | | | | | | [address] | | | | | | [phone]. | | | | | | Mal [...] [facility] | [address] | [place], [place] | | | UNIV PTH - INT[facility] | | [address] | | + + + + + [...] + | [facility] - | [address] | [place] [address] | | | [place] | | | [...] - INTFC | | | | [place], [place] [address] | | | | | | [phone].[email or web address]. | | | | | | Mal [...] [facility] | [address] | [place], [place] | | | UN[facility] - [facility] | | [address] | | + + + + + [...] | | | | | method.Performed by [facility] | | | | | | [facility],[address] | | | | | | [place] [address], [facility] | | | | | | [address] | | | | | | [phone]. | | | | | | [facility] MD, | | | | | | [...] [facility] | [address] | [place], [place] | | | UN[facility] | | [address] | | + + + + + [...] | + + + + + | [employer] | [address] | [place] [address] | | | SERVICES, CORE | DONI [...] | TESTING IS NOT INDICATED | | [place] | | | | OR USEFUL TO [...] + | [facility] - | [address] | [place] [address] | | | [place] | | | | + + + [...] LABORATORY | | >18years: Deficiency: <20 | WENDY, CORE | | ng/mL Insufficiency: 20-29 ng/mL | | | Optimum Level: 30-80 ng/mL High: | | | 81-150 ng/ml Toxic: >150 ng/mL | | + + + + + + + + | Performing | Address | City/State/Zipcode | Phone Number | | Organization | | | | + + + + + | [facility] | [address] | [place] [address] | | | ANISHA NGUYEN | [address] | | | + [...] performed by: | REFERENCE LAB | | [place] | | | [address] [facility] [address] | | | [place] [address] | | + + + + + + + + | Performing | Address | City/State/Zipcode | Phone Number | | Organization | | | | + + + + + | [facility] | | | | + + + + + | [facility] | see below | | [...] + | [facility] | [address] | [place] [address] | | | [place] | | | | + + + + + ESTRADIOL, SERUM (09/05/2018 3:38 PM PST) + + + + + + | Component | Value | Ref Range | Performed | Pathologist | | | | | At | Signature | + + + + + + | ESTRADIOL, | 57Comment: Estradiol | pg/mL | [facility] | | | SERUM | Reference Range: | | AIRPORT - | | | | Adult Females: | | [place] | | | | | | | [...] dose biotin for 48 hours before | [facility] | | having lab tests drawn. | | + + + + + + + + | Performing | Address | City/State/Zipcode | Phone Number | | Organization | | | | + + + + + | [facility] | [address] | [place] [address] | | | [place] | | | | + + + [...] + + + | Test performed in [facility]. New reference range in effect | [facility] | | 2-6-18. | LABORATORY | | | SERVICES, CORE | + + + + + + + + | Performing | Address | City/State/Zipcode | Phone Number | | Organization | | | | + + + + + | [facility] | [address] | [place] [address] | | | SERVICES, CORE | PARK [...] modified from | [facility] | | original cleaner and presser's approved specifications. The performance | LABORATORY | | of the RIVERBOAT CAPTAIN HIV Combo test, with or without confirmation, [...] + | [facility] | [address] | [place] [address] | | | SERVICES, SPECIAL | PARK [...] | + + + + + | [facility] | [address] | [place] [address] | | | SERVICES, CORE | DONI [...] | + + + + + | [employer] | [address] | [place] [address] | | | SERVICES, CORE | [address] | | | + + + + + documented in this encounter Visit Diagnoses + + | Diagnosis | + + | Female infertility associated with male factors - Primary Female infertility of other | | specified origin | + + | Screening examination for STD (sexually transmitted disease) Screening examination | | for venereal disease | + + | Fertility testing | + + | Encounter for vitamin deficiency screening Screening for other and unspecified | | endocrine, nutritional, metabolic, and immunity disorders | + + | Screening for thyroid disorder | + + | Family history of thyroid disease in father | + + | Irregular menstrual cycle | + + | Screening examination for rubella | + + | Screening for viral disease Special screening examination for unspecified viral | | disease | + + | Encounter for blood typing | + + documented in this encounter
--- OUTSIDE RECORDS SUMMARY | ~2020-04-19 | XMS | Encounter Summary ---
Demographics + + + | Address | [address] | | | [place] [address] | + + + | Home Phone | | + + + | Preferred Language | Unknown | + + + | Marital Status | | + + + | Orthodoxy Affiliation | CHR | + + + | Race | White | + + + | Ethnic Group | Not or | + + + Author + + + | Author | [facility] | + + + | Organization | [facility] | + + + | Address | Unknown | + + + | Phone | Unavailable | + + + Support + + +---------+ + | Name | Relationship | Address | Phone | + + +---------+ + | Nathaniel Henao | ECON | Unknown | | + + +---------+ + Care Team Providers + +------+ + | Care Finished Yarn Examiner Name | Role | Phone | + +------+ + | Kennedi Selby | PCP | | + +------+ + Reason for Visit +--------+--------+ + | Reason | Onset | Comments | | | Date | | +--------+--------+ + | Menses | 09/29/ | | | | 2019 | | +--------+--------+ + Encounter Details +--------+ + + + + | Date | Type | Department | Care Team | Description | +--------+ + + + + | 09/29/ | Telephone | [place] | Yuli Murdock MD | Menses | | 2018 | | Fertility | [address] | | | | | Consultants at [facility] | Barbara Mohr [place], | | | | | [address] | [place] [address] | | | | | [facility] | [phone] | | | | | and [address], | | | | | | Building | | | | | | Floor [place], [place] | | | | | | [address] | | | | | | [phone] | | | +--------+ + + + [...] Telephone Encounter - Seth Rocha RN - 09/30/2018 2:24 PM PDTCall back from patient. Map out reviewed. Questions answered. Pt relayed that partner is unable to come to the consent s igning. Plan in place to mail consents and have partner sign with a notary. Pt to return the m at her 10/13 suppression check visit. Pt agreed to plan. ddendum Note - Seth Rocha RN - 09/30/2018 9:36 AM PDT A ddended by: SETH ROCHA RN on: 09/30/2018 09:36 AM Modules accepted: Orders, SmartSet elephone Encounter - Seth Rocha RN - 09/30/2018 8:04 AM PDTMapout completed. Pt to call to discuss further de tails at her convenience. Mapout letter sent, labs and medications ordered, apts made. Elect ronically signed by Seth Rocha RN at 09/30/2018 8:40 AM PDTTelephone Encounter - Seth Rocha RN - 09/29/2018 11:51 AM PDTCall to patient. Reviewed timeline in detail as pt will be unavailable by phone tomorrow. Pt wanting RX at [facility] for this cycle. Pt informed that I will work on her mapout letter tomorrow and send next steps via [employer]. Pt agreed to plan. Elec tronically signed by Seth Rocha RN at 09/29/2018 12:09 PM PDTTelephone Encounter - Nicole Barrientos - 09/29/2018 9:41 AM PDTFormatting of this note might be different from the orig inal. Pt calling to report onset of menses Saturday09/28/18. Pt started BC last night Please call to discuss next steps. Home Phone Work Phone Caller states it is OK to leave confidential messages on voice messaging system. Current Pharmacy: [id number] - [place], [place] - [phone] [place] [place] [address] Pharmacy Verified: No documented in this enco unter Plan of Treatment Not on filedocumented as of this encounter Procedures + +--------+ + + + | Procedure Name | Priori | Date/Time | Associated Diagnosis | Comments | | | ty | | | | + +--------+ + + + | ESTRADIOL, SERUM - | Routin | 10/22/2018 | Encounter for | Results for this | | ANDROLOGY LAB | e | | assisted | procedure are in the | | | | | reproductive | results section. | | | | | fertility procedure | | | | | | cycle | | + +--------+ + + + | ESTRADIOL, SERUM - | Routin | 10/13/2018 | Encounter for | Results for this | | ANDROLOGY LAB | e | | assisted | procedure are in the | | | | | reproductive | results section. | | | | | fertility procedure | | | | | | cycle | | + +--------+ + + + documented in this encounter Results ESTRADIOL, SERUM - ANDROLOGY LAB (10/22/2018) + +-------+ + + + | Component | Value | Ref Range | Performed | Pathologist | | | | | At | Signature | + +-------+ + + + | ESTRADIOL, | 657 | pg/ml | [facility] | | | SERUM ([facility]) | | | OGY LAB | | + +-------+ + + + + + | Specimen | + + | Blood | + + + + + | Narrative | Performed At | + + + | Estradiol (pg/ml) Ovulatory Cycles Follicular Phase: ND-160 | | | Follicular Phase, Day 2-3: ND-84 Periovulatory: 34-400 Luteal | [facility] | | Phase: 27-245 | LAB | + + + + + + + + | Performing | Address | City/State/Zipcode | Phone Number | | Organization | | | | + + + + + | [facility] | [address], | [place] [address] | | | | Tenth Floor | | | + + + + + ESTRADIOL, SERUM - ANDROLOGY LAB (10/13/2018) + +-------+ + + + | Component | Value | Ref Range | Performed | Pathologist | | | | | At | Signature | + +-------+ + + + | ESTRADIOL, | 25.2 | pg/ml | [facility] | | | SERUM ([facility]) | | | OGY LAB | | + +-------+ + + + + + | Specimen | + + | Blood | + + + + + | Narrative | Performed At | + + + | Estradiol (pg/ml) Ovulatory Cycles Follicular Phase: ND-160 | | | Follicular Phase, Day 2-3: ND-84 Periovulatory: 34-400 Luteal | [facility] | | Phase: 27-245 | LAB | + + + + + + + + | Performing | Address | City/State/Zipcode | Phone Number | | Organization | | | | + + + + + | [facility] | [address], | [place] [address] | | | | Tenth Floor | | | + + + + + documented in this encounter Visit Diagnoses + + | Diagnosis | + + | Encounter for assisted reproductive fertility procedure cycle - Primary | + + documented in this encounter"
--- OUTSIDE RECORDS SUMMARY | ~2020-04-19 | XMS | Encounter Summary ---
Demographics + + + | Address | [address] | | | [place] [address] | + + + | Home Phone | | + + + | Preferred Language | Unknown | + + + | Marital Status | | + + + | Anglican Affiliation | CHR | + + + [...] Team Providers + +------+ + | Care Fried Cake Maker Name | Role | Phone | + +------+ + | Kennedi Selby | PCP | | + +------+ + Reason for Visit + +--------+ + | Reason | Onset | Comments | | | Date | | + +--------+ + | Lab findings, | 03/02/ | | | teaching, guidance, | 2018 | | | and counseling | | | + +--------+ + Encounter Details +--------+ + + + + | Date | Type | Department | Care Team | Description | +--------+ + + + + | 03/02/ | Telephone | [place] | Yuli Murdock MD | Lab findings, | | 2019 | | Fertility | [address] | teaching, guidance, | | | | Consultants at [facility] | [facility], | and counseling | | | | [address] | [place] [address] | | | | | [facility] | [phone] | | | | | and Healing, | | | | | | Building | | | | | | [place], [place] | | | | | | [address] | | | | | | [phone] | | | +--------+ + + + [...] this encounter Miscellaneous Notes Addendum Note - Simin Saleem RN - 03/02/2019 3:28 PM PDT Addended by: SIMIN SALEEM RN on: 03/02/2019 03:28 PM Modules accepted: Orders elephone Encounter - Simin Saleem RN - 03/02/2019 3:03 PM PDTFormatting of this note might be different from vivi casiano. Phone call with patient re: today's results. Available. Plan for repeat B on 03/16/19 at [facility]. Labs ordered. Mock TC scheduled to review results. Couple wishes to wait a few months prior to proceeding with treatment again. RN advised gómez ram to be in contact with financial to discuss her originally packages and to follow up nicki Murdock's team closer to time of which couple would like to move forward to allow for any s creening that may need to be completed prior to treatment. Agreeable to plan. No further con cerns. HCG BETA, PLASMA (mIU/mL) Date Value 03/02/2019 29.04 Bhcg level is decreasing. Per team review, pt needs to have repeat bhcg in 1-2 weeks. Appt scheduled. Questions answered. Order entered to [facility] in [place]. Orders Placed This Encounter HCG BETA QUANT, PLASMA documented in this encou nter Plan of Treatment Not on filedocumented as of this encounter Procedures + +--------+ + + + | Procedure Name | Priori | Date/Time | Associated Diagnosis | Comments | | | ty | | | | + +--------+ + + + | HCG BETA QUANT, | Routin | 03/02/2019 | | Results for this | | PLASMA | e | | | procedure are in the | | | | | | results section. | + +--------+ + + + documented in this encounter Results HCG BETA QUANT, PLASMA (03/02/2019) + +-------+ + + + | Component | Value | Ref Range | Performed | Pathologist | | | | | At | Signature | + +-------+ + + + | HCG BETA, | 29.04 | mIU/mL | NON [facility] | | [...] + | Diagnosis | + + | Miscarriage Unspecified spontaneous without mention of complication | + + | test positive examination or test, positive result | + + documented in this encounter"
--- OUTSIDE RECORDS SUMMARY | ~2020-04-19 | XMS | Encounter Summary ---
Demographics + + + | Address | [address] | | | [place] [address] | + + + | Home Phone | | + + + | Preferred Language | Unknown | + + + | Marital Status | | + + + | Islam Affiliation | CHR | + + + | Race | White | + + + | Ethnic Group | Not or | + + + Author + + + | Author | [facility] | + + + | Organization | [facility] | + + + | Address | Unknown | + + + | Phone | Unavailable | + + + Support + + +---------+ + | Name | Relationship | Address | Phone | + + +---------+ + | Nathaniel Henao | ECON | Unknown | | + + +---------+ + Care Team Providers + +------+ + | Care Deliver Driver Name | Role | Phone | + [...] | | | | | | | [place], [place] | | | | | | | [address] | | | | | | | Phone: | | | | | | | [phone] | | | | | | | Fax: | | | | | | | [phone] | + +--------+ + + + + Encounter Details +--------+ + + + + | Date | Type | Department | Care Team | Description | +--------+ + + + + | 09/04/ | Procedure | University | Yuli Murdock MD | Obstetric US Scan | | 2019 | | Fertility | [address] | | | | | Consultants at [facility] | Barbara Mohr [place], | | | | | [address] | [place] [address] | | | | | [facility] | [phone] | | | | | and Healing, | | | | | | Building , | | | | | | Floor [place], [place] | | | | | | [address] | | | | | | [phone] | | | +--------+ + + + [...] encounter Progress Notes Yuli Murdock MD - 09/04/2019 12:00 PM PSTFormatting of this note might be different from vivi robert original. Obstetrical Ultrasound 09/04/2019 Indication: IVF ET date: 08/06/2019 LMP: No LMP recorded. Gestational Age: 6 weeks and 6 days EDC: 04/23/20 +spotting, no cramping. No N/V. Blood Type: Lab Results Component Value Date ABO A 09/05/2018 Lab Results Component Value Date RH Positive 09/05/2018 Lab Results Component Value Date ABSCREEN Negative 09/05/2018 Approach: transvaginal Uterus: gravid Gestational Sac: present 2.08 cm C/W 7 weeks and 0 day Yolk Sac: present 0.35cm [place] Rump Length = 0.98cm, gestational age: 7 weeks and 0 day Heart Beat: 134 bpm Left ovary/adnexa: normal Right ovary/adnexa: normal No real evidence of subchorionic bleed. 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 documented in this encoun ter Plan of Treatment Not on filedocumented as of this encounter Procedures + +--------+ + + + | Procedure Name | Priori | Date/Time | Associated Diagnosis | Comments | | | ty | | | | + +--------+ + + + | [facility] OB ULTRASOUND | Routin | 09/04/2019 | | Results for this | | | e | 7:32 AM | examination or test, | procedure are in the | | | | PST | | results section. | | | | | unconfirmed | | + +--------+ + + + documented in this encounter Results [facility] OB ULTRASOUND (09/04/2019 7:32 AM PST) + + | Specimen | [...] or test, unconfirmed | + + | Threatened Threatened , unspecified as to episode of care | + + documented in this encounter"
--- OUTSIDE RECORDS SUMMARY | ~2020-04-19 | XMS | Encounter Summary ---
Demographics + + + | Address | [address] | | | [place] [address] | + + + | Home Phone | | + + + | Preferred Language | Unknown | + + + | Marital Status | | + + + | Denominational Affiliation | CHR | + + + [...] Team Providers + +------+ + | Care Radiation Protection Engineer Name | Role | Phone | + +------+ + | Kennedi Selby | PCP | | + +------+ + Encounter Details +--------+ + + + + | Date | Type | Department | Care Team | Description | +--------+ + + + + | 07/28/ | Pharmacy | Pharmacy @ [facility] | | | | 2019 | Visit | [address] | | | | | | [address] Mailcode: | | | | | | [facility] | | | | | | and [address], | | | | | | [address] | | | | | | [place], [place] | | | | | | [address] | | | +--------+ + + + [...]
--- OUTSIDE RECORDS SUMMARY | ~2020-04-19 | XMS | Encounter Summary ---
Demographics + + + | Address | [address] | | | [place] [address] | + + + | Home Phone | | + + + | Preferred Language | Unknown | + + + | Marital Status | | + + + | Temple Affiliation | CHR | + + + [...] Team Providers + +------+ + | Care Motor Grader Operator Name | Role | Phone | + +------+ + | Parth Selbya CHIO | PCP | | + +------+ + Reason for Visit + +--------+ + | Reason | Onset | Comments | | | Date | | + +--------+ + | Telephone follow-up | 10/13/ | | | | 2019 | | + +--------+ + Encounter Details +--------+ + + + + | Date | Type | Department | Care Team | Description | +--------+ + + + + | 10/13/ | Telephone | [facility] | Yuli Murdock MD | Telephone follow-up | | 2019 | | Fertility | [address] | | | | | Consultants at [facility] | Barbara Mohr [place], | | | | | [address] | [place] [address] | | | | | [facility] | [phone] | | | | | and Healing, | | | | | | Building | | | | | | [place], [place] | | | | | | [address] | | | | | | [phone] | | | +--------+ + + + [...] Telephone Encounter - Seth Peck RN - 10/13/2018 2:46 PM PDTFormatting of this note demarcus ht be different from the original. Phone call with patient to follow up on today's results. Lab Results Component Value Date ESTRADIOL 25.2 10/13/2018 Consents have been received. Pt taking Igenomix consents home today to have sign, w ill bring back at next weekday apt. Per team review, patient is okay to proceed with protocol. She was instructed to take last OCP today and to begin her stimulation medications on 10/17, 2 powder vials of Menopur in th e morning and Follistim 150iu in the evening. Patient pre-scheduled for CD 4 appt. Will foll ow up at that time. Questions answered. documented in this encou nter Plan of Treatment Not on filedocumented as of this encounter Visit Diagnoses Not on filedocumented in this encounter"
--- OUTSIDE RECORDS SUMMARY | ~2020-04-19 | XMS | Encounter Summary ---
Demographics + + + | Address | [address] | | | [place] [address] | + + + | Home Phone [...] Team Providers + +------+ + | Care Utility Bill Complaints Investigator Name | Role | Phone | + +------+ + | Parth Selbya CHIO | PCP | | + +------+ + Reason for Visit + +--------+ + | Reason | Onset | Comments | | | Date | | + +--------+ + | Medical Records | 09/29/ | | | Release | 2020 | | + +--------+ + Encounter Details +--------+ + + + + | Date | Type | Department | Care Team | Description | +--------+ + + + + | 09/29/ | Documentati | University | Yuli Murdock MD | Medical Records | | 2020 | on | Fertility | [address] | Release | | | | Consultants at [facility] | Barbara Mohr [place], | | | | | [address] | [place] [address] | | | | | [facility] | [phone] | | | | | and Healing, | | | | | | Building | | | | | | Floor [place], [place] | | | | | | [address] | | | | | | [phone] | | | +--------+ + + + [...] this encounter Miscellaneous Notes Telephone Encounter - Jero Lees - 09/30/2019 11:40 AM PDTFaxed [facility] to [facility] per FREDDIE request documented in this encounter Plan of Treatment Not on filedocumented as of this encounter Visit Diagnoses Not on filedocumented in this encounter"
--- OUTSIDE RECORDS SUMMARY | ~2020-04-19 | XMS | Encounter Summary ---
Demographics + + + | Address | [address] | | | [place] [address] | + + + | Home Phone [...] Team Providers + +------+ + | Care Mail Clerks Supervisor Name | Role | Phone | + +------+ + | Kennedi Selby | PCP | | + +------+ + Encounter Details +--------+ + + + + | Date | Type | Department | Care Team | Description | +--------+ + + + + | 09/15/ | Hospital | Diagnostic Imaging | Yuli Murdock MD | | | 2019 | Encounter | [address] | | | | | [address] | Barbara Mohr [place], | | | | | [place], [place] | [place] [address] | | | | | [address] | [phone] | | | | | | | [...] | [facility] SALINE INFUSION | Routin | 09/15/2018 | Female infertility | Results for this | | SONOGRAM | e | 11:40 AM | | procedure are in the | | | | PDT | | results section. | + +--------+ + + + documented in this encounter Results [facility] SALINE INFUSION SONOGRAM (09/15/2018 11:40 AM PDT) + + | Specimen | + + | | + + + + + | Narrative | Performed At | + + + | Refer to the encounter notes for imaging results. | | + + + documented in this encounter Visit Diagnoses + + | Diagnosis | + + | Female infertility Female infertility of unspecified origin | + + documented in this encounter"
--- OUTSIDE RECORDS SUMMARY | ~2020-04-19 | XMS | Encounter Summary ---
Demographics + + + | Address | [address] | | | [place] [address] | + + + | Home Phone [...] Team Providers + +------+ + | Care Schedule Maker Name | Role | Phone | + +------+ + | Kennedi Selby | PCP | | + +------+ + Encounter Details +--------+--------+ + + + | Date | Type | Department | Care Team | Description | +--------+--------+ + + + | 07/30/ | Travel | | | | | 2020 | | | | | +--------+--------+ + [...]
--- OUTSIDE RECORDS SUMMARY | ~2020-04-19 | XMS | Encounter Summary ---
Demographics + + + | Address | [address] | | | [place] [address] | + + + | Home Phone [...] Team Providers + +------+ + | Care Assurance Associate Name | Role | Phone | + +------+ + | Kennedi Selby | PCP | | + +------+ + Encounter Details +--------+ + + + + | Date | Type | Department | Care Team | Description | +--------+ + + + + | 02/06/ | Telephone | [place] | Yuli Murdock MD | | | 2019 | | Fertility | [address] | | | | | Consultants at [facility] | Barbara Mohr [place], | | | | | [address] | [place] [address] | | | | | [facility] | [phone] | | | | | and [address], | | | | | | | | | | | | [place], [place] | | | | | | [address] | | | | | | [phone] | | | +--------+ + + + [...] this encounter Miscellaneous Notes Telephone Encounter - Crista Wang RN - 02/06/2019 4:38 PM PDTFormatting of this note demarcus ht be different from the original. Phone call to patient re: today's results. HCG BETA, PLASMA (mIU/mL) Date Value 02/06/2019 1,618 Progesterone level: 1618 Per team review, bhcg levels with appropriate rise. She is already scheduled for OB scan at 6 1/2 weeks. Will follow up with P4 level drawn to day on 02/09/19. documented in this encounter Plan of Treatment Not on filedocumented as of this encounter Procedures + +--------+ + + + | Procedure Name | Priori | Date/Time | Associated Diagnosis | Comments | | | ty | | | | + +--------+ + + + | HCG BETA QUANT, | Routin | 02/06/2019 | | Results for this | | PLASMA | e | | | procedure are in the | | | | | | results section. | + +--------+ + + + documented in this encounter Results HCG BETA QUANT, PLASMA (02/06/2019) + +-------+ + + + | Component | Value | Ref Range | Performed | Pathologist | | | | | At | Signature | + +-------+ + + + | HCG BETA, | 1,618 | mIU/mL | NON [facility] | | | PLASMA | | | LAB | | + +-------+ + + + + + | Specimen | + + | Blood - Blood | | (substance) | + + + +---------+ + + | Performing | Address | City/State/Zipcode | Phone Number | | Organization | | | | + +---------+ + + | NON [facility] | | | | + +---------+ + + documented in this encounter Visit Diagnoses Not on filedocumented in this encounter"
--- OUTSIDE RECORDS SUMMARY | ~2020-04-19 | XMS | Encounter Summary ---
Demographics + + + | Address | [address] | | | [place] [address] | + + + | Home Phone [...] Team Providers + +------+ + | Care Learning And Development Consultant Name | Role | Phone | + +------+ + | Kennedi Selby | PCP | | + +------+ + Encounter Details +--------+--------+ + + + | Date | Type | Department | Care Team | Description | +--------+--------+ + + + | 09/04/ | Travel | | | | | [...]
--- OUTSIDE RECORDS SUMMARY | ~2020-04-19 | XMS | Encounter Summary ---
Demographics + + + | Address | [address] | | | [place] [address] | + + + | Home Phone [...] Team Providers + +------+ + | Care Admissions Manager Rn Name | Role | Phone | + +------+ + | Kennedi Selby | PCP | | + +------+ + Encounter Details +--------+ + + + + | Date | Type | Department | Care Team | Description | +--------+ + + + + | 10/09/ | Pharmacy | [facility] | | | | 2019 | Visit | & [facility] | | | | | | [address] | | | | | | Mailcode: [place] | | | | | | [facility] and | | | | | | Healing, [address] | | | | | | [place], [place] | | | | | | [address] | | | | | | [phone] | | | +--------+ + + + [...]
--- OUTSIDE RECORDS SUMMARY | ~2020-04-19 | XMS | Encounter Summary ---
Demographics + + + | Address | [address] | | | [place] [address] | + + + | Home Phone [...] Team Providers + +------+ + | Care Inspector Machine Parts Name | Role | Phone | + +------+ + | Kennedi Selby | PCP | | + +------+ + Encounter Details +--------+ + + + + | Date | Type | Department | Care Team | Description | +--------+ + + + + | 04/14/ | [place] | [place] | Yuli Murdock MD | RE: Active | | 2019 | Encounter | Fertility | [address] | control | | | | Consultants at [facility] | Barbara Mohr [place], | | | | | [address] | [place] [address] | | | | | [place] [facility] | [phone] | | | | | and Healing, | | | | | | | | | | | | Floor [place], [place] | | | | | | [address] | | | | | | [phone] | | | +--------+ + + + [...] Telephone Encounter - Seth Peck RN - 04/20/2019 4:[address] Murdock: Pt needs USN to evaluate ongoing bleeding. Pt called an notified. Ordered sent to [facility]. [facility] to [facility] once scheduled, mock apt will be made at that time. documented in this encounter Plan of Treatment + +---------+--------+ + + | Name | Type | Priori | Associated Diagnoses | Order Schedule | | | | ty | | | + +---------+--------+ + + | US PELVIS COMPLETE | Imaging | Urgent | Dysfunctional | Expected: | | | | | uterine bleeding | 04/21/2019, Expires: | | | | | | 05/21/2020 | + +---------+--------+ + + documented as of this encounter Visit Diagnoses + + | Diagnosis | + + | Dysfunctional uterine bleeding - Primary Other disorder of menstruation and other | | abnormal bleeding from female genital tract | + + documented in this encounter"
--- OUTSIDE RECORDS SUMMARY | ~2020-04-19 | XMS | Encounter Summary ---
Demographics + + + | Address | [address] | | | [place] [address] | + + + | Home Phone [...] Team Providers + +------+ + | Care Airport Operations Manager Name | Role | Phone | + +------+ + | Kennedi Selby | PCP | | + +------+ + Reason for Visit + + + | Reason | Comments | + + + | Saline Infusion | | | Sonogram (SIS) | | + + + Other (Routine) [...] , | | | | | | | [address]th Floor | | | | | | | [place], [place] | | | | | | | [address] | | | | | | | Phone: | | | | | | | [phone] | | | | | | | Fax: | | | | | | | [phone] | + +--------+ + + + + Encounter Details +--------+ + + + + | Date | Type | Department | Care Team | Description | +--------+ + + + + | 05/08/ | Procedure | [facility] | Benitez Barcenas MD | Saline Infusion | | 2019 | | Fertility | [address] | Sonogram (SIS) | | | | Consultants at [facility] | [place], [place] | | | | | [address] | [address] | | | | | [place] [facility] | [phone] | | | | | and Healing, | | | | | | Building , | | | | | | Floor [place], [place] | | | | | | [address] | | | | | | [phone] | | | +--------+ + + + [...] documented as of this encounter Progress Notes Ashely Roblero MA - 05/08/2019 3:15 PM PDT Name: Pushpa Henao Date 05/08/2019 LMP: No LMP recorded. Screening Ultrasound: Approach: transvaginal Indication: sp mab. Also ho polypectomy Basal Antral Follicles: Right ovary:13x20, BAF count: 8 Left ovary: 18x23, BAF count: 9 SIS/Hysteroscopy: APARQ was done prior to the procedure. Using sterile techniques a catheter was introduced t hrough the cervix and advanced into the uterine cavity. Sterile saline was injected through the catheter to promote cavity distention. The findings are as follows: 2 small polyps on P osterior wall (6.5x4.9mm) and (4.8x4.1mm), 1 small on anterior wall (6.5x4.9mm) Fibroid 3.2x3.9cm Trial transfer Depth Position Catheter 5.7 by US miguelito Little All instruments were then removed from the patient at the conclusion of the procedure. An examination of the cervix revealed good hemostasis. The patient tolerated the procedure well . Interpretation: 1. Easy insertion of soules catheter. 2. Normal ovaries bilaterally 3. 3 small polyps per above Plan: consider hscope. Plan per dr sp Doyle, Benitez Barcenas MD, personally performed all components of this scan. documented in this encou nter Plan of Treatment Not on filedocumented as of this encounter Results [facility] SALINE INFUSION SONOGRAM (05/08/2019 7:50 AM PDT) + + | Specimen | [...] infertility of unspecified origin | + + | Polyp of corpus uteri | + + documented in this encounter"
--- OUTSIDE RECORDS SUMMARY | ~2020-04-19 | XMS | Encounter Summary ---
Demographics + + + | Address | [address] | | | [place] [address] | + + + | Home Phone | | + + + | Preferred Language | Unknown | + + + | Marital Status | | + + + | Cheondoism Affiliation | CHR | + + + [...] Team Providers + +------+ + | Care Continuous Washer Operator Name | Role | Phone | + +------+ + | Kennedi Selby | PCP | | + +------+ + Reason for Visit + + + | Reason | Comments | + + + | Ultrasound | | + + + Encounter Details +--------+ + + + + | Date | Type | Department | Care Team | Description | +--------+ + + + + | 10/26/ | Procedure | [place] | Maura Portillo MD | Ultrasound | | 2019 | | Fertility | [address] | | | | | Consultants at [facility] | [place], [place] | | | | | [address] | [address] | | | | | [facility] | [phone] | | | | | and Healing, | | | | | | [facility] | | | | | | [place], [place] | | | | | | [address] | | | | | | [phone] | | | +--------+ + + + [...] encounter Progress Notes Alberta Tesfaye MA - 10/26/2018 9:10 AM PDTPatient is here today for a blood draw for Es tradiol. Blood draw done per clinic physician's order. Venipuncture performed without difficulty. Site: Right antecubital. Patient tolerated proc edure well. Virginia Tovar MA - 10/26/2018 9:10 AM PDTFormatting of this note might be different from the orig inal. ENDOCRINE MANAGEMENT PROGRESS NOTE 10/26/2018 Day of stimulation: ARC,Cycle Day#10, US/E2/P4 Antag started 10/22. HMG2/IKP498/antag/Novare l/Freeze/TESE(with back up fresh TESE and Donor sperm). PGS? Murdock/Prince. NOTE: Embryology, please discuss with Dr. Murdock and patient prior to proceeding with PGS, please see specific notes in updated protocol. Thank you. UPDATE DR. ALVAREZ as approp. Comments: Fundal FIBROID seen 3x3 cm Indication: inf Approach: transvaginal Systems checklist: negative for uterine polyps, myomas, fluid in cavity, ovarian mass and f luid in cul-de-sac. Estradiol level: Lab Results Component Value Date ESTRADIOL 2,385 10/26/2018 Progesterone level: Lab Results Component Value Date PROG 1.15 10/26/2018 FOLLICLE EXAMINATION / ENDOMETRIAL THICKNESS Endometrial thickness: 11.2mm Grade: 3 LARGEST FOLLICLES (Measured in Millimeters) RIGHT OVARY VOLUME: LEFT OVARY VOLUME: 1 19 mean 1 18 mean 2 17 mean 2 17 mean 3 17 mean 3 17 mean 4 16 mean 4 14.5 mean 5 16 mean 5 mean 6 17 mean 6 mean 7 17 mean 7 mean 8 mean 8 mean 9 mean 9 mean 10 mean 10 mean Additional Follicles: Additional Follicles: Total Follicles: Total Follicles: Interpretation: Follicles mature. Possible uterine polyp. Large fundal fibroid. Plan: hCG tonight. RT Tues. TESE sperm. Fresh TESE & donor b/u. Possible PGT. I personally performed all components of this [...] + | [facility] COLLECTION | Routin | 10/26/2018 | Female infertility | | | VENOUS | e | 6:48 AM | | | | BLOOD,VENIPUNCTURE | | PDT | | | + [...]
--- OUTSIDE RECORDS SUMMARY | ~2020-04-19 | XMS | Encounter Summary ---
Demographics + + + | Address | [address] | | | [place] [address] | + + + | Home Phone | | + + + | Preferred Language | Unknown | + + + | Marital Status | | + + + | Amish Affiliation | CHR | + + + | Race | White | + + + | Ethnic Group | Not or | + + + Author + + + | Author | [facility] | + + + | Organization | [facility] | + + + | Address | Unknown | + + + | Phone | Unavailable | + + + Support + + +---------+ + | Name | Relationship | Address | Phone | + + +---------+ + | Nathaniel Henao | ECON | Unknown | | + + +---------+ + Care Team Providers + +------+ + | Care Wellness Instructor Name | Role | Phone | [...] Description | +--------+---------+ + + + | 11/27/ | Surgery | [facility] | Yuli Bettencourt MD | HYSTEROSCOPY WITH | | 2018 | | [facility] | [address] | ENDOMETRIAL BIOPSY | | | | and Healing Surgery | [address] [place], | | | | | [place] | [place] [address] | | | | | Desk Located on the | [phone] | | | | | 4th floor [address] | | | | | | [address] [place], | | | | | | [place] [address] | | | +--------+---------+ + + + [...] + + + | Blood Pressure | 118/100 | 11/27/2018 9:32 AM | | | | | PDT | | + + + + + | Pulse | 104 | 11/27/2018 9:32 AM | | | | | PDT | | + + + + + | Temperature | 37 C (98.6 F) | 11/27/2018 9:32 AM | | | | | PDT | | + + + + + | Respiratory Rate | 16 | 11/27/2018 9:32 AM | | | | | PDT | | + + + + + | Oxygen Saturation | 96% | 11/27/2018 9:32 AM | | | | | PDT [...] matter is urgent. The re is an sponge hooker staff member in the evenings and nights as well. Please reserve urgent mat ters only for evening and night calls. Please call the [facility] euclid operator at [phone] nigh and weekends and ask for the Gynecology resident sponge hooker. Follow Up Dr. Bettencourt will call you [...] | | 0 | | | | 8-yln-can-fish oil | mouth once daily. | | | | | | (FISH OIL) | | | | | | | 100-160-1,000 mg | | | | | | | oral capsule | | | | | | + + + +---------+ + + | | | | 0 | | | | 816-SPSP-ADXEL | | | | | | | [...] for moderate sedation for egg retrieval. Ms. Henoa has provided written consent for sedation with [...] was discharged alert and ambulatory. [facility]. Patient was discharged [...] block. The cervix was dilated to 17 vietnamese using Morgan dilators. A 6.25 mm 0 [...] | | | | | | Student Tarvis Mckinney | | | | | | MD Arabella - | | | | | | PathologistPathology, | | | | | | [facility] | | | | | | [facility] electronic | | | | | | [...] | | | | | | number [id number]. | | | | | | Uterus, [...] | + + + + + | [facility] | [address] | [place] [address] | | | PATHOLOGY | [address] [...] block. The cervix was dilated to 17 vietnamese using Morgan | | | dilators. A [...] block. The cervix was dilated to 17 vietnamese using Morgan | | | dilators. A [...] + + | [facility] | [address] | [place] [address] | | | OF CARE TESTS | [...] | | | + +--------+ + +------+------+ +---+---+ | | | +---+---+ + +-------+ +-------+---+ + | bupivacaine | Given | 11/28/19 | 10 mL | | Surgical | | (MARCAINE,SENSORCAINE) 0.25 % | | 19 9:12 | | | Site | | (2.5 mg/mL) injection | | AM PDT | | | | | INTRAPROCEDURE PRN, Starting Aline | | | | | | | 11/27/18 at 0912, Until Aline | | | | | | | 11/27/18 at 0929 | | | | | | + +-------+ +-------+---+ + + +---+ | | | + +---+ [...] PRN, 1 | | | dose, Starting [facility] 11/27/18 at | | | 0904, Until Aline 11/27/18 at 1736, | | | nausea/vomiting due to | | | dehydration | | + +---+ | | | + +---+ | naloxone (NARCAN) injection | | | intravenous, POSTPROCEDURE PRN, | | | Starting [facility] 11/27/18 at 0904, | | | Until [facility] 11/27/18 at 1736, | | | hypopnea | | + +---+ | | | + +---+ | promethazine (PHENERGAN) | | | injection 6.25-12.5 mg 6.25-12.5 | | | mg, intravenous, POSTPROCEDURE | | | PRN, 1 dose, Starting [facility] 11/27/18 | | | at 0904, Until [...]
--- OUTSIDE RECORDS SUMMARY | ~2020-04-19 | XMS | Encounter Summary ---
Demographics + + + | Address | [address] | | | [place] [address] | + + + | Home Phone [...] Providers + +------+ + | Care Chief Jailer Name | Role | Phone | + +------+ + | Parth Selbya CHIO | PCP | | + +------+ + Reason for Visit + +--------+ + | Reason | Onset | Comments | | | Date | | + +--------+ + | Medical Records | 11/15/ | | | Release | 2020 | | + +--------+ + Encounter Details +--------+ + + + + | Date | Type | Department | Care Team | Description | +--------+ + + + + | 11/15/ | Documentati | University | Yuli Murdock MD | Medical Records | | 2020 | on | Fertility | [address] | Release | | | | Consultants at [facility] | [address] [place], | | | | | [address] | [place] [address] | | | | | [facility] | [phone] | | | | | and Healing, | | | | | | Building | | | | | | Floor [place], [place] | | | | | | [address] | | | | | | [phone] | | | +--------+ + + + [...] Notes Telephone Encounter - Jero Lees - 11/16/2019 9:02 AM PDTFaxed [facility] genetic records to Dr. Marino's office per pt request documented in this encounter Plan of Treatment Not on filedocumented as of this encounter Visit Diagnoses Not on filedocumented in this encounter"
--- OUTSIDE RECORDS SUMMARY | ~2020-04-19 | XMS | Encounter Summary ---
Demographics + + + | Address | [address] | | | [place] [address] | + + + | Home Phone [...] Team Providers + +------+ + | Care Machinist/Machine Builder Name | Role | Phone | + +------+ + | Parth Selbya CHIO | PCP | | + +------+ + Reason for Visit + +--------+ + | Reason | Onset | Comments | | | Date | | + +--------+ + | Radiology Results | 09/10/ | | | | 2020 | | + +--------+ + Encounter Details +--------+ + + + + | Date | Type | Department | Care Team | Description | +--------+ + + + + | 09/10/ | Telephone | University | Yuli Murdock MD | Radiology Results | | 2020 | | Fertility | [address] | | | | | Consultants at [place] | [address] [place], | | | | | [address] | [place] [address] | | | | | [facility] | [phone] | | | | | and Healing, | | | | | | Building | | | | | | Floor [place], [place] | | | | | | [address] | | | | | | [phone] | | | +--------+ + + + [...] encounter Miscellaneous Notes Telephone Encounter - Simin Beauchamp, ADDI - 09/11/2019 1:42 PM PSTTC to patient. Available. R Rossi reviewed Dr. Murdock's review in full, and Scan results measuring 8w1d, S=D with FHR 164. Patient reports that she will be establishing care with her OB provider @ 10 weeks. She req uested to keep her appt with Dr. Murdock as is on 09/18/19 at 1:30 pm. Appt is kept as is. Patie nt encouraged to call if any worsening symptoms. No further concerns at this time. Per review with Dr. Murdock of patient's OB US on 09/10/2019: Ok, reassuring Ask her to establish OB care Repeat OB usn can be done locally next week? documented in this encou nter Plan of Treatment Not on filedocumented as of this encounter Visit Diagnoses Not on filedocumented in this encounter"
--- OUTSIDE RECORDS SUMMARY | ~2020-04-19 | XMS | Encounter Summary ---
Demographics + + + | Address | [address] | | | [place] [address] | + + + | Home Phone [...] Team Providers + +------+ + | Care Assistant Softball Coach Name | Role | Phone | + +------+ + | Kennedi Selby | PCP | | + +------+ + Encounter Details +--------+ + + + + | Date | Type | Department | Care Team | Description | +--------+ + + + + | 07/30/ | Hospital | Diagnostic Imaging | Maura Portillo MD | | | 2020 | Encounter | Services [address] | [address] | | | | | [address] | [place], [place] | | | | | [place], [place] | [address] | | | | | [address] | [phone] | | | | | | | [...] 1-4 patches to | 40 | | 06/29/20 | | | (VIVELLE-DOT) 0.1 | skin [...] | | 0 | | | | 2-oei-cef-fish oil | mouth once daily. | | | | | | (FISH OIL) | | | | | | | 100-160-1,000 mg | | | | | | | oral capsule | | | | | | + + + +---------+ + + | | | | 0 | | | | 310-JNXP-UDTMD | | | | | | | [...] + | [facility] PELVIS | Routin | 07/30/2019 | Encounter for | Results for this | | ULTRASOUND | e | 7:09 AM | assisted | procedure are in the | | | | PST | reproductive | results section. | | | | | fertility procedure | | | | | | cycle | | + +--------+ + + + documented in this encounter Results [facility] PELVIS ULTRASOUND (07/30/2019 7:09 AM PST) + + | Specimen | [...]
--- OUTSIDE RECORDS SUMMARY | ~2020-04-19 | XMS | Encounter Summary ---
Demographics + + + | Address | [address] | | | [place] [address] | + + + | Home Phone | | + + + | Preferred Language | Unknown | + + + | Marital Status | | + + + | Hindu Affiliation | CHR | + + + | Race | White | + + + | Ethnic Group | Not or | + + + Author + + + | Author | [facility] | + + + | Organization | [facility] | + + + | Address | Unknown | + + + | Phone | Unavailable | + + + Support + + +---------+ + | Name | Relationship | Address | Phone | + + +---------+ + | Nathaniel Henao | ECON | Unknown | | + + +---------+ + Care Team Providers + +------+ + | Care Medical Research Associate Name | Role | Phone | [...] | | | | | | | [place], [place] | | | | | | | [address] | | | | | | | Phone: | | | | | | | [phone] | | | | | | | Fax: | | | | | | | [phone] | + +--------+ + + + + Encounter Details +--------+ + + + + | Date | Type | Department | Care Team | Description | +--------+ + + + + | 09/15/ | Procedure | University | Yuli Murdock MD | Saline Infusion | | 2019 | | Fertility | [address] | Sonogram (SIS) | | | | [facility] at [facility] | [address] [place], | | | | | [address] | [place] [address] | | | | | [facility] | [phone] | | | | | and Healing, | | | | | | Building | | | | | | [place], [place] | | | | | | [address] | | | | | | [phone] | | | +--------+ + + + [...] encounter Progress Notes Yuli Murdock MD - 09/15/2018 2:45 PM PDTFormatting of this note might be different from vivi casiano. Name: Pushpa Lunsfordnc Date 09/15/2018 LMP: No LMP recorded. Screening Ultrasound: Approach: transvaginal Indication: IVF Basal Antral Follicles: Right ovary: , BAF count: 11 Left ovary: , BAF count: 9 SIS/Hysteroscopy: APARQ was done prior to the procedure. Using sterile techniques a catheter was introduced t hrough the cervix and advanced into the uterine cavity. Sterile saline was injected through the catheter to promote cavity distention. The findings are as follows: Small posterior wal l sessile polyp in mid-uterus, measuring 9x5mm Trial transfer Depth Position Catheter 7.4 av Soft Pass All instruments were then removed from the patient at the conclusion of the procedure. An examination of the cervix revealed good hemostasis. The patient tolerated the procedure well . Interpretation: Small endometrial polyp Good AFC Plan: Complete IVF screening this cycle Proceed w/ OCP starting next cycle Coordinate w/ Dr. Bush for possible fresh TESE Donor sperm back up I, Yuli Murdock MD, personally performed all components of this procedure. documented in this encoun ter Plan of Treatment Not on filedocumented as of this encounter Procedures + +--------+ + + + | Procedure Name | Priori | Date/Time | Associated Diagnosis | Comments | | | ty | | | | + +--------+ + + + | MS TRANSFER OF | Routin | 09/21/2018 | Encounter for | | | EMBRYO,INTRAUTERINE | e | 1:49 PM | assisted | | | | | [...] Diagnosis | + + | Fertility testing - Primary | + + | Female infertility Female infertility of unspecified origin | + + | Encounter for assisted reproductive fertility procedure cycle | + + documented in this encounter"
--- OUTSIDE RECORDS SUMMARY | ~2020-04-19 | XMS | Encounter Summary ---
Demographics + + + | Address | [address] | | | [place] [address] | + + + | Home Phone | | + + + | Preferred Language | Unknown | + + + | Marital Status | | + + + | Pentecostal Affiliation | CHR | + + + | Race | White | + + + | Ethnic Group | Not or | + + + Author + + + | Author | [facility] | + + + | Organization | [facility] | + + + | Address | Unknown | + + + | Phone | Unavailable | + + + Support + + +---------+ + | Name | Relationship | Address | Phone | + + +---------+ + | Nathaniel Henao | ECON | Unknown | | + + +---------+ + Care Team Providers + +------+ + | Care Hydrogeology Professor Name | Role | Phone | + +------+ + | Kennedi Selby | PCP | | + +------+ + Encounter Details +--------+ + + + + | Date | Type | Department | Care Team | Description | +--------+ + + + + | 05/27/ | Pharmacy | [facility] | | | | 2019 | Visit | & [facility] | | | | | | [address] | | | | | | Mailcode: [place] | | | | | | [facility] | | | | | | Healing, [address] | | | | | | [place], [place] | | | | | | [address] | | | | | | [phone] | | | +--------+ + + + [...]
--- OUTSIDE RECORDS SUMMARY | ~2020-04-19 | XMS | Encounter Summary ---
Demographics + + + | Address | [address] | | | [place] [address] | + + + | Home Phone | | + + + | Preferred Language | Unknown | + + + | Marital Status | | + + + | Mandaen Affiliation | CHR | + + + [...] Team Providers + +------+ + | Care Can Sealer Name | Role | Phone | + +------+ + | Kennedi Selby | PCP | | + +------+ + Encounter Details +--------+ + + + + | Date | Type | Department | Care Team | Description | +--------+ + + + + | 09/04/ | Hospital | Diagnostic Imaging | Yuli Murdock MD | | | 2020 | Encounter | [address] | | | | | [address] | [address] [place], | | | | | [place], [place] | [place] [address] | | | | | [address] | [phone] | | | | | | | [...] [place] | | | | | | fertility [...] | | | 22 gauge x 1 /2" | progesterone in oil. | | | [...] | | | 22 gauge x 1 /" | progesterone in oil. | | | [...] | | 0 | | | | 3-ovb-ofe-fish oil | mouth once daily. | | | | | | (FISH OIL) | | | | | | | 100-160-1,000 mg | | | | | | | oral capsule | | | | | | + + + +---------+ + + | | | | 0 | | | | 743-NDJI-OGTXM | | | | | | | [...] | + +--------+ + + + | [facility] OB ULTRASOUND | Routin | 09/04/2019 | | Results for this | | | e | 7:32 AM | examination or test, | procedure are in the | | | | PST | | results section. | | | | | unconfirmed | | + +--------+ + + + documented in this encounter Results [facility] OB ULTRASOUND (09/04/2019 7:32 AM PST) + [...]
--- OUTSIDE RECORDS SUMMARY | ~2020-04-19 | XMS | Encounter Summary ---
Demographics + + + | Address | [address] | | | [place] [address] | + + + | Home Phone [...] Phone | + + +---------+ + | aNthaniel Henao | ECON | Unknown | | + + +---------+ + Care Team Providers + +------+ + | Care Dental Services Director Name | Role | Phone | + +------+ + | Kennedi Selby | PCP | | + +------+ + Encounter Details +--------+ + + + + | Date | Type | Department | Care Team | Description | +--------+ + + + + | 10/29/ | Documentati | [place] | Yuli Murdock MD | | | 2019 | on | Fertility | [address] | | | | | Consultants at [facility] | [address] [place], | | | | | [address] | [place] [address] | | | | | [facility] | [phone] | | | | | and [address], | | | | | | | | | | | | [place], [place] | | | | | | [address] | | | | | | [phone] | | | +--------+ + + + [...]
--- OUTSIDE RECORDS SUMMARY | ~2020-04-19 | XMS | Encounter Summary ---
Demographics + + + | Address | [address] | | | [place] [address] | + + + | Home Phone | | + + + | Preferred Language | Unknown | + + + | Marital Status | | + + + | Faith Affiliation | CHR | + + + | Race | White | + + + | Ethnic Group | Not or | + + + Author + + + | Author | [facility] | + + + | Organization | [facility] | + + + | Address | Unknown | + + + | Phone | Unavailable | + + + Support + + +---------+ + | Name | Relationship | Address | Phone | + + +---------+ + | Nathaniel Henao | ECON | Unknown | | + + +---------+ + Care Team Providers + +------+ + | Care Airplane Pilot Commercial Name | Role | Phone | + +------+ + | Kennedi Selby | PCP | | + +------+ + Encounter Details +--------+ + + + + | Date | Type | Department | Care Team | Description | +--------+ + + + + | 05/27/ | Lab | LAB CORE [address] | | | | 2018 | Requisition | [address] | | | | | | [place], [place] | | | | | | [address] | | | | | | [phone] | | | +--------+ + + + [...] + +--------+ + + + | HIV RAPID, HIV-1/2 | Routin | 05/27/2019 | | Results for this | | AB, HIV-P24 | e | 3:19 PM | | procedure are in the | | AG,W/REFLEX | | PST | | results section. | | CONFIRMATION | | | | | | ED/OB/EHS ONLY | | | | | + +--------+ + + + | HEPATITIS B SURFACE | Routin | 05/27/2019 | | Results for this | | AG W/REFLEX IF | e | 3:19 PM | | procedure are in the | | INDICATED | | PST | | results section. | + +--------+ + + + | HEPATITIS C VIRUS | Routin | 05/27/2019 | | Results for this | | W/CONFIRMATION | e | 3:19 PM | | procedure are in the | | | | PST | | results section. | + +--------+ + + + documented in this encounter Results HIV RAPID, HIV-1/2 AB, HIV-P24 AG,W/REFLEX CONFIRMATION ED/OB/EHS ONLY (05/27/2019 3:19 PM PST) + + + + + + | Component | Value | Ref Range | Performed | Pathologist | | | | | At | Signature | + + + + + + | HIV P24 | Nonreactive | Nonreactive | [facility] | | | ANTIGEN | | | LABORATORY | | | | | | SERVICES, | | | | | | CORE | | + + + + + + | RAPID | Nonreactive | Nonreactive | [facility] | | | HIV-1/2 AB | | | LABORATORY | | | [...] [facility] | [address] | [place] [address] | | | SERVICES, CORE | [address] | | | + + + + + HEPATITIS B SURFACE AG W/REFLEX CONFIRMATION IF INDETERMINATE RESULTS (05/27/2019 3:19 PM PST) + + + + + [...] [facility] | [address] | [place] [address] | | | SERVICES, CORE | [address] | | | + + + + + HEPATITIS C VIRUS W/CONFIRMATION (05/27/2019 3:19 PM PST) + + + + + [...] + + + + + | [facility] | [address] | [place] [address] | | | SERVICES, CORE | [address] | | | + + + + + documented in this encounter Visit Diagnoses Not on filedocumented in this encounter"
--- OUTSIDE RECORDS SUMMARY | ~2020-04-19 | XMS | Encounter Summary ---
Demographics + + + | Address | [address] | | | [place] [address] | + + + | Home Phone [...] Team Providers + +------+ + | Care Handle Sewer Name | Role | Phone | + +------+ + | Kennedi Selby | PCP | | + +------+ + Encounter Details +--------+ + + + + | Date | Type | Department | Care Team | Description | +--------+ + + + + | 08/17/ | Telephone | [place] | Yuli Murdock MD | | | 2020 | | Fertility | [address] | | | | | Consultants at [facility] | [address]r [place], | | | | | [address] | [place] [address] | | | | | [facility] | [phone] | | | | | and [address], | | | | | | | | | | | | [place], [place] | | | | | | [address] | | | | | | [phone] | | | +--------+ + + + [...] Telephone Encounter - Seth Peck RN - 08/17/2019 4:19 PM PSTFormatting of this note demarcus ht be different from the original. Phone call to patient re: today's results. HCG BETA, PLASMA (mIU/mL) Date Value 08/17/19 635 Progesterone: 54 Per team review, pt is to continue progesterone and estrogen supplement and have repeat bh cg and TSH on 08/19. Questions answered. Appt scheduled. Will follow up at that time.Electron zoe signed by Seth Peck RN at 08/17/2019 5:32 PM PSTdocumented in this encounter Plan of Treatment + +------+--------+ + + | Name | Type | Priori | Associated Diagnoses | Order Schedule | | | | ty | | | + +------+--------+ + + | HCG BETA QUANT, | Lab | Routin | | Ordered: 08/17/2019 | | PLASMA | | e | examination or test, | | | | | | | | | | | | unconfirmed | | + +------+--------+ + + | TSH | Lab | Routin | Screening for | Expected: 08/17/2019 | | | | e | thyroid disorder | (Approximate), | | | | | | Expires: 09/14/2020 | + +------+--------+ + + documented as of this encounter Visit Diagnoses + + | Diagnosis | + + | examination or test, unconfirmed - Primary | + + | Screening for thyroid disorder | + + documented in this encounter"
--- OUTSIDE RECORDS SUMMARY | ~2020-04-19 | XMS | Encounter Summary ---
Demographics + + + | Address | [address] | | | [place] [address] | + + + | Home Phone [...] + + + | Author | [facility] | + + + | Organization | [facility] | + + + | Address | Unknown | + + + | Phone | Unavailable | + + + Support + + +---------+ + | Name | Relationship | Address | Phone | + + +---------+ + | Nathaniel Henao | ECON | Unknown | | + + +---------+ + Care Team Providers + +------+ + | Care Lawn Care Specialist Name | Role | Phone | [...] | | | | | | | [place], [place] | | | | | | | [address] | | | | | | | Phone: | | | | | | | [phone] | | | | | | | Fax: | | | | | | | [phone] | + +--------+ + + + + Encounter Details +--------+ + + + + | Date | Type | Department | Care Team | Description | +--------+ + + + + | 06/26/ | Procedure | University | Yuli Murdock MD | Saline Infusion | | 2019 | | Fertility | [address] | Sonogram (SIS) | | | | Consultants at [facility] | [address] [place], | | | | | [address] | [place] [address] | | | | | Center [facility] | [phone] | | | | | and Healing, | | | | | | Building | | | | | | Floor [place], [place] | | | | | | [address] | | | | | | [phone] | | | +--------+ + + + [...] + + + | Blood Pressure | 120/57 | 06/26/2019 2:11 PM | | | | | PST | | + + + + + | Pulse | 79 | 06/26/2019 2:11 PM | | | [...] + + + + | Weight | 65.3 kg (143 lb 14.4 | 06/26/2019 2:11 PM | | | | oz) | PST | | + + + + + | Height | 160 cm (5' 3") | 06/26/2019 2:11 PM | | | | | PST | | + + + + + | Body Mass Index | 25.49 | 06/26/2019 2:11 PM | | | | | PST | | + + + + + documented in this encounter Progress Notes Yuli Murdock MD - 06/26/2019 1:30 PM PSTName: Pushpa Henao Date 06/26/2019 LMP: No LMP recorded. Screening Ultrasound: Approach: transvaginal Indication: Ashermans syndrome Basal Antral Follicles: Right ovary: normal Left ovary:normal SIS/Hysteroscopy: APARQ was done prior to the procedure. Using sterile techniques a catheter was introduced t hrough the cervix and advanced into the uterine cavity. Sterile saline was injected through the catheter to promote cavity distention. The findings are as follows: No clear intrauterine synechiae noted, but poor distension despite significant pressure wit h saline infusion, concern for repeat adhesions given resistance All instruments were then removed from the patient at the conclusion of the procedure. An examination of the cervix revealed good hemostasis. The patient tolerated the procedure well . Interpretation: Asherman's syndrome Plan: Options for repeat HSC vs. Proceeding with FET, couple wishes to proceed with an embryo tra nsfer at this point given multiple available embryos. I, Yuli Murdock MD, personally performed all [...] SALINE INFUSION | Routin | 06/26/2019 | Asherman's | Results for this | | SONOGRAM [...] + | Diagnosis | + + | Asherman's syndrome - Primary Intrauterine synechiae | + + documented in this encounter
--- OUTSIDE RECORDS SUMMARY | ~2020-04-19 | XMS | Encounter Summary ---
Demographics + + + | Address | [address] | | | [place] [address] | + + + | Home Phone | | + + + | Preferred Language | Unknown | + + + | Marital Status | | + + + | Christian Affiliation | CHR | + + + [...] Team Providers + +------+ + | Care Jig Fitter Name | Role | Phone | + +------+ + | Kennedi Selby | PCP | | + +------+ + Encounter Details +--------+ + + + + | Date | Type | Department | Care Team | Description | +--------+ + + + + | 10/28/ | Pharmacy | [facility] | | | | 2019 | Visit | & [facility] | | | | | | [address] | | | | | | Mailcode: [place] | | | | | | [facility] | | | | | | Healing, [address] | | | | | | [place], [place] | | | | | | [address] | | | | | | [phone] | | | +--------+ + + + [...]
--- OUTSIDE RECORDS SUMMARY | ~2020-04-19 | XMS | Encounter Summary ---
Demographics + + + | Address | [address] | | | [place] [address] | + + + | Home Phone [...] Providers + +------+ + | Care Chief Steward/Stewardess Name | Role | Phone | + [...] | | | | | | | [place], [place] | | | | | | | [address] | | | | | | | Phone: | | | | | | | [phone] | | | | | | | Fax: | | | | | | | [phone] | + +--------+ + + + + Encounter Details +--------+ + + + + | Date | Type | Department | Care Team | Description | +--------+ + + + + | 07/30/ | Procedure | [facility] | Maura Portillo MD | Ultrasound Follicle | | 2020 | | Fertility | [address] | Exam | | | | Consultants at [facility] | [place], [place] | | | | | [address] | [address] | | | | | [facility] | [phone] | | | | | and Healing, | | | | | | [facility] | | | | | | Floor [place], [place] | | | | | | [address] | | | | | | [phone] | | | +--------+ + + + [...] documented as of this encounter Progress Notes Judie Tilley MA - 07/30/2019 11:15 AM PSTPatient is here today for a blood dr aw for Progesterone. Blood draw done per clinic physician's order. Venipuncture performed without difficulty. Site: Right antecubital. Patient tolerated proc edure well. Judie Childress MA - 07/30/2019 11:15 AM PST ENDOCRINE MANAGEMENT PROGRESS NOTE 07/30/2019 Day of stimulation: ARC,Repeat ENDO. US/P4. Pt doing 4 patches plus vaginal. Pt is schedule d for transfer on 08/06. if lining adequate, pt is to start POI on . Murdock/abby Comments: Indication: inf Approach: transvaginal Systems checklist: negative for uterine polyps, myomas, fluid in cavity, ovarian mass and f luid in cul-de-sac. Estradiol level: Lab Results Component Value Date ESTRADIOL 2,385 10/26/2018 Progesterone level: Lab Results Component Value Date PROG <0.5 07/30/2019 FOLLICLE EXAMINATION / ENDOMETRIAL THICKNESS Endometrial thickness: 9.2, 8.2, 7.9 Fibroid Grade: 3 LARGEST FOLLICLES (Measured in Millimeters) RIGHT OVARY VOLUME: suppressed LEFT OVARY VOLUME: suppressed 1 mean 1 mean 2 mean 2 mean 3 mean 3 mean 4 mean 4 mean 5 mean 5 mean 6 mean 6 mean 7 mean 7 mean 8 mean 8 mean 9 mean 9 mean 10 mean 10 mean Additional Follicles: Additional Follicles: Total Follicles: Total Follicles: Interpretation: Lining adequate. Ovaries supp bilat. Plan: OK to proceed w/ FET. I personally performed all components of this scan, Maura Portillo MD. documented in this encou nter Plan of Treatment Not on filedocumented as of this encounter Procedures + +--------+ + + + | Procedure Name | Priori | Date/Time | Associated Diagnosis | Comments | | | ty | | | | + +--------+ + + + | [facility] COLLECTION | Routin | 07/30/2019 | Fertility testing | | | VENOUS | e | 11:07 AM | | | | BLOOD,VENIPUNCTURE | | PST | | | + +--------+ + + + | PROGESTERONE, SERUM | Routin | 07/30/2019 | Fertility testing | Results for this | | - ANDROLOGY LAB | e | 11:04 AM | | procedure are in the [...] encounter Results PROGESTERONE, SERUM - ANDROLOGY LAB (07/30/2019 11:04 AM PST) + +-------+ + + + | Component | Value | Ref Range | Performed | Pathologist | | | | | At | Signature | + +-------+ + + + | PROGESTERON | <0.5 | ng/ml | [facility] | | | E, SERUM | | | OGY LAB | | | ([facility]) | | | | | + +-------+ + + + + + | Specimen | + + | Blood | + + + + + | Narrative | Performed At | + + + | Progesterone (ng/mL) Ovulatory Cycles Follicular Phase: | | | 0.057-0.893 Ovulation Phase: 0.121-12.0 Luteal Phase: | [facility] | | 1.83-23.9 Postmenopause: <0.05-0.126 | LAB | + + + + + + + + | Performing | Address | City/State/Zipcode | Phone Number | | Organization | | | | + + + + + | [facility] | [address] | [place] [address] | | | | Tenth Floor | | | + + + + + [facility] PELVIS ULTRASOUND (07/30/2019 7:09 AM PST) [...] testing - Primary | + + | Encounter for assisted reproductive fertility procedure cycle | + + | Female infertility Female infertility of unspecified origin | + + documented in this encounter"
--- OUTSIDE RECORDS SUMMARY | ~2020-04-19 | XMS | Encounter Summary ---
Demographics + + + | Address | [address] | | | [place] [address] | + + + | Home Phone | | + + + | Preferred Language | Unknown | + + + | Marital Status | | + + + | Rastafari Affiliation | CHR | + + + [...] Team Providers + +------+ + | Care Community Health Worker Name | Role | Phone | + +------+ + | Parth Selbya CHIO | PCP | | + +------+ + Reason for Visit + + + | Reason | Comments | + + + | Obstetric US Scan | | + + + Encounter Details +--------+ + + + + | Date | Type | Department | Care Team | Description | +--------+ + + + + | 02/14/ | Procedure | University | Yuli Murdock MD | Obstetric US Scan | | 2019 | | Fertility | [address] | | | | | Consultants at [facility] | [address] [place], | | | | | [address] | [place] [address] | | | | | [facility] | [phone] | | | | | and [address], | | | | | | Building | | | | | | Floor [place], [place] | | | | | | [address] | | | | | | [phone] | | | +--------+ + + + [...] encounter Progress Notes Yuli Murdock MD - 02/14/2019 9:30 AM PDTFormatting of this note might be different from vivi caisano. Obstetrical Ultrasound 02/14/2019 Indication: vaginal bleeding during early ET date: 01/23/19 LMP: No LMP recorded. Gestational Age: 5w6d EDC: 10/12/19 Patient with significant gush of bright red bleeding 2 days ago along with cramping. Contin ued to pass some clots over the course of the day. One smaller episode of bleeding yesterday , just spotting today. Blood Type: Lab Results Component Value Date ABO A 09/05/2018 Lab Results Component Value Date RH Positive 09/05/2018 Lab Results Component Value Date ABSCREEN Negative 09/05/2018 Approach: transvaginal Uterus: gravid Gestational Sac: absent Yolk Sac: absent pole absent Linin.6mm - heterogenous Left ovary/adnexa: normal Right ovary/adnexa: normal Interpretation: Spontaneous AB at 5 6/7 wks, thickened heterogenous endometrium IVF with transfer of single, euploid embryo Plan: Findings reviewed - condolences provided Discontinue progesterone & estrace Check bhcg, Prog level and TSH today Will follow bhcg down to negative range before additional investigations I, Yuli Murdock MD, personally performed all [...] | [facility] OB ULTRASOUND | Routin | 02/14/2019 | Supervision of | Results for this | | | e | 5:59 AM | with | procedure are in [...] + + + | Please run quantitative [facility] STAT, okay to run on serum. Fax urgent | [facility] | | results back to us at [phone]. ATTN: IVF Nurses. Thank you. | LABORATORY | | [...] | + + + + + | [facility] | [address] | [place] [address] | | | ANISHA NGUYEN | DONI [...] | | | REFERENCE RANGES | | [place] | | | | Follicular: Less than [...] + | [facility] | [address] | [place] [address] | | | [place] | | | [...] 5-6 weeks | | | 850 - 05772 6-7 weeks | | | 4000 - [id number] 7-12 weeks | | | 25143 - 183191 12-16 weeks | | | 77647 - 410397 16-29 weeks | | | 1400 - 18297 29-41 weeks | | | 940 - [phone] Please run quantitative | | | [facility] STAT, okay to run on serum. Fax urgent results back to us at | | | [phone]. ATTN: IVF Nurses. Thank you. This test has not been | | | approved for use as a tumor marker in males or females. | | + + + + + + + + | Performing | Address | City/State/Zipcode | Phone Number | | Organization | | | | + + + + + | [facility] | [address] | [place] [address] | | | SERVICES, CORE | [address] | | | + + + + + [facility] OB ULTRASOUND (02/14/2019 5:59 AM PDT) + + | Specimen | [...] | Diagnosis | + + | Miscarriage - Primary Unspecified spontaneous without mention of | | complication | + + | Supervision of with history of infertility with history of | | infertility | + + documented in this encounter"
--- OUTSIDE RECORDS SUMMARY | ~2020-04-19 | XMS | Encounter Summary ---
Demographics + + + | Address | [address] | | | [place] [address] | + + + | Home Phone [...] + +------+ + | Care Director Of Food And Nutrition Name | Role | Phone | + +------+ + | Kennedi Selby | PCP | | + +------+ + Encounter Details +--------+--------+ + + + | Date | Type | Department | Care Team | Description | +--------+--------+ + + + | 07/27/ | Travel | | | | | [...]
--- OUTSIDE RECORDS SUMMARY | ~2020-04-19 | XMS | Encounter Summary ---
Demographics + + + | Address | [address] | | | [place] [address] | + + + | Home Phone [...] Team Providers + +------+ + | Care Graphotype Operator Name | Role | Phone | + +------+ + | Kennedi Selby | PCP | | + +------+ + Encounter Details +--------+ + + + + | Date | Type | Department | Care Team | Description | +--------+ + + + + | 10/13/ | Pharmacy | [facility] | | | | 2019 | Visit | & [facility]acy | | | | | | [address] | | | | | | Mailcode: [place] | | | | | | [facility] and | | | | | | Healing, [address] | | | | | | [place], [place] | | | | | | [address] | | | | | | [phone] | | | +--------+ + + + [...]
--- OUTSIDE RECORDS SUMMARY | ~2020-04-19 | XMS | Encounter Summary ---
Demographics + + + | Address | [address] | | | [place] [address] | + + + | Home Phone [...] Team Providers + +------+ + | Care Sticker Hand Name | Role | Phone | + +------+ + | Kennedi Selby | PCP | | + +------+ + Encounter Details +--------+ + + + + | Date | Type | Department | Care Team | Description | +--------+ + + + + | 12/04/ | Pharmacy | [facility] | | | | 2019 | Visit | & [facility]acy | | | | | | [address] | | | | | | Mailcode: [place] | | | | | | [facility] | | | | | | Healing, [address] | | | | | | [place], [place] | | | | | | [address] | | | | | | [phone] | | | +--------+ + + + [...]
--- OUTSIDE RECORDS SUMMARY | ~2020-04-19 | XMS | Encounter Summary ---
Demographics + + + | Address | [address] | | | [place] [address] | + + + | Home Phone [...] Team Providers + +------+ + | Care Import Export Manager Name | Role | Phone | + +------+ + | Kennedi Selby | PCP | | + +------+ + Encounter Details +--------+ + + + + | Date | Type | Department | Care Team | Description | +--------+ + + + + | 10/22/ | Hospital | Diagnostic Imaging | Grady Antonio MD | | | 2019 | Encounter | Services [address] | | | | | [address] | [place], [place] | | | | | [place], [place] | [address] | | | | | [address] | [phone] | | | | | | | [...] + | [facility] PELVIS | Routin | 10/22/2018 | In [...]
--- OUTSIDE RECORDS SUMMARY | ~2020-04-19 | XMS | Encounter Summary ---
Demographics + + + | Address | [address] | | | [place] [address] | + + + | Home Phone [...] Team Providers + +------+ + | Care Engine Oiler Name | Role | Phone | + +------+ + | Kennedi Selby | PCP | | + +------+ + Encounter Details +--------+ + + + + | Date | Type | Department | Care Team | Description | +--------+ + + + + | 10/02/ | Pharmacy | [facility] | | | | 2019 | Visit | & [facility]aling Pharmacy | | | | | | [address] | | | | | | Mailcode: [place] | | | | | | [facility] and | | | | | | Healing, [address] | | | | | | [place], [place] | | | | | | [address] | | | | | | [phone] | | | +--------+ + + + [...]
--- OUTSIDE RECORDS SUMMARY | ~2020-04-19 | XMS | Encounter Summary ---
Demographics + + + | Address | [address] | | | [place] [address] | + + + | Home Phone | | + + + | Preferred Language | Unknown | + + + | Marital Status | | + + + | Rastafarian Affiliation | CHR | + + + | Race | White | + + + | Ethnic Group | Not or | + + + Author + + + | Author | [facility] | + + + | Organization | [facility] | + + + | Address | Unknown | + + + | Phone | Unavailable | + + + Support + + +---------+ + | Name | Relationship | Address | Phone | + + +---------+ + | Nathaniel Henao | ECON | Unknown | | + + +---------+ + Care Team Providers + +------+ + | Care Hand Collator Name | Role | Phone | + +------+ + | Kennedi Selby | PCP | | + +------+ + Encounter Details +--------+ + + + + | Date | Type | Department | Care Team | Description | +--------+ + + + + | 09/08/ | Telephone | [place] | Yuli Murdock MD | | | 2020 | | Fertility | [address] | | | | | Consultants at [facility] | [address] [place], | | | | | [address] | [place] [address] | | | | | [facility] | [phone] | | | | | and [address], | | | | | | | | | | | | Floor [place], [place] | | | | | | [address] | | | | | | [phone] | | | +--------+ + + + [...] Addendum Note - Seth Rocha RN - 09/09/2019 4:03 PM PST Addended by: SETH ROCHA RN on: 09/09/2019 04:03 PM Modules accepted: Orders elephone Encounter - Seth Rocha RN - 09/09/2019 4:01 PM PSTOB scan ordered and faxed. Pt to schedule at [facility]. Mock apt made. elephone Encounter - Seth Rocha RN - 09/09/2019 2:[address] Murdock ok to get reassur ance scan tomorrow or Saturday if she would like. Pt update via [place] and asked her to updat e me once she decides. do cumented in this encounter Plan of Treatment + +---------+--------+ + + | Name | Type | Priori | Associated Diagnoses | Order Schedule | | | | ty | | | + +---------+--------+ + + | US UTERUS | Imaging | Routin | | Expected: | | <14 WEEKS COMPLETE | | e | examination or test, | 09/10/2019, Expires: | | | | | | 10/09/2020 | | | | | unconfirmed | | + +---------+--------+ + + documented as of this encounter Visit Diagnoses + + | Diagnosis | + + | examination or test, unconfirmed - Primary | + + documented in this encounter"
--- OUTSIDE RECORDS SUMMARY | ~2020-04-19 | XMS | Encounter Summary ---
Demographics + + + | Address | [address] | | | [place] [address] | + + + | Home Phone [...] Team Providers + +------+ + | Care Bedspread Seamer Name | Role | Phone | + [...] + + + + | 11/27/ | Anesthesia | [facility] | Ganesh Thacker, | | | 2018 | Event | [facility] | [address] | | | | | and Healing Surgery | [address] | | | | | Center Admitting | [place], [place] | | | | | Desk Located on the | [address] | | | | | 4th floor [address] | [phone] | | | | | [address] [place], | | | | | | [place] [address] | | | +--------+ + + + + Anesthesia Record + + + + + | Procedure Name | Responsible | Anesthesia Start | Anesthesia Stop Time | | | Anesthesiologist | Time | | + + + + + | HYSTEROSCOPY WITH | Ganesh Thacker MD | 11/27/1847 | 11/27/18 0934 | | ENDOMETRIAL BIOPSY | | | | | (N/A ) | | | | + + + + + +----+---+ + + | Da | T | Event | Comment | | te | i | | | | | m | | | | | e | | | +----+---+ + + | 05 | 0 | | | | /2 | 7 | | | | 3/ | 2 | | | | 20 | 6 | | | | 19 | | | | +----+---+ + + | | 0 | Pt. Check | Prior to anesthesia start, pt. Identified, examined, chart | | | 7 | | reviewed, PARQ held, anesthetic plan made or approved by | | | 2 | | attending anesthesiologist. NPO status confirmed as appropriate | | | 6 | | for procedure Preoperative evaluation: unchanged | +----+---+ + + | | 0 | Eq Check | Anesthesia machine checked Equipment verified | | | 8 | | | | | 3 | | | | | 3 | | | +----+---+ + + | | 0 | An Start | | | | 8 | | | | | 4 | | | | | 7 | | | +----+---+ + + | | 0 | An Start | | | | 8 | Data | | | | 5 | | | | | 0 | | | +----+---+ + + | | 0 | Vitals | Monitors applied Vital signs checked Patient ready for anesthesia | | | 8 | Checked | | | | 5 | | | | | 5 | | | +----+---+ + + | | 0 | O2 by FM | | | | 8 | | | | | 5 | | | | | 6 | | | +----+---+ + + | | 0 | Ready | | | | 8 | | | | | 5 | | | | | 6 | | | +----+---+ + + | | 0 | Abx | | | | 9 | Administere | | | | 0 | d | | | | 0 | | | +----+---+ + + | | 0 | Timeout | | | | 9 | | | | | 0 | | | | | 6 | | | +----+---+ + + | | 0 | Incision | | | | 9 | | | | | 0 | | | | | 7 | | | +----+---+ + + | | 0 | Local | | | | 9 | Anesthetic | | | | 0 | by Surgeon | | | | 9 | | | +----+---+ + + | | 0 | Surgery end | | | | 9 | | | | | 2 | | | | | 4 | | | +----+---+ + + | | 0 | an stop | | | | 9 | data | | | | 2 | | | | | 7 | | | +----+---+ + + | | 0 | PACU Rpt | | | | 9 | Given | | | | 3 | | | | | 2 | | | +----+---+ + + | | 0 | Anesthesia | | | | 9 | End | | | | 3 | | | | | 4 | | | +----+---+ + + +------+ | Meds | +------+ + + + | Name | Total | + + + | ceFAZolin (ANCEF) injection 2 g | 2 g | + + + | midazolam | 2 mg | + + + | fentaNYL | 100 mcg | + + + | propofol (DIPRIVAN) 200 mg | 272,310 mcg | + + + | propofol | 20 mg | + + + | ondansetron | 4 mg | + + + | ketorolac | 30 mg | + + + | lactated ringers IV | 500 mL | + + + + + | Name | + + | O2 FR Avance (Total Liters) | + + | O2 Flow Rate [...] encounter [place] Notes Anesthesia Postprocedure Evaluation - Ganesh Thacker - 11/27/2018 10:28 AM PDT Pushpa Henao [id number] Vitals Value Taken Time BP 110/62 11/27/2018 10:27 AM Temp 36.7 C (98.1 F) 11/27/2018 10:27 AM Pulse 50 11/27/2018 10:27 AM Resp 14 11/27/2018 10:27 AM SpO2 100 % 11/27/2018 10:27 AM EVALUATION VS (BP, HR, RR, SpO2, and Temp) and hydration status are stable ROS including Cards, Resp, Neuro, and GI without evidence of adverse effects No PONV Pain controlled No altered mental status COMPLICATIONS No adverse events nesthesia Preprocedure [place] hunt - Ganesh Thacker - 11/27/2018 7:25 AM PDTShleona Henao [id number] NPO: Last Vitals Temp: 36.5 C (97.7 F) Heart Rate: 61 Resp: 16 BP: 103/62 SpO2: 98 % Preg Status/LMP ANESTHESIA PLAN ASA 1 NPO Status: NPO by protocol ANESTHETIC TECHNIQUE Technique Used: Monitored Anesthesia Care MONITORS/LINES TO BE USED Standard ANESTHETIC CONSIDERATIONS Scopolamine patch POSTOP PAIN IV analgesics BLOOD PRODUCTS None INFORMED CONSENT PARQ and risks/benefits of anesthetic plan discussed with Patient Additional Consent Issues: Procedures, Alternatives, Risks, and Questions discussed Dental Risk discussed with patient PATIENT'S CODE STATUS IN [place] FULL - full code COMMENTS PARQ MAC possible GA. Risks discussed N/V, oversedation, drug reaction, cardiorespiratory, . Questions elicited and answered. 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 conditions: inferti lity, fibroids and Other: endometrial [...] Devices: Implanted devices: None documented in this encounte r Plan of Treatment Not on filedocumented as of this encounter Visit Diagnoses Not on filedocumented in this encounter Administered Medications + +--------+ +------+------+------+ | Medication Order | MAR | Action | Dose | Rate | Site | | | Action | Date | | | | + +--------+ +------+------+------+ | ceFAZolin (ANCEF) injection 2 g | Given | 11/28/19 | 2 g | | | | 2 g, intravenous, PREPROCEDURE | | 19 9:00 | | | | | ONCE, 1 dose, Starting Aline | | AM PDT | | | | | 11/27/18 at 0710, Until Aline | | | | | | | 11/27/18 at 0900 | | | | | | + +--------+ +------+------+------+ +---+---+ | | | +---+---+ + +-------+ +--------+---+---+ | fentaNYL (SUBLIMAZE) injection | Given | 11/28/19 | 50 mcg | | | | INTRAPROCEDURE PRN, Starting Aline | | 19 9:09 | | | | | 11/27/18 at 0855, Until Aline | | AM PDT | | | | | 11/27/18 at 0927 | | | | | | + +-------+ +--------+---+---+ +-------+ +--------+---+---+ | Given | 11/28/19 | 50 mcg | | | | | 19 8:55 | | | | | | AM PDT | | | | +-------+ +--------+---+---+ +---+---+ | | | +---+---+ + +-------+ +-------+---+---+ | ketorolac (TORADOL) injection | Given | 11/28/19 | 30 mg | | | | INTRAPROCEDURE PRN, Starting Aline | | 19 9:23 | | | | | 11/27/18 at 0923, Until Aline | | AM PDT | | | | | 11/27/18 at 0927 | | | | | | + [...] PDT | | | | +---------+ +---+---+---+ +---+---+ | | | +---+---+ + +-------+ +------+---+---+ | midazolam (PF) (VERSED) | Given | 11/28/19 | 2 mg | | | | injection INTRAPROCEDURE PRN, | | 19 8:50 | | | | | Starting Aline 11/27/18 at 0850, | | AM PDT | | | | | Until Aline 11/27/18 at 09 | | | | | | + +-------+ +------+---+---+ +---+---+ | | | +---+---+ + +-------+ +------+---+---+ | ondansetron (ZOFRAN) injection | Given | 11/28/19 | 4 mg | | | | INTRAPROCEDURE PRN, Starting Aline | | 19 9:08 | | | | | 11/27/18 at 0908, Until Aline | | AM PDT | | | | | 11/27/18 at 09 | | | | | | + +-------+ +------+---+---+ +---+---+ | | | +---+---+ + +---------+ + +---+---+ | propofol (DIPRIVAN) 200 mg | New Bag | 11/28/19 | 150 | | | | INTRAPROCEDURE CONTINUOUS PRN, | | 19 8:55 | mcg/kg/m | | | | Starting Aline 11/27/18 at 0855, | | AM PDT | in | | | | Until Aline 11/27/18 at 926 | | | | | | + +---------+ + +---+---+ +---+---+ | | | +---+---+ + +-------+ +-------+---+---+ | propofol (DIPRIVAN) injection | Given | 11/28/19 | 20 mg | | | | INTRAPROCEDURE PRN, Starting Aline | | 19 8:57 | | | | | 11/27/18 at 0857, Until Aline | | AM PDT | | | | | 11/27/18 at 09 | | | | | | + +-------+ +-------+---+---+ +---+---+ | | | +---+---+ documented in this encounter"
--- OUTSIDE RECORDS SUMMARY | ~2020-04-19 | XMS | Encounter Summary ---
Demographics + + + | Address | [address] | | | [place] [address] | + + + | Home Phone | | + + + | Preferred Language | Unknown | + + + | Marital Status | | + + + | Baptist Affiliation | CHR | + + + | Race | White | + + + | Ethnic Group | Not or | + + + Author + + + | Author | [facility] | + + + | Organization | [facility] | + + + | Address | Unknown | + + + | Phone | Unavailable | + + + Support + + +---------+ + | Name | Relationship | Address | Phone | + + +---------+ + | Nathaniel Henao | ECON | Unknown | | + + +---------+ + Care Team Providers + +------+ + | Care Epic Cupid Analyst Name | Role | Phone | + +------+ + | Kennedi Selby | PCP | | + +------+ + Reason for Visit + +--------+ + | Reason | Onset | Comments | | | Date | | + +--------+ + | Lab findings, | 11/12/ | PGT-A (PGS) results | | teaching, guidance, | 2018 | | | and counseling | | | + +--------+ + Encounter Details +--------+ + + + + | Date | Type | Department | Care Team | Description | +--------+ + + + + | 11/12/ | Telephone | Fertility at [facility] | Shira Drew, | Lab findings, | | 2019 | | [address] | MS,CGC [address] | teaching, guidance, | | | | [facility] | [facility] | and counseling | | | | and Healing, | [place], [place] | (PGT-A (PGS) | | | | Building | [address] | results) | | | | [place], [place] | | | | | | [address] | | | | | | [phone] | | | +--------+ + + + [...] this encounter Miscellaneous Notes Telephone Encounter - Shira Drew MS,[facility] - 11/12/2018 3:54 PM PDTSpoke with Pushpa th is afternoon regarding PGT-A results. All 6 of the couple's embryos are predicted to be normal or euploid. Predicted chromosomal sex was not revealed by patient request. We reviewed our clinic specific data, regarding success rates for couples transfe rring 1 PGS-normal embryo. I reminded Pushpa that PGS is a screening tool and the misdiagno sis rate is ~2%. Due to the possibility of misdiagnosis with PGT-A, we recommend considerati on of diagnosis when PGT-A normal embryos are transferred. Pushpa's questions were answered to her apparent satisfaction and I encouraged her to reach out with any additional questions or concerns. The couple are already set up for a phone consult with Dr. Murdock on 11/17. Shira Drew MS, [facility] Certified Genetic Counselor [facility] documented in this encounter Plan of Treatment Not on filedocumented as of this encounter Visit Diagnoses Not on filedocumented in this encounter"
--- OUTSIDE RECORDS SUMMARY | ~2020-04-19 | XMS | Encounter Summary ---
Demographics + + + | Address | [address] | | | [place] [address] | + + + | Home Phone [...] Team Providers + +------+ + | Care Loan Specialist Name | Role | Phone | + +------+ + | Kennedi Selby | PCP | | + +------+ + Encounter Details +--------+ + + + + | Date | Type | Department | Care Team | Description | +--------+ + + + + | 02/14/ | Hospital | Diagnostic Imaging | Yuli Murdock MD | | | 2019 | Encounter | [address] | | | | | [address] | [address] [place], | | | | | [place], [place] | [place] [address] | | | | | [address] | [phone] | | | | | | | [...] | | 0 | | | | 8-hnz-cdy-fish oil | mouth once daily. | | | | | | (FISH OIL) | | | | | | | 100-160-1,000 mg | | | | | | | oral capsule | | | | | | + + + +---------+ + + | | | | 0 | | | | [id number] | | | | | | | [...] | + +--------+ + + + | [facility] ULTRASOUND | Routin | 02/14/2019 | Supervision of | Results for this | | | e | 5:59 AM | with | procedure are in the | | | | PDT | history of | results section. | | | | | infertility | | + +--------+ + + + documented in this encounter Results [facility] [place]TRAS[facility] (02/14/2019 5:59 AM PDT) + + [...]
--- OUTSIDE RECORDS SUMMARY | ~2020-04-19 | XMS | Encounter Summary ---
Demographics + + + | Address | [address] | | | [place] [address] | + + + | Home Phone [...] Team Providers + +------+ + | Care Coat Operator Name | Role | Phone | + +------+ + | Parth Selbya CHIO | PCP | | + +------+ + Reason for Visit + +--------+ + | Reason | Onset | Comments | | | Date | | + +--------+ + | Medical Records | 11/10/ | | | Release | 2020 | | + +--------+ + Encounter Details +--------+ + + + + | Date | Type | Department | Care Team | Description | +--------+ + + + + | 11/10/ | Documentati | University | Yuli Murdock MD | Medical Records | | 2020 | on | Fertility | [address] | Release | | | | Consultants at [facility] | [address] [place], | | | | | [address] | [place] [address] | | | | | [facility] | [phone] | | | | | and Healing, | | | | | | Building | | | | | | Floor [place], [place] | | | | | | [address] | | | | | | [phone] | | | +--------+ + + + [...] Notes Telephone Encounter - Jero Lees - 11/11/2019 10:36 AM PDTFaxed [facility] lab results records to [facility] per FREDDIE request documented in this encounter Plan of Treatment Not on filedocumented as of this encounter Visit Diagnoses Not on filedocumented in this encounter"
--- OUTSIDE RECORDS SUMMARY | ~2020-04-19 | XMS | Encounter Summary ---
Demographics + + + | Address | [address] | | | [place] [address] | + + + | Home Phone [...] Team Providers + +------+ + | Care Beauty Specialist Name | Role | Phone | + +------+ + | Kennedi Selby | PCP | | + +------+ + Encounter Details +--------+ + + + + | Date | Type | Department | Care Team | Description | +--------+ + + + + | 05/08/ | Hospital | Diagnostic Imaging | Benitez Barcenas MD | | | 2019 | Encounter | [address] | [address] | | | | | [address] | [place], [place] | | | | | [place], [place] | [address] | | | | | [address] | [phone] | | | | | | | [...] | | 0 | | | | 2-sym-esj-fish oil | mouth once daily. | | | | | | (FISH OIL) | | | | | | | 100-160-1,000 mg | | | | | | | oral capsule | | | | | | + + + +---------+ + + | | | | 0 | | | | [id number] | | | | | | | AC-DHA ORAL | | | | | | + + + +---------+ + + | progesterone 50 | Inject 2 mL into the | 40 mL | | // | | | mg/mL intramuscular | muscle [...] 19 | | | 18 x 1 07/09" | | | | | | | [...] | [facility] SALINE INFUSION | Routin | 05/08/2019 | Female infertility | Results for this | | SONOGRAM | e | 7:50 AM | | procedure are in the | | | | PDT | | results section. | + +--------+ + + + documented in this encounter Results [facility] SALINE INFUSION SONOGRAM (05/08/2019 7:50 AM PDT) [...] origin | + + documented in this encounter
--- OUTSIDE RECORDS SUMMARY | ~2020-04-19 | XMS | Encounter Summary ---
Demographics + + + | Address | [address] | | | [place] [address] | + + + | Home Phone | | + + + | Preferred Language | Unknown | + + + | Marital Status | | + + + | Orthodox Affiliation | CHR | + + [...] Team Providers + +------+ + | Care Environmental Services Worker Name | Role | Phone | + +------+ + | Kennedi Selby | PCP | | + +------+ + Encounter Details +--------+ + + + + | Date | Type | Department | Care Team | Description | +--------+ + + + + | 10/02/ | Pharmacy | Medication | | | | 2019 | Visit | Assistance Prgm | | | | | | [address] | | | | | [address] | | | | | | [place], [place] | | | | | | [address] | | | | | | [phone] | | | +--------+ + + + [...]
--- OUTSIDE RECORDS SUMMARY | ~2020-04-19 | XMS | Encounter Summary ---
Demographics + + + | Address | [address] | | | [place] [address] | + + + | Home Phone [...] Team Providers + +------+ + | Care Specialist Field Engineer Name | Role | Phone | + +------+ + | Kennedi Selby | PCP | | + +------+ + Encounter Details +--------+--------+ + + + | Date | Type | Department | Care Team | Description | +--------+--------+ + + + | 09/17/ | Travel | | | | | [...]
--- OUTSIDE RECORDS SUMMARY | ~2020-04-19 | XMS | Encounter Summary ---
Demographics + + + | Address | [address] | | | [place] [address] | + + + | Home Phone [...] Team Providers + +------+ + | Care General Distillery Worker Name | Role | Phone | + +------+ + | Kennedi Selby | PCP | | + +------+ + Encounter Details +--------+ + + + + | Date | Type | Department | Care Team | Description | +--------+ + + + + | 07/27/ | Hospital | Diagnostic Imaging | Grady Antonio MD | | | 2020 | Encounter | [address] | [address] | | | | | [address] | [place], [place] | | | | | [place], [place] | [address] | | | | | [address] | [phone] | | | | | | | [...] | | 0 | | | | 1-poh-ykz-fish oil | mouth once daily. | | | | | | (FISH OIL) | | | | | | | 100-160-1,000 mg | | | | | | | oral capsule | | | | | | + + + +---------+ + + | | | | 0 | | | | [id number] | | | | | | | [...] + | [facility] PELVIS | Routin | 07/27/2019 | Encounter for | Results for this | | ULTRASOUND | e | 6:05 AM | assisted | procedure are in the | | | | PST | reproductive | results section. | | | | | fertility procedure | | | | | | cycle | | + +--------+ + + + documented in this encounter Results [facility] PELVIS ULTRASOUND (07/27/2019 6:05 AM PST) + + | Specimen | [...]
--- OUTSIDE RECORDS SUMMARY | ~2020-04-19 | XMS | Encounter Summary ---
Demographics + + + | Address | [address] | | | [place] [address] | + + + | Home Phone [...] Team Providers + +------+ + | Care Computer Help Desk Representative Name | Role | Phone | + +------+ + | Parth Selbya CHIO | PCP | | + +------+ + Reason for Visit + +--------+ + | Reason | Onset | Comments | | | Date | | + +--------+ + | Medical Records | 09/24/ | | | Release | 2020 | | + +--------+ + Encounter Details +--------+ + + + + | Date | Type | Department | Care Team | Description | +--------+ + + + + | 09/24/ | Documentati | University | Yuli Murdock MD | Medical Records | | 2020 | on | Fertility | [address] | Release | | | | Consultants at [facility] | [address] [place], | | | | | [address] | [place] [address] | | | | | [facility] | [phone] | | | | | and Healing, | | | | | | Building | | | | | | Floor [place], [place] | | | | | | [address] | | | | | | [phone] | | | +--------+ + + + [...] Notes Telephone Encounter - Jero Lees - 09/25/2019 3:17 PM PDTFaxed [facility] records to [facility] per FREDDIE request documented in this encounter Plan of Treatment Not on filedocumented as of this encounter Visit Diagnoses Not on filedocumented in this encounter"
--- OUTSIDE RECORDS SUMMARY | ~2020-04-19 | XMS | Encounter Summary ---
Demographics + + + | Address | [address] | | | [place] [address] | + + + | Home Phone [...] Providers + +------+ + | Care Supervisor Cell Operation Name | Role | Phone | + +------+ + | Kennedi Selby | PCP | | + +------+ + Encounter Details +--------+ + + + + | Date | Type | Department | Care Team | Description | +--------+ + + + + | 11/27/ | Procedure | [facility] | | | | 2019 | Pass | [place] [facility] | | | | | | and Healing Surgery | | | | | | Center Admitting | | | | | | Desk Located on the | | | | | | 4th floor [address] | | | | | | [address] [place], | | | | | | [place] [address] | | | +--------+ + + + [...]
--- OUTSIDE RECORDS SUMMARY | ~2020-04-19 | XMS | Encounter Summary ---
Demographics + + + | Address | [address] | | | [place] [address] | + + + | Home Phone [...] + + + | Author | [facility] | + + + | Organization | [facility] | + + + | Address | Unknown | + + + | Phone | Unavailable | + + + Support + + +---------+ + | Name | Relationship | Address | Phone | + + +---------+ + | Nathaniel Henao | ECON | Unknown | | + + +---------+ + Care Team Providers + +------+ + | Care Reject Opener And Filler Name | Role | Phone | + +------+ + | Kennedi Selby | PCP | | + +------+ + Encounter Details +--------+ + + + + | Date | Type | Department | Care Team | Description | +--------+ + + + + | 10/10/ | MyChart | [place] | Yuli Murdock MD | RE: Donor | | 2019 | Encounter | Fertility | [address] | | | | | Consultants at [facility] | [address] [place], | | | | | [address] | [place] [address] | | | | | [facility] | [phone] | | | | | and Healing, | | | | | | | | | | | | [place], [place] | | | | | | [address] | | | | | | [phone] | | | +--------+ + + + [...]
--- OUTSIDE RECORDS SUMMARY | ~2020-04-19 | XMS | Encounter Summary ---
Demographics + + + | Address | [address] | | | [place] [address] | + + + | Home Phone [...] Team Providers + +------+ + | Care Buildings And Grounds Coordinator Name | Role | Phone | + +------+ + | Kennedi Selby | PCP | | + +------+ + Encounter Details +--------+------+ + + + | Date | Type | Department | Care Team | Description | +--------+------+ + + + | 09/17/ | Lab | Laboratory at [facility] | | Hypothyroidism, | | 2020 | | [address] | | unspecified type | | | | [facility] | | | | | | and Healing, | | | | | | [address] | | | | | | [place], [place] | | | | | | [address] | | | | | | [phone] | | | +--------+------+ + + + [...] + + | TSH | Routin | 09/18/2019 | Hypothyroidism, | Results for this | | | e | 1:32 PM | unspecified type | procedure are in the | | [...] + + + + + | [facility] | [address] | [place] [address] | | | SERVICES, CORE | [address] | | | + + + + + documented in this encounter Visit Diagnoses + + | Diagnosis | + + | Hypothyroidism, unspecified type | + + documented in this encounter"
--- OUTSIDE RECORDS SUMMARY | ~2020-04-19 | XMS | Encounter Summary ---
Demographics + + + | Address | [address] | | | [place] [address] | + + + | Home Phone [...] Team Providers + +------+ + | Care Door Repairer Bus Name | Role | Phone | + +------+ + | Parth Selbya CHIO | PCP | | + +------+ + Reason for Visit + +--------+ + | Reason | Onset | Comments | | | Date | | + +--------+ + | Telephone follow-up | 10/27/ | | | | 2019 | | + +--------+ + Encounter Details +--------+ + + + + | Date | Type | Department | Care Team | Description | +--------+ + + + + | 10/27/ | Telephone | [place] | Ylui Murdock MD | Telephone follow-up | | 2019 | | Fertility | [address] | | | | | [facility] | [address] [place], | | | | | [address] | [place] [address] | | | | | [facility] | [phone] | | | | | and Healing, | | | | | | Building | | | | | | [place], [place] | | | | | | [address] | | | | | | [phone] | | | +--------+ + + + [...] Telephone Encounter - Seth Peck RN - 10/27/2018 9:17 AM PDTPer communication with lilly king and Dr. Bush office, pt's is to come here today for a fresh TESE, tentative ly scheduled at 4pm. Per Dr. Bush office, does not need to be NPO. Advised they sh ould expect to hear more from Dr. Bush office a little later today. Instructed to call me back if they have not heard an update by noon today. She agreed. Confirmed pt and laurita robert currently staying in [place] so transportation/drive time is not an issue. documented in this encounter Plan of Treatment Not on filedocumented as of this encounter Visit Diagnoses Not on filedocumented in this encounter"
--- OUTSIDE RECORDS SUMMARY | ~2020-04-19 | XMS | Encounter Summary ---
Demographics + + + | Address | [address] | | | [place] [address] | + + + | Home Phone [...] + + | Author | [facility] | + + + | Organization | [facility] | + + + | Address | Unknown | + + + | Phone | Unavailable | + + + Support + + +---------+ + | Name | Relationship | Address | Phone | + + +---------+ + | Nathaniel Henao | ECON | Unknown | | + + +---------+ + Care Team Providers + +------+ + | Care Director Of Rotc Name | Role | Phone | + +------+ + | Bal Kennedi CHIO | PCP | | + +------+ + Reason for Visit + +--------+ + | Reason | Onset | Comments | | | Date | | + +--------+ + | Request For Records | 11/10/ | | | | 2020 | | + +--------+ + Encounter Details +--------+ + + + + | Date | Type | Department | Care Team | Description | +--------+ + + + + | 11/10/ | Telephone | [place] | Yuli Murdock MD | Request For Records | | 2020 | | Fertility | [address] | | | | | Consultants at [facility] | [address] [place], | | | | | [address] | [place] [address] | | | | | [facility] | [phone] | | | | | and Healing, | | | | | | Building | | | | | | Floor [place], [place] | | | | | | [address] | | | | | | [phone] | | | +--------+ + + + [...] encounter Miscellaneous Notes Telephone Encounter - Reji Carvalho - 11/12/2019 9:49 AM PDTPt calling with fax number for Dr. Marino's office. FAX [phone] signed by Reji Carvalho at 11/12/2019 9:50 AM PDTTelephone Eber hannah - Reji Carvalho - 11/11/2019 4:10 PM PDT Pt calling requesting records for genetic testing done in November 2018 Pt would like this sent to PCP Dr[facility] Marino in [facility], pt did not have fax number on hand, bu t will call back tomorrow with that information. Home Phone Work Phone documented in this encounte r Plan of Treatment Not on filedocumented as of this encounter Visit Diagnoses Not on filedocumented in this encounter"
--- OUTSIDE RECORDS SUMMARY | ~2020-04-19 | XMS | Encounter Summary ---
Demographics + + + | Address | [address] | | | [place] [address] | + + + | Home Phone [...] Providers + +------+ + | Care Rn Sane Name | Role | Phone | + [...] | | | | | | | [place], [place] | | | | | | | [address] | | | | | | | Phone: | | | | | | | [phone] | | | | | | | Fax: | | | | | | | [phone] | + +--------+ + + + + Encounter Details +--------+ + + + + | Date | Type | Department | Care Team | Description | +--------+ + + + + | 07/27/ | Procedure | University | Grady Antonio MD | Ultrasound Follicle | | 2020 | | Fertility | [address] | Exam | | | | Consultants at [facility] | [place], [place] | | | | | [address] | [address] | | | | | [place] [facility] | [phone] | | | | | and Healing, | | | | | | [facility] | | | | | | Floor [place], [place] | | | | | | [address] | | | | | | [phone] | | | +--------+ + + + [...] encounter Progress Notes Jb Wilson MA - 07/27/2019 9:10 AM PSTFormatting of this note might be different fro m the original. ENDOCRINE MANAGEMENT PROGRESS NOTE 07/27/2019 Day of stimulation: ARC, ENDO check/P4. Vivelle patch protoccol d5. CONSENTS have been reci eved. RUT/abby Comments: Indication: FET Approach: transvaginal Systems checklist: negative for uterine polyps, myomas, fluid in cavity, ovarian mass and f luid in cul-de-sac. Estradiol level: Lab Results Component Value Date ESTRADIOL 2,385 10/26/2018 Progesterone level: Lab Results Component Value Date PROG <0.5 07/27/2019 FOLLICLE EXAMINATION / ENDOMETRIAL THICKNESS Endometrial thickness: 7, 7.1, 7.6 GradeGrade: 3 LARGEST FOLLICLES (Measured in Millimeters) RIGHT OVARY VOLUME: LEFT OVARY VOLUME: 1 mean 1 mean 2 mean 2 mean 3 mean 3 mean 4 mean 4 mean 5 mean 5 mean 6 mean 6 mean 7 mean 7 mean 8 mean 8 mean 9 mean 9 mean 10 mean 10 mean Additional Follicles: Additional Follicles: Total Follicles: suppressed Total Follicles: suppressed Interpretation: thinner ES, hx of asherman's Plan: begin ay pv vaginal estrace RTC for repeat US on Saturday I, Grady Antonio MD, performed all aspects of this ultrasound. Patient is here today for a blood draw for Progesterone. Blood draw done per clinic [...] + | [facility] COLLECTION | Routin | 07/27/2019 | Encounter for | | | VENOUS | e | 6:05 AM | assisted | | | BLOOD,VENIPUNCTURE | | PST | reproductive | | | | | | fertility procedure | | | | | | cycle | | + +--------+ + + + documented in this encounter Results [facility] PELVIS ULTRASOUND (07/27/2019 6:05 AM PST) + [...]
--- OUTSIDE RECORDS SUMMARY | ~2020-04-19 | XMS | Encounter Summary ---
Demographics + + + | Address | [address] | | | [place] [address] | + + + | Home Phone [...] Team Providers + +------+ + | Care Social Secretary Name | Role | Phone | + +------+ + | Kennedi Selby | PCP | | + +------+ + Encounter Details +--------+ + + + + | Date | Type | Department | Care Team | Description | +--------+ + + + + | 10/02/ | Pharmacy | [facility] | | | | 2019 | Visit | [address] | | | | | | [facility] [address] | | | | | | [place] [address] | | | | | | [phone] | | | +--------+ + + + [...]
--- OUTSIDE RECORDS SUMMARY | ~2020-04-19 | XMS | Encounter Summary ---
Demographics + + + | Address | [address] | | | [place] [address] | + + + | Home Phone [...] Team Providers + +------+ + | Care Credit Counselor Name | Role | Phone | + +------+ + | Kennedi Selby | PCP | | + +------+ + Reason for Visit + +--------+ + | Reason | Onset | Comments | | | Date | | + +--------+ + | Instruction | 08/05/ | | | | 2020 | | + +--------+ + Encounter Details +--------+ + + + + | Date | Type | Department | Care Team | Description | +--------+ + + + + | 08/05/ | MyChart | [place] | Yuli Murdock MD | Frozen Embryo | | 2019 | Encounter | Fertility | [address] | Transfer | | | | Consultants at [facility] | [facility], | Instructions | | | | [address] | [place] [address] | | | | | [facility] | [phone] | | | | | and Healing, | | | | | | Building | | | | | | Floor [place], [place] | | | | | | [address] | | | | | | [phone] | | | +--------+ + + + [...] Telephone Encounter - Radha Marquis MA - 08/05/2019 2:04 PM Sari, FROZEN EMBRYO TRANSFER INSTRUCTIONS We have you scheduled on 08/06/2019 at 11:30am. Check in at the [facility] Clinic medical reception specialist desk at 11am. Please do the following on the day of your transfer: You may eat and drink normally the day of your transfer. We need you to have a full bladder to optimize your embryo transfer. At 9:30am please empty your bladder and begin drinking 20-24 ounces of water. Do not empty your bladder until after your transfer. We will have you rest in the exam room before you go home. Please plan to be resting (lying down or reclining) for the remainder of the day. You will be sent home with a post-transfer instruction sheet. Thank you. [facility] Web Address: [email or web address] documented in this enco unter Plan of Treatment Not on filedocumented as of this encounter Visit Diagnoses Not on filedocumented in this encounter"
--- OUTSIDE RECORDS SUMMARY | ~2020-04-19 | XMS | Encounter Summary ---
Demographics + + + | Address | [address] | | | [place] [address] | + + + | Home Phone | | + + + | Preferred Language | Unknown | + + + | Marital Status | | + + + | Denominational Affiliation | CHR | + + + | Race | White | + + + | Ethnic Group | Not or | + + + Author + + + | Author | [facility] | + + + | Organization | [facility] | + + + | Address | Unknown | + + + | Phone | Unavailable | + + + Support + + +---------+ + | Name | Relationship | Address | Phone | + + +---------+ + | Nathaniel Henao | ECON | Unknown | | + + +---------+ + Care Team Providers + +------+ + | Care Head Rose Grower Name | Role | Phone | + +------+ + | Kennedi Selby | PCP | | + +------+ + Encounter Details +--------+ + + + + | Date | Type | Department | Care Team | Description | +--------+ + + + + | 01/15/ | Hospital | Diagnostic Imaging | Maura Portillo MD | | | 2019 | Encounter | Services [address] | [address] | | | | | [address] | [place], [place] | | | | | [place], [place] | [address] | | | | | [address] | [phone] | | | | | | | [...] | | 0 | | | | 2-hkl-omi-fish oil | mouth once daily. | | | | | | (FISH OIL) | | | | | | | 100-160-1,000 mg | | | | | | | oral capsule | | | | | | + + + +---------+ + + | | | | 0 | | | | [id number] | | | | | | | [...]
--- OUTSIDE RECORDS SUMMARY | ~2020-04-19 | XMS | Encounter Summary ---
Demographics + + + | Address | [address] | | | [place] [address] | + + + | Home Phone [...] Team Providers + +------+ + | Care Soil Scientist Name | Role | Phone | + +------+ + | Kennedi Selby | PCP | | + +------+ + Reason for Visit Consultation (Routine) + +--------+ + + + [...] | | | | menstrual | [address] | [address] | | | | | cycle | [facility] | [facility] | | | | | Procedures | Rd | Rd [place], | | | | | CONSULT TO | [place], [place] | [place] | | | | | [facility] | [address] | [address] | | | | | FOR WOMEN'S | Phone: | Phone: | | | | | HEALTH | [phone] | [phone] | | | | | | Fax: | Fax: | | | | | | [phone] | [phone] | + +--------+ + + + + Encounter Details +--------+---------+ + + + | Date | Type | Department | Care Team | Description | +--------+---------+ + + + | 09/29/ | Office | [facility] | Sara Dodd, | General counseling | | 2019 | Visit | [facility] at [facility] [address] | PhD [address] | and advice on | | | | [facility] | [address] | procreative | | | | for Health and | [place], [place] | management (Primary | | | | Healing, Building [address] | [address] | Dx) | | | | [place], [place] | [phone] | | | | | [address] | | | | | | [phone] | | | +--------+---------+ + + + [...] documented as of this encounter Progress Notes Sara Dodd, PhD - 09/29/2018 3:00 PM [facility] Psychological Consul tation Intended Parent(s): Pushpa Henao and her , Nathaniel Barrow may be proceeding with donor sperm IVF. 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 He will undergo a another TESE on the day of Pushpa's egg retrieval. It has been recommended that Pushpa and Nathaniel have donor sperm available as back up. They are in the process of an open d onor from the [employer] [facility]. Nathaniel briefly discussed the emotional toll that infertility has had on him over the past year. He began taking celexa (prescribed by PCP) to help manag e depressive symptoms. Nathaniel reported ongoing improvements in his mood. No suicidal ideation. Pushpa feels emotionally ready to begin the IVF process. The following topics were covered: 1) Coping with grief and loss 2) Readiness to begin family building through third alliance party reproduction 3) Directed versus anonymous donation 4) Open vs. closed donors 5) Decisions regarding cryopreservation (if applicable) 6) Bonding and attachment between parent and child 7) Research regarding the disclosure of the use of donor to donor-conceived children 8) Explaining donor conception with children's emotional and intellectual developmental st age in mind 9) Future issues and changes that may arise in the field of infertility 10) The benefits and drawbacks of parenting at an advanced age 11) Stress management and coping skills 12) Resources for support I spent 60 minutes with the pt of which 100% of the time was spent discussing the psycholog ical aspects of third-alliance party reproduction. SARA DODD, PhD [facility] [address] [place] [address] documented in this e ncounter Plan of Treatment Not on filedocumented as of this encounter Visit Diagnoses + + | Diagnosis | + + | General counseling and advice on procreative management - Primary Other procreative | | management counseling and advice | + + documented in this encounter"
--- OUTSIDE RECORDS SUMMARY | ~2020-04-19 | XMS | Encounter Summary ---
Demographics + + + | Address | [address] | | | [place] [address] | + + + | Home Phone [...] Team Providers + +------+ + | Care Filer Repairer Name | Role | Phone | + +------+ + | Parth Selbya CHIO | PCP | | + +------+ + Reason for Visit + +--------+ + | Reason | Onset | Comments | | | Date | | + +--------+ + | Telephone follow-up | 10/29/ | | | | 2019 | | + +--------+ + Encounter Details +--------+ + + + + | Date | Type | Department | Care Team | Description | +--------+ + + + + | 10/29/ | Telephone | [place] | Yuli Murdock MD | Telephone follow-up | | 2019 | | Fertility | [address] | | | | | Consultants at [facility] | [address] [place], | | | | | [address] | [place] [address] | | | | | [facility] | [phone] | | | | | and Healing, | | | | | | Building | | | | | | [place], [place] | | | | | | [address] | | | | | | [phone] | | | +--------+ + + + [...] Addendum Note - Seth Rocha RN - 11/24/2018 8:26 AM PDT Addended by: SETH ROCHA RN on: 11/24/2018 08:26 AM Modules accepted: Orders elephone Encounter - Seth Rocha RN - 10/29/2018 2:32 PM PDTCalled to patient to follow up from retrieval proc edure performed on 10/28. Today is post procedure day 1. Pain level 1-2/10, denies bloating, denies weight gain, denies nausea and vomiting, denies SOB. Other complaints; none. Confirmed pt is wanting to proceed with PGS. Updated notes and informed MD and embryology. Pt was scheduled for TC follow up with Dr. Murdock. Advised she will get a day 5 and 6 call regarding the embryos. Initial fert report provided. Pt notified that all eggs inseminated with donor sperm and sh e has 10 in culture. She was notified that embryology did not find any motile sperm on fresh TESE. Pt disappointed but verbalized understanding and appreciative of the effort. Discussed the option of reaching out to [facility] if needed for further advisement/cousel on use of third democrat. Pt will confer with partner and let us know if they are interested. Pt planning hysteroscopy prior to FET. Routed MD for more information regarding possible ti meline/surgery date. documented in this encou nter Plan of Treatment Not on filedocumented as of this encounter Visit Diagnoses Not on filedocumented in this encounter"
--- OUTSIDE RECORDS SUMMARY | ~2020-04-19 | XMS | Encounter Summary ---
Demographics + + + | Address | [address] | | | [place] [address] | + + + | Home Phone [...] Team Providers + +------+ + | Care Editorial Project Manager Name | Role | Phone | + +------+ + | Parth Selbya CHIO | PCP | | + +------+ + Reason for Visit + +--------+ + | Reason | Onset | Comments | | | Date | | + +--------+ + | Medication Question | 09/04/ | | | | 2020 | | + +--------+ + Encounter Details +--------+ + + + + | Date | Type | Department | Care Team | Description | +--------+ + + + + | 09/04/ | Telephone | [place] | Yuli Murdock MD | Medication Question | | 2020 | | Fertility | [address] | | | | | Consultants at [facility] | [address] [place], | | | | | [address] | [place] [address] | | | | | [facility] | [phone] | | | | | and Healing, | | | | | | Building | | | | | | Floor [place], [place] | | | | | | [address] | | | | | | [phone] | | | +--------+ + + + [...] Miscellaneous Notes Telephone Encounter - Simin Beauchamp, RN - 09/04/2019 6:02 PM PSTFormatting of this note demarcus ht be different from the original. TC to patient. Available. Patient advised to switch to TID PO Estrace 2 mg oral tablets. Rx sent to [facility] per patient's preference. Orders Placed This Encounter estradioL 2 mg oral tablet Per - Repeat OB Scan in ~2 weeks, she can do in [place] or with Dr. Murdock either 09/16 or 09/17. Offered this to patient, she preferred to see Dr. Murdock. She was unable to make available AM a ppointments so she is scheduled for 09/18/19 at 1:[address] Murdock. She is aware that due t o daily meeting Dr. Murdock may be running slightly late. Patient is okay with this. No further c oncerns at this time. el ephone Encounter - Isaiah Nicole - 09/04/2019 4:14 PM PST Pt calling because she is still unsure of medication instructions and which medications to take. Pt would like a call back to go over instructions. Pt is to stop E2 patches and now to go to E2 pills 3x a day. Pt would like to know if she i s supposed to take 2mg or 3mg. She would also like a new rx sent over to [id number] - [place], [place] [phone] [place] [address] Home Phone Work Phone elephone Encounter - Ayden Eisenberg - 09/04/2019 12:50 PM PSTFormatting of this note might be different from the o riginal. Pt presented at supervisor front after her appointment wanting to find out dosages on medications . Pt stated she was taking progesterone and estrogen patches but isn't sure about what curre ntly she is to do. Requesting call back this afternoon. Home Phone Work Phone documented in this encount er Plan of Treatment Not on filedocumented as of this encounter Visit Diagnoses Not on filedocumented in this encounter"
--- OUTSIDE RECORDS SUMMARY | ~2020-04-19 | XMS | Encounter Summary ---
Demographics + + + | Address | [address] | | | [place] [address] | + + + | Home Phone [...] Team Providers + +------+ + | Care Scoring Machine Operator Name | Role | Phone | + +------+ + | Kennedi Selby | PCP | | + +------+ + Reason for Referral Consult to [place] (Routine) +--------+--------+ + + + + | Status | Reason | Specialty | Diagnoses / | Referred By | Referred To | | | | | Procedures | Contact | Contact | +--------+--------+ + + + + | Closed | | Reproductive | Diagnoses | Yuli Murdock | [facility] | | | | Endocrinology | Endometrial | [address] | Feralisha [address] | | | | /Infertility | polyp | [address] | [address] | | | | | Dysmenorrhea | [facility] | [facility] | | | | | Procedures | Rd | for Health | | | | | REQUEST TO | [place], [place] | and Healing, | | | | | SURGERY | [address] | [address], | | | | | SET UP MECHANIC | Phone: | 10th Floor | | | | | [place] | [phone] | [place], [place] | | | | | HYSTEROSCOPY | Fax: | [address] | | | | | ,NANCY TROTTER | [phone] | Phone: | | | | | | | [phone] | | | | | | | Fax: | | | | | | | [phone] | +--------+--------+ + + + + Encounter Details +--------+ + + + + | Date | Type | Department | Care Team | Description | +--------+ + + + + | 10/30/ | Clinical Partner | University | Yuli Murdock MD | Endometrial polyp | | 2019 | | Fertility | [address] | (Primary Dx); | | | | Consultants at [facility] | [address] [place], | Dysmenorrhea | | | | [address] | [place] [address] | | | | | [place] for [facility] | [phone] | | | | | and Healing, | | | | | | | | | | | | Floor [place], [place] | | | | | | [address] | | | | | | [phone] | | | +--------+ + + + [...] + + | Dysmenorrhea | + + documented in this encounter"
--- OUTSIDE RECORDS SUMMARY | ~2020-04-19 | XMS | Encounter Summary ---
Demographics + + + | Address | [address] | | | [place] [address] | + + + | Home Phone | | + + + | Preferred Language | Unknown | + + + | Marital Status | | + + + | Gnosticist Affiliation | CHR | + + + [...] Team Providers + +------+ + | Care Garage Hand Name | Role | Phone | + +------+ + | Parth Selbya CHIO | PCP | | + +------+ + Encounter Details +--------+ + + + + | Date | Type | Department | Care Team | Description | +--------+ + + + + | 04/21/ | Outside | UNKNOWN DEPARTMENT | Other, Faculty | | | 2019 | Records | [address] [address] | [phone] | | | | | [address] | | | | | | [place], [place] | | | | | | [address] | | | +--------+ + + + [...] + | OUTSIDE RADIOLOGY - | | 04/21/2019 | | Results for this | | ULTRASOUND | | 12:00 AM | | procedure are in the | | | | PDT | | results section. | + +--------+ + + + documented in this encounter Results OUTSIDE RADIOLOGY - ULTRASOUND (04/21/2019 12:00 AM PDT) + + + | Narrative | Performed At | + + + | | | + + + documented in this encounter Visit Diagnoses Not on filedocumented in this encounter"
--- OUTSIDE RECORDS SUMMARY | ~2020-04-19 | XMS | Encounter Summary ---
Demographics + + + | Address | [address] | | | [place] [address] | + + + | Home Phone | | + + + | Preferred Language | Unknown | + + + | Marital Status | | + + + | Latter-Day Affiliation | CHR | + + + | Race | White | + + + | Ethnic Group | Not or | + + + Author + + + | Author | [facility] | + + + | Organization | [facility] | + + + | Address | Unknown | + + + | Phone | Unavailable | + + + Support + + +---------+ + | Name | Relationship | Address | Phone | + + +---------+ + | Nathaniel Henao | ECON | Unknown | | + + +---------+ + Care Team Providers + +------+ + | Care Hog Driver Name | Role | Phone | + +------+ + | Parth Selbya CHIO | PCP | | + +------+ + Reason for Visit + +--------+ + | Reason | Onset | Comments | | | Date | | + +--------+ + | Telephone follow-up | 10/22/ | | | | 2019 | | + +--------+ + Encounter Details +--------+ + + + + | Date | Type | Department | Care Team | Description | +--------+ + + + + | 10/22/ | Telephone | [place] | Yuli Murdock MD | Telephone follow-up | | 2019 | | Fertility | [address] | | | | | Consultants at [facility] | [address] [place], | | | | | [address] | [place] [address] | | | | | [facility] | [phone] | | | | | and Healing, | | | | | | Building | | | | | | [place], [place] | | | | | | [address] | | | | | | [phone] | | | +--------+ + + + [...] Telephone Encounter - Seth Peck RN - 10/22/2018 2:10 PM PDTFormatting of this note demarcus ht be different from the original. Phone call to patient re: today's results. Lab Results Component Value Date ESTRADIOL 657 10/22/2018 Per team review, pt is to continue Menopur 2 powder vial(s) in the morning and continue Fol listim 150iu's in the evening. Antag started today. She is to return to clinic in 2 days. C onsents have been received. Appt scheduled. Questions answered. Estradiol and progesterone o rdered per physician order. documented in this encou nter Plan of Treatment Not on filedocumented as of this encounter Procedures + +--------+ + + + | Procedure Name | Priori | Date/Time | Associated Diagnosis | Comments | | | ty | | | | + +--------+ + + + | PROGESTERONE, SERUM | Routin | 10/24/2018 | Encounter for | Results for this | | - ANDROLOGY LAB | e | | assisted | procedure are in the | | | | | reproductive | results section. | | | | | fertility procedure | | | | | | cycle | | + +--------+ + + + | ESTRADIOL, SERUM - | Routin | 10/24/2018 | Encounter for | Results for this | | ANDROLOGY LAB | e | | assisted | procedure are in the | | | | | reproductive | results section. | | | | | fertility procedure | | | | | | cycle | | + +--------+ + + + documented in this encounter Results PROGESTERONE, SERUM - ANDROLOGY LAB (10/24/2018) + +-------+ + + + | Component | Value | Ref Range | Performed | Pathologist | | | | | At | Signature | + +-------+ + + + | PROGESTERON | <1.0 | ng/ml | [facility] | | | [...] [facility] | [address], | [place] [address] | | | | Tenth Floor | | | + + + + + ESTRADIOL, SERUM - ANDROLOGY LAB (10/24/2018) + +-------+ + + + | Component | Value | Ref Range | Performed | Pathologist | | | | | At | Signature | + +-------+ + + + | ESTRADIOL, | 948 | pg/ml | [facility] | | | [...] | + + + + + | [facility] | [address] | [place] [address] | | | | Tenth Floor | | | + + + + + documented in this encounter Visit Diagnoses + + | Diagnosis | + + | Encounter for assisted reproductive fertility procedure cycle - Primary | + + documented in this encounter"
--- OUTSIDE RECORDS SUMMARY | ~2020-04-19 | XMS | Encounter Summary ---
Demographics + + + | Address | [address] | | | [place] [address] | + + + | Home Phone [...] Team Providers + +------+ + | Care Boom Man Name | Role | Phone | + +------+ + | Kennedi Selby | PCP | | + +------+ + Encounter Details +--------+ + + + + | Date | Type | Department | Care Team | Description | +--------+ + + + + | 09/16/ | Telephone | [place] | Yuli Murdock MD | | | 2019 | | Fertility | [address] | | | | | Consultants at [facility] | [address] [place], | | | | | [address] | [place] [address] | | | | | [facility] | [phone] | | | | | and [address], | | | | | | | | | | | | Floor [place], [place] | | | | | | [address] | | | | | | [phone] | | | +--------+ + + + [...] Telephone Encounter - Seth Peck RN - 09/17/2019 5:16 PM PDTPt called and offered an op tion to have scan locally. Pt declined and states she would like to keep apt here tomorrow. Apt time changed to noon per MD request. Electronically signed by Seth Peck RN at 020 5:29 PM PDTdocumented in this encounter Plan of Treatment Not on filedocumented as of this encounter Visit Diagnoses Not on filedocumented in this encounter"
--- OUTSIDE RECORDS SUMMARY | ~2020-04-19 | XMS | Encounter Summary ---
Demographics + + + | Address | [address] | | | [place] [address] | + + + | Home Phone [...] Author | [facility] | + + + | Organization | [facility] | + + + | Address | Unknown | + + + | Phone | Unavailable | + + + Support + + +---------+ + | Name | Relationship | Address | Phone | + + +---------+ + | Nathaniel Henao | ECON | Unknown | | + + +---------+ + Care Team Providers + +------+ + | Care Mastic Worker Name | Role | Phone | + +------+ + | Kennedi Selby | PCP | | + +------+ + Encounter Details +--------+ + + + + | Date | Type | Department | Care Team | Description | +--------+ + + + + | 06/29/ | Telephone | [place] | Yuli Murdock MD | | | 2019 | | Fertility | [address] | | | | | Consultants at [facility] | [address] [place], | | | | | [address] | [place] [address] | | | | | [facility] | [phone] | | | | | and [address], | | | | | | | | | | | | [place], [place] | | | | | | [address] | | | | | | [phone] | | | +--------+ + + + [...] Addendum Note - Seth Rocha RN - 07/22/2019 8:26 AM PST Addended by: SETH ROCHA RN on: 07/22/2019 08:26 AM Modules accepted: Orders ddendum Note - Seth Rocha RN - 06/29/2019 4:37 PM PST Addended by: SETH ROCHA RN on: 06/29/2019 04:37 PM Modules accepted: Orders, SmartSet ddendum Note - Seth Rocha RN - 06/29/2019 1:47 PM PST Addended by: SETH ROCHA RN on: 06/29/2019 01:47 PM Modules accepted: Orders elephone Encounter - Seth Rocha RN - 06/29/2019 1:08 PM PSTMapout completed. Call placed to patient and instr ucted reviewed in detail. Questions answered. Electronically signed by Seth Rocha RN at 1:47 PM PSTAddendum Note - Seth Rocha RN - 06/29/2019 12:30 PM PST Addended by: SETH ROCHA RN on: 06/29/2019 12:30 PM Modules accepted: Orders elephone Encounter - Seth Rocha RN - 06/29/2019 11:30 AM PSTCall to patient to complete mapout. No answer. Mayte CHU with request for return call. 11 :37 AM PSTdocumented in this encounter Plan of Treatment Not on filedocumented as of this encounter Procedures + +--------+ + + + | Procedure Name | Priori | Date/Time | Associated Diagnosis | Comments | | | ty | | | | + +--------+ + + + | PROGESTERONE, SERUM | Routin | 07/27/2019 | Encounter for | Results for this | | - ANDROLOGY LAB | e | 9:15 AM | assisted | procedure are in the | | | | PST | reproductive | results section. | | | | | fertility procedure | | | | | | cycle | | + +--------+ + + + documented in this encounter Results PROGESTERONE, SERUM - ANDROLOGY LAB (07/27/2019 9:15 AM PST) + +-------+ + + + [...] | + + + + + | [facility] | [address], | [place] [address] | | | | Tenth Floor | | | + + + + + documented in this encounter Visit Diagnoses + + | Diagnosis | + + | Encounter for assisted reproductive fertility procedure cycle - Primary | + + documented in this encounter"
--- OUTSIDE RECORDS SUMMARY | ~2020-04-19 | XMS | Encounter Summary ---
Demographics + + + | Address | [address] | | | [place] [address] | + + + | Home Phone [...] Team Providers + +------+ + | Care Oil Field Operator Name | Role | Phone | + +------+ + | Kennedi Selby | PCP | | + +------+ + Encounter Details +--------+------+ + + + | Date | Type | Department | Care Team | Description | +--------+------+ + + + | 05/08/ | Lab | Laboratory at [facility] | | Screening for | | 2019 | | [address] | | thyroid disorder; | | | | [facility] | | Encounter for | | | | and Healing, | | vitamin deficiency | | | | [address] | | screening | | | | [place], [place] | | | | | | [address] | | | | | | [phone] | | | +--------+------+ + + + [...] + | VITAMIN D, | Routin | 05/08/2019 | Encounter for | Results for this | | 25-HYDROXY, SERUM | e | 4:42 PM | vitamin deficiency | procedure are in the | | | | PDT | screening | results section. | + +--------+ + + + | TSH | Routin | 05/08/2019 | Screening for | Results for this | | | e | 4:42 PM | thyroid disorder | procedure are in the | | | | PDT | | results section. | + +--------+ + + + documented in this encounter Results VITAMIN D, 25-HYDROXY, SERUM [...] [facility] | [address] | [place] [address] | | | SERVICES, CORE | [address] | | | + + + + + TSH (05/08/2019 4:42 PM PDT) + +-------+ + + + | Component | Value | Ref Range | Performed | Pathologist | | | | | At | Signature | + +-------+ + + + | TSH | 2.15 | 0.39 - 4.17 | [facility] | | | | | [facility] | LABORATORY | | | | | [...] | + + + + + | [facility] | [address] | [place] [address] | | | SERVICES, CORE | [address] | | | + + + + + documented in this encounter Visit Diagnoses + + | Diagnosis | + + | Screening for thyroid disorder | + + | Encounter for vitamin deficiency screening Screening for other and unspecified | | endocrine, nutritional, metabolic, and immunity disorders | + + documented in this encounter"
--- OUTSIDE RECORDS SUMMARY | ~2020-04-19 | XMS | Encounter Summary ---
Demographics + + + | Address | [address] | | | [place] [address] | + + + | Home Phone [...] Team Providers + +------+ + | Care Riprap Man Name | Role | Phone | [...] | | | | | | | [place], [place] | | | | | | | [address] | | | | | | | Phone: | | | | | | | [phone] | | | | | | | Fax: | | | | | | | [phone] | + +--------+ + + + + Encounter Details +--------+ + + + + | Date | Type | Department | Care Team | Description | +--------+ + + + + | 08/06/ | Procedure | University | Yuli Murdock MD | FET (Frozen embryo | | 2020 | | Fertility | [address] | transfer) | | | | Consultants at [facility] | Barbara Taylor, | | | | | [address] | [place] [address] | | | | | [facility] | [phone] | | | | | and Healing, | | | | | | [facility] | | | | | | Floor [place], [place] | | | | | | [address] | | | | | | [phone] | | | +--------+ + + + [...] encounter Progress Notes Yuli Murdock MD - 08/06/2019 11:30 AM PSTEMBRYO TRANSFER TRANSFER #: 2 Type: Frozen Catheter: Roblero Sureview Depth: 6/6.5 Patient and embryos identified by clinic and lab staff. No additional risk Mock embryo transfer done. In easily. Comment: Catheter: afterloaded Clear view by ultrasound. Flash seen: yes Catheter checked by embryologist; retained embryo: no. Cafe Team Member: CIERRA Patient identity was confirmed. Pushpa Henao agrees to transfer 1 day 5/6 embryo(s) for fertility treatment. Pushpa understands that there is a risk of multiple aft er any embryo transfer. In addition, she acknowledges that this risk increases with an incre asing number of embryos that are transferred. Risks and complications associated with multip le were discussed with Pushpa, including twins, triplets or greater. Risk of mult iple gestation discussed including labor, delivery of compromised infants, n eed for bed rest, increased risk for diabetes, hypertension, bleeding, c section, and gravid hysterectomy, etc. She understands and accepts these risk for this embryo transf er. Patient was placed in the modified dorsal lithotomy position. Cervix was visualized, a Sure view catheter was passed through the cervical os and into the uterus. Using ultrasound guid ance the transfer of 1 embryos were placed into the uterus. Catheter was then removed. Patie nt remained resting on table for 15 minutes. Patient tolerated procedure well, no complicati ons. Patient was educated to keep taking PNV, avoid NSAIDs in next 2 weeks, and refrain from drinking alcohol and smoking. Patient was instructed to do test in 14 days if no period and call back. Radha Marc MA - 08/06 11:30 AM PST Patient would like to have BHCG and P4 blood draw on 08/17/2019 at [facility]. This has been scheduled, with the lab name placed in the notes section, along with the damon sfer date and lab contact info. Patient is okay with detailed voicemail and placed in notes. Blood draw order was faxed to their preferred lab at (fax number) [phone] and the orig inal given to patient to bring with them to the lab, with physician signature stamp. Orders Placed This Encounter BHCG Quant, Plasma PROGESTERONE, SERUM This is a verbal order, from Dr. Murdock, given on 08/06/2019 at 11:37 AM. Readback performed. documented in this encoun ter Plan of Treatment + +------+--------+ + + | Name | Type | Priori | Associated Diagnoses | Order Schedule | | | | ty | | | + +------+--------+ + + | HCG BETA QUANT, | Lab | Urgent | Encounter for | Expected: 08/17/2019 | | PLASMA | | | test, | (Approximate), | | | | | result unknown | Expires: 09/04/2020 | + +------+--------+ + + | PROGESTERONE, SERUM | Lab | Urgent | Encounter for | Expected: 08/17/2019 | | | | | test, | (Approximate), | | | | | result unknown | Expires: 09/04/2020 | + +------+--------+ + + documented as of this encounter Procedures + +--------+ + + + | Procedure Name | Priori | Date/Time | Associated Diagnosis | Comments | | | ty | | | | + +--------+ + + + | [place] TRANSFER OF | Routin | 08/09/2019 | Encounter for | | | EMBRYO,INTRAUTERINE | e | 11:49 PM | assisted | | | | | PST | reproductive | | [...] cycle - Primary | + + | Encounter for test, result unknown | + + documented in this encounter
--- OUTSIDE RECORDS SUMMARY | ~2020-04-19 | XMS | Encounter Summary ---
Demographics + + + | Address | [address] | | | [place] [address] | + + + | Home Phone | | + + + | Preferred Language | Unknown | + + + | Marital Status | | + + + | Scientology Affiliation | CHR | + + + [...] Team Providers + +------+ + | Care Aeronautical Test Engineer Name | Role | Phone | + +------+ + | Kennedi Selby | PCP | | + +------+ + Encounter Details +--------+--------+ + + + | Date | Type | Department | Care Team | Description | +--------+--------+ + + + | 08/06/ | Travel | | | | | [...]
--- OUTSIDE RECORDS SUMMARY | ~2020-04-19 | XMS | Encounter Summary ---
Demographics + + + | Address | [address] | | | [place] [address] | + + + | Home Phone | | + + + | Preferred Language | Unknown | + + + | Marital Status | | + + + | Mosque Affiliation | CHR | + + + [...] Team Providers + +------+ + | Care Regulatory Specialist Name | Role | Phone | + +------+ + | Kennedi Selby | PCP | | + +------+ + Reason for Visit + + + | Reason | Comments | + + + | Genetic counseling | | + + + Consultation (Routine) + +--------+ + + + + | Status | Reason | Specialty | Diagnoses / | Referred By | Referred To | | | | | Procedures | Contact | Contact | + +--------+ + + + + | Pending | | | Diagnoses | Yuli Murdock | Pnc | | Review | | | Fertility | MD [address] | | | | | | testing | [facility] | [facility] | | | | | Procedures | [address] | [address] | | | | | CONSULT TO | Rd | [address] | | | | | [facility] | [place], [place] | for Health | | | | | GENETIC | [address] | and Healing, | | | | | COUNSELING | Phone: | [address] | | | | | | [phone] | [place], [place] | | | | | | Fax: | [address] | | | | | | [phone] | Phone: | | | | | | | [phone] | | | | | | | Fax: | | | | | | | [phone] | + +--------+ + + + + Encounter Details +--------+---------+ + + + | Date | Type | Department | Care Team | Description | +--------+---------+ + + + | 09/29/ | Office | Center | Kay Grace MS | Encounter for | | 2018 | Visit | at [facility] [address] | [facility] [address] | procreative genetic | | | | [address] | [address] | counseling and | | | | Physician's | [place], [place] | testing (Primary Dx) | | | | [place], 4th floor | [address] | | | | | [place], [place] | [phone] | | | | | [address] | | | | | | [phone] | | | +--------+---------+ + + + [...] documented as of this encounter Progress Notes Kay Grace, MS - 09/29/2018 2:00 PM PDTI had the pleasure of meeting with Pushpa Millard and her Nathaniel today for preconception genetic counseling. As you know, Chalo sheppard is a 33yo woman who is considering in vitro fertilization due to male factor. MEDICAL AND FAMILY HISTORY: A detailed family history was recorded. Pushpa's family history: Pushpa denies any health concerns and is currently taking a PNV Pushpa is of mixed [place] non-Caodaism ancestry Nathaniel's family history: Nathaniel is a 33 yo male Nathaniel's semen analysis revealed azoospermia. Nathaniel underwent a workup with Dr. 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 He met with Dr. Bush and had a microTESE on 08/11/18, which visualized little to no sper m. The couple's IVF plan is for Nathaniel to have a fresh TESE on the day of egg retrieval, with donor sperm as a backup. They have not yet selected a sperm donor backup but plan to use a donor through [facility]. 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 RISK ASSESSMENT: defects: After reviewing the family history, it appears that this couple is not at an increased risk to have a child with any other defects. The couple has previously been counseled about the slightly increased risk for genetic diso rders and congenital anomalies in pregnancies conceived using artificial reproductive techno logies. The data in the literature suggests a small increased risk of 5-7% compared to the [facility] population rate of 3-5%. Increased risks for genetic abnormalities, including de mary jo mutations and sex-chromosome anomalies, associated with ICSI was also reviewed although the data is somewhat sparse and controversial. As always, the benefits vs. risks must be consid ered. Pushpa was encouraged to continue PNV supplementation. Aneuploidy: The association between maternal age and the risk for having a baby with a chromosomal prob davis was next discussed. We discussed that ~30-40% of embryos in women 34yo are abnormal. The risk for actually delivering a live-born baby with any chromosome abnormality at 34 was est imated to be 1/. Family history: Y chromosome microdeletion: The couple has previously discussed Nathaniel's Y chromosome microde letion testing extensively. We reviewed that this deletion of Y chromosome material includes a portion of the AZF gene, which is responsible for the development of mature sperm. The co uple understands that Nathaniel would pass on this genetic change to all of his future sons, but that this microdeletion is not thought to impact future offspring's health. Y chromosome rakan rodeletions are typically only characterized by azoospermia, moderate to severe oligospermia , or abnormal sperm morphology/motility in men with a normal physical evaluation. 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 Hemochromatosis: Hemochromatosis is a common and treatable inherited disease, where the bod y absorbs and stores too much iron. This can potentially lead to organ damage if left untrea ligia. However most people affected by hemochromatosis are not severely impacted. Hemochromato sis is inherited in a recessive fashion and screening for this condition is not routinely re commended. Approximately 1 in 10 people in the [place] is a carrier for hemochromatosi s, so the chance for Angelic to have an affected child is ~1/20. The couple is not c oncerned about the chance to have a child affected with hemochromatosis. PREIMPLANTATION GENETIC TESTING for ANEUPLOIDY (PGT-A): We next reviewed the option to have Preimplantation Genetic Testing for Aneuploidy (PGT-A) performed on embryos in the couple's upcoming IVF cycle. The purpose of PGT-A is to screen e mbryos for chromosome abnormalities prior to embryo transfer. Embryos with extra or missing chromosomes have lower rates of implantation and high risks for miscarriage and/or abn ormalities. I briefly explained the process of PGT-A including egg retrieval, fertilization, trophectoderm biopsy on day 5-6, cryopreservation of embryos, biopsied cells sent to [facility] ([facility]), genetic screening using next generation sequencing (NGS), and avail ability of results in 1-2 weeks. We reviewed that all embryos being tested must be frozen fo r a later frozen transfer. The risks, benefits, and limitations of PGT-A were reviewed. PGT- A significantly reduces the chance of conceiving a with a chromosome abnormality, but cannot completely eliminate the risk. I explained that PGT-A for chromosome abnormalitie s may improve the success of IVF in couples of advanced age, prior pregnancies with a chromo some abnormality, recurrent loss, or multiple failed IVF cycles but that limited s cientific data is available. We don't typically strongly encourage younger couples to pursue this test given that current studies (although mixed) suggest the benefits may not outweigh the risks/costs unless their is a higher risk indication such as AMA or prior IVF/ history.The 98% detection rate for chromosome abnormalities was discussed as well as the inability to detect all chromosome abnormalities (structural, certain types of polyploidy, o r microdeletions/microduplications). PGT-A is also unable to screen for all genetic abnormal ities or defects. We also reviewed the potential for a "mosaic" result. Currently our clinic does not have a formal policy in regards to transferring these types of embryos. Because only a few cells are biopsied from day 5-6 embryo, some samples (2-3%) do not have enough DNA to produce results and will not be considered informative. There is a <5% chance the biopsy will destroy the embryo, other risks include lack of long-term data on embryonic effects of biopsy. The couple understands there is also a risk that no "normal" embryos will be available for transfer and that this risk increases with maternal age. The cost of PGT-A was also reviewed. Even when embryos with normal PGT-A results are transferred, lack of pre gnancy, miscarriage and/or a baby with anomalies can still result. Due to the possibil ity of misdiagnosis with PGT-A, we recommend consideration of diagnosis when PGT-A normal embryos are transferred. Benefits and limitations of M[employer] were also reviewed. SCREENING AND DIAGNOSIS: Alternatives to PGT-A, including screening and diagnostic testing options once a p regnancy is achieved were also reviewed. This includes first trimester nuchal translucency ( NT) ultrasound, anatomy ultrasound, serum screening, noninvasive testing (NIPT) usi ng cell free DNA and invasive diagnostic procedures such as chorionic villus sampling (CVS) and amniocentesis. We recommend that the patient discuss screening options with he r Fuel Tank Sealer And Tester and a genetic counselor once a is achieved, regardless of PGT-A decision. CARRIER SCREENING: Recessive inheritance and the availability of carrier screening was discussed. Carrier scr eening for expanded panels of autosomal and X-linked recessive conditions are available. Pa ashok range from 3 conditions (cystic fibrosis, spinal muscular atrophy, and fragile X syndro me) to over 150 genetic diseases. Screening can be performed for both partners at the same time or done in a sequential manner. If both partners were carriers for the same condition, each would have a 1 in 4 (25%) chance of inheriting the condition. Preimplantatio n genetic testing for single gene disorders (PGT-M) could be considered as well as diagnosis once a is achieved. A negative carrier screening result for any conditio n reduces the likelihood of having an affected child but cannot eliminate it. Although martinez iers of recessively-inherited conditions are typically healthy, there is a chance that resul ts will have health implications for the carrier. PLAN: After 60 minutes of genetic counseling, the couple are uncertain about whether they wish to proceed with PGT-A and feel they would like to further discuss this option before making a decision. They are interested in the information that would be provided by PGT-A, but are co ncerned about the invasive nature of biopsy procedure. They were provided the PGT-A informat ion packet which includes consent forms and billing information. The couple declined expande d carrier screening today, but are welcome to contact me if they decide to proceed at a late r date. We will reach out to the couple in 1 week to answer any additional questions and hel p determine the plan moving forward. Pushpa Henao reports a LMP of 09/28/18 with cycles q 25-26 days. PGT-A dates will be requested from Dr. Murdock if the couple decides to move forward with embryo testing. Thank you for your referral of this conor couple; it was my pleasure meeting with them ashley adams. Kay Grace MS, [facility] Certified Genetic Counselor [facility] documented in this enc ounter Plan of Treatment Not on filedocumented as of this encounter Visit Diagnoses + + | Diagnosis | + + | Encounter for procreative genetic counseling and testing - Primary | + + documented in this encounter
--- OUTSIDE RECORDS SUMMARY | ~2020-04-19 | XMS | Encounter Summary ---
Demographics + + + | Address | [address] | | | [place] [address] | + + + | Home Phone [...] Team Providers + +------+ + | Care Lathe Tender Name | Role | Phone | + +------+ + | Kennedi Selby | PCP | | + +------+ + Encounter Details +--------+ + + + + | Date | Type | Department | Care Team | Description | +--------+ + + + + | 02/02/ | Telephone | [facility] | Yuli Murdock MD | | | 2019 | | Fertility | [address] | | | | | Consultants at [facility] | [address] [place], | | | | | [address] | [place] [address] | | | | | [facility] | [phone] | | | | | and [address], | | | | | | | | | | | | [place], [place] | | | | | | [address] | | | | | | [phone] | | | +--------+ + + + [...] Telephone Encounter - Seth Peck RN - 02/02/2019 4:24 PM PDTPhone call to patient re: alisha brito's results. Bhcg was 199.7. P4 pending. Per team review, pt is to continue progesterone and estrace supplement and have repeat bhcg on 02/04. Questions answered. Appt scheduled. Will follow up at that time. Pt given both EDC and Stop date for supplements. Reviewed preg tips and preg meds sheet and sent via [facility]. TSH and bchg ordered and faxed to [facility] in [place]. documented in this encounter Plan of Treatment + +------+--------+ + + | Name | Type | Priori | Associated Diagnoses | Order Schedule | | | | ty | | | + +------+--------+ + + | HCG BETA QUANT, | Lab | Urgent | | Ordered: 02/02/2019 | | PLASMA | | | examination or test, | | | | | | | | | | | | unconfirmed | | + +------+--------+ + + documented as of this encounter Visit Diagnoses + + | Diagnosis | + + | examination or test, unconfirmed - Primary | + + | Hyperthyroidism Thyrotoxicosis without mention of goiter or other cause, without | | mention of thyrotoxic crisis or storm | + + documented in this encounter"
--- OUTSIDE RECORDS SUMMARY | ~2020-04-19 | XMS | Encounter Summary ---
Demographics + + + | Address | [address] | | | [place] [address] | + + + | Home Phone [...] Providers + +------+ + | Care Chief Compliance Officer Name | Role | Phone | + +------+ + | Kennedi Selby | PCP | | + +------+ + Encounter Details +--------+--------+ + + + | Date | Type | Department | Care Team | Description | +--------+--------+ + + + | 01/23/ | Travel | | | | | [...]
--- OUTSIDE RECORDS SUMMARY | ~2020-04-19 | XMS | Encounter Summary ---
Demographics + + + | Address | [address] | | | [place] [address] | + + + | Home Phone | | + + + | Preferred Language | Unknown | + + + | Marital Status | | + + + | Judaism Affiliation | CHR | + + + | Race | White | + + + | Ethnic Group | Not or | + + + Author + + + | Author | [facility] | + + + | Organization | [facility] | + + + | Address | Unknown | + + + | Phone | Unavailable | + + + Support + + +---------+ + | Name | Relationship | Address | Phone | + + +---------+ + | Nathaniel Henao | ECON | Unknown | | + + +---------+ + Care Team Providers + +------+ + | Care Taker Down Name | Role | Phone | + +------+ + | Kennedi Selby | PCP | | + +------+ + Encounter Details +--------+ + + + + | Date | Type | Department | Care Team | Description | +--------+ + + + + | 05/27/ | Pharmacy | Pharmacy @ [facility] | | | | 2019 | Visit | [address] | | | | | | [address] Mailcode: | | | | | | [facility] | | | | | | and [address], | | | | | | [address] | | | | | | [place], [place] | | | | | | [address] | | | +--------+ + + + [...]
[2020-04-21] MEDS ORDERED: LEVOTHYROXINE50 MCG PO (06:17)
[2020-04-21] MEDS ORDERED: FEOSOL325 MG PO (06:20)
[2020-04-21] MEDS ORDERED: PRENATAL FORMU1 EAC3 PO (06:21)
[2020-04-21] MEDS ORDERED: MAGNESIUM400 M1 PO (06:22)
--- NOTE | 2020-04-21 09:55 | NUR ---
04/21/20 0955 May Gandara 0948 PATIENT ARRIVES TO ROOM AWAKE, HOLDING BABY. RESP EVEN AND UNLABORED, ROOM AIR SATS >98%. PATIENT DENIES PAIN OR NAUSEA. 0955 PATIENT AWAKE HOLDING BABY. RESP EVEN AND UNLABORED, ROOM AIR SATS <98%. [facility]BC RN AND SPOUSE AT BEDSIDE.
--- NOTE | 2020-04-21 12:25 | NUR ---
IN [facility] CHECKING ON PT. RN MADISYN REQUESTED I RETURN LATER. WILL CONTINUE TO FOLLOW
--- NOTE | 2020-04-22 12:13 | PR ---
[facility] [address] [place], [place] [address] Signed PP Progress Notes Datetime Report Generated by CPN: 04/22/2020 12:13 SUBJECTIVE: [id number] Pain: Within Normal Limits Nausea/Vomiting: Denies Flatus: Yes Vital Signs: [id number] Vital Signs: Reviewed; Within Normal Limits EXAM: Ongoing Cardiovascular: Normal Respiratory: Normal Abdomen/Uterus: Normal Lochia: Normal Vulva/Perineum: Not Done Breasts: Not Done CVA Tenderness: Normal Extremities: Normal Incision: Normal Progress: Normal Exam Comments: fundus firm U-2 nontender. Incision well healing IMPRESSION/PLAN/PROCEDURES: [id number] Impression: Normal Progression Plan: Continue Present Management Progress Notes: Pt seen and examined. Doing well. Ambulating, voiding, and tolerating full diet. Pain and lochia minimal. . No concerns. Hgb 9.5. Continue routine pp care. Signing Physician: Christine Marino DO Copies: ~ *Electronically Signed* 04/22/20 1213 CHRISTINE MARINO DO PATIENT NAME: RAYNA PRUITT PROGRESS NOTE DATE OF : 83 PHYSICIAN: CHRISTINE MARINO DO RPT #: [id number] REPORT IS CONFIDENTIAL AND NOT TO BE RELEASED WITHOUT AUTHORIZATION
--- NOTE | 2020-04-22 12:24 | NUR ---
ADDI MARS INFORMED ME THAT PT IS ASLEEP. WILL NOT DISTURB AND WILL CHECK BACK
--- NOTE | 2020-04-22 15:48 | PATH ---
[facility] [address] [place], [place] [address] Signed SPECIMEN(S): A PEDUNCULATED FIBROID SPECIMEN SOURCE: A. PEDUNCULATED FIBROID CLINICAL HISTORY: Fibroid. 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 - Negative for significant atypical features. JVR:cml:C2NR MICROSCOPIC EXAMINATION: Histologic sections of all submitted blocks are examined by light microscopy. These findings, together with the gross examination, support the pathologic diagnosis. GROSS DESCRIPTION: The specimen, labeled "SB, pedunculated fibroid," is received in formalin and consists of a 117 gram, pink-bear, irregular shaped piece of tissue that measures 6.7 x 6.5 x 3.3 cm. The serosal surface shows enlarged and congested subserosal vessels. Specimen is firm to fluctuating. Sectioning of the specimen reveals several cystic defects that range in size from 1.2-2.2 cm in greatest dimension. The cysts are filled with a yellow-pink fluid. Tissue that surrounds the cysts is yellow-bear, soft and liquefied. The remaining of the specimen shows white, firm, whorled surface. Specimen is entirely submitted in cassettes (A1-A3). JS (under the direct supervision of a pathologist) The Gross Description was prepared using a voice recognition system. The report was reviewed for accuracy; however, sound-alike word errors, addition and/or deletions may occur. If there is any question about this report, please contact Client Services. PERFORMING LABORATORY: The technical component was performed by [employer], [address] [place] [id number] (Squeegeer And Former: Ana Marin MD; CLIA# [id number]). Professional interpretation was performed by [employer] PATIENT NAME: RAYNA PRUITT PATHOLOGY DATE OF : 83 REPORT #: [id number] PHYSICIAN: NICK PATHOLOGY PCP: DANIEL LINDQUIST REPORT IS CONFIDENTIAL AND NOT TO BE RELEASED WITHOUT AUTHORIZATION [address] [address] [place] [address] (Squeegeer And Former: Dc Ritchie M.D.). Diagnostician: Dc Ritchie MD Pathologist Electronically Signed 04/22/2020 Copies: ~ PATIENT NAME: RAYNA PRUITT PATHOLOGY DATE OF : 83 REPORT #: [id number] PHYSICIAN: NICK PATHOLOGY PCP: DANIEL LINDQUIST REPORT IS CONFIDENTIAL AND NOT TO BE RELEASED WITHOUT AUTHORIZATION
--- NOTE | 2020-04-23 08:03 | PR ---
[facility] [facility] [address] [facility] [place], [place] [address] Signed PP Progress Notes Datetime Report Generated by CPN: 04/23/2020 08:03 SUBJECTIVE: [id number] Pain: Within Normal Limits Nausea/Vomiting: Denies Flatus: Yes Bowel Movement: No Vital Signs: [id number] Vital Signs: Reviewed; Within Normal Limits EXAM: Ongoing Cardiovascular: Normal Respiratory: Normal Abdomen/Uterus: Normal Lochia: Normal Vulva/Perineum: Not Done Breasts: Not Done CVA Tenderness: Normal Extremities: Normal Incision: Normal Progress: Normal Exam Comments: Fundus firm U-2 nontender incision healing well IMPRESSION/PLAN/PROCEDURES: [id number] Impression: Normal Progression Plan: Continue Present Management Progress Notes: Pt seen and examined. Doing well. No concerns. Anticipate d/c home tomorrow Signing Physician: Christine Marino DO Copies: ~ *Electronically Signed* 04/23/20 08 CHRISTINE MARINO DO PATIENT NAME: RAYNA PRUITT PROGRESS NOTE DATE OF : 83 PHYSICIAN: CHRISTINE MARINO DO RPT #: [id number] REPORT IS CONFIDENTIAL AND NOT TO BE RELEASED WITHOUT AUTHORIZATION
--- NOTE | 2020-04-24 07:57 | PR ---
[facility] [address] [facility] [place], [place] [address] Signed PP Progress Notes Datetime Report Generated by CPN: 04/24/2020 07:57 SUBJECTIVE: [id number] Pain: Within Normal Limits Nausea/Vomiting: Denies Flatus: Yes Bowel Movement: No Vital Signs: [id number] Vital Signs: Reviewed EXAM: Ongoing Cardiovascular: Normal Respiratory: Normal Abdomen/Uterus: Normal Lochia: Normal Vulva/Perineum: Not Done Breasts: Not Done CVA Tenderness: Normal Extremities: Normal Incision: Normal Progress: Normal Exam Comments: Fundus firm U-2 nontender. Incision healing well IMPRESSION/PLAN/PROCEDURES: [id number] Impression: Normal Progression Plan: Discharge Progress Notes: Pt seen and examined. Ambulating, voiding, and tolerating full diet. Pain and lochia minimal. well. No fevers/chills. Desires d/c home today. Complete d/c instructions reviewed. Reviewed benign fibroid path report. Signing Physician: Christine Marino DO Copies: ~ *Electronically Signed* 04/24/20 0757 CHRISTINE MARINO DO PATIENT NAME: RAYNA PRUITT PROGRESS NOTE DATE OF : 83 PHYSICIAN: CHRISTINE MARINO DO RPT #: [id number] REPORT IS CONFIDENTIAL AND NOT TO BE RELEASED WITHOUT AUTHORIZATION
== END 2020-04-24 12:45 | disposition home or self-care (01) | DRG 787 ==
LOC: FBC 04-21 05:01
PROVIDERS: ADMIT Obstetrics & Gynecology; ATTEND Obstetrics & Gynecology
PROC: 0UB90ZZ Excision of Uterus, Open Approach (ICD-10-PCS; 2020-04-21)
PROC: 3E0T3BZ Introduction of Anesthetic Agent into Peripheral Nerves and Plexi, Percutaneous Approach (ICD-10-PCS; 2020-04-21)
PROC: 3E0T33Z Introduction of Anti-inflammatory into Peripheral Nerves and Plexi, Percutaneous Approach (ICD-10-PCS; 2020-04-21)
PROC: 10D00Z1 Extraction of Products of Conception, Low, Open Approach (ICD-10-PCS; principal; 2020-04-21 06:45)
DX: O32.1XX0 Maternal care for breech presentation, not applicable or unspecified (principal); O99.355 Diseases of the nervous system complicating the puerperium; O99.354 Diseases of the nervous system complicating childbirth; Z37.0 Single live birth; O34.13 Maternal care for benign tumor of corpus uteri, third trimester; D25.9 Leiomyoma of uterus, unspecified; G89.18 Other acute postprocedural pain; O77.0 Labor and delivery complicated by meconium in amniotic fluid; Z3A.39 39 weeks gestation of pregnancy; O99.284 Endocrine, nutritional and metabolic diseases complicating childbirth; E02 Subclinical iodine-deficiency hypothyroidism; G43.009 Migraine without aura, not intractable, without status migrainosus; Z79.899 Other long term (current) drug therapy
CPT/HCPCS: 01961; 36415; 64488; 76942; 85027; 86850; 86900; 86901; A9270; J0690; J1100; J1885; J2001; J2274; J2370; J2405; J2590; J2795; J3010; J7121

== ENCOUNTER 2023-05-14 05:24 | Inpatient (IN) | payer BC | END 2023-05-16 11:25 | disposition home or self-care (01) | DRG 788 | LOC: FBC 05:24 | PROVIDERS: ADMIT Obstetrics & Gynecology | PROC: 10D00Z1 Extraction of Products of Conception, Low, Open Approach (ICD-10-PCS; principal; 2023-05-14) | PROC: 0HB7XZZ Excision of Abdomen Skin, External Approach (ICD-10-PCS; 2023-05-14) | DX: O34.211 Maternal care for low transverse scar from previous cesarean delivery (principal); O99.284 Endocrine, nutritional and metabolic diseases complicating childbirth; Z3A.38 38 weeks gestation of pregnancy; Z37.0 Single live birth; E03.9 Hypothyroidism, unspecified; L91.0 Hypertrophic scar; Z11.52 Encounter for screening for COVID-19; Z79.899 Other long term (current) drug therapy; Z79.82 Long term (current) use of aspirin; Z79.890 Hormone replacement therapy ==

== ENCOUNTER 2024-05-29 16:28 | Emergency (ER) | payer BC ==
[~2024-05-29] VITALS: Ht 160 cm; Wt 77.5 kg
[~2024-05-29 16:28] MED LIST: CEFDINIR300 MG PO; FEOSOL325 MG PO; GUAIFEN-CODEINE10 ML PO; IPRAT-ALBUT 0.5-3 ML INH; LEVOTHYROXINE50 MCG PO; LEVOTHYROXINE75 MCG PO; MAGNESIUM400 M1 PO; PRENATAL FORMU1 EAC3 PO; PULMICORT0.5 MG/2 M INH; SERTRALINE HCL25 MG PO; VENTOLIN HFA18 GM INH
--- OUTSIDE RECORDS SUMMARY | 2024-05-29 16:35 | XMS ---
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 Nanda has no Care Guidelines for this patient. Martín V[facility] (12 MO.) [facility] NOTE: Visits indicate total known visits. ED/[facility] VISIT TRACKING (12 MO.) [facility] Emergency COMPLAINT: - SHORTNESS OF BREATH 05/26/2024 04:16 [facility] TYPE: Emergency COMPLAINT: - SOB DIAGNOSES: - Hormone replacement therapy - Hypothyroidism, unspecified - Other long-term (current) drug therapy - Personal history of COVID-19 - Pneumonia, unspecified organism - Shortness of breath INPATIENT VISIT TRACKING (12 MO.) No inpatient visits to display in this time frame [email or web address]
[2024-05-29] MEDS ORDERED: ALBUTEROL/IPRATROPIUM 3 ML NEB INH PRN (17:00)
[2024-05-29 17:12] LABS: BASOPHILS 2.2 % (0-2); EOSINOPHILS 7.8 % (0-6); HEMOGLOBIN 14.1 g/dL (12.0-18.0); LYMPHOCYTES 13.2 % (24-44); MCH 30.5 (27-36); MCHC 33.6 g/dl (30-36); MCV 90.7 fl (81-99); NEUTROPHILS 71.8 % (39-80); PLATELET COUNT 270 K/uL (140-440); RBC 4.63 M/ul (4.3-5.7); RDW 13.6 (10.5-15.0)
[2024-05-29] MEDS ORDERED: SODIUM CHLORIDE 0.9% 500 ML IV PRN (17:30)
[2024-05-29 17:32] LABS: ALBUMIN/GLOBULIN RATIO 1.03 (1.1-2.4); ANION GAP 13.4 (7-21); BILIRUBIN, TOTAL 0.3 ng/dL (0.2-1.0); BUN/CREATININE RATIO 19.73 (6.0-28.6); CALCIUM 9.2 mg/dL (8.5-10.1); CREATININE, SERUM 0.76 mg/dL (0.55-1.02); MAGNESIUM 2.2 mg/dL (1.8-2.4); POTASSIUM 3.4 mmol/L (3.5-5.1); PROTEIN, TOTAL 7.9 g/dL (6.4-8.2)
[2024-05-29 19:20] VITALS: BP 117/65
[2024-05-30] MEDS ORDERED: AZITHROMYCIN250 MG (03:40)
[2024-05-30] MEDS ORDERED: PREDNISONE20 MG PO (03:40)
--- NOTE | 2024-05-30 15:57 | EKG ---
[facility] [address] [facility] [place], [place] [address] Signed Normal sinus rhythm ST \T\ T wave abnormality, consider inferolateral ischemia Abnormal ECG No previous ECGs available Confirmed by Addis Graves MD ([id number]) on 05/30/2024 3:57:34 PM Electronically Signed By: ADDIS GRAVES MD 05/30/24 1557 PATIENT NAME: RAYNA PRUITT Electrocardiogram DATE OF : 83 PHYSICIAN: ADDIS GRAVES MD REPORT #: [id number] REPORT IS CONFIDENTIAL AND NOT TO BE RELEASED WITHOUT AUTHORIZATION
== END 2024-05-29 19:20 | disposition home or self-care (01) ==
LOC: ED 16:28
PROVIDERS: Emergency Medicine
DX: J20.9 Acute bronchitis, unspecified (principal); E03.9 Hypothyroidism, unspecified; Z86.16 Personal history of COVID-19; Z79.890 Hormone replacement therapy; Z79.899 Other long term (current) drug therapy
CPT/HCPCS: 36415; 71260; 80053; 83735; 84484; 84703; 85025; 85379; 93005; 93010; 94640; 99285-25; Q9967

== ENCOUNTER 2024-05-30 03:22 | Inpatient (IN) | payer BC ==
[~2024-05-30] VITALS: Ht 160 cm
--- OUTSIDE RECORDS SUMMARY | 2024-05-30 03:26 | XMS ---
PreManage Notification: RAYNA PRUITT Security [place] [place] Supervisor Events No recent Security Events currently on file CRITERIA MET - [facility] - 2 Visits in 30 Days CARE PROVIDERS There are no care providers on record at this time. Nanda has no Care Guidelines for this patient. Martín VISIT COUNT (12 MO.) 3 [facility] T[facility] 3 NOTE: Visits indicate total known visits. 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
[2024-05-30] MEDS ORDERED: PREDNISONE20 MG PO (03:40)
[2024-05-30] MEDS ORDERED: AZITHROMYCIN250 MG (03:40)
[2024-05-30] MEDS ORDERED: ALBUTEROL SULFATE 0.5% 2.5 MG/0.5 ML VIAL INH ONE (03:45)
[2024-05-30] MEDS ORDERED: methylPREDNISolone SOD SUCC 125 MG/2 ML VIAL IV ONE (03:45)
[2024-05-30 04:08] LABS: PH, VENOUS 7.412 (7.31-7.41)
[2024-05-30 04:11] LABS: HEMOGLOBIN 13.7 g/dL (12.0-18.0); MCH 30.7 (27-36); RBC 4.47 M/ul (4.3-5.7)
[2024-05-30 04:13] LABS: BASOPHILS 0.5 % (0-2); EOSINOPHILS 6.7 % (0-6); HEMATOCRIT 40.7 % (35.0-50.0); LYMPHOCYTES 27.2 % (24-44); MCHC 33.6 g/dl (30-36); MCV 91.2 fl (81-99); MONOCYTES 5.9 % (0-12); NEUTROPHILS 59.7 % (39-80); PLATELET COUNT 250 K/uL (140-440); RDW 13.6 (10.5-15.0)
[2024-05-30] MEDS ORDERED: GUAIFENESIN/CODEINE 60 ML HOME.PACK PO ONE (04:15)
[2024-05-30] MEDS ORDERED: BENZONATATE 100 MG CAP PO ONE (04:15)
[2024-05-30 04:30] LABS: LACTIC ACID, BLOOD 1.5 mmol/L (0.4-2.0)
[2024-05-30] MEDS ORDERED: FAMOTIDINE 20 MG/ 2 ML VIAL IV ONE (04:30)
[2024-05-30] MEDS ORDERED: ondansetron HCL 4 MG/2 ML VIAL IV ONE (04:30)
[2024-05-30 04:36] LABS: ALBUMIN 3.9 g/dL (3.4-5.0); ALBUMIN/GLOBULIN RATIO 1.05 (1.1-2.4); ANION GAP 13.4 (7-21); BILIRUBIN, TOTAL 0.5 ng/dL (0.2-1.0); BUN/CREATININE RATIO 16.43 (6.0-28.6); CALCIUM 9.3 mg/dL (8.5-10.1); CREATININE, SERUM 0.73 mg/dL (0.55-1.02); POTASSIUM 3.4 mmol/L (3.5-5.1); PROTEIN, TOTAL 7.6 g/dL (6.4-8.2)
[2024-05-30] MEDS ORDERED: LACTATED RINGER'S 1,000 ML IV ONE (05:15)
[2024-05-30] MEDS ORDERED: ondansetron HCL 4 MG/2 ML VIAL IV PRN ×2 (05:30→09:30)
[2024-05-30] MEDS ORDERED: MAGNESIUM SULFATE 2 GM/50 ML BAG IV ONE (05:45)
[2024-05-30] MEDS ORDERED: ALBUTEROL SULFATE 0.083% 3 ML VIAL INH PRN (06:00)
[2024-05-30 06:07] LABS: INFLUENZA B NAA NEGATIVE (NEGATIVE); RESPIRATORY SYNCYTIAL VIR NAA NEGATIVE (NEGATIVE)
[2024-05-30 06:34] VITALS: BP 123/59
--- NOTE | 2024-05-30 06:59 | NUR ---
PT ADMITTED TO ROOM 115 VIA W/C. VSS. DENIES PAIN. ORIENTED X 4. 2L O2 N/C IN PLACE, O2 SATS LOW 90'S. LS TIGHT W/ EXP WHEEZE. DENIES SOB AT PRESENT. MPC REPORTED W/ YELLOW SPUTUM. HRR, TELE APPLIED. BTA, LBM TODAY. VOIDS WNL. LR BOLUS COMPLETED AND IV SL'D. IND W/ AMBULATION. CALL LIGHT WITHIN REACH. DENIES NEEDS. PT ON PHONE W/ FAMILY.
--- NOTE | 2024-05-30 07:15 | NUR ---
REPORT RECEIVED FROM ADDI JOAQUIN. PT. RESTING IN BED, EYES OPEN. PT STATED SHE IS FEELING SOB OF BREATH AND REQUESTED ANOTHER NEB TREATMENT. ADDI DARBY CALL RT TO PUT IN REQUEST. BOARD UPDATED AND CALL LIGHT WITHIN REACH.
--- NOTE | 2024-05-30 07:16 | NUR ---
VERBAL REPORT RECEIVED FROM ADDI JOAQUIN. PT RESTS IN BED AWAKE, REQUEST BREATHING TREATMENT, RT NOTIFIED.
[2024-05-30] MEDS ORDERED: ALBUTEROL/IPRATROPIUM 3 ML NEB INH SCH (08:00)
[2024-05-30] MEDS ORDERED: BUDESONIDE 0.5 MG/2 ML VIAL INH SCH ×2 (08:00→20:00)
--- NOTE | 2024-05-30 08:40 | NUR ---
PT RECEIVED BREATHING TREATMENT, NOW ON 3L O2 NC, CPOX IN PLACE, SATS 94%. PT REPORTS, "FEELING BETTER" AND WOULD LIKE TO SLEEP. BREAKFAST TO BEDSIDE. PT AMBULATES TO BATHROOM WITH SBA FOR LINE MANAGEMENT, TOLERATES THIS WELL. OCCASIONAL COUGH NOTED.
[2024-05-30] MEDS ORDERED: ACETAMINOPHEN 325 MG TAB PO PRN (09:30)
[2024-05-30] MEDS ORDERED: methylPREDNISolone SOD SUCC 40 MG/ML VIAL IV SCH (09:30)
[2024-05-30 09:37] VITALS: BP 128/71
--- NOTE | 2024-05-30 09:40 | NUR ---
PER MD, CALL TO LAB TO DETERMINE PERTUSSIS LAB ORDERS; ORDERS INPUT PER LAB MISC LAB - NASAL SWAB TO BE COLLECTED AND SENT TO LAB. TAKES 1-4 DAYS FOR RESULTS TO COME BACK. DROPLET PRECAUTIONS IN PLACE PRECAUTION. PRIMARY RN NOTIFIED AND WILL COLLECT SAMPLE.
--- NOTE | 2024-05-30 10:58 | NUR ---
NASAL SWAB COLLECTED. PT TEARFUL, STATES, "IT'S JUST BEEN A LOT."
--- NOTE | 2024-05-30 11:18 | NUR ---
PRIETO RECEIVED FOR EPISODE OR EMESIS. PT RESTS NOW IN BED WITH CALL LIGHT. SATS 92%, HR 112. PT ENCOURAGED TO PRONE.
[2024-05-30] MEDS ORDERED: PHARMACY RENAL DOSE ADJUSTMENT 1 DOSE MISC PO SCH (12:00)
[2024-05-30] MEDS ORDERED: phenoL 177 ML SPRAY MT PRN (12:15)
[2024-05-30] MEDS ORDERED: MENTHOL/CETYLPYRD CL 1 LOZ LOZENGE PO PRN (12:15)
[2024-05-30] MEDS ORDERED: GUAIFENESIN/CODEINE 5 ML UDC PO PRN (12:15)
--- NOTE | 2024-05-30 13:00 | NUR ---
PT RESTING IN BED. O2 97% ON 3L UPON ENTRY INTO ROOM. PT STATED FEELING BETTER AND NOT NAUSEATED ANYMORE. PT TAKING A FEW BITES OF LUNCH. WHILE LEANING OVER TO EAT LUNCH 02 FLUCUATING BETWEEN 92-97%. PT DENIES ANY NEEDS AT THIS TIME. CALL LIGHT AND NEEDED ITEMS WITHIN REACH.
[2024-05-30 14:00] VITALS: BP 123/79
[2024-05-30] MEDS ORDERED: PROCHLORPERAZINE EDISYLATE 10 MG/2 ML VIAL IV PRN (14:45)
--- NOTE | 2024-05-30 14:54 | NUR ---
PT HAS ANOTHER EPISODE OF EMESIS AFTER EATING LUNCH. TOO SOON FOR NEXT DOSE OF ZOFRAN, DR. MERINO NOTIFIED, NEW ORDER RECEIVED FOR COMPAZINE. COMPAZINE RECEIVED.
--- NOTE | 2024-05-30 15:00 | NUR ---
PT RESTING IN BED, EYES CLOSED. RESPIRATIONS EVEN AND UNLABORED. NO S/S OF PAIN/ DISTRESS.02 95% ON 3L NASAL CANNULA. CALL LIGHT AND NEEDED ITEMS WITHIN REACH.
--- NOTE | 2024-05-30 15:33 | NUR ---
PT RESTING IN BED, EYES CLOSED. PT OPENED EYES WHEN I ENTERED THE ROOM. 02 AT 92% ON 3L. PT DENIED ANY NEEDS AT THIS TIME. CALL LIGHT AND NEEDED ITEMS WITHIN REACH.
--- NOTE | 2024-05-30 15:58 | EKG ---
[facility] [address] [facility] [place] [address] Signed Normal sinus rhythm ST \T\ T wave abnormality, consider inferior ischemia ST \T\ T wave abnormality, consider anterolateral ischemia Abnormal ECG When compared with ECG of 29-MAY-2024 17:04, (Unconfirmed) No significant change was found Confirmed by Addis Graves MD ([id number]) on 05/30/2024 3:58:10 PM Electronically Signed By: ADDIS GRAVES MD 05/30/24 1558 PATIENT NAME: RAYNA PRUITT Electrocardiogram DATE OF : 83 PHYSICIAN: ADDIS GRAVES MD REPORT #: [id number] REPORT IS CONFIDENTIAL AND NOT TO BE RELEASED WITHOUT AUTHORIZATION
[2024-05-30] MEDS ORDERED: SODIUM CHLORIDE 0.9% 1,000 ML IV SCH (17:15)
[2024-05-30] MEDS ORDERED: RIZATRIPTAN BENZOATE 10 MG TAB SL PRN (17:30)
[2024-05-30 17:35] VITALS: BP 143/87
--- NOTE | 2024-05-30 17:47 | NUR ---
IV FLUSHED WITH 10 CC NS, PATENT, WNL, NS INFUSION STARTED AT 100 ML/HR. PT RESTS IN BED, 3L PER NC IN PLACE, O2 SATS 91%. COUGH NOTED. HOME MEDICATION, RIZATRIPTAN RECEIVED FOR PT REPORT OF ON COMING MIGRAINE.
--- NOTE | 2024-05-30 18:19 | NUR ---
CEPACOL RECEIVED FOR COUGH.
--- NOTE | 2024-05-30 19:25 | NUR ---
RECEIVED REPORT FROM MICHAEL RN'S. PT SLEEPING SOUNDLY. CALL LIGHT WITHIN REACH.
--- NOTE | 2024-05-30 20:15 | NUR ---
PT RESTING COMFORTABLY IN BED. DENIES PAIN. REPORTS FEELING MUCH BETTER THIS EVENING. VSS. PT CURRENTLY ON 2L N/C, O2 SATS 94%. CPOX IN PLACE. MPC CONTINUES BUT OCCASIONAL. LS DIM, SCANT EXP WHEEZE TO LISSY. SOME SOB AND HOBBS REPORTED BUT IMPROVING. HRR. BTA. NO NAUSEA AT PRESENT, BUT REPORTS POOR APPETITE. BT HYPO. VOIDS WNL-IND TO BR. PT UP TO BEDSIDE WALKING AROUND IN ROOM TO STRETCH. IVF INFUSING PER EMAR. FRESH ICE WATER PROVIDED. CALL LIGHT WITHIN REACH.
[2024-05-30 20:21] VITALS: BP 127/84
[2024-05-30 21:50] VITALS: BP 127/84
--- NOTE | 2024-05-30 22:38 | NUR ---
PT AWAKE, SOME COUGHING. REQUESTED PRN THROAT SPRAY-ADMINISTERED PER EMAR. PT USED BR IND. DENIES ANY FURTHER NEEDS AT THIS TIME.
[2024-05-31] VITALS (11 sets, daily range): BP systolic 106–130; BP diastolic 47–78
--- NOTE | 2024-05-31 01:21 | NUR ---
PT AWAKE, REPORTS RECENT COUGHING FIT, REQUESTING PRN CHLORASEPTIC SPRAY-ADMINISTERED PER EMAR. DROPLET PRECAUTIONS CONTINUE. DENIES ANY FURTHER NEEDS. IND IN ROOM.
--- NOTE | 2024-05-31 04:05 | NUR ---
PT SLEEPING SOUNDLY. APPEARS COMFORTABLE. CALL LIGHT WITHIN REACH.
[2024-05-31 05:15] LABS: BASOPHILS 0.1 % (0-2); EOSINOPHILS 0.1 % (0-6); HEMATOCRIT 39.3 % (35.0-50.0); LYMPHOCYTES 13.5 % (24-44); MCH 30.3 (27-36); MCV 91.5 fl (81-99); MONOCYTES 4.7 % (0-12); NEUTROPHILS 81.6 % (39-80); PLATELET COUNT 243 K/uL (140-440); RBC 4.29 M/ul (4.3-5.7)
[2024-05-31 05:32] LABS: ANION GAP 14.4 (7-21); BUN/CREATININE RATIO 13.11 (6.0-28.6); CALCIUM 8.6 mg/dL (8.5-10.1); CREATININE, SERUM 0.61 mg/dL (0.55-1.02); MAGNESIUM 2.5 mg/dL (1.8-2.4); POTASSIUM 4.4 mmol/L (3.5-5.1)
--- NOTE | 2024-05-31 06:23 | NUR ---
PT REQUESTING NEB TX, RT IN. O2 DECREASED TO 1L. WARM BLANKET GIVEN. IV SOLUMEDROL ADMINISTERED PER EMAR. IVF INFUSING. CALL LIGHT WITHIN REACH.
[2024-05-31] MEDS ORDERED: LEVOTHYROXINE SODIUM 75 MCG TAB PO SCH (07:00)
--- NOTE | 2024-05-31 07:28 | NUR ---
MORNING HAND OFF COMPLETE WITH RADIO INTELLIGENCE OPERATOR RN. PT IN BED RESTING COMFORTABLY SPOKE WITH PT AND PT HAS NO CONCERNS AT THIS TIME CALL LIGHT WITH IN REACH.
--- NOTE | 2024-05-31 08:45 | NUR ---
PT CALLED THIS RN INTO ROOM. FELT URINE HAD AN ODOR TO IT. THIS RN ASSESSED THAT URINE WAS CLOUDY. CLEAN HAT PLACED IN TOILET AND CLEAN CATCH WIPES. PT EDUCATED ON COLLECTING A SAMPLE. AWARE. URINE SAMPLE ORDERED.
[2024-05-31] MEDS ORDERED: ENOXAPARIN SODIUM 40 MG/0.4 ML SYR SUB-Q SCH (09:00)
[2024-05-31] MEDS ORDERED: SERTRALINE HCL 25 MG TAB PO SCH (09:00)
[2024-05-31 10:21] LABS: BILIRUBIN, URINE NEGATIVE (negative); BLOOD/HGB, URINE NEGATIVE (Negative); KETONE, URINE NEGATIVE (Negative); LEUK ESTERASE, URINE NEGATIVE (negative); NITRITE, URINE NEGATIVE (negative)
--- NOTE | 2024-05-31 10:40 | NUR ---
PT REQUESTED TO WALK WITH ROB. TRAVON MAC RN AND ADDI MURPHY AT SIDE PT ON 1L NC. SPO2 SUBSIDES IN THE LOWER 90'S. PT WALKED TWO LAPS AROUND THE MED/SURG FLOOD. TOWARD THE END OF THE SECOND LAP PT WAS BEOMING WINDED. SPO2 REMAINED 92%. NO DISCOMFORT. CALL LIGHT IN REACH.
[2024-05-31] MEDS ORDERED: FLUTICASONE-SA1 EAC4 INH (12:34)
[2024-05-31] MEDS ORDERED: RIZATRIPTAN10 MG PO (12:34)
--- NOTE | 2024-05-31 14:00 | NUR ---
PT RESTING IN BED, VS STABLE, I&OS CHARTED. REMOVED TRAY FROM ROOM. SPENT ABOUT 10 MINUTES JUST VISITING WITH PATIENT. PT STATES SHE FEELING MUCH BETTER, WOULD LIKE TO GO FOR WALK LATER THIS EVENING. SHE FEELS VERY TIRED AND WANTED TO TAKE A NAP/REST AT THIS TIME. TURNED DOWN LIGHTS AND ALLOWED TO REST, DENIES ANY FURTHER NEEDS. CALL LIGHT WITHIN REACH.
--- NOTE | 2024-05-31 15:27 | NUR ---
PT REQUESTING TO GO FOR A WALK. ANA RT AT SIDE WITH THIS NURSE AND ADDI MURPHY. PT WALKED TWO LAPS ON RA. TOLERATING WELL, DENIES SOB. SPO2 IN THE LOWER 90'S.
--- NOTE | 2024-05-31 15:44 | NUR ---
medications reconciled with patient. She is using her own Maxalt
[2024-05-31] MEDS ORDERED: ALBUTEROL/IPRATROPIUM 3 ML NEB INH SCH ×2 (16:00)
--- NOTE | 2024-05-31 17:14 | NUR ---
VS STABLE. PT FRIEND VISITING AT THIS TIME, PATIENT WANTED TO GO FOR A WALK, ADVISED PER RN SHE IS ABLE TO AMBULATE ON HER OWN. ALL CARE NEEDS MET AT THIS TIME.
--- NOTE | 2024-05-31 17:17 | NUR ---
PT WALKING THE HALLWAY WITH FRIEND AND FAMILY. DENIES SOB. TOLERATING WELL.
--- NOTE | 2024-05-31 17:58 | NUR ---
RN PRESENT IN ROOM WITH PATIENT. DINNER TRAY DELIVERED TO PATIENT, PT SAT UP IN CHAIR AND WILL ARRANGE OWN TRY IN FRONT OF HER WHEN READY TO EAT. ALL PT CARE NEEDS, DENIES ANY FURTHER NEEDS. CALL LIGHT WITHIN REACH.
--- NOTE | 2024-05-31 18:46 | NUR ---
DINNER TRAShakira PICKED UP. PATIENT LEAVING ROOM AT THIS TIME TO AMBULATE THE HALLWAY, PT STATES FEELING SO MUCH BETTER THIS EVENING. SISTER BROUGHT HER A DINNER SALAD.
--- NOTE | 2024-05-31 19:15 | NUR ---
REPORT RECEIVED FROM ADDI CHOU AND ADDI MURPHY. pt RESTING IN BED. ON RA, SPO2 93%. ICE WATER REFILLED. pt DENIES NEEDS.
--- NOTE | 2024-05-31 21:49 | NUR ---
pt RESTING IN BED AWAKE. NO COUGHING NOTED AT THIS TIME. PRN THROAT LOSANGE ADMINISTERED PER REQUEST. ASSESSMENT COMPLETE. SPO2 93-94% ON RA. CPOX ON. IV SITE SL WNL. URINE HAT EMPTIED. CALL LIGHT IN REACH.
--- NOTE | 2024-06-01 00:10 | NUR ---
CHECKED ON pt. RESTING IN BED WITH EYES CLOSED. SPO2 93% ON RA. HR 62. NO DISTRESS NOTED.
--- NOTE | 2024-06-01 02:30 | NUR ---
CHECKED ON pt. RESTING IN BED WITH EYES CLOSED, LYING ON LEFT SIDE. SPO2 92% ON RA. NO DISTRESS NOTED.
--- NOTE | 2024-06-01 05:20 | NUR ---
pt AWAKE RESTING IN BED. SPO2 94% ON RA. URINE HAT EMPTIED. ICE WATER REFILLED. PRN LOSANGE PROVIDED. pt DENIES SOB WITH ACTIVITY. ASSESSMENT COMPLETE. COARSE IN RLL ON AUSCULTATION. pt TO USE IS AND ACAPELLA. PECAN GATHERER NOW IN ROOM.
[2024-06-01 05:21] VITALS: BP 117/72
[2024-06-01 05:38] LABS: BASOPHILS 0.2 % (0-2); EOSINOPHILS 0.5 % (0-6); HEMATOCRIT 40.4 % (35.0-50.0); HEMOGLOBIN 13.4 g/dL (12.0-18.0); LYMPHOCYTES 38.2 % (24-44); MCH 30.1 (27-36); MCHC 33.1 g/dl (30-36); MONOCYTES 5.9 % (0-12); NEUTROPHILS 55.2 % (39-80); PLATELET COUNT 239 K/uL (140-440); RBC 4.44 M/ul (4.3-5.7); RDW 13.8 (10.5-15.0)
[2024-06-01 05:56] LABS: ANION GAP 13.8 (7-21); BUN/CREATININE RATIO 24.63 (6.0-28.6); CALCIUM 8.8 mg/dL (8.5-10.1); CREATININE, SERUM 0.69 mg/dL (0.55-1.02); MAGNESIUM 2.3 mg/dL (1.8-2.4); POTASSIUM 3.8 mmol/L (3.5-5.1)
[2024-06-01 06:22] VITALS: BP 117/72
--- NOTE | 2024-06-01 06:23 | NUR ---
Pt called and requested LOC grey PC to RT Norma, and advised her of this. She states she will be down shortly to administer this.
--- NOTE | 2024-06-01 06:32 | NUR ---
CALL LIGHT ANSWERED. pt COMPLAINS OF TIGHTNESS IN UPPER BACK AROUND TO FRONT AFTER AMBULATING. SPOT CHECK SPO2 95% ON RA. RT IN ROOM FOR PRN NEB TREATMENT.
--- NOTE | 2024-06-01 07:37 | NUR ---
RECEIEVED MORNING REPORT FROM FLIGHT COMMUNICATIONS OPERATOR RN. PT REPORTED UPPER BACK TIGHTNESS AND RIGHT SIDED FACIAL NUBMESS/TINGLING. PT REPORTED TIGHTNESS AND NUMBNESS WENT AWAY QUICKLY AFTER. PT REPORTS NO OTHER ABNOMALITIES AT THIS TIME. PT CALL LIGHT WITHIN REACH.
[2024-06-01] MEDS ORDERED: ALBUTEROL/IPRATROPIUM 3 ML NEB INH SCH (08:00)
[2024-06-01] MEDS ORDERED: BUDESONIDE 0.5 MG/2 ML VIAL INH SCH (08:00)
[2024-06-01] MEDS ORDERED: predniSONE 20 MG TAB PO SCH (09:00)
[2024-06-01 09:46] VITALS: BP 114/99
--- NOTE | 2024-06-01 10:45 | NUR ---
CM assessment completed with Pushpa. 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 She has questions about fiing for STD. We discussed she needs to call [facility] and they will assist her. I printed her ER notes, H&P, Progress notes and placed in an envelope for her to fax to STD. REquested she call me when she is ready for dc and I will print the DC summary for her also. She lives with her spouse and kids and denies needs. She has a nebulizer at home and has been taking neb treatments. She denies other needs and her spouse and mom will assist her. Her sister is also here for the holiday week and is watching her children. She denies financial issues and will go home with help from her family.
--- NOTE | 2024-06-01 11:29 | NUR ---
UR CLINICAL REVIEW: [facility] CRITERIA FOR ACUTE VIRAL ILLNESS EMPLOYEE MISSY INMARIA T 05/30/24 @ 0923 ORDER MATCHES REG WILL AWAIT REQUEST FOR CLINICALS IF NEEDED DISCHARGE TO HOME WHEN STABLE ANTICIPATE DC TODAY
--- NOTE | 2024-06-01 12:06 | NUR ---
SPOKE WITH PT AT NURSING STATION WHILE THEY WERE AMBULATING AROUND THE UNIT. PT STATES SHE IS FEELING BETTER THEN YESTERDAY. PT EXPRESES NO NEEDS AT THIS TIME.
[2024-06-01] MEDS ORDERED: PREDNISONE20 MG PO (13:14)
--- NOTE | 2024-06-01 13:51 | NUR ---
PT NOT AVAILABLE FOR VISIT. PROVIDED PRAYER.
== END 2024-06-01 14:45 | disposition home or self-care (01) | DRG 189 ==
LOC: ED 03:22 → MS 03:24
PROVIDERS: Family Medicine; Internal Medicine; ADMIT Student in an Organized Health Care Education/Training Program; ATTEND Student in an Organized Health Care Education/Training Program
DX: J96.01 Acute respiratory failure with hypoxia (principal); J21.8 Acute bronchiolitis due to other specified organisms; E03.9 Hypothyroidism, unspecified; F39 Unspecified mood [affective] disorder; E87.6 Hypokalemia; N20.0 Calculus of kidney; Z98.890 Other specified postprocedural states; Z79.890 Hormone replacement therapy; Z79.899 Other long term (current) drug therapy; Z86.16 Personal history of COVID-19
CPT/HCPCS: 36415; 71045; 80048; 80053; 81003; 82803; 83605; 83735; 83880; 84484; 85025; 87070; 87205; 87502; 93005; 93010; 94640; 94644; 94667; 94668; 94762; G0378; J0780; J1650; J2405; J2919; J3475; J7030; J7121; J7512; U0002

== ENCOUNTER 2025-03-05 05:55 | Day surgery (SDC) | payer BC ==
[~2025-03-05] VITALS: Ht 160 cm; Wt 79.0 kg
[~2025-03-05 05:55] MED LIST changes: +AZITHROMYCIN250 MG; +DICYCLOMINE HCL20 MG PO; +FLUTICASONE-SA1 EAC4 INH; +LACTATED RINGER'S 1,000 ML IV SCH; +MULTI VITAMIN1 EACH PO; +OMEGA 3 1,0001 EACH PO; +PREDNISONE20 MG PO; +RIZATRIPTAN10 MG PO
[2025-03-05 06:07] VITALS: BP 120/55
[2025-03-05] MEDS ORDERED: IBLOOD GLUCOSE TEST STRIP 1 EA TEST VI PRN (07:00)
[2025-03-05] MEDS ORDERED: LIDOCAINE HCL 1% 5 ML SDV INJ ONE (07:00)
[2025-03-05] MEDS ORDERED: LIDOCAINE HCL 2% 5 ML SDV ONE (07:28)
--- NOTE | 2025-03-05 08:14 | NUR ---
03/05/25 0814 Kusum Chaudhari 0807: PT ARRIVES TO PACU DROWSY, BUT EASILY AROUSABLE. REPORT RECEVIED GLUER MACHINE OPERATOR AND FLAT BED OPERATOR.
[2025-03-05 08:46] VITALS: BP 112/64
--- NOTE | 2025-03-06 14:10 | OR ---
[facility] [address] [place], [place] [address] Signed DATE OF OPERATION: 03/05/2025 SURGEON: Sadaf Villa MD PREOPERATIVE DIAGNOSIS: Severe persistent diarrhea without bleeding. POSTOPERATIVE DIAGNOSIS: Normal-appearing colon and ilium. PROCEDURE: Total colonoscopy to cecum with intubation of the ileum, and multiple biopsies. ANESTHESIA: Intravenous sedation, propofol infusion, Berto Santa CRNA. 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 She is referred for consideration of colonoscopy on the basis of significant diarrhea, which lasted at least five days and has been episodically a problem since then. She is markedly benefitted by Bentyl, which had been prescribed. She continues to have some fecal urgency and soft bowel movements, but no blood per rectum. She last underwent colonoscopy in 2004 for weight loss of uncertain etiology in suspicion of food intolerance. She does have a family history of gluten intolerance in sisters. The patient has undergone celiac testing. She has also had stool studies, which are negative including for C difficile. She is now to undergo colonoscopy to better characterize the problem, understand the risk of bleeding, infection, and perforation. FINDINGS: The prep was excellent. Complete colonoscopy was undertaken of the cecum and intubation of the ileum was accomplished as well. All areas examined were entirely normal in appearance. Biopsies were taken throughout to assess for occult colitis or ileitis. DESCRIPTION OF PROCEDURE: The patient was brought to the endoscopy suite and placed in lateral decubitus position, given intravenous sedation to the point of slurred speech and nystagmus with full cardiopulmonary monitoring by the water leak repairer. Digital rectal examination was normal. An Olympus video colonoscope was passed in the rectum and manipulated throughout the Electronically Signed By: SADAF VILLA MD 03/06/25 1410 PATIENT NAME: RAYNA PRUITT OPERATIVE REPORT DATE OF : 83 REPORT #: [id number] PHYSICIAN: SADAF VILLA MD PCP: DANIEL SELBY REPORT IS CONFIDENTIAL AND NOT TO BE RELEASED WITHOUT AUTHORIZATION [facility] [address] [place], [place] [address] Signed colon ultimately intubating the cecum. The ileocecal valve and appendiceal orifice were normal. With various manipulations, the scope was able to be passed into the ileum. It appeared normal as well. Biopsies were taken nevertheless. The scope was withdrawn. A biopsy was then taken of the cecum and hepatic flexure, left colon, sigmoid and rectum. The entire surface of the colon was thoroughly examined and showed no sign of polyp, colitis, diverticular formation or other abnormality. Retroflexed view was normal as well. The scope was removed. The patient was taken to the recovery room in good condition. CONCLUDING DIAGNOSIS: Normal-appearing colon and ilium. PLAN: Empiric treatment with Flagyl 250 mg p.o. t.i.d. will be undertaken if she is still symptomatic. We will await pathology reports to rule out occult colitis (lymphocytic colitis, collagenous colitis, etc.) She will return to see us in approximately 3-4 weeks. MD MILTON Farias/RYANL /[id number] cc: Edgar Love PA-C Copies: EDGAR LOVE PAC ~ Electronically Signed By: SADAF VILLA MD 03/06/25 1410 PATIENT NAME: RAYNA PRUITT OPERATIVE REPORT DATE OF : 83 REPORT #: [id number] PHYSICIAN: SADAF VILLA MD PCP: DANIEL SELBY REPORT IS CONFIDENTIAL AND NOT TO BE RELEASED WITHOUT AUTHORIZATION
--- NOTE | 2025-03-10 16:16 | PATH ---
[facility] [address] [facility] [place], [place] [address] Signed SPECIMEN(S): A ILEUM BIOPSY SPECIMEN(S): B CECUM BIOPSY SPECIMEN(S): C HEPATIC FLEXURE BIOPSY SPECIMEN(S): D TRANSVERSE BIOPSY SPECIMEN(S): E SIGMOID BIOPSY SPECIMEN(S): F RECTUM BIOPSY SPECIMEN SOURCE: A. ILEUM BIOPSY B. CECUM BIOPSY C. HEPATIC FLEXURE BIOPSY D. TRANSVERSE BIOPSY E. SIGMOID BIOPSY F. RECTUM BIOPSY CLINICAL HISTORY: Preop: Chronic diarrhea, bleeding, grade 2 hemorrhoids. Postop: Normal ileum and colon A-F) biopsy FINAL PATHOLOGIC DIAGNOSIS: A. Ileum biopsy: - Benign small bowel mucosa, negative for atypical epithelial features. - Focal partial villous effacement, nonspecific. B. Cecum biopsy: - Benign colonic mucosa, negative for specific diagnostic abnormality. C. Hepatic flexure biopsy: - Benign colonic mucosa, negative for pathologic inflammation. D. Transverse biopsy: - Benign colonic mucosa, negative for specific diagnostic abnormality. E. Sigmoid biopsy: - Benign colonic mucosa, negative for specific diagnostic abnormality. F. Rectum biopsy: - Benign colonic mucosa, negative for specific diagnostic abnormality. JVR:[facility] MICROSCOPIC EXAMINATION: Histologic sections of all submitted blocks are examined by light microscopy. These findings, together with the gross examination, support the pathologic diagnosis. PATIENT NAME: RAYNA PRUITT PATHOLOGY DATE OF : 83 REPORT #: [id number] PHYSICIAN: NICK PATHOLOGY PCP: DANIEL LINDQUIST REPORT IS CONFIDENTIAL AND NOT TO BE RELEASED WITHOUT AUTHORIZATION [facility] [address] [place], [place] [address] Signed GROSS DESCRIPTION: A. The specimen, labeled and designated "Juliano, ileum biopsy," is received in formalin and consists of two bear soft tissue fragments, ranging from 0.1-0.3 cm. Entirely submitted in (A1). B. The specimen, labeled and designated "Juliano, cecum biopsy," is received in formalin and consists of two bear soft tissue fragments, ranging from 0.2-0.3 cm. Entirely submitted in (B1). C. The specimen, labeled and designated "Juliano, hepatic flexure biopsy," is received in formalin and consists of three bear soft tissue fragments, ranging from 0.1-1.1 cm. Entirely submitted in (C1). D. The specimen, labeled and designated "Juliano, transverse biopsy," is received in formalin and consists of two bear soft tissue fragments, ranging from 0.3-0.4 cm. Entirely submitted in (D1). E. The specimen, labeled and designated "Juliano, sigmoid biopsy," is received in formalin and consists of two bear soft tissue fragments, ranging from 0.3-0.4 cm. Entirely submitted in (E1). F. The specimen, labeled and designated "Juliano, rectum biopsy," is received in formalin and consists of three bear soft tissue fragments, ranging from 0.2-0.6 cm. Entirely submitted in (F1). AB (under the direct supervision of a pathologist) The Gross Description was prepared using a voice recognition system. The report was reviewed for accuracy; however, sound-alike word errors, addition and/or deletions may occur. If there is any question about this report, please contact Client Services. PERFORMING LABORATORY: Technical component was performed by [facility], [address] [place] [id number] (CLIA# [id number]). Professional interpretation was performed by [facility], [address] [place], [place] [address]., [place] [address] (CLIA#: [id number]). Diagnostician: Dc Ritchie MD Pathologist Electronically Signed 03/10/2025 Copies: ~ PATIENT NAME: RAYNA PRUITT PATHOLOGY DATE OF : 83 REPORT #: [id number] PHYSICIAN: NICK PATHOLOGY PCP: DANIEL LINDQUIST REPORT IS CONFIDENTIAL AND NOT TO BE RELEASED WITHOUT AUTHORIZATION
== END 2025-03-05 08:57 | disposition home or self-care (01) ==
LOC: DS 05:55
PROVIDERS: ATTEND Surgery
PROC: 0DBL8ZX Excision of Transverse Colon, Via Natural or Artificial Opening Endoscopic, Diagnostic (ICD-10-PCS; principal; 2025-03-05 07:30)
PROC: 0DBN8ZX Excision of Sigmoid Colon, Via Natural or Artificial Opening Endoscopic, Diagnostic (ICD-10-PCS; principal; 2025-03-05 07:30)
PROC: 0DBH8ZX Excision of Cecum, Via Natural or Artificial Opening Endoscopic, Diagnostic (ICD-10-PCS; principal; 2025-03-05 07:30)
PROC: 0DBP8ZX Excision of Rectum, Via Natural or Artificial Opening Endoscopic, Diagnostic (ICD-10-PCS; principal; 2025-03-05 07:30)
DX: K52.9 Noninfective gastroenteritis and colitis, unspecified (principal); E03.9 Hypothyroidism, unspecified; E66.3 Overweight; Z68.30 Body mass index [BMI] 30.0-30.9, adult; Z79.890 Hormone replacement therapy; Z79.899 Other long term (current) drug therapy
CPT/HCPCS: 00811; 36415; 84703; J2003; J2405; J2704; J7121